=== PATIENT | female | born 1970 | race Caucasian/White ===

== ENCOUNTER → 2017-05-20 | Outpatient (CLI) | payer OTHER ==
[2017-05-20 13:40] LABS: Basophils % (A) 1 %; CH 29.6; CHCM 33.3; Eosinophils # (A) 0.2 k/uL (0-0.7); Eosinophils % (A) 2 %; HCT 41.1 % (34.0-46.0); HDW 2.42; HGB 13.2 gm/dL (11.4-16.0); Luc # (Auto) 0.07; Luc % (Auto) 1; Lymphocytes # (A) 1.4 k/uL (1.0-4.8); Lymphocytes % (A) 22 %; MCH 28.6 pg (25.0-35.0); MCV 89.4 fL (80.0-100.0); Mean Platelet Volume 7.6; Monocytes # (A) 0.4 k/uL (0-1.0); Monocytes % (A) 6 %; Neutrophils # (A) 4.3 k/uL (1.3-7.7); Neutrophils % (A) 68 %; RDW 13.9 % (11.5-15.5); WBC 6.3 k/uL (3.8-10.6); WBC (Perox) 6.78
[2017-05-20 13:56] LABS: Calcium 9.3 mg/dL (8.4-10.2); Magnesium 2.1 mg/dL (1.6-2.3); Phosphorous 2.9 mg/dL (2.5-4.5); Potassium 4.5 mmol/L (3.5-5.1); Uric Acid 8.8 mg/dL (3.7-7.4)
[2017-05-20 14:13] LABS: Hemoglobin A1C 6.2 % (4.2-6.1)
[2017-05-20 20:25] LABS: Iron Saturation 29.27 (12.00-45.00)
== END | disposition home or self-care (01) ==
LOC: LABWHC1 12:34
PROVIDERS: ATTEND Internal Medicine
DX: E11.21 Type 2 diabetes mellitus with diabetic nephropathy (principal); N18.3 Chronic kidney disease, stage 3 (moderate); I12.9 Hypertensive chronic kidney disease with stage 1 through stage 4 chronic kidney disease, or unspecified chronic kidney disease; E56.9 Vitamin deficiency, unspecified; E83.30 Disorder of phosphorus metabolism, unspecified
CPT/HCPCS: 36415; 80048; 80061; 82040; 82306; 82570; 83036; 83540; 83550; 83735; 83970; 84100; 84156; 84466; 84550; 85025

== ENCOUNTER → 2017-08-01 | Outpatient (CLI) | payer OTHER ==
[2017-08-01 11:19] LABS: Appearance,Urine Clear (Clear); Basophils % (A) 1 %; Bilirubin,Urine Negative (Negative); CH 28.7; CHCM 32.6; Eosinophils # (A) 0.4 k/uL (0-0.7); Eosinophils % (A) 6 %; Glucose,Urine (UA) Negative (Negative); HDW 2.52; HGB 13.4 gm/dL (11.4-16.0); Ketones,Urine Negative (Negative); Leukocyte Esterase,Urine Negative (Negative); Luc # (Auto) 0.17; Luc % (Auto) 3; Lymphocytes # (A) 1.3 k/uL (1.0-4.8); Lymphocytes % (A) 20 %; MCH 28.2 pg (25.0-35.0); MCHC 31.9 g/dL (31.0-37.0); MCV 88.4 fL (80.0-100.0); Mean Platelet Volume 7.1; Monocytes # (A) 0.3 k/uL (0-1.0); Monocytes % (A) 5 %; Neutrophils # (A) 4.1 k/uL (1.3-7.7); Neutrophils % (A) 65 %; Nitrite,Urine Negative (Negative); PH, Urine 5.5 (5.0-8.0); Protein,Urine Negative (Negative); RBC 4.75 m/uL (3.80-5.40); RDW 12.6 % (11.5-15.5); Specific Gravity,Urine 1.012 (1.001-1.035); UA Billing (MACRO vs. MICRO) CHEM; Urobilinogen,Urine <2.0 mg/dL (<2.0); WBC 6.3 k/uL (3.8-10.6); WBC (Perox) 6.67
[2017-08-01 11:31] LABS: Calcium 9.3 mg/dL (8.4-10.2); Magnesium 1.8 mg/dL (1.6-2.3); Phosphorus 3.6 mg/dL (2.5-4.5); Potassium 4.4 mmol/L (3.5-5.1); Uric Acid 8.1 mg/dL (3.7-7.4)
[2017-08-01 15:56] LABS: Iron Saturation 23.43 (12.00-45.00)
== END | disposition home or self-care (01) ==
LOC: LABWHC1 10:24
PROVIDERS: ATTEND Internal Medicine
DX: E11.21 Type 2 diabetes mellitus with diabetic nephropathy (principal); E11.22 Type 2 diabetes mellitus with diabetic chronic kidney disease; I12.9 Hypertensive chronic kidney disease with stage 1 through stage 4 chronic kidney disease, or unspecified chronic kidney disease; N18.4 Chronic kidney disease, stage 4 (severe); E56.9 Vitamin deficiency, unspecified; E83.30 Disorder of phosphorus metabolism, unspecified
CPT/HCPCS: 36415; 80048; 80061; 81003; 82040; 82306; 82570; 83036; 83540; 83550; 83735; 83970; 84100; 84156; 84466; 84550; 85025

== ENCOUNTER 2017-10-17 10:49 | Emergency (ER) | payer MEDICARE, OTHER ==
[2017-10-17 11:23] VITALS: BP 132/68; PULSE 85; RESP 18; TEMP 97.8
[2017-10-17] MEDS ORDERED: ACETAMINOPHEN TAB 500 MG TAB PO STA (12:17)
--- NOTE | 2017-10-17 12:26 | ED ---
Fall HPI - General Chief Complaint: Fall Stated Complaint: HEAD INJURY FROM FALL, PAIN ALL OVER Time Seen by Provider: 10/17/17 12:09 Source: patient, RN notes reviewed Mode of arrival: ambulatory - History of Present Illness Initial Comments: This is a 47-year-old female who presents to the emergency department with chief complaint of fall. Patient states that she slipped on a patch of ice at 10 AM this morning and hit the back of her head. She denies loss of consciousness, nausea or vomiting, dizziness, worst headache of her life. Patient denies any other injuries or trauma. She states that she did not take any ibuprofen or Tylenol prior to arrival. She states that she did not go in to see her primary care provider because she is not in today. Denies fever, chills, chest pain, shortness of breath, abdominal pain, nausea or vomiting, constipation or diarrhea, dysuria or hematuria, numbness or tingling, or vision changes. - Related Data Allergies Allergy/AdvReac Type Severity Reaction Status Date / Time No Known Allergies Allergy Verified 10/17/17 11:23 Review of Systems ROS Statement: Those systems with pertinent positive or pertinent negative responses have been documented in the HPI. ROS Other: All systems not noted in ROS Statement are negative. Past Medical History Past Medical History: Diabetes Mellitus, Hyperlipidemia, Hypertension History of Any Multi-Drug Resistant Organisms: None Reported Additional Past Surgical History / Comment(s): Aortic valve replacement, stage 3 kidney failure. Past Psychological History: Anxiety, Depression Smoking Status: Former smoker Past Alcohol Use History: None Reported Past Drug Use History: None Reported General Exam - General Exam Comments Initial Comments: General: Awake and alert, well-developed; in no apparent distress. HEENT: Head atraumatic, normocephalic. Small 2cm x 2cm soft tissue swelling at mid parietal region of skull. Pupils are equal, round and reactive to light. Extraocular movements intact. Oropharynx moist without erythema or exudate. Neck: Supple. Normal ROM. Cardiovascular: Regular rate and rhythm. No murmurs, rubs or gallops. Chest symmetrical. Respiratory: Lungs clear to auscultation bilaterally. No wheezes, rales or rhonchi. Normal respiratory effort with no use of accessory muscles. Musculoskeletal: Normal ROM, no tenderness, strength 5/5 bilateral upper and lower extremities. Ambulating normally. Skin: [place], warm and dry without rashes or lesions. Neurological: Alert and oriented x3. CN II-XII grossly intact. Speech is fluent and answers are appropriate. No focal neuro deficits. Rapid alternating movements normal. Finger to nose testing normal. Romberg negative. Psychiatric: Normal mood and affect. No overt signs of depression or anxiety noted. Limitations: no limitations Course Vital Signs 10/17/17 11:20 Temperature 97.8 F Pulse Rate 85 Respiratory 18 Rate Blood Pressure 132/68 O2 Sat by Pulse 96 Oximetry Medical Decision Making - Medical Decision Making This is a 47-year-old female presents to the emergency department with chief complaint of fall. Patient states that she slipped on a patch of ice and hit the back of her head on the ground. Denies any loss of consciousness, nausea vomiting, worst headache of her life. Patient denies any other injury or trauma. Patient does not take blood thinners. Given Tylenol in the emergency department. Return parameters were discussed including episodes of vomiting, difficulty to arouse while sleeping and severe increase in her headache. Patient is in agreement with plan and voices understanding. All questions were answered. She'll be discharged home at this time and is in no acute distress. Disposition Clinical Impression: Head injury, closed, without LOC Disposition: HOME SELF-CARE Condition: Good Instructions: Head Injury (ED) Additional Instructions: Please return to the emergency department if you develop any episodes of vomiting, difficulty to arouse while sleeping or severe headache. Please follow up with primary care provider within 1-2 days. Return to emergency department if symptoms should worsen or any concerns arise. Referrals: Melina Fatima MD [Primary Care Provider] - 1-2 days Time of Disposition: 12:56
== END 2017-10-17 13:37 | disposition home or self-care (01) ==
LOC: EC 10:49
DX: S09.90XA Unspecified injury of head, initial encounter (principal); Z87.891 Personal history of nicotine dependence; W00.0XXA Fall on same level due to ice and snow, initial encounter
CPT/HCPCS: 99283

== ENCOUNTER → 2018-03-03 | Outpatient (CLI) | payer MEDICARE, OTHER ==
--- NOTE | 2018-03-03 08:54 | CT ---
EXAMINATION TYPE: CT abdomen wo con DATE OF EXAM: 03/03/2018 COMPARISON: NONE HISTORY: Left kidney mass CT DLP: 826 mGycm Automated exposure control for dose reduction was used. TECHNIQUE: Helical acquisition of images was performed from the lung bases through the top of iliac crest to include entire abdomen. CONTRAST: Performed with Oral Contrast and without IV contrast. FINDINGS: LUNG BASES: No significant abnormality is appreciated. LIVER/GB: No significant abnormality is appreciated. PANCREAS: No significant abnormality is seen. SPLEEN: No significant abnormality is seen. ADRENALS: No significant abnormality is seen. KIDNEYS: Lack of IV contrast limits assessment for mass. There is fullness to the lower pole of the l eft kidney which will require either contrast or MRI to exclude a mass. No renal stones or hydronephr osis. BOWEL: No significant abnormality is seen. LYMPH NODES: No significant abnormality is appreciated. OSSEOUS STRUCTURES: Degenerative and hypertrophic changes of the spine are noted. Suggestion of prev ious sternotomy.. OTHER: Aorta of normal caliber. Prominence of the azygos vein is incidentally noted. IMPRESSION: 1.Lack of IV contrast limits assessment for mass. There is fullness to the lower pole of the left kid stalin and marked morphological abnormality which could be congenital. However, this will require either contrast CT or MRI to exclude a mass. Therefore, contrast CT or MRI highly recommended. No renal sto adan or hydronephrosis. 2. 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 This can be associated with congenital IVC abnormalities including congenital IVC interrupt ion or azygous continuation of the IVC. 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
== END | disposition home or self-care (01) ==
LOC: RADCTMAIN 07:12
PROVIDERS: ATTEND Internal Medicine
DX: N28.89 Other specified disorders of kidney and ureter (principal); Q26.8 Other congenital malformations of great veins
CPT/HCPCS: 74150

== ENCOUNTER → 2018-11-04 | Outpatient (CLI) | payer MEDICARE ==
--- NOTE | 2018-11-04 13:55 | P.HPBAR ---
Bariatric H&P - History & Physicial H&P Date: 11/04/18 History & Physicial: Visit/CC: Patient initial contact: Initial weight: Initial weight in pounds: Height: Initial BMI: Last weight: Current weight: Current weight in pounds: Current BMI: [place] body weight (based on NIH guidelines): Excess body weight loss: The patient is a 48 year-old F who presents for Bariatric Assessment. HPI: She is looking into the sleeve gastrectomy. She tried to get surgery years prior but was not covered by her insurance. She has no family or friends who has the prodecure. No heartburn. She denies any antacid medications. Highest weight of 342 pounds. She has tried Nutrisystem, weight watchers all without success. She lost 20 pounds often with weight regain. She reports mother, father and sister with obesity. She takes medication for blood pressure. She has sleep apnea and had the machine. She has an insulin pump since 1999. She is type I diabetic. She has her gallbladder. Her father had a cholecystectomy. No reports of troubles with fatty greasy foods. Has psoariasis. She has chronic panniculitis, lower back pain. No chest pain. No other joint pain. She has history of aortic valve replacement ABDOMEN: Pannus over 30 pounds. MS: 1+ pittng edema NECK: Short, thick neck PLAN: 1. Labs 2. EGD 3. MBSC risks 5% Past Medical History Past Medical History: Diabetes Mellitus, Hyperlipidemia, Hypertension, Sleep Apnea/CPAP/BIPAP Additional Past Medical History / Comment(s): Type 1 DM, hx anemia (take iron supplement daily) , seasonal allergies History of Any Multi-Drug Resistant Organisms: None Reported Additional Past Surgical History / Comment(s): Aortic valve replacement, stage 3 kidney failure., low back pain increased with weight gain Past Anesthesia/Blood Transfusion Reactions: No Reported Reaction Additional Past Anesthesia/Blood Transfusion Reaction / Comm: NO blood transfusion to date Past Psychological History: Anxiety, Depression Additional Psychological History / Comment(s): Take zoloft daily Smoking Status: Former smoker Past Alcohol Use History: None Reported Additional Past Alcohol Use History / Comment(s): Quit smoking 2006 (started smoking at age 12, smoked 1/5 packs/day x 25 years) Past Drug Use History: None Reported Additional Drug Use History / Comment(s): No alcohol usage - Past Family History Mother Family Medical History: Cancer, Hypertension Additional Family Medical History / Comment(s): at age 69 from vulva cancer Father Family Medical History: Dementia, Hypertension, Neurologic Disorder Additional Family Medical History / Comment(s): at age 69 from dementia /parkinsons Sister(s) Family Medical History: Hypertension Bariatric Checklist Checklist: Plan: Checklist: EGD: 1. Hiatal hernia: 2. H. Pylori: HgbA1c: Vitamin D: Smoking: Former smoker Primary care physician referral: Psychiatry clearance: Cardiology clearance: Sleep study: Diet journal: VTE risk score: VTE risk level: Rehab needs at discharge:
[2018-11-04 14:00] VITALS: BP 140/89; PULSE 88; TEMP 97.9; BMI 57.6
[2018-11-04 15:19] LABS: HCT 42.1 % (34.0-46.0); HGB 13.5 gm/dL (11.4-16.0); MCH 28.7 pg (25.0-35.0); MCV 89.6 fL (80.0-100.0); Mean Platelet Volume 6.5; Platelet Count 213 k/uL (150-450); RDW 14.6 % (11.5-15.5); WBC 6.7 k/uL (3.8-10.6)
[2018-11-04 19:24] LABS: Iron Saturation 42.45 (12.00-45.00)
[2018-11-04 19:28] LABS: Albumin 4.5 g/dL (3.80-4.90); Albumin/Globulin Ratio 1.8 (1.60-3.17); Anion Gap 7.8 mmol/L (4.00-12.00); Calcium 9.8 mg/dL (8.7-10.3); Carbon Dioxide 29.2 mmol/L (21.6-31.8); Globulin 2.5 g/dL (1.6-3.3); Phosphorus 3.6 mg/dL (2.4-5.1); Potassium 4.7 mmol/L (3.5-5.5); Total Bilirubin 0.8 mg/dL (0.3-1.2)
[2018-11-04 19:32] LABS: Parathyroid Hormone Intact 75.6 pg/mL (14.0-72.0)
[2018-11-04 19:33] LABS: Folate, Serum 14.8 ng/mL
[2018-11-05 15:43] LABS: Zinc, Serum 80 ug/dL (60-130)
[2018-11-06 09:39] LABS: Vitamin A 82 ug/dL (38-106)
== END ==
LOC: BARWHC3 12:45
PROVIDERS: ATTEND Surgery Plastic and Reconstructive Surgery
DX: M79.3 Panniculitis, unspecified (principal); M54.5 Low back pain; E10.8 Type 1 diabetes mellitus with unspecified complications; E66.01 Morbid (severe) obesity due to excess calories; E21.1 Secondary hyperparathyroidism, not elsewhere classified; E89.1 Postprocedural hypoinsulinemia; D50.9 Iron deficiency anemia, unspecified; K90.9 Intestinal malabsorption, unspecified; E44.0 Moderate protein-calorie malnutrition; E55.9 Vitamin D deficiency, unspecified; K74.1 Hepatic sclerosis; N19 Unspecified kidney failure; K50.90 Crohn's disease, unspecified, without complications; Z87.891 Personal history of nicotine dependence
CPT/HCPCS: 84255; 84134; 84425; 80061; 80053; 82607; 82728; 82525; 82746; 83540; 83550; 83735; 84100; 84443; 84590; 84630; 85027; 82306; 83970; 83036; 93005; G0463; 99211

== ENCOUNTER → 2018-12-26 | Outpatient (CLI) | payer MEDICARE | END | disposition home or self-care (01) | LOC: RADMRIMAIN 13:41 | PROVIDERS: ATTEND Urology | DX: Z53.9 Procedure and treatment not carried out, unspecified reason (principal) ==

== ENCOUNTER 2018-12-28 06:31 | Day surgery (SDC) | payer MEDICARE ==
[2018-12-23 11:39] VITALS: BMI 57.9
[~2018-12-28 06:31] MED LIST: LACTATED RINGERS 1,000 ML IV SCH; LIDOCAINE 1% 20 ML VIAL (10MG/ML) FOR IV START INTRADERMA PRN
[2018-12-28 07:06] VITALS: RESP 16; TEMP 97.2
[2018-12-28] MEDS ORDERED: LIDOCAINE 1% 20 ML VIAL (10MG/ML) FOR IV START INTRADERMA ONE (07:06)
[2018-12-28 07:07] LABS: Glucose,Whole Blood 175 mg/dL (75-99)
--- NOTE | 2018-12-28 07:11 | P.GSHP ---
History of Present Illness H&P Date: 12/28/18 CHIEF COMPLAINT: GERD HISTORY OF PRESENT ILLNESS: The patient is a 48-year-old female who presents reports gastroesophageal reflux disease. Upper endoscopy was offered for further evaluation and management. PAST MEDICAL HISTORY: Please see list. PAST SURGICAL HISTORY: Please see list. MEDICATIONS: Please see list. ALLERGIES: Please see list. SOCIAL HISTORY: No illicit drug use FAMILY HISTORY: No reports of Crohn disease or ulcerative colitis. REVIEW OF ORGAN SYSTEMS: CONSTITUTIONAL: No reports of fevers or chills. GI: Denies any blood in stools or constipation. PHYSICAL EXAM: VITAL SIGNS: Stable GENERAL: Well-developed and pleasant in no acute distress. HEENT: No scleral icterus. Extraocular movements grossly intact. Moist buccal mucosa. NECK: Supple without lymphadenopathy. CHEST: Unlabored respirations. Equal bilateral excursions. CARDIOVASCULAR: Regular rate and rhythm. Distal 2+ pulses. ABDOMEN: Soft, nondistended. MUSCULOSKELETAL: No clubbing, cyanosis, or edema. ASSESSMENT: 1. Gastroesophageal reflux disease PLAN: 1. Recommend proceeding with an upper endoscopy Past Medical History Past Medical History: Diabetes Mellitus, Hyperlipidemia, Hypertension, Sleep Apnea/CPAP/BIPAP Additional Past Medical History / Comment(s): Type 1 DM, hx anemia (take iron supplement daily) , seasonal allergies, STAGE 4 KIDNEY FAILURE, CHRONIC BACK PAIN History of Any Multi-Drug Resistant Organisms: None Reported Additional Past Surgical History / Comment(s): Aortic valve replacement Past Anesthesia/Blood Transfusion Reactions: No Reported Reaction Additional Past Anesthesia/Blood Transfusion Reaction / Comment(s): NO blood transfusion to date Smoking Status: Former smoker - Past Family History Mother Family Medical History: Cancer, Hypertension Additional Family Medical History / Comment(s): at age 69 from vulva cancer Father Family Medical History: Dementia, Hypertension, Neurologic Disorder Additional Family Medical History / Comment(s): at age 69 from dementia/parkinsons Sister(s) Family Medical History: Hypertension Medications and Allergies Home Medications Medication Instructions Recorded Confirmed Type Amitriptyline HCl [Elavil] 50 mg PO HS 11/04/18 12/28/18 History Aspirin [Children's Aspirin] 81 mg PO DAILY 11/04/18 12/28/18 History Atorvastatin [Lipitor] 10 mg PO DAILY 11/04/18 12/28/18 History Bumetanide [Bumex] 1 mg PO DAILY 11/04/18 12/28/18 History Cetirizine HCl [Zyrtec] 10 mg PO DAILY 11/04/18 12/28/18 History Ergocalciferol [Vitamin D2] 50,000 unit PO Q30D 11/04/18 12/28/18 History Ferrous Sulfate [Feosol] 325 mg PO DAILY 11/04/18 12/28/18 History Insulin Aspart (For Pump) [NovoLOG 0.01 unit SQ-PUMP CONTINUOUS 11/04/18 12/28/18 History (For Pump)] Lisinopril [Zestril] 10 mg PO DAILY 11/04/18 12/28/18 History Metoprolol Tartrate [Lopressor] 25 mg PO BID 11/04/18 12/28/18 History Semaglutide [Ozempic] 1 mg SQ SA 11/04/18 12/28/18 History Sertraline HCl [Zoloft] 150 mg PO HS 11/04/18 12/28/18 History Allergies Allergy/AdvReac Type Severity Reaction Status Date / Time adhesive Allergy Intermediate Rash/Hives Verified 12/23/18 11:30 latex Allergy Intermediate Rash/Hives Verified 12/23/18 11:30 Surgical - Exam Vital Signs Temp Pulse Resp BP Pulse Ox 97.2 F L 108 H 16 116/62 98 12/28/18 06:53 12/28/18 06:53 12/28/18 06:53 12/28/18 06:53 12/28/18 06:53 Results - Labs Abnormal Lab Results - Last 24 Hours (Table) 12/28/18 Range/Units 07:02 POC Glucose (mg/dL) 175 H (75-99) mg/dL
[2018-12-28] MEDS ORDERED: PROPOFOL 10 MG/ML 20 ML VIAL IV ONE (07:34)
--- NOTE | 2018-12-28 07:53 | P.PCN ---
Date of Procedure: 12/28/18 Description of Procedure: PREOPERATIVE DIAGNOSIS: Gastroesophageal reflux disease. Morbid obesity. POSTOPERATIVE DIAGNOSIS: Morbid obesity. Gastritis. Gastroesophageal reflux disease. Moderate retained gastric contents Gastroparesis, diabetic OPERATION: Esophagogastroscopy SURGEON: Mallorie Patterson MD ANESTHESIA: MAC. INDICATIONS: The patient is a 48-year-old female who presents with a history of reflux disease. Benefits and risks of the procedure were described. Informed consent was obtained. DESCRIPTION: The patient was brought into the endoscopy suite and laid in the left lateral decubitus position. An Olympus gastroscope was passed along the posterior oropharynx down to the distal esophagus where the squamocolumnar junction was encountered at 36 cm from the incisors. The stomach was entered and the entire stomach was filled with food limiting advancement to the duodenum. As a result of moderate retained food, procedure was discontinued into the stomach. The squamocolumnar junction demonstrated LA grade B erosive esophagitis. The stomach was desufflated. The patient tolerated the procedure well. FINDINGS: Squamocolumnar junction 34 cm from the incisors. LA grade B erosive esophagitis. Entire stomach full of food prohibiting vestment into duodenum Gastritis along gastric cardia RECOMMENDATIONS: Start prokinetics for gastroparesis Will need repeat upper endoscopy however on liquid diet 24 hours prior Plan - Discharge Summary Discharge Rx Participant: Yes New Discharge Prescriptions: New Metoclopramide [Reglan] 10 mg PO ACHS #30 tab No Action Ergocalciferol [Vitamin D2] 50,000 unit PO Q30D Semaglutide [Ozempic] 1 mg SQ SA Amitriptyline HCl [Elavil] 50 mg PO HS Metoprolol Tartrate [Lopressor] 25 mg PO BID Insulin Aspart (For Pump) [NovoLOG (For Pump)] 0.01 unit SQ-PUMP CONTINUOUS Lisinopril [Zestril] 10 mg PO DAILY Ferrous Sulfate [Feosol] 325 mg PO DAILY Atorvastatin [Lipitor] 10 mg PO DAILY Cetirizine HCl [Zyrtec] 10 mg PO DAILY Bumetanide [Bumex] 1 mg PO DAILY Aspirin [Children's Aspirin] 81 mg PO DAILY Sertraline HCl [Zoloft] 150 mg PO HS Discharge Medication List Amitriptyline HCl [Elavil] 50 mg PO HS 11/04/18 [History] Aspirin [Children's Aspirin] 81 mg PO DAILY 11/04/18 [History] Atorvastatin [Lipitor] 10 mg PO DAILY 11/04/18 [History] Bumetanide [Bumex] 1 mg PO DAILY 11/04/18 [History] Cetirizine HCl [Zyrtec] 10 mg PO DAILY 11/04/18 [History] Ergocalciferol [Vitamin D2] 50,000 unit PO Q30D 11/04/18 [History] Ferrous Sulfate [Feosol] 325 mg PO DAILY 11/04/18 [History] Insulin Aspart (For Pump) [NovoLOG (For Pump)] 0.01 unit SQ-PUMP CONTINUOUS 11/04/18 [History] Lisinopril [Zestril] 10 mg PO DAILY 11/04/18 [History] Metoprolol Tartrate [Lopressor] 25 mg PO BID 11/04/18 [History] Semaglutide [Ozempic] 1 mg SQ SA 11/04/18 [History] Sertraline HCl [Zoloft] 150 mg PO HS 11/04/18 [History] Metoclopramide [Reglan] 10 mg PO ACHS #30 tab 12/28/18 [Rx] Follow up Appointment(s)/Referral(s): [facility],. [NON-STAFF] - 01/20/19 Patient Instructions/Handouts: Diabetic Gastroparesis (DC) Discharge Disposition: HOME SELF-CARE
[2018-12-28 08:19] VITALS: BP 103/56; PULSE 95
[2018-12-28 08:45] LABS: Glucose,Whole Blood 154 mg/dL (75-99)
== END 2018-12-28 08:20 | disposition home or self-care (01) ==
LOC: ORWHC2ENDO 06:31
PROVIDERS: ATTEND Surgery Plastic and Reconstructive Surgery
DX: K21.0 Gastro-esophageal reflux disease with esophagitis (principal); K29.70 Gastritis, unspecified, without bleeding; E10.43 Type 1 diabetes mellitus with diabetic autonomic (poly)neuropathy; K31.84 Gastroparesis; I12.9 Hypertensive chronic kidney disease with stage 1 through stage 4 chronic kidney disease, or unspecified chronic kidney disease; E10.22 Type 1 diabetes mellitus with diabetic chronic kidney disease; N18.4 Chronic kidney disease, stage 4 (severe); E78.5 Hyperlipidemia, unspecified; E66.01 Morbid (severe) obesity due to excess calories; Z68.43 Body mass index [BMI] 50.0-59.9, adult; G47.33 Obstructive sleep apnea (adult) (pediatric); Z99.89 Dependence on other enabling machines and devices; D64.9 Anemia, unspecified; G89.29 Other chronic pain; M54.5 Low back pain; J30.2 Other seasonal allergic rhinitis; Z96.41 Presence of insulin pump (external) (internal); Z95.2 Presence of prosthetic heart valve; Z87.891 Personal history of nicotine dependence; Z80.49 Family history of malignant neoplasm of other genital organs; Z79.82 Long term (current) use of aspirin; Z79.899 Other long term (current) drug therapy; Z91.040 Latex allergy status; Z91.048 Other nonmedicinal substance allergy status
CPT/HCPCS: 81025; 84703; 43235; J2704

== ENCOUNTER → 2019-01-20 | Outpatient (CLI) | payer MEDICARE ==
[2019-01-20 16:04] VITALS: BP 134/77; PULSE 88; RESP 16; TEMP 98; BMI 56.3
--- NOTE | 2019-01-20 16:57 | P.PN ---
Progress Note - Text Progress Note Date: 01/20/19 HPI: She is currently ill and sick for 3 weeks. She comes in with coughing. Her blood sugars are over 200s. She is short of breath. ABDOMEN: Soft LABS: All reviewed with stage 3 liver disease ASSESSMENT: 1. Morbid obesity 2. Aspiration pneumonia PLAN: 1. Chest xray for pneumonia 2. CBC repeat for pneumonia 3. Esophagram for severe GERD 4. Will need repeat EGD after recovery of pneumonia 5. Referral to library aide described following results of Chest Xray. 6. Follow up in 1 month
[2019-01-20 17:51] LABS: HCT 38.7 % (34.0-46.0); HGB 12.6 gm/dL (11.4-16.0); MCH 28.8 pg (25.0-35.0); MCHC 32.5 g/dL (31.0-37.0); MCV 88.4 fL (80.0-100.0); Mean Platelet Volume 7.3; Platelet Count 219 k/uL (150-450); RBC 4.38 m/uL (3.80-5.40); RDW 14.6 % (11.5-15.5); WBC 9.1 k/uL (3.8-10.6)
== END | disposition home or self-care (01) ==
LOC: BARWHC3 15:24
PROVIDERS: ATTEND Surgery Plastic and Reconstructive Surgery
DX: J69.0 Pneumonitis due to inhalation of food and vomit (principal); E66.01 Morbid (severe) obesity due to excess calories; K21.9 Gastro-esophageal reflux disease without esophagitis; Z68.43 Body mass index [BMI] 50.0-59.9, adult
CPT/HCPCS: 85027; 36415; G0463; 99211

== ENCOUNTER → 2019-01-22 | Outpatient (CLI) | payer MEDICARE ==
--- NOTE | 2019-01-22 09:36 | XR ---
EXAMINATION TYPE: XR chest 2V DATE OF EXAM: 01/22/2019 COMPARISON: None INDICATION: Shortness of breath TECHNIQUE: Frontal and lateral views of the chest are obtained. FINDINGS: The heart size is normal. The pulmonary vasculature is normal. The lungs are clear. Sternotomy wires are present from prior cardiac valve surgery IMPRESSION: 1. No acute pulmonary process.
== END | disposition home or self-care (01) ==
LOC: RADXRMAIN 09:08
PROVIDERS: ATTEND Surgery Plastic and Reconstructive Surgery
DX: R06.02 Shortness of breath (principal); R06.03 Acute respiratory distress; Z88.3 Allergy status to other anti-infective agents; Z91.048 Other nonmedicinal substance allergy status
CPT/HCPCS: 71046

== ENCOUNTER 2019-02-01 12:32 | Day surgery (SDC) | payer MEDICARE ==
--- NOTE | 2019-01-31 14:29 | P.GSHP ---
History of Present Illness H&P Date: 02/01/19 CHIEF COMPLAINT: GERD HISTORY OF PRESENT ILLNESS: The patient is a 48-year-old female who presents reports gastroesophageal reflux disease. Upper endoscopy was offered for further evaluation and management. PAST MEDICAL HISTORY: Please see list. PAST SURGICAL HISTORY: Please see list. MEDICATIONS: Please see list. ALLERGIES: Please see list. SOCIAL HISTORY: No illicit drug use FAMILY HISTORY: No reports of Crohn disease or ulcerative colitis. REVIEW OF ORGAN SYSTEMS: CONSTITUTIONAL: No reports of fevers or chills. GI: Denies any blood in stools or constipation. PHYSICAL EXAM: VITAL SIGNS: Stable GENERAL: Well-developed and pleasant in no acute distress. HEENT: No scleral icterus. Extraocular movements grossly intact. Moist buccal mucosa. NECK: Supple without lymphadenopathy. CHEST: Unlabored respirations. Equal bilateral excursions. CARDIOVASCULAR: Regular rate and rhythm. Distal 2+ pulses. ABDOMEN: Soft, nondistended. MUSCULOSKELETAL: No clubbing, cyanosis, or edema. ASSESSMENT: 1. Gastroesophageal reflux disease PLAN: 1. Recommend proceeding with an upper endoscopy Past Medical History Past Medical History: Diabetes Mellitus, Hyperlipidemia, Hypertension, Sleep Apnea/CPAP/BIPAP Additional Past Medical History / Comment(s): Type 1 DM, hx anemia (take iron supplement daily) , seasonal allergies, STAGE 4 KIDNEY FAILURE, CHRONIC BACK PAIN History of Any Multi-Drug Resistant Organisms: None Reported Additional Past Surgical History / Comment(s): Aortic valve replacement Past Anesthesia/Blood Transfusion Reactions: No Reported Reaction Additional Past Anesthesia/Blood Transfusion Reaction / Comment(s): NO blood transfusion to date Past Psychological History: Anxiety, Depression Additional Psychological History / Comment(s): Take zoloft daily Smoking Status: Former smoker Past Alcohol Use History: None Reported Additional Past Alcohol Use History / Comment(s): Quit smoking 2006 (started smoking at age 12, smoked 1/5 packs/day x 25 years) Past Drug Use History: None Reported Additional Drug Use History / Comment(s): No alcohol usage - Past Family History Mother Family Medical History: Cancer, Hypertension Additional Family Medical History / Comment(s): at age 69 from vulva cancer Father Family Medical History: Dementia, Hypertension, Neurologic Disorder Additional Family Medical History / Comment(s): at age 69 from dementia/parkinsons Sister(s) Family Medical History: Hypertension Medications and Allergies Home Medications Medication Instructions Recorded Confirmed Type Amitriptyline HCl [Elavil] 50 mg PO HS 11/04/18 01/29/19 History Aspirin [Children's Aspirin] 81 mg PO DAILY 11/04/18 01/29/19 History Bumetanide [Bumex] 1 mg PO QAM 11/04/18 01/29/19 History Cetirizine HCl [Zyrtec] 10 mg PO QAM 11/04/18 01/29/19 History Ergocalciferol [Vitamin D2] 50,000 unit PO Q30D 11/04/18 01/29/19 History Ferrous Sulfate [Feosol] 325 mg PO DAILY 11/04/18 01/29/19 History Insulin Aspart (For Pump) [NovoLOG 0.01 unit SQ-PUMP CONTINUOUS 11/04/18 01/29/19 History (For Pump)] Lisinopril [Zestril] 10 mg PO QAM 11/04/18 01/29/19 History Metoprolol Tartrate [Lopressor] 25 mg PO BID 11/04/18 01/29/19 History Semaglutide [Ozempic] 1 mg SQ SA 11/04/18 01/29/19 History Sertraline HCl [Zoloft] 150 mg PO HS 11/04/18 01/29/19 History Atorvastatin [Lipitor] 40 mg PO HS 01/29/19 01/29/19 History Metoclopramide [Reglan] 10 mg PO BID 01/29/19 01/29/19 History Allergies Allergy/AdvReac Type Severity Reaction Status Date / Time adhesive Allergy Intermediate Rash/Hives Verified 01/29/19 09:07 latex Allergy Intermediate Rash/Hives Verified 01/29/19 09:07
[~2019-02-01 12:32] MED LIST changes: -LIDOCAINE 1% 20 ML VIAL (10MG/ML) FOR IV START INTRADERMA PRN
[2019-02-01 13:05] VITALS: TEMP 97.5
[2019-02-01 13:30] LABS: Glucose,Whole Blood 197 mg/dL (75-99)
[2019-02-01] MEDS ORDERED: PROPOFOL 10 MG/ML 20 ML VIAL IV ONE (14:33)
[2019-02-01] MEDS ORDERED: LIDOCAINE 1% INJ 10MG/ML (20 ML MDV) ONE (14:33)
--- NOTE | 2019-02-01 14:49 | P.PCN ---
Date of Procedure: 02/01/19 Description of Procedure: PREOPERATIVE DIAGNOSIS: Gastroesophageal reflux disease. Morbid obesity. POSTOPERATIVE DIAGNOSIS: Morbid obesity. Gastritis. Gastroesophageal reflux disease. Diaphragmatic hiatal hernia OPERATION: Esophagogastroduodenoscopy with biopsies along antrum. SURGEON: Mallorie Patterson MD ANESTHESIA: MAC. INDICATIONS: The patient is a 48-year-old female who presents with a history of reflux disease. Benefits and risks of the procedure were described. Informed consent was obtained. DESCRIPTION: The patient was brought into the endoscopy suite and laid in the left lateral decubitus position. An Olympus gastroscope was passed along the posterior oropharynx down to the distal esophagus where the squamocolumnar junction was encountered at 35 cm from the incisors. The stomach was entered and no bile reflux was found. Additional findings are listed below. Biopsies with cold fo rceps were obtained of the antrum. The first through third portion of the duodenum was examined and unremarkable. Retroflexion of the scope confirmed Hill grade 3 lower esophageal valve. The squamocolumnar junction demonstrated LA grade B erosive esophagitis. The stomach was desufflated. The patient tolerated the procedure well. FINDINGS: Squamocolumnar junction 35 cm from the incisors. Diaphragmatic hiatus at 38 cm. Hiatal hernia, 3 cm Hill grade 3 lower esophageal valve. LA grade B erosive esophagitis. No active duodenitis. Chronic gastritis RECOMMENDATIONS: Upper endoscopy as needed. Plan - Discharge Summary Discharge Rx Participant: Yes New Discharge Prescriptions: No Action Ergocalciferol [Vitamin D2] 50,000 unit PO Q30D Semaglutide [Ozempic] 1 mg SQ SA Amitriptyline HCl [Elavil] 50 mg PO HS Metoprolol Tartrate [Lopressor] 25 mg PO BID Insulin Aspart (For Pump) [NovoLOG (For Pump)] 0.01 unit SQ-PUMP CONTINUOUS Lisinopril [Zestril] 10 mg PO QAM Ferrous Sulfate [Feosol] 325 mg PO DAILY Cetirizine HCl [Zyrtec] 10 mg PO QAM Bumetanide [Bumex] 1 mg PO QAM Aspirin [Children's Aspirin] 81 mg PO DAILY Sertraline HCl [Zoloft] 150 mg PO HS Metoclopramide [Reglan] 10 mg PO BID Atorvastatin [Lipitor] 40 mg PO HS Discharge Medication List Amitriptyline HCl [Elavil] 50 mg PO HS 11/04/18 [History] Aspirin [Children's Aspirin] 81 mg PO DAILY 11/04/18 [History] Bumetanide [Bumex] 1 mg PO QAM 11/04/18 [History] Cetirizine HCl [Zyrtec] 10 mg PO QAM 11/04/18 [History] Ergocalciferol [Vitamin D2] 50,000 unit PO Q30D 11/04/18 [History] Ferrous Sulfate [Feosol] 325 mg PO DAILY 11/04/18 [History] Insulin Aspart (For Pump) [NovoLOG (For Pump)] 0.01 unit SQ-PUMP CONTINUOUS 11/04/18 [History] Lisinopril [Zestril] 10 mg PO QAM 11/04/18 [History] Metoprolol Tartrate [Lopressor] 25 mg PO BID 11/04/18 [History] Semaglutide [Ozempic] 1 mg SQ SA 11/04/18 [History] Sertraline HCl [Zoloft] 150 mg PO HS 11/04/18 [History] Atorvastatin [Lipitor] 40 mg PO HS 01/29/19 [History] Metoclopramide [Reglan] 10 mg PO BID 01/29/19 [History] Follow up Appointment(s)/Referral(s): [facility],. [NON-STAFF] - 03/10/19 Patient Instructions/Handouts: Gastritis (DC) Discharge Disposition: HOME SELF-CARE
[2019-02-01 14:52] VITALS: RESP 16
[2019-02-01 15:13] VITALS: BP 122/79; PULSE 88
== END 2019-02-01 15:31 | disposition home or self-care (01) ==
LOC: ORWHC2ENDO 12:32
PROVIDERS: ATTEND Surgery Plastic and Reconstructive Surgery
DX: K21.9 Gastro-esophageal reflux disease without esophagitis (principal); K29.50 Unspecified chronic gastritis without bleeding; K44.9 Diaphragmatic hernia without obstruction or gangrene; E78.5 Hyperlipidemia, unspecified; G47.33 Obstructive sleep apnea (adult) (pediatric); Z99.89 Dependence on other enabling machines and devices; I12.9 Hypertensive chronic kidney disease with stage 1 through stage 4 chronic kidney disease, or unspecified chronic kidney disease; E10.22 Type 1 diabetes mellitus with diabetic chronic kidney disease; N18.4 Chronic kidney disease, stage 4 (severe); Z79.4 Long term (current) use of insulin; Z96.41 Presence of insulin pump (external) (internal); E66.01 Morbid (severe) obesity due to excess calories; Z68.43 Body mass index [BMI] 50.0-59.9, adult; D64.9 Anemia, unspecified; Z95.2 Presence of prosthetic heart valve; G89.29 Other chronic pain; M54.9 Dorsalgia, unspecified; F41.9 Anxiety disorder, unspecified; F32.9 Major depressive disorder, single episode, unspecified; Z87.891 Personal history of nicotine dependence; Z80.49 Family history of malignant neoplasm of other genital organs; Z79.82 Long term (current) use of aspirin; Z79.899 Other long term (current) drug therapy; Z91.040 Latex allergy status; Z91.09 Other allergy status, other than to drugs and biological substances
CPT/HCPCS: 43239; J2001; J2704; 88305

== ENCOUNTER → 2019-02-08 | Outpatient (CLI) | payer MEDICARE ==
[2019-02-08 13:51] VITALS: BMI 57.4
== END ==
LOC: BARWHC3 08:38
PROVIDERS: ATTEND Surgery Plastic and Reconstructive Surgery
DX: E66.01 Morbid (severe) obesity due to excess calories (principal); Z68.43 Body mass index [BMI] 50.0-59.9, adult
CPT/HCPCS: 97804

== ENCOUNTER → 2019-03-10 | Outpatient (CLI) | payer MEDICARE ==
[2019-03-10 15:03] VITALS: BP 129/82; PULSE 97; RESP 16; TEMP 97.7; BMI 56.0
--- NOTE | 2019-03-10 15:57 | P.PN ---
Subjective Progress Note Date: 03/10/19 DATE OF SERVICE: 03/10/2019 CHIEF COMPLAINT: Morbid obesity HISTORY OF PRESENT ILLNESS: Radha Grande is a 48-year-old female who comes with lifelong morbid obesity. She was looking into the sleeve gastrectomy and now looking into the gastric bypass. She has history of diaphragmatic nephropathy. 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 At height of 5 feet 3.5 inches, her ideal body weight is 140 pounds. She comes in 320 pounds from 329 pounds, 1 month ago. Weight loss of 9 pounds in 1 month. Her highest weight was 342 pounds. Her body mass index highest was 59.8. Today her BMI is 56.0. She is 180 pounds overweight. PAST MEDICAL HISTORY: 1. Morbid obesity due to excess calories 2. Body mass index of 59.8, initial 3. Hypertensive heart disease. 4. Obstructive sleep apnea 5. Diabetes type I, insulin dependent 6. Chronic panniculitis 7. Osteoarthritis of the lower back. 8. Depression 9. Anxiety disorder 10. Hyperlipidemia 11. Iron deficiency 12. Congestive heart failure 13. Gastroesophageal reflux disease 14. Diabetic nephropathy, stage 3 PAST SURGICAL HISTORY: 1. Aortic valve replacement 2. Upper endoscopy HOME MEDICATIONS: ALLERGIES: Medications and Allergies Home Medications Medication Instructions Recorded Confirmed Type Amitriptyline HCl [Elavil] 50 mg PO HS 11/04/18 12/28/18 History Aspirin [Children's Aspirin] 81 mg PO DAILY 11/04/18 12/28/18 History Atorvastatin [Lipitor] 10 mg PO DAILY 11/04/18 12/28/18 History Bumetanide [Bumex] 1 mg PO DAILY 11/04/18 12/28/18 History Cetirizine HCl [Zyrtec] 10 mg PO DAILY 11/04/18 12/28/18 History Ergocalciferol [Vitamin D2] 50,000 unit PO Q30D 11/04/18 12/28/18 History Ferrous Sulfate [Feosol] 325 mg PO DAILY 11/04/18 12/28/18 History Insulin Aspart (For Pump) [NovoLOG 0.01 unit SQ-PUMP CONTINUOUS 11/04/18 12/28/18 History (For Pump)] Lisinopril [Zestril] 10 mg PO DAILY 11/04/18 12/28/18 History Metoprolol Tartrate [Lopressor] 25 mg PO BID 11/04/18 12/28/18 History Semaglutide [Ozempic] 1 mg SQ SA 11/04/18 12/28/18 History Sertraline HCl [Zoloft] 150 mg PO HS 11/04/18 12/28/18 History Allergies Allergy/AdvReac Type Severity Reaction Status Date / Time adhesive Allergy Intermediate Rash/Hives Verified 12/23/18 11:30 latex Allergy Intermediate Rash/Hives Verified 12/23/18 11:30 SOCIAL HISTORY: Past tobacco use. FAMILY HISTORY: No family history of ulcerative colitis disease or Crohn's disease. Family history of morbid obesity. No lupus in the family. No reports of stomach or esophageal cancer. REVIEW OF ORGAN SYSTEMS: CONSTITUTIONAL: At height of 5 feet 3.5 inches, her ideal body weight is 140 pounds. Her highest weight was 342 pounds. Her body mass index highest was 59.8. HEENT: Denies any active troubles with vision or hearing. No troubles with swallowing. ENDOCRINE: Has diabetes. No hypothyroidism. CARDIOVASCULAR: Past reports of palpitations or heart attacks or chest pain. RESPIRATORY: Has daytime somnolence. Has sleep apnea. GI: Denies any bright red blood per rectum. No diarrhea. Has GERD. MUSCULOSKELETAL: Has lower back pain and joint pain. History of bilateral lower extremity edema. NEURO: No headaches. No seizure disorders. PSYCH: Has depression. No suicidal ideation. Has anxiety. RHEUMATOLOGIC: No lupus. No rheumatoid arthritis. HEMATOLOGIC: Denies any abnormal bleeding or bruising. No personal history of DVTs. SKIN: Has panniculitis. No skin cancer. : Stage III renal insufficiency. PHYSICAL EXAM: VITAL SIGNS: Height 5 foot 3.5 inches, weight 320 pounds. BMI 56.0 Vital Signs Temp 97.7 F 03/10/19 14:59 Pulse 97 03/10/19 14:59 Resp 16 03/10/19 14:59 BP 129/82 03/10/19 14:59 Pulse Ox GENERAL: Well-developed in no acute distress. HEENT: No scleral icterus. Extraocular movements grossly intact. Hears conversational speech. No nasal drainage. NECK: Supple without lymphadenopathy. Short, thick neck CHEST: Nonlabored respirations with equal bilateral excursions. CARDIOVASCULAR: Regular rate and regular rhythm. Distal 2+ pulses. ABDOMEN: Obese, soft, nontender, nondistended. Pannus over 30 pounds. MUSCULOSKELETAL: No clubbing, cyanosis. Gross strength 5/5 distal lower extremities. 1+ pittng edema NEURO: No focal or lateralizing signs. Cranial nerves 2 through 12 grossly within normal limits. PSYCH: Appropriate affect. Alert and oriented to person, place and time. SKIN: Good skin turgor. Well perfused. Has panniculitis. EGD FINDINGS: Squamocolumnar junction 35 cm from the incisors. Diaphragmatic hiatus at 38 cm. Hiatal hernia, 3 cm Hill grade 3 lower esophageal valve. LA grade B erosive esophagitis. No active duodenitis. Chronic gastritis ASSESSMENT: 1. Morbid obesity due to excess calories 2. Body mass index of 59.8 to 56.3 3. Hypertensive heart disease. 4. Obstructive sleep apnea 5. Diabetes type I, insulin dependent 6. Chronic panniculitis 7. Osteoarthritis of the lower back. 8. Depression 9. Anxiety disorder 10. Hyperlipidemia 11. Iron deficiency 12. Congestive heart failure 13. Gastroesophageal reflux disease 14. Diabetic nephropathy, stage 3 15. History of aspiration pneumonia 16. Diabetic gastroparesis PLAN: 1. Bariatric options between a sleeve, band and a [id number] gastric bypass were reviewed in detail. The patient elected for a gastric bypass. Robotic assisted approach described. 2. The [place] [facility] Data was also reviewed with benefits and risks as described. 3. An 8 page second-generation bariatric consent form was reviewed in detail including potential of bleeding, infection, leaks, adequate weight loss, n utritional deficiencies which the patient demonstrated understanding of the risks. 4. A 2 week high-protein low caloric 800 kcal diet described to address hepatomegaly. 5. Preoperative labs including complete metabolic panel and CBC with type and screen recommended. 6. DVT prophylaxis per [place] [facility]. 7. Antibiotic prophylaxis. 8. Inpatient hospitalization anticipated for more than 2 nights. 9. All questions and concerns were addressed with the patient. 10. Risks for tobacco exposure reviewed including leaks and complication. 11. To prevent, renal injury 2 protein shakes daily described. 12. She is high risk for complications with multiple comorbidities including diabetes type 2 with stage III renal insufficiency, hypertensive heart disease, and gastroparesis. Objective - Vital Signs Vital signs: Vital Signs Temp 97.7 F 03/10/19 14:59 Pulse 97 03/10/19 14:59 Resp 16 03/10/19 14:59 BP 129/82 03/10/19 14:59 Pulse Ox Intake & Output 03/09/19 03/10/19 03/10/19 18:59 06:59 18:59 Weight 145.603 kg
== END | disposition home or self-care (01) ==
LOC: BARWHC3 14:02
PROVIDERS: ATTEND Surgery Plastic and Reconstructive Surgery
DX: E66.01 Morbid (severe) obesity due to excess calories (principal); G47.33 Obstructive sleep apnea (adult) (pediatric); M79.3 Panniculitis, unspecified; M47.816 Spondylosis without myelopathy or radiculopathy, lumbar region; F32.9 Major depressive disorder, single episode, unspecified; F41.9 Anxiety disorder, unspecified; E78.5 Hyperlipidemia, unspecified; E61.1 Iron deficiency; I13.0 Hypertensive heart and chronic kidney disease with heart failure and stage 1 through stage 4 chronic kidney disease, or unspecified chronic kidney disease; I50.9 Heart failure, unspecified; E10.22 Type 1 diabetes mellitus with diabetic chronic kidney disease; N18.3 Chronic kidney disease, stage 3 (moderate); K21.9 Gastro-esophageal reflux disease without esophagitis; E10.43 Type 1 diabetes mellitus with diabetic autonomic (poly)neuropathy; K31.84 Gastroparesis; Z68.43 Body mass index [BMI] 50.0-59.9, adult; Z87.891 Personal history of nicotine dependence; Z87.01 Personal history of pneumonia (recurrent); Z95.2 Presence of prosthetic heart valve; Z98.84 Bariatric surgery status; Z79.4 Long term (current) use of insulin; Z79.82 Long term (current) use of aspirin; Z79.899 Other long term (current) drug therapy
CPT/HCPCS: 99211

== ENCOUNTER 2019-03-31 12:04 | Observation (INO) | payer MEDICARE ==
[2019-03-31] MEDS ORDERED: SODIUM CHLORIDE 0.9% 1,000 ML IV STA (12:23)
[2019-03-31] MEDS ORDERED: SODIUM CHLORIDE 0.9% 500 ML 500 ML IV STA (12:23)
[2019-03-31 13:21] LABS: Basophils % (A) 0 %; Eosinophils # (A) 0.1 k/uL (0-0.7); Eosinophils % (A) 1 %; HCT 39.7 % (34.0-46.0); Lymphocytes # (A) 1.1 k/uL (1.0-4.8); Lymphocytes % (A) 10 %; MCH 29.2 pg (25.0-35.0); MCHC 32.6 g/dL (31.0-37.0); MCV 89.5 fL (80.0-100.0); Mean Platelet Volume 6.9; Monocytes # (A) 0.5 k/uL (0-1.0); Monocytes % (A) 4 %; Neutrophils # (A) 8.6 k/uL (1.3-7.7); Neutrophils % (A) 83 %; Platelet Count 242 k/uL (150-450); RBC 4.43 m/uL (3.80-5.40); RDW 13.2 % (11.5-15.5); VBG PH 7.42 (7.31-7.41); WBC 10.4 k/uL (3.8-10.6)
--- NOTE | 2019-03-31 13:28 | ED ---
Recheck HPI - General Source: patient, RN notes reviewed Mode of arrival: ambulatory Limitations: no limitations <Cecil Escamilla - Last Filed: 03/31/19 14:36> <Steve Gonzalez - Last Filed: 03/31/19 14:48> - General Chief Complaint: Recheck/Abnormal Lab/Rx Stated Complaint: High Sugar Time Seen by Provider: 03/31/19 12:21 - History of Present Illness Initial Comments: This a 40-year-old female presents emergency Department chief complaint of hyperglycemia. Patient states her blood sugar has been higher last couple days. Patient that she woke up today in her, read high. Patient didn't give herself 15 units of NovoLog states that she went back to sleep. Patient is she woke up and it was 548. Patient denies any URI symptoms. Denies any nausea vomiting diarrhea constipation. She does admit to polydipsia polyuria. Patient states that she has not insulin pump she sees Dr. Wilson (Cecil Escamilla) - Related Data Home Medications Medication Instructions Recorded Confirmed Amitriptyline HCl [Elavil] 50 mg PO HS 11/04/18 03/31/19 Aspirin [Children's Aspirin] 81 mg PO DAILY 11/04/18 03/31/19 Bumetanide [Bumex] 1 mg PO QAM 11/04/18 03/31/19 Cetirizine HCl [Zyrtec] 10 mg PO QAM 11/04/18 03/31/19 Ergocalciferol [Vitamin D2] 50,000 unit PO Q30D 11/04/18 03/31/19 Ferrous Sulfate [Feosol] 325 mg PO DAILY 11/04/18 03/31/19 Insulin Aspart (For Pump) [NovoLOG 0.01 unit SQ-PUMP CONTINUOUS 11/04/18 03/31/19 (For Pump)] Lisinopril [Zestril] 10 mg PO QAM 11/04/18 03/31/19 Metoprolol Tartrate [Lopressor] 25 mg PO BID 11/04/18 03/31/19 Semaglutide [Ozempic] 1 mg SQ SA 11/04/18 03/31/19 Sertraline HCl [Zoloft] 150 mg PO HS 11/04/18 03/31/19 Atorvastatin [Lipitor] 40 mg PO HS 01/29/19 03/31/19 Metoclopramide [Reglan] 10 mg PO BID 01/29/19 03/31/19 INSULIN ASPART (NovoLOG) [NovoLOG 15 unit SQ ONCE PRN 03/31/19 03/31/19 (formulary)] Allergies Allergy/AdvReac Type Severity Reaction Status Date / Time adhesive Allergy Intermediate Rash/Hives Verified 03/31/19 12:28 latex Allergy Intermediate Rash/Hives Verified 03/31/19 12:28 Review of Systems ROS Other: All systems not noted in ROS Statement are negative. <Cecil Escamilla - Last Filed: 03/31/19 14:36> ROS Other: All systems not noted in ROS Statement are negative. <Steve Gonzalez - Last Filed: 03/31/19 14:48> ROS Statement: Those systems with pertinent positive or pertinent negative responses have been documented in the HPI. Past Medical History Past Medical History: Diabetes Mellitus, Hyperlipidemia, Hypertension, Renal Disease, Sleep Apnea/CPAP/BIPAP Additional Past Medical History / Comment(s): seasonal allergies, STAGE 4 KIDNEY FAILURE, CHRONIC BACK PAIN History of Any Multi-Drug Resistant Organisms: None Reported Additional Past Surgical History / Comment(s): Aortic valve replacement Past Anesthesia/Blood Transfusion Reactions: No Reported Reaction Additional Past Anesthesia/Blood Transfusion Reaction / Comment(s): NO blood t ransfusion to date Past Psychological History: Anxiety, Depression Smoking Status: Former smoker Past Alcohol Use History: None Reported Past Drug Use History: None Reported - Past Family History Mother Family Medical History: Cancer, Hypertension Additional Family Medical History / Comment(s): at age 69 from vulva cancer Father Family Medical History: Dementia, Hypertension, Neurologic Disorder Additional Family Medical History / Comment(s): at age 69 from dementia/parkinsons Sister(s) Family Medical History: Hypertension <Cecil Escamilla - Last Filed: 03/31/19 14:36> General Exam Limitations: no limitations General appearance: alert, in no apparent distress Head exam: Present: atraumatic, normocephalic, normal inspection Eye exam: Present: normal appearance, PERRL, EOMI. Absent: scleral icterus, conjunctival injection, periorbital swelling ENT exam: Present: normal exam, normal oropharynx, mucous membranes moist Neck exam: Present: normal inspection, full ROM. Absent: tenderness, meningismus, lymphadenopathy Respiratory exam: Present: normal lung sounds bilaterally. Absent: respiratory distress, wheezes, rales, rhonchi, stridor Cardiovascular Exam: Present: normal rhythm, tachycardia, normal heart sounds. Absent: systolic murmur, diastolic murmur, rubs, gallop, clicks GI/Abdominal exam: Present: soft, normal bowel sounds. Absent: distended, tenderness, guarding, rebound, rigid Neurological exam: Present: alert, oriented X3, CN II-XII intact <Cecil Escamilla - Last Filed: 03/31/19 14:36> Course Vital Signs 03/31/19 03/31/19 03/31/19 12:12 13:00 14:00 Temperature 98.1 F Pulse Rate 111 H 108 H 92 Respiratory 18 22 20 Rate Blood Pressure 134/88 135/81 135/88 O2 Sat by Pulse 96 99 99 Oximetry Medical Decision Making - Lab Data Result diagrams: 03/31/19 12:50 03/31/19 12:50 <Cecil Escamilla - Last Filed: 03/31/19 14:36> - Lab Data Result diagrams: 03/31/19 12:50 03/31/19 12:50 <Steve Gonzalez - Last Filed: 03/31/19 14:48> - Medical Decision Making 40-year-old female presented emergency from for hyperglycemia. Patient has acute kidney injury, dehydration, hyperglycemia with lactic acidosis and acetone positive. Patient be treated inpatient with IV fluids, insulin drip for mild DKA. (Cecil Escamilla) Case discussed with practitioner Cecil. Case also discussed with Dr. Marquez, who will admit for Dr. Daily. Chart and results reviewed. (Steve Gonzalez) - Lab Data Lab Results 03/31/19 03/31/19 03/31/19 Range/Units 12:50 12:50 12:50 WBC 10.4 (3.8-10.6) k/uL RBC 4.43 (3.80-5.40) m/uL Hgb 13.0 (11.4-16.0) gm/dL Hct 39.7 (34.0-46.0) % MCV 89.5 (80.0-100.0) fL MCH 29.2 (25.0-35.0) pg MCHC 32.6 (31.0-37.0) g/dL RDW 13.2 (11.5-15.5) % Plt Count 242 (150-450) k/uL Neutrophils % 83 % Lymphocytes % 10 % Monocytes % 4 % Eosinophils % 1 % Basophils % 0 % Neutrophils # 8.6 H (1.3-7.7) k/uL Lymphocytes # 1.1 (1.0-4.8) k/uL Monocytes # 0.5 (0-1.0) k/uL Eosinophils # 0.1 (0-0.7) k/uL Basophils # 0.0 (0-0.2) k/uL VBG pH (7.31-7.41) VBG pCO2 (37-51) mmHg VBG HCO3 (24-28) mmol/L Sodium 132 L (137-145) mmol/L Potassium 4.7 (3.5-5.1) mmol/L Chloride 97 L (98-107) mmol/L Carbon Dioxide 22 (22-30) mmol/L Anion Gap 13 mmol/L BUN 37 H (7-17) mg/dL Creatinine 2.42 H (0.52-1.04) mg/dL Est GFR (CKD-EPI)AfAm 27 (>60 ml/min/1.73 sqM) Est GFR (CKD-EPI)NonAf 23 (>60 ml/min/1.73 sqM) Glucose 411 H (74-99) mg/dL Plasma Lactic Acid Crow 2.4 H* (0.7-2.0) mmol/L Calcium 10.1 (8.4-10.2) mg/dL Total Bilirubin 0.5 (0.2-1.3) mg/dL AST 28 (14-36) U/L ALT 27 (9-52) U/L Alkaline Phosphatase 131 H (38-126) U/L Total Protein 7.2 (6.3-8.2) g/dL Albumin 4.0 (3.5-5.0) g/dL Amylase 34 (30-110) U/L Lipase 142 (23-300) U/L Urine Color Urine Appearance (Clear) Urine pH (5.0-8.0) Ur Specific [place] (1.001-1.035) Urine Protein (Negative) Urine Glucose (UA) (Negative) Urine Ketones (Negative) Urine Blood (Negative) Urine Nitrite (Negative) Urine Bilirubin (Negative) Urine Urobilinogen (<2.0) mg/dL Ur Leukocyte Esterase (Negative) Acetone, Qual Positive (Negative) 03/31/19 03/31/19 Range/Units 12:50 12:50 WBC (3.8-10.6) k/uL RBC (3.80-5.40) m/uL Hgb (11.4-16.0) gm/dL Hct (34.0-46.0) % MCV (80.0-100.0) fL MCH (25.0-35.0) pg MCHC (31.0-37.0) g/dL RDW (11.5-15.5) % Plt Count (150-450) k/uL Neutrophils % % Lymphocytes % % Monocytes % % Eosinophils % % Basophils % % Neutrophils # (1.3-7.7) k/uL Lymphocytes # (1.0-4.8) k/uL Monocytes # (0-1.0) k/uL Eosinophils # (0-0.7) k/uL Basophils # (0-0.2) k/uL VBG pH 7.42 H (7.31-7.41) VBG pCO2 35 L (37-51) mmHg VBG HCO3 22 L (24-28) mmol/L Sodium (137-145) mmol/L Potassium (3.5-5.1) mmol/L Chloride (98-107) mmol/L Carbon Dioxide (22-30) mmol/L Anion Gap mmol/L BUN (7-17) mg/dL Creatinine (0.52-1.04) mg/dL Est GFR (CKD-EPI)AfAm (>60 ml/min/1.73 sqM) Est GFR (CKD-EPI)NonAf (>60 ml/min/1.73 sqM) Glucose (74-99) mg/dL Plasma Lactic Acid Crow (0.7-2.0) mmol/L Calcium (8.4-10.2) mg/dL Total Bilirubin (0.2-1.3) mg/dL AST (14-36) U/L ALT (9-52) U/L Alkaline Phosphatase (38-126) U/L Total Protein (6.3-8.2) g/dL Albumin (3.5-5.0) g/dL Amylase (30-110) U/L Lipase (23-300) U/L Urine Color Light Yellow Urine Appearance Clear (Clear) Urine pH 5.5 (5.0-8.0) Ur Specific [place] 1.019 (1.001-1.035) Urine Protein Negative (Negative) Urine Glucose (UA) 4+ H (Negative) Urine Ketones 1+ H (Negative) Urine Blood Negative (Negative) Urine Nitrite Negative (Negative) Urine Bilirubin Negative (Negative) Urine Urobilinogen <2.0 (<2.0) mg/dL Ur Leukocyte Esterase Negative (Negative) Acetone, Qual (Negative) Disposition <Cecil Escamilla - Last Filed: 03/31/19 14:36> <Steve Gonzalez - Last Filed: 03/31/19 14:48> Clinical Impression: Uncontrolled diabetes mellitus, Hyperglycemia, Acute kidney injury Disposition: ADMITTED IP TO THIS HOSP Condition: Fair Referrals: Yolis Daily DO [Primary Care Provider] - 1-2 days
[2019-03-31 13:32] LABS: ALT 27 U/L (9-52); AST 28 U/L (14-36); African American GFR (CKD) 27 (>60 ml/min/1.73 sqM); Alkaline Phosphatase 131 U/L (38-126); Amylase 34 U/L (30-110); Anion Gap 13 mmol/L; Blood Urea Nitrogen 37 mg/dL (7-17); Calcium 10.1 mg/dL (8.4-10.2); Carbon Dioxide 22 mmol/L (22-30); Chloride 97 mmol/L (98-107); Glucose 411 mg/dL (74-99); Potassium 4.7 mmol/L (3.5-5.1); Sodium 132 mmol/L (137-145); Total Bilirubin 0.5 mg/dL (0.2-1.3); Total Protein 7.2 g/dL (6.3-8.2)
[2019-03-31 13:54] LABS: Appearance,Urine Clear (Clear); Bilirubin,Urine Negative (Negative); Blood,Urine Negative (Negative); Color,Urine Light Yellow; Glucose,Urine (UA) 4+ (Negative); Ketones,Urine 1+ (Negative); Leukocyte Esterase,Urine Negative (Negative); Nitrite,Urine Negative (Negative); PH, Urine 5.5 (5.0-8.0); Protein,Urine Negative (Negative); Specific Gravity,Urine 1.019 (1.001-1.035); Urobilinogen,Urine <2.0 mg/dL (<2.0)
[2019-03-31] MEDS ORDERED: INSULIN REGULAR 100 UNIT in SODIUM CHLORIDE 0.9% 100 ML IV SCH (14:45)
[2019-03-31] MEDS ORDERED: D5-0.45% NACL WITH KCL 20MEQ/L 1,000 ML IV SCH (14:45)
[2019-03-31] MEDS: SODIUM CHLORIDE 0.9% 1,000 ML IV SCH ×2 (15:12→22:39)
[2019-03-31 15:19] LABS: Glucose,Whole Blood 305 mg/dL (75-99)
[2019-03-31 16:16] LABS: Glucose,Whole Blood 279 mg/dL (75-99)
[2019-03-31 17:12] LABS: Phosphorus 2.9 mg/dL (2.5-4.5); Potassium 4.5 mmol/L (3.5-5.1)
[2019-03-31 17:21] LABS: Glucose,Whole Blood 186 mg/dL (75-99)
[2019-03-31 18:12] LABS: Glucose,Whole Blood 147 mg/dL (75-99)
[2019-03-31 19:02] LABS: Glucose,Whole Blood 155 mg/dL (75-99)
[2019-03-31 20:12] LABS: Glucose,Whole Blood 159 mg/dL (75-99)
[2019-03-31] MEDS ORDERED: METOCLOPRAMIDE 10 MG TAB PO PRN (20:39)
[2019-03-31] MEDS ORDERED: SERTRALINE 50 MG TAB PO SCH (21:00)
[2019-03-31] MEDS ORDERED: ATORVASTATIN 40 MG TAB PO SCH (21:00)
[2019-03-31] MEDS: INSULIN ASPART (NovoLOG) 100 UNIT/ML VIAL SQ SCH (21:00)
[2019-03-31] MEDS ORDERED: INSULIN DETEMIR (LEVEMIR) 100 UNIT/ML SYR SQ SCH (21:00)
[2019-03-31] MEDS ORDERED: AMITRIPTYLINE HCL 50 MG TAB PO SCH (21:00)
[2019-03-31 21:08] LABS: Glucose,Whole Blood 139 mg/dL (75-99)
[2019-03-31 21:40] LABS: Calcium 9.6 mg/dL (8.4-10.2); Potassium 4.3 mmol/L (3.5-5.1)
[2019-03-31 22:07] LABS: Glucose,Whole Blood 119 mg/dL (75-99)
[2019-03-31] MEDS: METOPROLOL TARTRATE 25 MG TAB PO SCH (22:15)
[2019-04-01 02:03] LABS: Glucose,Whole Blood 244 mg/dL (75-99)
[2019-04-01] MEDS: SODIUM CHLORIDE 0.9% 1,000 ML IV SCH ×3 (04:31→12:23)
[2019-04-01 06:18] LABS: Glucose,Whole Blood 200 mg/dL (75-99)
[2019-04-01] MEDS: INSULIN ASPART (NovoLOG) 100 UNIT/ML VIAL SQ SCH ×2 (06:54→11:53)
[2019-04-01 08:43] VITALS: RESP 16; TEMP 98.1
[2019-04-01] MEDS: METOPROLOL TARTRATE 25 MG TAB PO SCH (08:47)
[2019-04-01] MEDS ORDERED: LISINOPRIL 10 MG TAB PO SCH (09:00)
[2019-04-01] MEDS ORDERED: BUMETANIDE 1 MG TAB PO SCH (09:00)
[2019-04-01] MEDS ORDERED: LORATADINE 10 MG TAB PO SCH (09:00)
[2019-04-01] MEDS ORDERED: ASPIRIN 81 MG PO SCH (09:00)
[2019-04-01 10:58] LABS: Calcium 9.5 mg/dL (8.4-10.2); Potassium 4.4 mmol/L (3.5-5.1)
[2019-04-01 11:13] VITALS: BP 116/70; PULSE 91
--- NOTE | 2019-04-01 11:13 | P.HPIM ---
History of Present Illness H&P Date: 04/01/19 Chief Complaint: hyperglycemia Bhavani Grande is a 48 yo F with past medical history significant for type 1 diabetes, CKD3, aortic stenosis s/p valve replacement who presented to the emergency department after home glucose readings in the high 500s. She uses a pump at home, states she woke up yesterday and noticed a very high reading and gave herself 15 units of NovoLog. She went back to sleep and 2 hours later her glucose remained in the 500s so she came into the emergency department. She notes she threw up 5 or 6 times before coming in. Patient states she has not changed her site in a few days so she thinks the site was bad. She also complained of headache and thirst. Denies chest pain, shortness of breath, vision change, or abdominal pain. In the emergency department she was tachycardic, creatinine 2.4 from baseline of 1.8, lactic 2.4, glucose 400, anion gap 13. She was given 3 L IV fluid and started on insulin drip. Review of Systems All systems: negative Constitutional: Reports lethargy, Reports malaise, Denies chills, Denies fever Eyes: denies blurred vision, denies pain Ears, nose, mouth and throat: Reports headache, Denies sore throat Cardiovascular: Denies chest pain, Denies shortness of breath Respiratory: Denies cough Gastrointestinal: Reports heartburn, Reports loss of appetite, Reports nausea, Reports vomiting, Denies abdominal pain, Denies diarrhea Genitourinary: Denies dysuria, Denies hematuria Musculoskeletal: Denies myalgias Integumentary: Denies pruritus, Denies rash Neurological: Denies numbness, Denies weakness Psychiatric: Denies anxiety, Denies depression Endocrine: Denies fatigue, Denies weight change Past Medical History Past Medical History: Diabetes Mellitus, Hyperlipidemia, Hypertension, Renal Disease, Sleep Apnea/CPAP/BIPAP Additional Past Medical History / Comment(s): seasonal allergies, STAGE 4 KIDNEY FAILURE, CHRONIC BACK PAIN History of Any Multi-Drug Resistant Organisms: None Reported Additional Past Surgical History / Comment(s): Aortic valve replacement 2013 Past Anesthesia/Blood Transfusion Reactions: No Reported Reaction Additional Past Anesthesia/Blood Transfusion Reaction / Comment(s): NO blood transfusion to date Past Psychological History: Anxiety, Depression Additional Psychological History / Comment(s): Take zoloft daily Smoking Status: Former smoker Past Alcohol Use History: None Reported Additional Past Alcohol Use History / Comment(s): Quit smoking 2006 (started smoking at age 12, smoked 1/5 packs/day x 25 years) Past Drug Use History: None Reported Additional Drug Use History / Comment(s): No alcohol usage - Past Family History Mother Family Medical History: Cancer, Hypertension Additional Family Medical History / Comment(s): at age 69 from vulva cancer Father Family Medical History: Dementia, Hypertension, Neurologic Disorder Additional Family Medical History / Comment(s): at age 69 from dementia/parkinsons Sister(s) Family Medical History: Hypertension Medications and Allergies Home Medications Medication Instructions Recorded Confirmed Type Amitriptyline HCl [Elavil] 50 mg PO HS 11/04/18 03/31/19 History Aspirin [Children's Aspirin] 81 mg PO DAILY 11/04/18 03/31/19 History Bumetanide [Bumex] 1 mg PO QAM 11/04/18 03/31/19 History Cetirizine HCl [Zyrtec] 10 mg PO QAM 11/04/18 03/31/19 History Ergocalciferol [Vitamin D2] 50,000 unit PO Q30D 11/04/18 03/31/19 History Ferrous Sulfate [Feosol] 325 mg PO DAILY 11/04/18 03/31/19 History Insulin Aspart (For Pump) [NovoLOG 0.01 unit SQ-PUMP CONTINUOUS 11/04/18 03/31/19 History (For Pump)] Lisinopril [Zestril] 10 mg PO QAM 11/04/18 03/31/19 History Metoprolol Tartrate [Lopressor] 25 mg PO BID 11/04/18 03/31/19 History Semaglutide [Ozempic] 1 mg SQ SA 11/04/18 03/31/19 History Sertraline HCl [Zoloft] 150 mg PO HS 11/04/18 03/31/19 History Atorvastatin [Lipitor] 40 mg PO HS 01/29/19 03/31/19 History Metoclopramide [Reglan] 10 mg PO BID 01/29/19 03/31/19 History INSULIN ASPART (NovoLOG) [NovoLOG 15 unit SQ ONCE PRN 03/31/19 03/31/19 History (formulary)] Allergies Allergy/AdvReac Type Severity Reaction Status Date / Time adhesive Allergy Intermediate Rash/Hives Verified 03/31/19 12:28 latex Allergy Intermediate Rash/Hives Verified 03/31/19 12:28 Physical Exam Vitals: Vital Signs Temp Pulse Pulse Resp BP BP BP 04/01/19 08:00 98.1 F 94 16 116/66 04/01/19 04:00 98.0 F 108 H 20 134/72 04/01/19 00:00 97.9 F 114 H 18 130/67 03/31/19 20:00 97.8 F 104 H 18 136/86 03/31/19 19:04 97.7 F 105 H 20 150/86 03/31/19 18:45 98.6 F 78 20 141/65 03/31/19 17:24 75 20 123/67 03/31/19 16:15 88 20 102/72 03/31/19 15:15 98 20 119/82 03/31/19 14:00 92 20 135/88 03/31/19 13:00 108 H 22 135/81 03/31/19 12:12 98.1 F 111 H 18 134/88 Pulse Ox 04/01/19 08:00 97 04/01/19 04:00 92 L 04/01/19 00:00 93 L 03/31/19 20:00 96 03/31/19 19:04 96 03/31/19 18:45 99 03/31/19 17:24 99 03/31/19 16:15 98 03/31/19 15:15 99 03/31/19 14:00 99 03/31/19 13:00 99 03/31/19 12:12 96 Intake and Output 03/31/19 04/01/19 04/01/19 22:59 06:59 14:59 Intake Total 33.173 500 200 Balance 33.173 500 200 Intake: Intake, IV Titration 33.173 500 200 Amount Insulin Regular 100 unit 33.173 In Sodium Chloride 0.9% 100 ml @ 0.05 UNITS/KG/HR 7.216 mls/hr IV .Q14H [facility] Rx#:[id number] Sodium Chloride 0.9% 1, 500 200 000 ml @ 200 mls/hr IV . Q5H [facility] Rx#:[id number] Other: Voiding Method Toilet Toilet # Voids 3 Weight 144.8 kg Constitutional: Well-developed well-nourished obese no acute distress. Vitals r eviewed HEENT: Normocephalic, atraumatic, TMs clear, mucous membranes moist Neck: Supple, no thyromegaly, no JVD CV: Regular rate and rhythm, no murmur, pulses 2+ Lungs: Normal respiratory effort, clear to auscultation throughout Abdomen: Soft, obese, nontender, no organomegaly Extremities: No cyanosis, clubbing, or edema Neuro: Alert and oriented 3 no focal deficits Skin: Warm and dry Results CBC & Chem 7: 03/31/19 12:50 04/01/19 10:20 Labs: Abnormal Lab Results - Last 24 Hours (Table) 03/31/19 03/31/19 03/31/19 Range/Units 12:50 12:50 12:50 Neutrophils # 8.6 H (1.3-7.7) k/uL VBG pH (7.31-7.41) VBG pCO2 (37-51) mmHg VBG HCO3 (24-28) mmol/L Sodium 132 L (137-145) mmol/L Chloride 97 L (98-107) mmol/L BUN 37 H (7-17) mg/dL Creatinine 2.42 H (0.52-1.04) mg/dL Glucose 411 H (74-99) mg/dL POC Glucose (mg/dL) (75-99) mg/dL Plasma Lactic Acid Crow 2.4 H* (0.7-2.0) mmol/L Alkaline Phosphatase 131 H (38-126) U/L Urine Glucose (UA) (Negative) Urine Ketones (Negative) 03/31/19 03/31/19 03/31/19 Range/Units 12:50 12:50 15:14 Neutrophils # (1.3-7.7) k/uL VBG pH 7.42 H (7.31-7.41) VBG pCO2 35 L (37-51) mmHg VBG HCO3 22 L (24-28) mmol/L Sodium (137-145) mmol/L Chloride (98-107) mmol/L BUN (7-17) mg/dL Creatinine (0.52-1.04) mg/dL Glucose (74-99) mg/dL POC Glucose (mg/dL) 305 H (75-99) mg/dL Plasma Lactic Acid Crow (0.7-2.0) mmol/L Alkaline Phosphatase (38-126) U/L Urine Glucose (UA) 4+ H (Negative) Urine Ketones 1+ H (Negative) 03/31/19 03/31/19 03/31/19 Range/Units 16:14 16:48 17:19 Neutrophils # (1.3-7.7) k/uL VBG pH (7.31-7.41) VBG pCO2 (37-51) mmHg VBG HCO3 (24-28) mmol/L Sodium 136 L (137-145) mmol/L Chloride (98-107) mmol/L BUN 34 H (7-17) mg/dL Creatinine 2.17 H (0.52-1.04) mg/dL Glucose 256 H (74-99) mg/dL POC Glucose (mg/dL) 279 H 186 H (75-99) mg/dL Plasma Lactic Acid Crow (0.7-2.0) mmol/L Alkaline Phosphatase (38-126) U/L Urine Glucose (UA) (Negative) Urine Ketones (Negative) 03/31/19 03/31/19 03/31/19 Range/Units 18:11 19:00 20:10 Neutrophils # (1.3-7.7) k/uL VBG pH (7.31-7.41) VBG pCO2 (37-51) mmHg VBG HCO3 (24-28) mmol/L Sodium (137-145) mmol/L Chloride (98-107) mmol/L BUN (7-17) mg/dL Creatinine (0.52-1.04) mg/dL Glucose (74-99) mg/dL POC Glucose (mg/dL) 147 H 155 H 159 H (75-99) mg/dL Plasma Lactic Acid Crow (0.7-2.0) mmol/L Alkaline Phosphatase (38-126) U/L Urine Glucose (UA) (Negative) Urine Ketones (Negative) 03/31/19 03/31/19 03/31/19 Range/Units 20:50 20:57 22:05 Neutrophils # (1.3-7.7) k/uL VBG pH (7.31-7.41) VBG pCO2 (37-51) mmHg VBG HCO3 (24-28) mmol/L Sodium 135 L (137-145) mmol/L Chloride (98-107) mmol/L BUN 32 H (7-17) mg/dL Creatinine 2.07 H (0.52-1.04) mg/dL Glucose 152 H (74-99) mg/dL POC Glucose (mg/dL) 139 H 119 H (75-99) mg/dL Plasma Lactic Acid Crow (0.7-2.0) mmol/L Alkaline Phosphatase (38-126) U/L Urine Glucose (UA) (Negative) Urine Ketones (Negative) 04/01/19 04/01/19 04/01/19 Range/Units 02:01 06:17 10:20 Neutrophils # (1.3-7.7) k/uL VBG pH (7.31-7.41) VBG pCO2 (37-51) mmHg VBG HCO3 (24-28) mmol/L Sodium (137-145) mmol/L Chloride (98-107) mmol/L BUN 26 H (7-17) mg/dL Creatinine 1.92 H (0.52-1.04) mg/dL Glucose 103 H (74-99) mg/dL POC Glucose (mg/dL) 244 H 200 H (75-99) mg/dL Plasma Lactic Acid Crow (0.7-2.0) mmol/L Alkaline Phosphatase (38-126) U/L Urine Glucose (UA) (Negative) Urine Ketones (Negative) Thrombosis Risk Factor Assmnt - Choose All That Apply Any of the Below Risk Factors Present?: Yes Each Factor Represents 1 point: Age 41-60 years, Obesity (BMI >25) Other Risk Factors: Yes Each Risk Factor Represents 2 Points: Malignancy Other congenital or acquired thrombophilia - If yes, enter type in comment: No Thrombosis Risk Factor Assessment Total Risk Factor Score: 4 Thrombosis Risk Factor Assessment Level: Moderate Risk Assessment and Plan (1) Acute kidney injury Current Visit: Yes Status: Acute Code(s): N17.9 - ACUTE KIDNEY FAILURE, UNSPECIFIED SNOMED Code(s): 53136883 (2) Hyperglycemia Current Visit: Yes Status: Acute Code(s): R73.9 - HYPERGLYCEMIA, UNSPECIFIED SNOMED Code(s): 13112070 (3) Uncontrolled diabetes mellitus Current Visit: Yes Status: Acute Code(s): E11.65 - TYPE 2 DIABETES MELLITUS WITH HYPERGLYCEMIA SNOMED Code(s): 56976654 Plan: 1. Acute kidney injury. Creatinine 2.4 from baseline 1.8. Secondary to dehydration. Given 3 L IV fluids in the emergency department. Continue IV fluids at 200 ml/hr 2. Type 1 diabetes with hyperglycemia. Levemir and sliding scale while inpatient 3. GERD. Continue Protonix
[2019-04-01 11:24] VITALS: BMI 56.5
[2019-04-01 12:17] LABS: Glucose,Whole Blood 123 mg/dL (75-99)
--- NOTE | 2019-04-01 16:39 | P.DS ---
Providers Date of admission: 03/31/19 16:19 Expected date of discharge: 04/01/19 Attending physician: Franck Trujillo MD Primary care physician: Yolis Daily - Discharge Diagnosis(es) (1) Acute kidney injury Status: Acute (2) Hyperglycemia Status: Acute (3) Uncontrolled diabetes mellitus Status: Acute Hospital Course: Bhavani Grande is a 48 yo F with past medical history significant for type 1 diabetes, CKD3, aortic stenosis s/p valve replacement who presented to the emergency department after home glucose readings in the high 500s. She uses a pump at home, states she woke up yesterday and noticed a very high reading and gave herself 15 units of NovoLog. She went back to sleep and 2 hours later her glucose remained in the 500s so she came into the emergency department. She notes she threw up 5 or 6 times before coming in. Patient states she has not changed her site in a few days so she thinks the site was bad. She also complained of headache and thirst. Denies chest pain, shortness of breath, vision change, or abdominal pain. In the emergency department she was tachycardic, creatinine 2.4 from baseline of 1.8, lactic 2.4, glucose 400, anion gap 13. She was given 3 L IV fluid and started on insulin drip. Pt was continued with aggressive fluid resuscitation and insulin drip was discontinued. She was given a dose of levemir and sliding scale. The following morning her creatinine and glucose were at baseline and she was asymptomatic. She is advised to regularly change her pump site and will follow up in clinic. Patient Condition at Discharge: Fair Plan - Discharge Summary Discharge Rx Participant: Yes New Discharge Prescriptions: Continue Ergocalciferol [Vitamin D2 (DRISDOL)] 50,000 unit PO Q30D Semaglutide [Ozempic] 1 mg SQ SA Amitriptyline HCl [Elavil] 50 mg PO HS Metoprolol Tartrate [Lopressor] 25 mg PO BID Insulin Aspart (For Pump) [NovoLOG (For Pump)] 0.01 unit SQ-PUMP CONTINUOUS Lisinopril [Zestril] 10 mg PO QAM Ferrous Sulfate [Iron (65 MG Elemental)] 325 mg PO DAILY Cetirizine HCl [Zyrtec] 10 mg PO QAM Bumetanide [BUMEX] 1 mg PO QAM Aspirin [Children's Aspirin] 81 mg PO DAILY Sertraline HCl [Zoloft] 150 mg PO HS Metoclopramide [Reglan] 10 mg PO BID Atorvastatin [Lipitor] 40 mg PO HS INSULIN ASPART (NovoLOG) [NovoLOG (formulary)] 15 unit SQ ONCE PRN PRN Reason: Blood Sugar - High Discharge Medication List Amitriptyline HCl [Elavil] 50 mg PO HS 11/04/18 [History] Aspirin [Children's Aspirin] 81 mg PO DAILY 11/04/18 [History] Bumetanide [BUMEX] 1 mg PO QAM 11/04/18 [History] Cetirizine HCl [Zyrtec] 10 mg PO QAM 11/04/18 [History] Ergocalciferol [Vitamin D2 (DRISDOL)] 50,000 unit PO Q30D 11/04/18 [History] Ferrous Sulfate [Iron (65 MG Elemental)] 325 mg PO DAILY 11/04/18 [History] Insulin Aspart (For Pump) [NovoLOG (For Pump)] 0.01 unit SQ-PUMP CONTINUOUS 11/04/18 [History] Lisinopril [Zestril] 10 mg PO QAM 11/04/18 [History] Metoprolol Tartrate [Lopressor] 25 mg PO BID 11/04/18 [History] Semaglutide [Ozempic] 1 mg SQ SA 11/04/18 [History] Sertraline HCl [Zoloft] 150 mg PO HS 11/04/18 [History] Atorvastatin [Lipitor] 40 mg PO HS 01/29/19 [History] Metoclopramide [Reglan] 10 mg PO BID 01/29/19 [History] INSULIN ASPART (NovoLOG) [NovoLOG (formulary)] 15 unit SQ ONCE PRN 03/31/19 [History] Follow up Appointment(s)/Referral(s): Yolis Daily DO [Primary Care Provider] - 04/02/19 2:15 pm Patient Instructions/Handouts: Diabetic Hyperglycemia (DC) Discharge Disposition: HOME SELF-CARE
== END 2019-04-01 14:21 | disposition home or self-care (01) ==
LOC: EC 12:04 → 3SCARD 16:19
PROVIDERS: ADMIT Family Medicine; ATTEND Family Medicine
DX: N17.9 Acute kidney failure, unspecified (principal); I12.9 Hypertensive chronic kidney disease with stage 1 through stage 4 chronic kidney disease, or unspecified chronic kidney disease; N18.4 Chronic kidney disease, stage 4 (severe); E10.22 Type 1 diabetes mellitus with diabetic chronic kidney disease; E10.65 Type 1 diabetes mellitus with hyperglycemia; E10.10 Type 1 diabetes mellitus with ketoacidosis without coma; E86.0 Dehydration; Z96.41 Presence of insulin pump (external) (internal); Z95.2 Presence of prosthetic heart valve; G47.30 Sleep apnea, unspecified; Z99.89 Dependence on other enabling machines and devices; E78.5 Hyperlipidemia, unspecified; K21.9 Gastro-esophageal reflux disease without esophagitis; G89.29 Other chronic pain; M54.9 Dorsalgia, unspecified; J30.2 Other seasonal allergic rhinitis; F41.9 Anxiety disorder, unspecified; F32.9 Major depressive disorder, single episode, unspecified; E66.9 Obesity, unspecified; Z68.43 Body mass index [BMI] 50.0-59.9, adult; Z87.891 Personal history of nicotine dependence; Z79.899 Other long term (current) drug therapy; Z79.4 Long term (current) use of insulin; Z79.82 Long term (current) use of aspirin; Z91.040 Latex allergy status; Z91.048 Other nonmedicinal substance allergy status; Z82.49 Family history of ischemic heart disease and other diseases of the circulatory system; Z80.49 Family history of malignant neoplasm of other genital organs; Z81.8 Family history of other mental and behavioral disorders; Z82.0 Family history of epilepsy and other diseases of the nervous system
CPT/HCPCS: 96360; 96361; 99284; 36415; 80051; 80053; 80048 ×2; 82150; 82565; 82803; 82009; 83605; 83690; 84100; 82947; 84520; 85025; 81003; G0378 ×2

== ENCOUNTER → 2019-05-19 | Outpatient (CLI) | payer MEDICARE ==
[2019-05-19 14:04] VITALS: BP 131/84; PULSE 91; RESP 16; TEMP 97.5; BMI 54.0
--- NOTE | 2019-05-19 14:37 | P.PN ---
Subjective Progress Note Date: 05/19/19 HPI: She has severe gastroparesis. Her diabetes is improved. Consent for gastric bypass. Bloods sugars are 56 in the morning. She is about to get of the insulin pump. ABDOMEN: Unremarkable PLAN: 1. Recommend 72 hours of liquids prior to surgery for history of gastroparesis 2. Pre-op labs. 3. Consent for gastric bypass. Objective - Vital Signs Vital signs: Vital Signs Temp 97.5 F L 05/19/19 14:01 Pulse 91 05/19/19 14:01 Resp 16 05/19/19 14:01 BP 131/84 05/19/19 14:01 Pulse Ox Intake & Output 05/18/19 05/19/19 05/19/19 18:59 06:59 18:59 Weight 140.614 kg
== END | disposition home or self-care (01) ==
LOC: BARWHC3 13:28
PROVIDERS: ATTEND Surgery Plastic and Reconstructive Surgery
DX: E11.43 Type 2 diabetes mellitus with diabetic autonomic (poly)neuropathy (principal); K31.84 Gastroparesis
CPT/HCPCS: 99211

== ENCOUNTER → 2019-06-03 | Outpatient (CLI) | payer MEDICARE ==
[2019-06-03 13:32] LABS: Basophils % (A) 0 %; Eosinophils # (A) 0.1 k/uL (0-0.7); Eosinophils % (A) 1 %; HGB 13.1 gm/dL (11.4-16.0); Lymphocytes % (A) 11 %; MCH 29.1 pg (25.0-35.0); MCHC 31.9 g/dL (31.0-37.0); MCV 91.4 fL (80.0-100.0); Mean Platelet Volume 6.2; Monocytes # (A) 0.3 k/uL (0-1.0); Monocytes % (A) 3 %; Neutrophils % (A) 83 %; Platelet Count 277 k/uL (150-450); RBC 4.49 m/uL (3.80-5.40); RDW 12.7 % (11.5-15.5); WBC 9.6 k/uL (3.8-10.6)
[2019-06-04 02:03] LABS: African American GFR (CKD) 43.7 (60.0-200.0); Albumin/Globulin Ratio 1.9 (1.60-3.17); Anion Gap 19.8 mmol/L (4.00-12.00); BUN/Creat Ratio 16.88 Ratio (12.00-20.00); Carbon Dioxide 15.2 mmol/L (21.6-31.8); Globulin 2.1 g/dL (1.6-3.3); Potassium 5.1 mmol/L (3.5-5.5); Total Bilirubin 0.3 mg/dL (0.2-1.2); Total Protein 6.1 g/dL (6.2-8.2)
== END | disposition home or self-care (01) ==
LOC: LABWHC1 12:44
PROVIDERS: ATTEND Surgery Plastic and Reconstructive Surgery
DX: Z01.812 Encounter for preprocedural laboratory examination (principal)
CPT/HCPCS: 36415; 80053; 85025

== ENCOUNTER 2019-06-07 06:26 | Inpatient (IN) | payer MEDICARE ==
[~2019-06-07 06:26] MED LIST changes: +DEXAMETHASONE SOD PHOSPHATE 10 MG/ML 1 ML VIAL IV ONE; -LACTATED RINGERS 1,000 ML IV SCH; +LIDOCAINE 1% 20 ML VIAL (10MG/ML) FOR IV START INTRADERMA PRN; +MIDAZOLAM 2 MG/2 ML VIAL IV PRN; +fentaNYL (PF) 50 MCG/ML 2 ML AMP IV PRN
[2019-06-07] MEDS ORDERED: PANTOPRAZOLE 40 MG/10 ML VIAL IV STA (07:06)
[2019-06-07] MEDS ORDERED: ENOXAPARIN 40 MG/0.4 ML SYRINGE SQ STA (07:06)
[2019-06-07] MEDS ORDERED: CHLORHEXIDINE GLUCONATE 15 ML CUP MUCOUS MEM STA (07:06)
[2019-06-07] MEDS ORDERED: ceFAZolin 3 GM in SODIUM CHLORIDE 0.9% 100 ML IVPB STA (07:06)
--- NOTE | 2019-06-07 07:10 | P.GSHP ---
History of Present Illness H&P Date: 06/07/19 DATE OF SERVICE: 06/07/2019 CHIEF COMPLAINT: Morbid obesity HISTORY OF PRESENT ILLNESS: Radha Grande is a 48-year-old female who comes with lifelong morbid obesity. She has new severe gastroparesis. Her diabetes is improved. Blood sugars are 56 in the morning. She is about to get of her insulin pump. 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 She was looking into the gastric bypass. At height of 5 feet 3.5 inches, her ideal body weight is 140 pounds. She comes in 305 from 309 pounds, 2 weeks ago. Weight loss of 4 pounds in 2 weeks. Her highest weight was 342 pounds. Her body mass index highest was 59.8. Today her BMI is 53.4. She is 165 pounds overweight. PAST MEDICAL HISTORY: 1. Morbid obesity due to excess calories 2. Body mass index of 59.8, initial 3. Hypertensive heart disease. 4. Obstructive sleep apnea 5. Diabetes type I, insulin dependent 6. Chronic panniculitis 7. Osteoarthritis of the lower back. 8. Depression 9. Anxiety disorder 10. Hyperlipidemia 11. Iron deficiency 12. Congestive heart failure 13. Gastroesophageal reflux disease 14. Diabetic nephropathy, stage 3 PAST SURGICAL HISTORY: 1. Aortic valve replacement 2. Upper endoscopy HOME MEDICATIONS: ALLERGIES: Medications and Allergies Home Medications Medication Instructions Recorded Confirmed Type Amitriptyline HCl [Elavil] 50 mg PO HS 11/04/18 12/28/18 History Aspirin [Children's Aspirin] 81 mg PO DAILY 11/04/18 12/28/18 History Atorvastatin [Lipitor] 10 mg PO DAILY 11/04/18 12/28/18 History Bumetanide [Bumex] 1 mg PO DAILY 11/04/18 12/28/18 History Cetirizine HCl [Zyrtec] 10 mg PO DAILY 11/04/18 12/28/18 History Ergocalciferol [Vitamin D2] 50,000 unit PO Q30D 11/04/18 12/28/18 History Ferrous Sulfate [Feosol] 325 mg PO DAILY 11/04/18 12/28/18 History Insulin Aspart (For Pump) [NovoLOG 0.01 unit SQ-PUMP CONTINUOUS 11/04/1812/28 History (For Pump)] Lisinopril [Zestril] 10 mg PO DAILY 11/04/18 12/28/18 History Metoprolol Tartrate [Lopressor] 25 mg PO BID 11/04/18 12/28/18 History Semaglutide [Ozempic] 1 mg SQ SA 11/04/18 12/28/18 History Sertraline HCl [Zoloft] 150 mg PO HS 11/04/18 12/28/18 History Allergies Allergy/AdvReac Type Severity Reaction Status Date / Time adhesive Allergy Intermediate Rash/Hives Verified 12/23/18 11:30 latex Allergy Intermediate Rash/Hives Verified 12/23/18 11:30 SOCIAL HISTORY: Past tobacco use. FAMILY HISTORY: No family history of ulcerative colitis disease or Crohn's disease. Family history of morbid obesity. No lupus in the family. No reports of stomach or esophageal cancer. REVIEW OF ORGAN SYSTEMS: CONSTITUTIONAL: At height of 5 feet 3.5 inches, her ideal body weight is 140 pounds. Her highest weight was 342 pounds. Her body mass index highest was 59.8. HEENT: Denies any active troubles with vision or hearing. No troubles with swallowing. ENDOCRINE: Has diabetes. No hypothyroidism. CARDIOVASCULAR: Past reports of palpitations or heart attacks or chest pain. RESPIRATORY: Has daytime somnolence. Has sleep apnea. GI: Denies any bright red blood per rectum. No diarrhea. Has GERD. MUSCULOSKELETAL: Has lower back pain and joint pain. History of bilateral lower extremity edema. NEURO: No headaches. No seizure disorders. PSYCH: Has depression. No suicidal ideation. Has anxiety. RHEUMATOLOGIC: No lupus. No rheumatoid arthritis. HEMATOLOGIC: Denies any abnormal bleeding or bruising. No personal history of DVTs. SKIN: Has panniculitis. No skin cancer. : Stage III renal insufficiency. PHYSICAL EXAM: VITAL SIGNS: Height 5 foot 3.5 inches, weight 305 pounds. BMI 53.4 GENERAL: Well-developed in no acute distress. HEENT: No scleral icterus. Extraocular movements grossly intact. Hears conversational speech. No nasal drainage. NECK: Supple without lymphadenopathy. CHEST: Nonlabored respirations with equal bilateral excursions. CARDIOVASCULAR: Regular rate and regular rhythm. Distal 2+ pulses. ABDOMEN: Obese, soft, nontender, nondistended. Pannus over 30 pounds. MUSCULOSKELETAL: No clubbing, cyanosis. Gross strength 5/5 distal lower extremities. NEURO: No focal or lateralizing signs. Cranial nerves 2 through 12 grossly within normal limits. PSYCH: Appropriate affect. Alert and oriented to person, place and time. SKIN: Good skin turgor. Well perfused. Has panniculitis. ASSESSMENT: 1. Morbid obesity due to excess calories 2. Body mass index of 59.8 to 53.4 3. Hypertensive heart disease. 4. Obstructive sleep apnea 5. Diabetes type I, insulin dependent 6. Chronic panniculitis 7. Osteoarthritis of the lower back. 8. Depression 9. Anxiety disorder 10. Hyperlipidemia 11. Iron deficiency 12. Congestive heart failure 13. Gastroesophageal reflux disease 14. Diabetic nephropathy, stage 3 15. History of aspiration pneumonia 16. Diabetic gastroparesis PLAN: 1. Recommend 72 hours of liquids prior to surgery for history of gastroparesis. 2. Pre-op labs to address hyperglycemia 3. An 8 page second-generation bariatric consent form was reviewed in detail including potential of bleeding, infection, leaks, adequate weight loss, nutritional deficiencies which the patient demonstrated understanding of the risks. 4. A 2 week high-protein low caloric 800 kcal diet described to address hepatomegaly. 5. Preoperative labs including complete metabolic panel and CBC with type and screen recommended. 6. DVT prophylaxis per [place] [facility]. 7. Antibiotic prophylaxis. 8. Inpatient hospitalization anticipated for more than 2 nights. 9. All questions and concerns were addressed with the patient. 10. Bariatric options between a sleeve, band and a Pako-en-Y gastric bypass were reviewed in detail. The patient elected for a gastric bypass. Robotic assisted approach described. 11. She is extremely high risk with diabetes type, insulin dependent. Past Medical History Past Medical History: Diabetes Mellitus, Hyperlipidemia, Hypertension, Renal Disease, Sleep Apnea/CPAP/BIPAP Additional Past Medical History / Comment(s): seasonal allergies, STAGE 4 KIDNEY FAILURE, CHRONIC BACK PAIN Last Myocardial Infarction Date:: 2013 History of Any Multi-Drug Resistant Organisms: None Reported Past Surgical History: Cardiac Valve Replacement, Heart Catheterization Additional Past Surgical History / Comment(s): Aortic valve replacement 2013 Past Anesthesia/Blood Transfusion Reactions: No Reported Reaction Additional Past Anesthesia/Blood Transfusion Reaction / Comment(s): NO blood transfusion to date Additional Psychological History / Comment(s): Take zoloft daily Additional Past Alcohol Use History / Comment(s): Quit smoking 2006 (started smoking at age 12, smoked 1/5 packs/day x 25 years) Additional Drug Use History / Comment(s): No alcohol usage - Past Family History Mother Family Medical History: Cancer Additional Family Medical History / Comment(s): vulva cancer Father Family Medical History: Dementia, Hypertension, Neurologic Disorder Additional Family Medical History / Comment(s): at age 69 from [place]/parkinsons Sister(s) Family Medical History: Hypertension Medications and Allergies Home Medications Medication Instructions Recorded Confirmed Type Amitriptyline HCl [Elavil] 50 mg PO HS 11/04/18 05/31/19 History Aspirin [Children's Aspirin] 81 mg PO DAILY 11/04/18 05/31/19 History Bumetanide [BUMEX] 1 mg PO QAM 11/04/18 05/31/19 History Lisinopril [Zestril] 10 mg PO QAM 11/04/18 06/07/19 History Metoprolol Tartrate [Lopressor] 25 mg PO HS 11/04/18 05/31/19 History Semaglutide [Ozempic] 1 mg SQ SA 11/04/18 06/07/19 History Sertraline HCl [Zoloft] 150 mg PO HS 11/04/18 05/31/19 History Atorvastatin [Lipitor] 40 mg PO HS 01/29/19 05/31/19 History Metoclopramide [Reglan] 10 mg PO BID 01/29/19 05/31/19 History INSULIN ASPART (NovoLOG) [NovoLOG 15 unit SQ DIRECTED PRN 03/31/19 05/31/19 History (formulary)] Calcitriol 0.5 mcg PO MO 05/31/19 06/07/19 History Insulin Glargine [Lantus] 15 unit SQ QAM 05/31/19 05/31/19 History Allergies Allergy/AdvReac Type Severity Reaction Status Date / Time adhesive Allergy Intermediate Rash/Hives Verified 06/07/19 06:53 latex Allergy Intermediate Rash/Hives Verified 06/07/19 06:53 Surgical - Exam Vital Signs Temp Pulse Resp Pulse Ox 98.0 F 84 18 97 06/07/19 07:01 06/07/19 07:01 06/07/19 07:01 06/07/19 07:01
[2019-06-07] MEDS: LACTATED RINGERS 1,000 ML IV SCH (07:20)
[2019-06-07 07:30] LABS: Glucose,Whole Blood 162 mg/dL (75-99)
[2019-06-07] MEDS ORDERED: GLYCOPYRROLATE 0.2 MG/ML 2 ML VIAL ONE (08:01)
[2019-06-07] MEDS ORDERED: ROCURONIUM BROMIDE 10 MG/ML 10 ML VIAL IV ONE (08:01)
[2019-06-07] MEDS ORDERED: fentaNYL (PF) 50 MCG/ML 2 ML AMP ONE (08:01)
[2019-06-07] MEDS ORDERED: NEOSTIGMINE 1 MG/ML 10 ML VIAL ONE (08:01)
[2019-06-07] MEDS ORDERED: PROPOFOL 10 MG/ML 20 ML VIAL IV ONE (08:01)
[2019-06-07] MEDS ORDERED: LIDOCAINE 1% INJ 10MG/ML (20 ML MDV) ONE (08:01)
[2019-06-07] MEDS ORDERED: INSULIN REGULAR 100 UNIT/ML VIAL ONE (08:01)
[2019-06-07] MEDS ORDERED: HYDROmorphone (PF) 1 MG/ML ONE (08:01)
[2019-06-07] MEDS ORDERED: SUCCINYLCHOLINE CHLORIDE VIAL 200 MG/10 ML VIAL IV ONE (08:01)
[2019-06-07] MEDS ORDERED: PHENYLEPHRINE-0.9% NACL SYG 1 MG/10 ML SYRINGE ONE (08:01)
[2019-06-07] MEDS ORDERED: MIDAZOLAM 2 MG/2 ML VIAL ONE (08:01)
[2019-06-07] MEDS ORDERED: LACTATED RINGERS 1,000 ML IV ONE ×3 (08:35→10:36)
[2019-06-07] MEDS ORDERED: LIDOCAINE 1%-EPI 1:100,000 30 ML VIAL SQ ONE ×4 (08:40→09:02)
[2019-06-07 08:48] LABS: Glucose,Whole Blood 309 mg/dL (75-99)
[2019-06-07 09:50] LABS: Glucose,Whole Blood 280 mg/dL (75-99)
[2019-06-07 10:49] LABS: Glucose,Whole Blood 237 mg/dL (75-99)
[2019-06-07] MEDS ORDERED: NALOXONE 0.4 MG/ML 1 ML VIAL IV PRN (12:34)
--- NOTE | 2019-06-07 12:34 | P.OP ---
Date of Procedure: 06/07/19 Description of Procedure: SURGEON: NYASIA PARK MD PREOPERATIVE DIAGNOSES: 1. Morbid obesity due to excess calories 2. Body mass index of 59.8 to 53.4 3. Hypertensive heart disease. 4. Obstructive sleep apnea 5. Diabetes type I, insulin dependent 6. Chronic panniculitis 7. Osteoarthritis of the lower back. 8. Depression 9. Anxiety disorder 10. Hyperlipidemia 11. Iron deficiency 12. Congestive heart failure 13. Gastroesophageal reflux disease 14. Diabetic nephropathy, stage 3 15. History of aspiration pneumonia 16. Diabetic gastroparesis POSTOPERATIVE DIAGNOSES: 1. Morbid obesity due to excess calories 2. Body mass index of 59.8 to 53.4 3. Hypertensive heart disease. 4. Obstructive sleep apnea 5. Diabetes type I, insulin dependent, poorly controlled 6. Chronic panniculitis 7. Osteoarthritis of the lower back. 8. Depression 9. Anxiety disorder 10. Hyperlipidemia 11. Iron deficiency 12. Congestive heart failure 13. Gastroesophageal reflux disease 14. Diabetic nephropathy, stage 3 renal disease 15. History of aspiration pneumonia 16. Diabetic gastroparesis with retained food OPERATION: 1. Robotic assisted da Rabia Xi laparoscopic transgastric Moriah-en-Y gastric bypass, 100 cm antecolic antegastric Moriah limb, with 25 mm Ethicon ILS 2. Intraoperative esophagogastrojejunoscopy. ANESTHESIA: GETA and local ESTIMATED BLOOD LOSS: 20 mL SPECIMEN: NONE COMPLICATIONS: NONE. INDICATIONS: Radha Grande is a 48-year-old female who comes with lifelong morbid obesity. She has severe gastroparesis including congestive heart failure, diabetic nephropathy, obstructive sleep apnea as a result of her morbid obesity. At height of 5 feet 3.5 inches, her ideal body weight is 140 pounds. She comes in 305 from 309 pounds, 2 weeks ago. Weight loss of 4 pounds in 2 weeks. Her highest weight was 342 pounds. Her body mass index highest was 59.8. Today her BMI is 53.4. She is 165 pounds overweight. She is looking into a gastric bypass. A second-generation bariatric consent form was described in detail including the possibility of protein malnutrition, leaks, gastrojejunal stricture, venous thrombosis, need for further surgery for which he demonstrated understanding. Benefits and risks of the procedure were described at length. Informed consent was obtained. DESCRIPTION: The patient was brought into the operating room theater. She was placed supine. She had received Lovenox subcutaneously for DVT prophylaxis. Additionally she had Peridex oral solution as an oral decontaminant. After general induction, the abdomen was prepped and draped in standard sterile fashion. Ioban draping was placed along the abdomen. A robotic da Rabia Xi system was prepped and primed. The xiphoid to umbilicus was 20 cm. Incisions were proposed at 15 cm from the xiphoid. Proposed port sites were marked with indelible marker along the anterior axillary line bilaterally, mid clavicular line bilaterally with each port marked 10 cm from each other. The robotic stapler port was marked for the right midclavicular line including along the left midclavicular line. A 5 mm 0 degrees laparoscopic trocar entry was performed along the left upper quadrant. The abdomen was insufflated to 15 mmHg pressure, which was tolerated well. Diagnostic laparoscopy demonstrated no injury to bowel, viscera, or mesentery. The liver edge was sharp. An 8 mm camera port was placed left lateral to the umbilicus at the epigastrium, 15 cm distal to the xiphoid. Next, 12-mm robot stapler port was placed along the right mid abdomen. An 12 mm port was exchanged along the left upper quadrant. An 8 mm port was placed on the left lateral abdominal wall under direct visualization. Subcutaneous tissues moderately thick over 5-1/2 cm and complexity to her case. Please note that the ports were placed 18 to 20 cm away from the target anatomy of the stomach. Care was taken to check that each robotic arm was safely away from collision with the bed or the patient. At the epigastrium, a medium sized Britney liver retractor was placed under direct visualization with the Iron Cotton Weigher placed under the right shoulder of the patient. Additionally, 25 mm Ethicon ILS anvil was entered into the left upper quadrant incision after placing a green extension tip with uncut 3-0 silk at the Green tip and secured outside the skin using hemostat. The patient was repositioned in reverse Trendelenburg position at 20-degrees after lowering the bed. A 30 camera was used for the entire case. The robot was docked over the patient. Using grasper for arm 3, a grasper for arm 1, including vessel sealer for arm 4, the robotic system was docked and primed as described. Instruments were interchanged by the central supply assistant including endoscissors, the needle local company truck driver, and stapler. An intraoperative upper endoscopy was performed for surveillance of the stomach where moderate retained food was found along the distal stomach. The stomach was suctioned of bile over 50 mL. The scope was left in place in the upper portion of the stomach. I had sat at the console. Attention was brought to creation of the gastric pouch using transgastric approach. At the distal stomach a transverse 3-cm incision was made for entry of the 25 mm anvil and its green attachment piece. The anvil was navigated at the gastric cardia between the second and third veins. The Green extended tip was brought out through the anterior surface of the stomach after using Bovie cautery. The anvil tip was brought out through the stomach and secured by its suture. Next, the gastric pouch was fashioned after dissection was made along the retrogastric space to allow first firing of the robotic staple. Green loads of 60 mm staplers were used to divide the stomach to create the gastric pouch towards the angle of His. Green 60 mm lisa was used to fashion the stomach. Next, the greater omentum and transverse colon was elevated to identify the ligament of Treitz. The ligament of Treitz was identified and measured 60 cm antegrade and marked using 3-0 Silk. The jejunum was divided at the 60 cm point using 60-mm blue loads above the suture measurement. The biliopancreatic limb was held in place. The Moriah limb was measured 100 cm in an antegrade fashion to avoid tension along the proposed gastrojejunal anastomosis. At 100 cm along the anti-mesenteric border of the Moriah limb, a jejunojejunostomy was proposed whereby enterotomies were created along the biliopancreatic limb including the Moriah limb using a Bovie cautery. A stay suture of 3-0 Slik was placed to align and create the anastomosis. The enterotomies along the anti-mesenteric borders were created followed by unidirectional fire from the patient's right side using 60 mm blue load Smart technology robotic stapler. The jejunojejunostomy was found to be hemostatic. The enterotomy was closed after horizontal mattress stitch of 3-0 silk used to elevate the enterotomy followed by closure with the robotic stapler blue load. The jejunal limb was temporarily tacked along the left upper quadrant. Attention was now brought to the creation of the gastrojejunostomy. The green extension anvil tip was discontinued. No torsion was found upon the Moriah limb. Mild tension was identified as the limb was brought along the upper abdomen. The blind jejunal limb was previously opened using hook cautery. The 25-mm ILS stapler was brought through the left anterior lateral port site from the left side. The ILS stapler was brought through the open jejunal limb and its needle was deployed at the antimesenteric border where the anvil were mated for approximately 1 minute upon firing. The stapler was removed after irrigating the shaft of the instrument with warm normal saline. Donuts were found to be intact and on both sides. The RadPad Xi robot arms were then re-docked. I sat at the console. The open jejunal limb defect was closed using 45 mm blue loads after releasing any tension from the blind jejunal limb. Care was taken to avoid any long blind limb to avoid candycane syndrome. Reinforcement sutures were placed along the gastrojejunal anastomosis and placed along the 9:00 and 3 o'clock position using 3-0 Polysorb. The Fox and jejunojejunostomy mesenteric defects were obliterated by the intra-abdominal fat. I then went to the head of the bed to perform the esophagogastrojejunoscopy and a leak test. An Olympus gastroscope was passed along the posterior oropharynx which was unremarkable for any injury to the vocal cords. The scope was passed down to the proximal portion of the pouch, where mild bleeding was encountered. Excellent visualization of the gastrojejunostomy anastomosis, including the Moriah limb was encountered with endoscopic image obtained. The anastomosis was found to be patent. The gastrointestinal tract was desufflated. No evidence of intraoperative leak was encountered as the gastric pouch and anastomosis were submerged under normal saline solution. The robot was then undocked. I then went back to the bedside of the patient, whereby with coordinated effort of the central supply assistant, irrigation was aspirated from the upper abdominal cavity. Tisseel was placed circumferentially over the anastomosis of the gastrojejunostomy. The fascial defect of the EEA stapler was closed using Soren Mock and 0 Vicryl. All instruments and pneumoperitoneum were evacuated from the abdominal cavity. The port correlating with the EEA stapler device was cleansed with normal saline solution and hydrogen peroxide. The rest of incisions were reapproximated using 4-0 Monocryl in an interrupted subcuticular fashion. Local anesthetic was infiltrated along the skin for postop analgesia. Liquid glue was applied to the skin. OptiFoam dressing was placed along the ILS stapler site. At the end of the procedure, needle, sponge and instrument count had been verified correct by the surgical product sales consultant. He had tolerated the procedure well and was extubated and taken to the postanesthesia unit in stable condition. Intraoperative findings were described to the patient's family who were very pleased with the level of care. Operative Findings: 1. Biliopancreatic limb 60 cm 2. Bypass performed using 100 cm moriah limb secondary to avoid increased tension at 150 cm. 3. Reinforcement sutures were placed along the gastrojejunal anastomosis 4. Very dense greater omentum adding complexity case 5. Upper endoscopy demonstrates retained gastric food consistent with moderate to severe gastroparesis 6. Gastric pouch fashioned above retained gastric food along upper pole of stomach 7. Leak test negative with patent gastrojejunal anastomosis 8. Gordon's defect and jejunojejunostomy mesenteric defect obliterated by intra-abdominal fat
[2019-06-07] MEDS ORDERED: INSULIN ASPART (NovoLOG) 100 UNIT/ML VIAL SQ ONE (12:37)
[2019-06-07 12:39] LABS: Glucose,Whole Blood 248 mg/dL (75-99)
[2019-06-07] MEDS: HYDROmorphone 1 MG/ML 1 ML SYRINGE IVP ONE ×4 (12:44→13:04)
[2019-06-07] MEDS: ACETAMINOPHEN IV (For NPO) 1,000 MG in EMPTY BAG 1 BAG IVPB SCH (12:49)
[2019-06-07] MEDS: METOCLOPRAMIDE 5 MG/ML 2 ML VIAL IVP SCH ×2 (13:44→20:20)
[2019-06-07] MEDS: 0.9% NACL WITH KCL 20 MEQ/L 1,000 ML IV SCH ×2 (13:45→23:19)
[2019-06-07 14:51] LABS: Glucose,Whole Blood 212 mg/dL (75-99)
[2019-06-07] MEDS: ALBUTEROL NEBULIZED 2.5 MG/3 ML INHALATION SCH ×2 (16:24→20:30)
[2019-06-07 16:53] LABS: Glucose,Whole Blood 201 mg/dL (75-99)
[2019-06-07] MEDS: ceFAZolin 3 GM in SODIUM CHLORIDE 0.9% 100 ML IVPB SCH (16:59)
[2019-06-07] MEDS: ONDANSETRON 4 MG/2 ML VIAL IVP SCH (17:02)
[2019-06-07] MEDS: INSULIN ASPART (NovoLOG) 100 UNIT/ML VIAL SQ SCH (17:06)
[2019-06-07] MEDS: SIMETHICONE 40 MG/0.6 ML DROPS 2,000 MG/30 ML BOTTLE PO SCH (17:07)
[2019-06-07] MEDS: HYOSCYAMINE ORAL DROPS 1.875 MG/15 ML BOTTLE PO SCH (17:08)
[2019-06-07] MEDS: SODIUM CHLORIDE 0.9% 1,000 ML IV SCH ×2 (17:09→18:17)
--- NOTE | 2019-06-07 19:15 | P.PN ---
Subjective Progress Note Date: 06/07/19 CHIEF COMPLAINT: Morbid obesity HISTORY OF PRESENT ILLNESS: The patient is a 48-year-old female postop day 0 status post gastric bypass. She is resting comfortably however blood pressures continue to be low systolic under 90s. No complaints of chest pain and abdominal pain. Nurse is at bedside. PHYSICAL EXAM: VITAL SIGNS: Reviewed CONSTITUTIONAL: Well developed and in no acute distress. EYES: Conjuctivae without sclera icterus. Extraocular movements grossly intact. HEAD, EARS, NOSE, THROAT: Moist buccal mucosa. Head is atraumatic, normocephalic. Hears conversational speech. No nasal drainage. NECK: Supple. No thyroidomegaly. RESPIRATORY: Non-labored respirations and equal bilateral excursions. CARDIOVASCULAR: Palpable 2+ radial pulses. Regular rate. Regular rhythm. ABDOMEN: Incisions clean dry and intact. Soft. MUSCULOSKELETAL: No gross deformity of the lower extremities noted. No clubbing. No cyanosis. SKIN: Good skin turgor. Well perfused. NEUROLOGIC: Cranial nerves I through XII grossly intact. No focal or lateralizing signs. PSYCH: Appropriate affect. Alert and oriented to person, place and time. CLINCAL LABS: Blood sugar glucose over 200s. ASSESSMENT: 1. Morbid obesity excess calories, BMI 54.2 2. Status post gastric bypass PLAN: 1. Systolic blood pressure is under 110 and will hold all blood pressure medications including lisinopril, metoprolol. 2. With the complexity of her gastric bypass, will hold all oral medications at least for 24 hours until reevaluation tomorrow. 3. Will need recheck of hemoglobin A1c 4. Will need reinsertion of Dhaliwal catheter with IV fluid bolus, dehydration and hypotension Objective - Vital Signs Vital signs: Vital Signs Temp 97.6 F 06/07/19 13:25 Pulse 85 06/07/19 16:42 Resp 16 06/07/19 13:52 BP 95/63 06/07/19 18:19 Pulse Ox 94 L 06/07/19 16:25 Intake & Output 06/07/19 06/07/19 06/08/19 06:59 18:59 06:59 Intake Total 3550 Output Total 350 Balance 3200 Weight 138.8 kg Intake: IV 3550 Output: Urine 330 Estimated Blood Loss 20 - Labs CBC & Chem 7: 06/07/19 07:15 Labs: Abnormal Lab Results - Last 24 Hours (Table) 06/07/19 06/07/19 06/07/19 Range/Units 07:28 08:47 09:48 POC Glucose (mg/dL) 162 H 309 H 280 H (75-99) mg/dL 06/07/19 06/07/19 06/07/19 Range/Units 10:47 12:33 14:39 POC Glucose (mg/dL) 237 H 248 H 212 H (75-99) mg/dL 06/07/19 Range/Units 16:37 POC Glucose (mg/dL) 201 H (75-99) mg/dL Assessment and Plan (1) Uncontrolled diabetes mellitus Current Visit: No Status: Acute Code(s): E11.65 - TYPE 2 DIABETES MELLITUS WITH HYPERGLYCEMIA SNOMED Code(s): 25014826 (2) Morbid obesity due to excess calories Current Visit: Yes Status: Acute Code(s): E66.01 - MORBID (SEVERE) OBESITY DUE TO EXCESS CALORIES SNOMED Code(s): 996341342 (3) Adult BMI 50.0-59.9 kg/sq m Current Visit: Yes Status: Acute Code(s): Z68.43 - BODY MASS INDEX (BMI) 50- 59.9, ADULT SNOMED Code(s): 105499428 (4) Diabetic nephropathy associated with diabetes mellitus due to underlying condition Current Visit: Yes Status: Acute Code(s): E08.21 - DIABETES DUE TO UNDERLYING CONDITION W DIABETIC NEPHROPATHY SNOMED Code(s): 689342276
[2019-06-07 20:38] LABS: Glucose,Whole Blood 181 mg/dL (75-99)
[2019-06-07] MEDS ORDERED: METOPROLOL TARTRATE 25 MG TAB PO SCH (21:00)
[2019-06-07] MEDS: HYDROmorphone 1 MG/ML 1 ML SYRINGE IVP PRN (23:18)
[2019-06-08] MEDS: ACETAMINOPHEN IV (For NPO) 1,000 MG in EMPTY BAG 1 BAG IVPB SCH ×3 (00:04→13:55)
[2019-06-08 00:14] LABS: Glucose,Whole Blood 221 mg/dL (75-99)
[2019-06-08] MEDS: INSULIN ASPART (NovoLOG) 100 UNIT/ML VIAL SQ SCH ×5 (00:16→21:18)
[2019-06-08] MEDS: HYOSCYAMINE ORAL DROPS 1.875 MG/15 ML BOTTLE PO SCH ×5 (00:17→23:28)
[2019-06-08] MEDS: SIMETHICONE 40 MG/0.6 ML DROPS 2,000 MG/30 ML BOTTLE PO SCH ×5 (00:17→23:28)
[2019-06-08] MEDS: ceFAZolin 3 GM in SODIUM CHLORIDE 0.9% 100 ML IVPB SCH (00:25)
[2019-06-08] MEDS: ONDANSETRON 4 MG/2 ML VIAL IVP SCH ×6 (00:25→23:28)
[2019-06-08] MEDS: METOCLOPRAMIDE 5 MG/ML 2 ML VIAL IVP SCH ×5 (00:59→23:28)
[2019-06-08] MEDS: 0.9% NACL WITH KCL 20 MEQ/L 1,000 ML IV SCH ×3 (05:17→17:03)
[2019-06-08] MEDS: LACTATED RINGERS 1,000 ML IV SCH (05:18)
[2019-06-08] MEDS ORDERED: ENOXAPARIN 40 MG/0.4 ML SYRINGE SQ SCH (06:00)
[2019-06-08 06:20] LABS: Glucose,Whole Blood 171 mg/dL (75-99)
[2019-06-08 08:13] LABS: Basophils % (A) 0 %; Eosinophils % (A) 0 %; HGB 11.6 gm/dL (11.4-16.0); Hypochromasia Moderate; Lymphocytes # (A) 1.1 k/uL (1.0-4.8); Lymphocytes % (A) 11 %; MCH 29.8 pg (25.0-35.0); MCHC 31.3 g/dL (31.0-37.0); MCV 95.4 fL (80.0-100.0); Mean Platelet Volume 6.3; Monocytes # (A) 0.6 k/uL (0-1.0); Monocytes % (A) 6 %; Neutrophils # (A) 8.5 k/uL (1.3-7.7); Neutrophils % (A) 82 %; Platelet Count 235 k/uL (150-450); RBC 3.88 m/uL (3.80-5.40); RDW 13.1 % (11.5-15.5); WBC 10.3 k/uL (3.8-10.6)
[2019-06-08] MEDS: ALBUTEROL NEBULIZED 2.5 MG/3 ML INHALATION SCH ×4 (08:17→20:04)
[2019-06-08] MEDS ORDERED: SODIUM CHLORIDE 0.9% 1,000 ML IV ONE ×2 (08:31→09:12)
[2019-06-08 08:55] LABS: Calcium 7.8 mg/dL (8.4-10.2); Magnesium 1.5 mg/dL (1.6-2.3); Phosphorus 3.5 mg/dL (2.5-4.5); Potassium 4.8 mmol/L (3.5-5.1)
[2019-06-08] MEDS ORDERED: BUMETANIDE 1 MG TAB PO SCH (09:00)
[2019-06-08] MEDS ORDERED: LISINOPRIL 10 MG TAB PO SCH (09:00)
[2019-06-08] MEDS ORDERED: HYDROcodone/APAP 15 ML SOLUTION PO PRN (09:12)
[2019-06-08] MEDS: PANTOPRAZOLE 40 MG/10 ML VIAL IV SCH (11:14)
[2019-06-08] MEDS: HYDROmorphone 1 MG/ML 1 ML SYRINGE IVP PRN ×4 (11:15→21:52)
[2019-06-08 11:22] VITALS: BMI 54.1
[2019-06-08 12:14] LABS: Glucose,Whole Blood 142 mg/dL (75-99)
--- NOTE | 2019-06-08 13:21 | P.PN ---
<Diana Mueller Alycia - Last Filed: 06/08/19 15:15> Subjective Progress Note Date: 06/08/19 CHIEF COMPLAINT: Morbid obesity HISTORY OF PRESENT ILLNESS: 48-year-old female who underwent Pako-en-Y gastric bypass. Postoperative day #1. Patient examined this morning at the bedside. Lucero asencio was hypotensive overnight. She had a denis catheter placed for strict I&O monitoring. Patient with 455cc urine over the last 24 hours. Nursing reports only 125cc urine output overnight. Patients IV went bad this morning and nursing has been unable to place another PIV. Patient reports abdominal pain this morning and has been unable to receive Dilaudid due to no peripheral IV access. She denies nausea or emesis. Tolerating ice chips. BP this morning 93/60. Heart rate 110s. She is afebrile. Creatinine 2.39. Magnesium 1.5. WBC 10.3. Hemoglobin 11.6. PHYSICAL EXAM: VITAL SIGNS: Reviewed GENERAL: Well-developed in no acute distress. HEENT: No sclera icterus. Extraocular movements grossly intact. Moist buccal mucosa. Head is atraumatic, normocephalic. Hears conversational speech. No nasal drainage. NECK: Supple without lymphadenopathy. CHEST: Non-labored respirations and equal bilateral excursions. CARDIOVASCULAR: Regular rate with regular rhythm. Palpable 2+ radial pulses. ABDOMEN: Soft. Nondistended. Obese. Surgical incision sites clean dry intact. MUSCULOSKELETAL: No clubbing, cyanosis or edema. NEUROLOGIC: No focal or lateralizing signs. Cranial nerves II through XII grossly intact. PSYCH: Appropriate affect. Alert and oriented to person, place and time. SKIN: Well perfused. Good skin turgor. ASSESSMENT: 1. Morbid obesity due to excess calories 2. Body mass index of 59.8 to 53.4 3. Hypertensive heart disease. 4. Obstructive sleep apnea 5. Diabetes type I, insulin dependent 6. Chronic panniculitis 7. Osteoarthritis of the lower back. 8. Depression 9. Anxiety disorder 10. Hyperlipidemia 11. Iron deficiency 12. Congestive heart failure 13. Gastroesophageal reflux disease 14. Diabetic nephropathy, stage 3 15. History of aspiration pneumonia 16. Diabetic gastroparesis PLAN: 1. Patient without IV access this AM. Nursing unable to establish new PIV. Will place consult for midline or accu-cath to be inserted 2. Begin Seward Elixir for pain 3. Activity as tolerated 4. Incentive spirometry 5. Replace magnesium 3gram IVPB. Maintain magnesium level greater than 2.0. 6. When new IV established, give 2 L IV boluses. Continue maintenance fluids. Monitor kidney function. Repeat labs in AM 7. Monitor urine output. Strict I&O. Continue denis catheter at this time. 8. If blood pressure improves after fluid boluses, will restart lopressor due to tachycardia. Continue to hold additional antihypertensive medications. Nurse practitioner note has been reviewed by physician. Signing provider agrees with the documented findings, assessment, and plan of care. Objective - Vital Signs Vital signs: Vital Signs Temp 97.9 F 06/08/19 07:13 Pulse 108 H 06/08/19 12:21 Resp 18 06/08/19 12:21 BP 93/60 06/08/19 07:13 Pulse Ox 95 06/08/19 12:13 Intake & Output 06/07/19 06/08/19 06/08/19 18:59 06:59 18:59 Intake Total 3550 Output Total 350 125 125 Balance 3200 -125 -125 Weight 138.8 kg 138.8 kg Intake: IV 3550 Output: Urine 330 125 125 Estimated Blood Loss 20 Other: Voiding Method Indwelling Catheter Indwelling Catheter - Labs CBC & Chem 7: 06/08/19 07:15 06/08/19 07:15 Labs: Abnormal Lab Results - Last 24 Hours (Table) 06/07/19 06/07/19 06/07/19 Range/Units 14:39 16:37 20:37 Neutrophils # (1.3-7.7) k/uL Carbon Dioxide (22-30) mmol/L Creatinine (0.52-1.04) mg/dL POC Glucose (mg/dL) 212 H 201 H 181 H (75-99) mg/dL Calcium (8.4-10.2) mg/dL Magnesium (1.6-2.3) mg/dL 06/08/19 06/08/19 06/08/19 Range/Units 00:12 06:00 07:15 Neutrophils # 8.5 H (1.3-7.7) k/uL Carbon Dioxide (22-30) mmol/L Creatinine (0.52-1.04) mg/dL POC Glucose (mg/dL) 221 H 171 H (75-99) mg/dL Calcium (8.4-10.2) mg/dL Magnesium (1.6-2.3) mg/dL 06/08/19 06/08/19 Range/Units 07:15 12:03 Neutrophils # (1.3-7.7) k/uL Carbon Dioxide 21 L (22-30) mmol/L Creatinine 2.39 H (0.52-1.04) mg/dL POC Glucose (mg/dL) 142 H (75-99) mg/dL Calcium 7.8 L (8.4-10.2) mg/dL Magnesium 1.5 L (1.6-2.3) mg/dL <Mallorie Patterson N - Last Filed: 06/08/19 20:07> Subjective Follow up this evening. No dizziness reported. Incisional pain tolerable. She has ambulated but not far. She has history of afib with RVR. Also, reflex tachycardia from discontinued metoprolol beyond 24hr. Will hold Lovenox for acute rise of creatinine with renal insufficiency. Recommend assessment for subacute rehab as she has multiple medical co- morbidities with limited at home assistance. Continue hospitalization for hypotension, renal insufficiency and uncontrolled diabetes. Objective - Vital Signs Vital signs: Vital Signs Temp 98.4 F 06/08/19 19:29 Pulse 120 H 06/08/19 19:29 Resp 18 06/08/19 19:29 BP 92/63 06/08/19 19:29 Pulse Ox 95 06/08/19 19:29 Intake & Output 06/08/19 06/08/19 06/09/19 06:59 18:59 06:59 Intake Total 2500 180 Output Total 125 575 Balance -125 1925 180 Weight 138.8 kg Intake: Intake, IV Titration 2400 Amount 0.9% NaCl with KCl 20 Meq 300 /l 1,000 ml @ 150 mls/hr IV .Q6H40M [facility] Rx#: [id number] Magnesium Sulfate-D5w Pmx 100 1 gm In Dextrose/Water 1 100ml.bag @ 100 mls/hr IVPB Q1H [facility] Rx#: [id number] Sodium Chloride 0.9% 1, 1000 000 ml @ 999 mls/hr IV . Q1H1M [facility] Rx#:[id number] Sodium Chloride 0.9% 1, 1000 000 ml @ 999 mls/hr IV . Q1H1M ONE Rx#:[id number] Oral 100 180 Output: Urine 125 575 Other: Voiding Method Indwelling Catheter Indwelling Catheter - Labs CBC & Chem 7: 06/08/19 07:15 06/08/19 07:15 Labs: Abnormal Lab Results - Last 24 Hours (Table) 06/07/19 06/08/19 06/08/19 Range/Units 20:37 00:12 06:00 Neutrophils # (1.3-7.7) k/uL Carbon Dioxide (22-30) mmol/L Creatinine (0.52-1.04) mg/dL POC Glucose (mg/dL) 181 H 221 H 171 H (75-99) mg/dL Hemoglobin A1c (4.0-6.0) % Calcium (8.4-10.2) mg/dL Magnesium (1.6-2.3) mg/dL 06/08/19 06/08/19 06/08/19 Range/Units 07:15 07:15 07:15 Neutrophils # 8.5 H (1.3-7.7) k/uL Carbon Dioxide 21 L (22-30) mmol/L Creatinine 2.39 H (0.52-1.04) mg/dL POC Glucose (mg/dL) (75-99) mg/dL Hemoglobin A1c 6.8 H (4.0-6.0) % Calcium 7.8 L (8.4-10.2) mg/dL Magnesium 1.5 L (1.6-2.3) mg/dL 06/08/19 06/08/19 Range/Units 12:03 17:06 Neutrophils # (1.3-7.7) k/uL Carbon Dioxide (22-30) mmol/L Creatinine (0.52-1.04) mg/dL POC Glucose (mg/dL) 142 H 271 H (75-99) mg/dL Hemoglobin A1c (4.0-6.0) % Calcium (8.4-10.2) mg/dL Magnesium (1.6-2.3) mg/dL Assessment and Plan (1) Uncontrolled diabetes mellitus Current Visit: No Status: Acute Code(s): E11.65 - TYPE 2 DIABETES MELLITUS WITH HYPERGLYCEMIA SNOMED Code(s): 01924417 (2) Morbid obesity due to excess calories Current Visit: Yes Status: Acute Code(s): E66.01 - MORBID (SEVERE) OBESITY DUE TO EXCESS CALORIES SNOMED Code(s): 923489618 (3) Adult BMI 50.0-59.9 kg/sq m Current Visit: Yes Status: Acute Code(s): Z68.43 - BODY MASS INDEX (BMI) 50- 59.9, ADULT SNOMED Code(s): 297492264 (4) Diabetic nephropathy associated with diabetes mellitus due to underlying con dition Current Visit: Yes Status: Acute Code(s): E08.21 - DIABETES DUE TO UNDERLYING CONDITION W DIABETIC NEPHROPATHY SNOMED Code(s): 101547611
[2019-06-08] MEDS: MAGNESIUM SULFATE-D5W PMX 1 GM in DEXTROSE/WATER 1 100ML.BAG IVPB SCH ×3 (13:53→17:02)
[2019-06-08] MEDS ORDERED: SODIUM CHLORIDE 0.9% 500 ML 500 ML IV ONE ×2 (15:17→15:28)
--- NOTE | 2019-06-08 15:22 | P.CONS ---
History of Present Illness - Reason for Consult Consult date: 06/08/19 medical management - Chief Complaint obesity - History of Present Illness Radha Grande is a 48 yo F with hx morbid obesity, T1DM, gastroparesis, diastolic CHF, CKD4, MJ, depression. She is admitted for scheduled rouy-en-y gastric bypass. Pt is POD#1 and complains of continued abdominal pain with any movement. She denies any nausea since her surgery. She is not passing gas and no BM. Pt hypotensive overnight to 90/60, BP improved this am to 100s/60s. Her home antihypertensive are held. She is tolerating ice chips. Labs reviewed and WBC 10, Cr 2.4 at baseline. Review of Systems All systems: negative Constitutional: Reports malaise, Denies chills, Denies fever Eyes: denies blurred vision, denies pain Ears, nose, mouth and throat: Denies headache, Denies sore throat Cardiovascular: Denies chest pain, Denies shortness of breath Respiratory: Denies cough Gastrointestinal: Reports abdominal pain, Reports loss of appetite, Denies diarrhea, Denies hematochezia, Denies nausea, Denies vomiting Genitourinary: Denies dysuria, Denies hematuria Musculoskeletal: Denies myalgias Integumentary: Denies pruritus, Denies rash Neurological: Denies numbness, Denies weakness Psychiatric: Denies anxiety, Denies depression Endocrine: Denies fatigue, Denies weight change Past Medical History Past Medical History: Diabetes Mellitus, Hyperlipidemia, Hypertension, Renal Disease, Sleep Apnea/CPAP/BIPAP Additional Past Medical History / Comment(s): seasonal allergies, STAGE 4 KIDNEY FAILURE, CHRONIC BACK PAIN Last Myocardial Infarction Date:: 2013 History of Any Multi-Drug Resistant Organisms: None Reported Past Surgical History: Cardiac Valve Replacement, Heart Catheterization Additional Past Surgical History / Comment(s): Aortic valve replacement 2013 Past Anesthesia/Blood Transfusion Reactions: No Reported Reaction Additional Past Anesthesia/Blood Transfusion Reaction / Comm: NO blood transfusion to date Past Psychological History: Anxiety, Depression Additional Psychological History / Comment(s): Take zoloft daily Smoking Status: Former smoker Past Alcohol Use History: None Reported Additional Past Alcohol Use History / Comment(s): Quit smoking 2006 (started smoking at age 12, smoked 1/5 packs/day x 25 years) Past Drug Use History: None Reported Additional Drug Use History / Comment(s): No alcohol usage - Past Family History Mother Family Medical History: Cancer Additional Family Medical History / Comment(s): vulva cancer Father Family Medical History: Dementia, Hypertension, Neurologic Disorder Additional Family Medical History / Comment(s): at age 69 from dementia/parkinsons Sister(s) Family Medical History: Hypertension Medications and Allergies Home Medications Medication Instructions Recorded Confirmed Type Amitriptyline HCl [Elavil] 50 mg PO HS 11/04/18 05/31/19 History Aspirin [Children's Aspirin] 81 mg PO DAILY 11/04/18 05/31/19 History Bumetanide [BUMEX] 1 mg PO QAM 11/04/18 05/31/19 History Lisinopril [Zestril] 10 mg PO QAM 11/04/18 06/07/19 History Metoprolol Tartrate [Lopressor] 25 mg PO HS 11/04/18 05/31/19 History Semaglutide [Ozempic] 1 mg SQ SA 11/04/18 06/07/19 History Sertraline HCl [Zoloft] 150 mg PO HS 11/04/18 05/31/19 History Atorvastatin [Lipitor] 40 mg PO HS 01/29/19 05/31/19 History Metoclopramide [Reglan] 10 mg PO BID 01/29/19 05/31/19 History INSULIN ASPART (NovoLOG) [NovoLOG 15 unit SQ DIRECTED PRN 03/31/19 05/31/19 History (formulary)] Calcitriol 0.5 mcg PO MO 05/31/19 06/07/19 History Insulin Glargine [Lantus] 15 unit SQ QAM 05/31/19 05/31/19 History Allergies Allergy/AdvReac Type Severity Reaction Status Date / Time adhesive Allergy Intermediate Rash/Hives Verified 06/07/19 06:53 latex Allergy Intermediate Rash/Hives Verified 06/07/19 06:53 Physical Exam Vitals: Vital Signs Temp Pulse Pulse Resp BP BP Pulse Ox 06/08/19 12:21 108 H 18 06/08/19 12:13 110 H 18 95 06/08/19 08:30 111 H 20 06/08/19 08:29 117 H 06/08/19 08:17 112 H 20 97 06/08/19 07:13 97.9 F 111 H 15 93/60 98 06/08/19 01:31 97 06/08/19 01:04 97.6 F 103 H 19 99/61 98 06/07/19 20:40 86 06/07/19 20:30 84 06/07/19 19:34 98 F 101 H 20 96/63 98 06/07/19 18:19 95/63 06/07/19 16:42 85 06/07/19 16:25 86 94 L 06/07/19 16:24 87 93/70 06/07/19 15:20 87 84/56 06/07/19 15:05 87 93/72 06/07/19 14:50 86 96/72 06/07/19 14:35 94 83/62 06/07/19 14:20 90 96/67 06/07/19 14:05 88 92/72 06/07/19 13:55 88 102/63 06/07/19 13:52 16 06/07/19 13:40 89 105/68 06/07/19 13:25 97.6 F 91 16 99/64 90 L 06/07/19 13:04 90 16 115/72 93 L Intake and Output 06/07/19 06/08/19 06/08/19 22:59 06:59 14:59 Output Total 125 125 Balance -125 -125 Output: Urine 125 125 Other: Voiding Method Indwelling Catheter Indwelling Catheter Weight 138.8 kg General: obese, well developed, NAD. Vitals reviewed Eyes: PERRL, EOMI, conjunctiva normal HENT: normocephalic, mucus membranes moist Neck: supple, no JVD Lungs: normal respiratory effort, no wheezes or rales CV: Regular rate and rhythm, no murmur. Peripheral pulses 2+ Abdomen: binder in place. soft and generalized tenderness. no guarding or rebound Lymph: no cervical or axillary LAD Skin: warm and dry. Neuro: A&Ox3, normal mood and affect Results CBC & Chem 7: 06/08/19 07:15 06/08/19 07:15 Labs: Abnormal Lab Results - Last 24 Hours (Table) 06/07/19 06/07/19 06/07/19 Range/Units 14:39 16:37 20:37 Neutrophils # (1.3-7.7) k/uL Carbon Dioxide (22-30) mmol/L Creatinine (0.52-1.04) mg/dL POC Glucose (mg/dL) 212 H 201 H 181 H (75-99) mg/dL Calcium (8.4-10.2) mg/dL Magnesium (1.6-2.3) mg/dL 06/08/19 06/08/19 06/08/19 Range/Units 00:12 06:00 07:15 Neutrophils # 8.5 H (1.3-7.7) k/uL Carbon Dioxide (22-30) mmol/L Creatinine (0.52-1.04) mg/dL POC Glucose (mg/dL) 221 H 171 H (75-99) mg/dL Calcium (8.4-10.2) mg/dL Magnesium (1.6-2.3) mg/dL 06/08/19 06/08/19 Range/Units 07:15 12:03 Neutrophils # (1.3-7.7) k/uL Carbon Dioxide 21 L (22-30) mmol/L Creatinine 2.39 H (0.52-1.04) mg/dL POC Glucose (mg/dL) 142 H (75-99) mg/dL Calcium 7.8 L (8.4-10.2) mg/dL Magnesium 1.5 L (1.6-2.3) mg/dL Assessment and Plan (1) Type 1 diabetes mellitus Current Visit: Yes Status: Acute Code(s): E10.9 - TYPE 1 DIABETES MELLITUS WITHOUT COMPLICATIONS SNOMED Code(s): 80854272 (2) Diabetic gastroparesis Current Visit: Yes Status: Acute Priority: Medium Code(s): E11.43 - TYPE 2 DIABETES W DIABETIC AUTONOMIC (POLY)NEUROPATHY; K31.84 - GASTROPARESIS SNOMED Code(s): 687546484 (3) CKD stage 4 due to type 1 diabetes mellitus Current Visit: Yes Status: Acute Code(s): E10.22 - TYPE 1 DIABETES MELLITUS W DIABETIC CHRONIC KIDNEY DISEASE; N18.4 - CHRONIC KIDNEY DISEASE, STAGE 4 (SEVERE) SNOMED Code(s): 50013361442542 (4) Postprocedural hypotension Current Visit: Yes Status: Acute Code(s): I95.81 - POSTPROCEDURAL HYPOTENSION SNOMED Code(s): 623893138 (5) Hypomagnesemia Current Visit: Yes Status: Acute Code(s): E83.42 - HYPOMAGNESEMIA SNOMED Code(s): 280876126 (6) Adult BMI 50.0-59.9 kg/sq m Current Visit: Yes Status: Acute Code(s): Z68.43 - BODY MASS INDEX (BMI) 50- 59.9, ADULT SNOMED Code(s): 680626057 (7) Morbid obesity due to excess calories Current Visit: Yes Status: Acute Code(s): E66.01 - MORBID (SEVERE) OBESITY DUE TO EXCESS CALORIES SNOMED Code(s): 715785283 Plan: 1. Morbid obesity. S/p moriah-en-y gastric bypass. Pain control, advance diet per primary. Continue reglan Replete electrolytes 2. Postprocedural hypotension. Hold antihypertensives. IVF at 100 ml/hr 3. Diastolic CHF. CKD4. AM labs. Resume lopressor tonight. Consider restart bumex tomorrow 4. T1DM. Accucheck and sliding scale 5. Depression. Restart zoloft when tolerating PO DVT prophylaxis lovenox
[2019-06-08 17:18] LABS: Glucose,Whole Blood 271 mg/dL (75-99)
[2019-06-08 17:47] LABS: Hemoglobin A1C 6.8 % (4.0-6.0)
[2019-06-08] MEDS ORDERED: SERTRALINE 50 MG TAB PO SCH (21:00)
[2019-06-08] MEDS ORDERED: ATORVASTATIN 40 MG TAB PO SCH (21:00)
[2019-06-08] MEDS ORDERED: AMITRIPTYLINE HCL 50 MG TAB PO SCH (21:00)
[2019-06-08] MEDS: METOPROLOL TARTRATE 12.5 MG TAB PO SCH (21:15)
[2019-06-08 21:16] LABS: Glucose,Whole Blood 238 mg/dL (75-99)
[2019-06-09] MEDS: 0.9% NACL WITH KCL 20 MEQ/L 1,000 ML IV SCH (03:20)
[2019-06-09] MEDS: ONDANSETRON 4 MG/2 ML VIAL IVP SCH ×3 (05:09→15:51)
[2019-06-09] MEDS: SIMETHICONE 40 MG/0.6 ML DROPS 2,000 MG/30 ML BOTTLE PO SCH ×3 (05:09→15:51)
[2019-06-09] MEDS: METOCLOPRAMIDE 5 MG/ML 2 ML VIAL IVP SCH ×3 (05:09→19:38)
[2019-06-09] MEDS: HYOSCYAMINE ORAL DROPS 1.875 MG/15 ML BOTTLE PO SCH ×3 (05:09→15:51)
[2019-06-09] MEDS: HYDROmorphone 1 MG/ML 1 ML SYRINGE IVP PRN ×2 (06:30→14:10)
[2019-06-09 07:28] LABS: Glucose,Whole Blood 271 mg/dL (75-99)
[2019-06-09] MEDS: ALBUTEROL NEBULIZED 2.5 MG/3 ML INHALATION SCH ×2 (07:31→11:30)
[2019-06-09] MEDS: PANTOPRAZOLE 40 MG/10 ML VIAL IV SCH (08:00)
[2019-06-09] MEDS: INSULIN ASPART (NovoLOG) 100 UNIT/ML VIAL SQ SCH ×4 (08:00→21:52)
[2019-06-09 08:01] LABS: Basophils % (A) 0 %; Eosinophils % (A) 0 %; HCT 38.5 % (34.0-46.0); HGB 11.1 gm/dL (11.4-16.0); Hypochromasia Marked; Lymphocytes # (A) 0.4 k/uL (1.0-4.8); Lymphocytes % (A) 4 %; MCH 28.7 pg (25.0-35.0); MCHC 28.7 g/dL (31.0-37.0); Mean Platelet Volume 7.3; Monocytes # (A) 0.5 k/uL (0-1.0); Monocytes % (A) 5 %; Neutrophils # (A) 9.7 k/uL (1.3-7.7); Neutrophils % (A) 90 %; Platelet Count 230 k/uL (150-450); RBC 3.86 m/uL (3.80-5.40); RDW 13.5 % (11.5-15.5); WBC 10.8 k/uL (3.8-10.6)
[2019-06-09] MEDS: METOPROLOL TARTRATE 12.5 MG TAB PO SCH ×2 (08:01→21:51)
[2019-06-09 08:15] LABS: Calcium 7.6 mg/dL (8.4-10.2); Magnesium 2.1 mg/dL (1.6-2.3); Potassium 5.4 mmol/L (3.5-5.1)
[2019-06-09] MEDS ORDERED: FUROSEMIDE 10 MG/ML 4 ML VIAL IV STA (08:42)
--- NOTE | 2019-06-09 10:30 | P.PN ---
Subjective Progress Note Date: 06/09/19 Radha Grande is a 48 yo F with hx morbid obesity, T1DM, gastroparesis, diastolic CHF, CKD4, MJ, depression. She is admitted for scheduled rouy-en-y gastric bypass. Pt is POD#1 and complains of continued abdominal pain with any movement. She denies any nausea since her surgery. She is not passing gas and no BM. Pt hypotensive overnight to 90/60, BP improved this am to 100s/60s. Her home antihypertensive are held. She is tolerating ice chips. Labs reviewed and WBC 10, Cr 2.4 at baseline. 06/09/2019 maintaining O2 sats in the 90s on 3 L. No cough, no congestion. Patient reports that she has not been using her incentive spirometer. Chest x- ray ordered. Maintained on bariatric clear liquids . Reports one episode of nausea and vomiting this morning . Burping, no flatus, no bowel movement .Blood sugars uncontrolled, high 200s. Tachycardic, low 110s, systolic blood pressure currently in the 90s, last night had dropped into the high 80s, Midodrin initiated. Renal function worsening, 2.85, potassium 5.4, Bumex on hold. CO2 15, maintained on sodium bicarb drip. Afebrile, WBC 10.8. Objective - Vital Signs Vital signs: Vital Signs Temp 98.4 F 06/09/19 07:00 Pulse 108 H 06/09/19 07:40 Resp 18 06/09/19 07:43 BP 90/63 06/09/19 07:00 Pulse Ox 96 06/09/19 07:00 Intake & Output 06/08/19 06/09/19 06/09/19 18:59 06:59 18:59 Intake Total 2500 180 Output Total 985 100 100 Balance 1515 80 -100 Weight 138.8 kg Intake: Intake, IV Titration 2400 Amount 0.9% NaCl with KCl 20 Meq 300 /l 1,000 ml @ 150 mls/hr IV .Q6H40M [facility] Rx#: [id number] Magnesium Sulfate-D5w Pmx 100 1 gm In Dextrose/Water 1 100ml.bag @ 100 mls/hr IVPB Q1H [facility] Rx#: [id number] Sodium Chloride 0.9% 1, 1000 000 ml @ 999 mls/hr IV . Q1H1M [facility] Rx#:[id number] Sodium Chloride 0.9% 1, 1000 000 ml @ 999 mls/hr IV . Q1H1M [facility] Rx#:[id number] Oral 100 180 Output: Urine 985 100 100 Uretheral (Dhaliwal) 100 Other: Voiding Method Indwelling Catheter Indwelling Catheter Indwelling Catheter - Exam General: Alert and oriented 3, sitting up in chair, no acute distress Eyes: PERRL, EOMI, conjunctiva normal HENT: normocephalic, mucus membranes moist Neck: supple, no JVD Lungs: normal respiratory effort, no wheezes or rales, no crackles. Bilateral bases diminished CV: Regular rate and rhythm, no murmur. Peripheral pulses 2+ Abdomen: binder in place. soft and generalized tenderness. no guarding or rebound, positive bowel sounds Lymph: no cervical or axillary LAD Skin: warm and dry. Neuro: A&Ox3, normal mood and affect - Labs CBC & Chem 7: 06/09/19 07:09 06/09/19 07:09 Labs: Abnormal Lab Results - Last 24 Hours (Table) 06/08/19 06/08/19 06/08/19 Range/Units 07:15 12:03 17:06 WBC (3.8-10.6) k/uL Hgb (11.4-16.0) gm/dL MCHC (31.0-37.0) g/dL Neutrophils # (1.3-7.7) k/uL Lymphocytes # (1.0-4.8) k/uL Sodium (137-145) mmol/L Potassium (3.5-5.1) mmol/L Chloride (98-107) mmol/L Carbon Dioxide (22-30) mmol/L Creatinine (0.52-1.04) mg/dL Glucose (74-99) mg/dL POC Glucose (mg/dL) 142 H 271 H (75-99) mg/dL Hemoglobin A1c 6.8 H (4.0-6.0) % Calcium (8.4-10.2) mg/dL 06/08/19 06/09/19 06/09/19 Range/Units 21:13 07:09 07:09 WBC 10.8 H (3.8-10.6) k/uL Hgb 11.1 L (11.4-16.0) gm/dL MCHC 28.7 L (31.0-37.0) g/dL Neutrophils # 9.7 H (1.3-7.7) k/uL Lymphocytes # 0.4 L (1.0-4.8) k/uL Sodium 135 L (137-145) mmol/L Potassium 5.4 H (3.5-5.1) mmol/L Chloride 109 H (98-107) mmol/L Carbon Dioxide 15 L (22-30) mmol/L Creatinine 2.85 H (0.52-1.04) mg/dL Glucose 290 H (74-99) mg/dL POC Glucose (mg/dL) 238 H (75-99) mg/dL Hemoglobin A1c (4.0-6.0) % Calcium 7.6 L (8.4-10.2) mg/dL 06/09/19 Range/Units 07:26 WBC (3.8-10.6) k/uL Hgb (11.4-16.0) gm/dL MCHC (31.0-37.0) g/dL Neutrophils # (1.3-7.7) k/uL Lymphocytes # (1.0-4.8) k/uL Sodium (137-145) mmol/L Potassium (3.5-5.1) mmol/L Chloride (98-107) mmol/L Carbon Dioxide (22-30) mmol/L Creatinine (0.52-1.04) mg/dL Glucose (74-99) mg/dL POC Glucose (mg/dL) 271 H (75-99) mg/dL Hemoglobin A1c (4.0-6.0) % Calcium (8.4-10.2) mg/dL Assessment and Plan Assessment: (1) Type 1 diabetes mellitus, uncontrolled, hyperglycemic Current Visit: Yes Status: Acute Code(s): E10.9 - TYPE 1 DIABETES MELLITUS WITHOUT COMPLICATIONS SNOMED Code(s): 51508996 (2) Diabetic gastroparesis Current Visit: Yes Status: Acute Priority: Medium Code(s): E11.43 - TYPE 2 DIABETES W DIABETIC AUTONOMIC (POLY)NEUROPATHY; K31.84 - GASTROPARESIS SNOMED Code(s): 607604627 (3) acute on CKD stage 4 due to type 1 diabetes mellitus. Current Visit: Yes Status: Acute Code(s): E10.22 - TYPE 1 DIABETES MELLITUS W DIABETIC CHRONIC KIDNEY DISEASE; N18.4 - CHRONIC KIDNEY DISEASE, STAGE 4 (SEVERE) SNOMED Code(s): 00077634813359 (4) Postprocedural hypotension Current Visit: Yes Status: Acute Code(s): I95.81 - POSTPROCEDURAL HYPOTENSION SNOMED Code(s): 189492412 (5) Hypomagnesemia Current Visit: Yes Status: Acute Code(s): E83.42 - HYPOMAGNESEMIA SNOMED Code(s): 225894568 (6) Adult BMI 50.0-59.9 kg/sq m Current Visit: Yes Status: Acute Code(s): Z68.43 - BODY MASS INDEX (BMI) 50- 59.9, ADULT SNOMED Code(s): 849165495 (7) Morbid obesity due to excess calories, status post Pako-en-Y gastric bypass Current Visit: Yes Status: Acute Code(s): E66.01 - MORBID (SEVERE) OBESITY DUE TO EXCESS CALORIES SNOMED Code(s): 698010906 (8) acute hypoxic respiratory failure, multifactorial secondary to atelectasis, hypercapnia ,chest x-ray pending. Plan: Continue on current medication regime ,monitoring and symptomatic treatment. Maintain sodium bicarb drip. Antihypertensives and Bumex on hold. Midodrin initiated as per nephrology. Cardiology consult in place, recommendations pending. Aggressive pulmonary toileting with incentive spirometer reinforced. Pain management/diet advancement as per surgery.Levemir resumed. Close monitoring of Accu-Cheks.Chest x-ray, echo pending. Close monitoring of renal function, electrolytes with repeat labs ordered for a.m. The impression and plan of care has been dictated as directed. : I performed a history and examination of this patient, discussed the same with the dictator. I agree with the dictator's note ,documented as a scribe. Any additional findings or plans will be noted.
[2019-06-09] MEDS: MIDODRINE 5 MG TAB PO SCH ×2 (10:34→18:17)
[2019-06-09] MEDS: SODIUM CHLORIDE 0.45% 1,000 ML with SODIUM BICARB (1 MEQ/ML) 100 ML IV SCH ×2 (10:34)
--- NOTE | 2019-06-09 10:39 | XR ---
EXAMINATION TYPE: XR chest 2V DATE OF EXAM: 06/09/2019 COMPARISON: 01/22/2019 HISTORY: Shortness of breath TECHNIQUE: Frontal and lateral views of the chest are obtained. FINDINGS: Low lung volumes are seen. New right minor fissure fluid. Trace left basilar linear subseg mental atelectasis. Enlarged loops of small bowel are seen in the upper abdomen and the visualized po rtions of the upper abdomen. No gross evidence of pneumoperitoneum. No acute osseous pathology. Proba ble hiatal hernia on the lateral view. Lateral view also demonstrates cardiac valvular replacement. IMPRESSION: 1. New right minor fissural fluid. 2. Dilated loops of small bowel in the visualized upper abdomen. Consider ileus or obstruction. Corre late with patient's symptoms and physical exam. 3. Low lung volumes with left basilar subsegmental atelectasis.
[2019-06-09] MEDS: SODIUM CHLORIDE 0.9% 1,000 ML IV SCH (11:39)
--- NOTE | 2019-06-09 11:58 | P.CRDCN ---
History of Present Illness History of present illness: This is a pleasant 48-year-old female past medical history significant for bicuspid aortic valve s/p AVR with bioprosthetic valve 2013, diabetes mellitus, hypertension, dyslipidemia, chronic kidney disease, obstructive sleep apnea and morbid obesity. She follows in the office with Dr. Márquez. She saw Dr. Márquez in November for pre-op evaluation. She underwent robotic Pako-en-Y gastric bypass with Dr. Patterson 06/07/2019. We have been asked to see her in consultation for shortness of breath. Yesterday she was having some mild hypotension blood pressure 84/53 and 90/63 this morning. Heart rates have been elevated 110-130's. She received some fluids yesterday and was initiated on m idodrine. This morning she is seen and examined sitting up in the chair in mild respiratory distress. She states she overall feels very poor. She did not sleep well due to inability to lay flat and ongoing shortness of breath. She also complains of mild nausea, one episode of vomiting this morning and abdominal discomfort. She is maintaining oxygen saturations on room air. Dhaliwal catheter in place with little urine output yet today. Nephrology has also been consulted and has initiated a bicarb infusion. Repeat chest xray this morning reveals right fissural fluid, dilated loops of small bowel consider ileus or obstruction and low lung volumes. Laboratory data reviewed, proBNP 2410, d-dimer 2.61, WBC 10.8, hgb 11.1, plt 230, sodium 135, potassium 5.4, creatinine 2.85 with GFR 19, troponin negative, magnesium 1.5 06/07. Mag was replaced 06/08. No baseline EKG on the chart. Echo obtained in the office in 2013 reveals preserved LV systolic function with EF 55-60%, normal diastolic function, normally functioning bioprostheic aortic valve with a mean gradient of 16 mmHg across the valve. She underwent a heart catheterization in 2013 revealing normal coronary arteries. At the time of my exam: CONSTITUTIONAL: Denies fever. Denies chills. EYES: Denies blurred vision. Denies vision changes. Denies eye pain. EARS, NOSE, MOUTH & THROAT: Denies headache. Denies sore throat. Denies ear pain. CARDIOVASCULAR: Denies chest pain. Complains of shortness of breath. Complains of orthopnea. Complains of PND. Denies palpitations. RESPIRATORY: Denies cough. GASTROINTESTINAL: Complains of abdominal pain. Denies diarrhea. Denies constipation. Complains of nausea. Denies vomiting. MUSCULOSKELETAL: Denies myalgias. INTEGUMENTARY: Denies pruitis. Denies rash. NEUROLOGIC: Denies numbness. Denies tingling. Denies weakness. PSYCHIATRIC: Denies anxiety. Denies depression. ENDOCRINE: Denies fatigue. Denies weight change. Denies polydipsia. Denies polyurina. GENITOURINARY: Denies burning, hematuria or urgency with micturation. HEMATOLOGIC: Denies history of anemia. Denies bleeding. Blood pressure 90/63 heart rate 118 afebrile maintaining oxygen saturation on nasal cannula GENERAL: This is a 48-year-old female in no apparent distress at the time of my examination. Morbidly obese. HEENT: Head is atraumatic, normocephalic. Pupils are equal, round. Sclerae anicteric. Conjunctivae are clear. Mucous membranes of the mouth are moist. Neck is supple. There is no jugular venous distention. No carotid bruit is heard. LUNGS: Bibasilar rales right > left. No wheezes or rhonchi. No chest wall tenderness is noted on palpation or with deep breathing. HEART: Regular rate and rhythm with systolic ejection murmur at the base, no rubs or gallops. S1 and S2 heard. ABDOMEN: Soft, mildly tender. Bowel sounds are heard. No organomegaly noted. EXTREMITIES: Trace 1+ bilateral lower extremity edema. Purple discoloration of her toes, chronic per the patient. VASCULAR: Radial and dorsalis pedis pulses palpated, no evidence of clubbing. NEUROLOGIC: Patient is awake, alert and oriented x3. ASSESSMENT s/p gastric bypass surgery POD #2 Acute diastolic heart failure, BNP 2410 Acute on chronic renal failure Elevated d-dimer Hypomagnesemia, replaced Hyperkalemia History of aortic valve repair with bioprosthetic valve secondary to bicuspid valve Diabetes mellitus Hypertension Dyslipidemia Obstructive sleep apnea Morbid obesity, BMI 54 PLAN Obtain baseline EKG. D-dimer requested was elevated, however due to renal function will hold on CTA. Check bilateral lower extremity doppler. Recommend thromboembolic anti-coagulation in the form of lovenox or NOAC. Consider abdominal imaging for possible ileus. Repeat 2D echocardiogram and doppler study to assess cardiac structure and function. Check ABG's, lactic acid and follow renal function and electrolytes in the morning. Initiate on lasix 40 mg IV BID. Further recommendations to follow based on clinical course. Thank you kindly for this consultation. Nurse Practitioner note has been reviewed, I agree with a documented findings and plan of care. Patient was seen and examined. Past Medical History Past Medical History: Diabetes Mellitus, Hyperlipidemia, Hypertension, Renal Disease, Sleep Apnea/CPAP/BIPAP Additional Past Medical History / Comment(s): seasonal allergies, STAGE 4 KIDNEY FAILURE, CHRONIC BACK PAIN Last Myocardial Infarction Date:: 2013 History of Any Multi-Drug Resistant Organisms: None Reported Past Surgical History: Cardiac Valve Replacement, Heart Catheterization Additional Past Surgical History / Comment(s): Aortic valve replacement 2013 Past Anesthesia/Blood Transfusion Reactions: No Reported Reaction Additional Past Anesthesia/Blood Transfusion Reaction / Comment(s): NO blood tr ansfusion to date Past Psychological History: Anxiety, Depression Additional Psychological History / Comment(s): Take zoloft daily Smoking Status: Former smoker Past Alcohol Use History: None Reported Additional Past Alcohol Use History / Comment(s): Quit smoking 2006 (started smoking at age 12, smoked 1/5 packs/day x 25 years) Past Drug Use History: None Reported Additional Drug Use History / Comment(s): No alcohol usage - Past Family History Mother Family Medical History: Cancer Additional Family Medical History / Comment(s): vulva cancer Father Family Medical History: Dementia, Hypertension, Neurologic Disorder Additional Family Medical History / Comment(s): at age 69 from dementia/parkinsons Sister(s) Family Medical History: Hypertension Medications and Allergies Home Medications Medication Instructions Recorded Confirmed Type Amitriptyline HCl [Elavil] 50 mg PO HS 11/04/18 05/31/19 History Aspirin [Children's Aspirin] 81 mg PO DAILY 11/04/18 05/31/19 History Bumetanide [BUMEX] 1 mg PO QAM 11/04/18 05/31/19 History Lisinopril [Zestril] 10 mg PO QAM 11/04/18 06/07/19 History Metoprolol Tartrate [Lopressor] 25 mg PO HS 11/04/18 05/31/19 History Semaglutide [Ozempic] 1 mg SQ SA 11/04/18 06/07/19 History Sertraline HCl [Zoloft] 150 mg PO HS 11/04/18 05/31/19 History Atorvastatin [Lipitor] 40 mg PO HS 01/29/19 05/31/19 History Metoclopramide [Reglan] 10 mg PO BID 01/29/19 05/31/19 History INSULIN ASPART (NovoLOG) [NovoLOG 15 unit SQ DIRECTED PRN 03/31/19 05/31/19 History (formulary)] Calcitriol 0.5 mcg PO MO 05/31/19 06/07/19 History Insulin Glargine [Lantus] 15 unit SQ QAM 05/31/19 05/31/19 History Allergies Allergy/AdvReac Type Severity Reaction Status Date / Time adhesive Allergy Intermediate Rash/Hives Verified 06/07/19 06:53 latex Allergy Intermediate Rash/Hives Verified 06/07/19 06:53 Physical Exam Vitals: Vital Signs Temp Pulse Pulse Resp BP BP Pulse Ox 06/09/19 07:43 18 06/09/19 07:40 108 H 06/09/19 07:31 112 H 06/09/19 07:00 98.4 F 118 H 23 90/63 96 06/09/19 06:35 71 120/78 06/09/19 00:40 98.4 F 122 H 21 84/53 99 06/08/19 19:29 98.4 F 120 H 18 92/63 95 06/08/19 18:30 97.9 F 118 H 20 96/58 99 06/08/19 16:50 97.8 F 119 H 20 87/56 100 06/08/19 16:41 132 H 34 H 94 L 06/08/19 16:25 118 H 18 06/08/19 16:06 95 06/08/19 16:03 111 H 06/08/19 15:10 97.7 F 111 H 15 85/46 100 06/08/19 13:20 100/69 06/08/19 12:21 108 H 18 06/08/19 12:13 110 H 18 95 Intake and Output 06/08/19 06/09/19 06/09/19 22:59 06:59 14:59 Intake Total 180 Output Total 450 100 100 Balance -270 -100 -100 Intake: Oral 180 Output: Urine 450 100 100 Uretheral (Dhaliwal) 100 Other: Voiding Method Indwelling Catheter Indwelling Catheter Indwelling Catheter Results 06/09/19 07:09 06/09/19 07:09 Cardiac Enzymes 06/09/19 Range/Units 07:27 Troponin I 0.014 (0.000-0.034) ng/mL CBC 06/09/19 Range/Units 07:09 WBC 10.8 H (3.8-10.6) k/uL RBC 3.86 (3.80-5.40) m/uL Hgb 11.1 L (11.4-16.0) gm/dL Hct 38.5 (34.0-46.0) % Plt Count 230 (150-450) k/uL Comprehensive Metabolic Panel 06/09/19 Range/Units 07:09 Sodium 135 L (137-145) mmol/L Potassium 5.4 H (3.5-5.1) mmol/L Chloride 109 H (98-107) mmol/L Carbon Dioxide 15 L (22-30) mmol/L BUN 17 (7-17) mg/dL Creatinine 2.85 H (0.52-1.04) mg/dL Glucose 290 H (74-99) mg/dL Calcium 7.6 L (8.4-10.2) mg/dL Current Medications Generic Name Dose Route Start Last Admin Trade Name Freq PRN Reason Stop Dose Admin Hydrocodone Bitart/Acetaminophen 15 ml 06/08/19 09:12 06/08/19 09:26 [place] Elixir 7.5-325mg/15ml PO 15 ml Q6H PRN Administration MODERATE Pain Albuterol Sulfate 2.5 mg 06/07/19 16:00 06/09/19 07:31 Ventolin Nebulized INHALATION 2.5 mg RT-QID [facility] Administration Furosemide 40 mg 06/09/19 21:00 Lasix IV Q12HR [facility] Hydromorphone HCl 1 mg 06/07/19 12:34 06/09/19 06:30 Dilaudid IVP 1 mg Q3HR PRN Administration SEVERE Pain Hyoscyamine 0.125 mg 06/07/19 18:00 06/09/19 05:09 Levsin Drops PO 0.125 mg Q6HR [facility] Administration Sodium Chloride 1,000 mls @ 50 mls/hr 06/09/19 09:00 Saline 0.9% IV .Q20H [facility] Sodium Bicarbonate 100 ml/ 1,100 mls @ 40 mls/hr 06/09/19 09:45 06/09/19 10:34 Sodium Chloride IV 40 mls/hr .Q24H [facility] Administration Insulin Aspart 0 unit 06/08/19 17:30 06/09/19 08:00 Novolog SQ 10 unit ACHS [facility] Administration Protocol Insulin Detemir 15 unit 06/09/19 10:15 Levemir SQ QAM@0700 [facility] Lidocaine HCl 0.1 ml 06/07/19 06:08 06/07/19 07:20 .Xylocaine 1% Inj (10mg/Ml) For Iv Start INTRADERMA 0.1 ml PER PROTOCOL PRN Administration IV Start Metoclopramide HCl 10 mg 06/07/19 13:00 06/09/19 05:09 Reglan IVP 10 mg Q6H [facility] Administration Metoprolol Tartrate 12.5 mg 06/08/19 21:00 06/09/19 08:01 Lopressor PO Not Given BID [facility] Midodrine 10 mg 06/09/19 10:00 06/09/19 10:34 Proamatine PO 10 mg AC-BID [facility] Administration Naloxone HCl 0.2 mg 06/07/19 12:34 Narcan IV Q2M PRN Opioid Reversal Ondansetron HCl 4 mg 06/07/19 18:00 06/09/19 05:09 Zofran IVP Not Given Q6HR [facility] Pantoprazole Sodium 40 mg 06/08/19 09:00 06/09/19 08:00 Protonix IV 40 mg DAILY [facility] Administration Simethicone 40 mg 06/07/19 18:00 06/09/19 05:09 Mylicon Drops PO 40 mg Q6HR [facility] Administration Intake and Output 06/08/19 06/09/19 06/09/19 22:59 06:59 14:59 Intake Total 180 Output Total 450 100 100 Balance -270 -100 -100 Intake: Oral 180 Output: Urine 450 100 100 Uretheral (Dhaliwal) 100 Other: Voiding Method Indwelling Catheter Indwelling Catheter Indwelling Catheter 06/09/19 07:09 06/09/19 07:09
[2019-06-09 12:00] LABS: Glucose,Whole Blood 284 mg/dL (75-99)
[2019-06-09] MEDS ORDERED: SCOPOLAMINE 1.5MG/72HR PATCH TRANSDERM STA (12:29)
[2019-06-09] MEDS ORDERED: DEXAMETHASONE SOD PHOSPHATE 4 MG/ML 1 ML VIAL IM SCH (12:30)
[2019-06-09] MEDS ORDERED: IPRATROPIUM-ALBUTEROL 3 ML NEB INHALATION PRN (12:54)
[2019-06-09] MEDS: DEXAMETHASONE SOD PHOSPHATE 4 MG/ML 1 ML VIAL IV SCH ×2 (13:13→18:16)
[2019-06-09] MEDS: INSULIN DETEMIR (LEVEMIR) 100 UNIT/ML SYR SQ SCH (13:14)
--- NOTE | 2019-06-09 13:44 | P.PN ---
<Diana Mueller Alycia - Last Filed: 06/09/19 13:36> Subjective Progress Note Date: 06/09/19 CHIEF COMPLAINT: Morbid obesity HISTORY OF PRESENT ILLNESS: 48-year-old female who underwent Pako-en-Y gastric bypass. Postoperative day #2. Patient examined this morning at the bedside. She complains of not feeling well. Mild nausea. No vomiting. Patient received 2.5L in fluid boluses yesterday secondary to minimal urine output and hypotension. This morning she continues to have decreased urine output and complains of shortness of breath. She is on 3L NC. Cardiology was consulted for evaluation of hypotension. Patient received 40mg IV Lasix per cardiology this morning. Patient reports pain is tolerable. She is sitting up in the chair at the time of my examination. She is not using incentive spirometer as often as she has been instructed to. PHYSICAL EXAM: VITAL SIGNS: Reviewed GENERAL: Well-developed in no acute distress, however appears to be feeling u nwell and slightly short of breath. HEENT: No sclera icterus. Extraocular movements grossly intact. Moist buccal mucosa. Head is atraumatic, normocephalic. Hears conversational speech. No nasal dr ainage. NECK: Supple without lymphadenopathy. CHEST: Non-labored respirations and equal bilateral excursions. On 3L NC. Some audible wheezing. CARDIOVASCULAR: Regular rate with regular rhythm. Palpable 2+ radial pulses. ABDOMEN: Soft. Nondistended. Obese. Surgical incision sites clean dry intact. MUSCULOSKELETAL: No clubbing or cyanosis. NEUROLOGIC: No focal or lateralizing signs. Cranial nerves II through XII grossly intact. PSYCH: Appropriate affect. Alert and oriented to person, place and time. SKIN: Well perfused. Good skin turgor. ASSESSMENT: 1. Morbid obesity due to excess calories 2. Body mass index of 59.8 to 53.4 3. Hypertensive heart disease 4. Obstructive sleep apnea 5. Diabetes type I, insulin dependent 6. Chronic panniculitis 7. Osteoarthritis of the lower back. 8. Depression 9. Anxiety disorder 10. Hyperlipidemia 11. Iron deficiency 12. Congestive heart failure 13. Gastroesophageal reflux disease 14. Diabetic nephropathy, stage 3 15. History of aspiration pneumonia 16. Diabetic gastroparesis PLAN: 1. Cardiology consulted for hypotension. Patient started on Lasix 40mg IV Q12 hours. Midodrine also started. Further management of hypotension per cardiology 2. Replace potassium from IV fluids secondary to hyperkalemia 3. Obtain CXR 4. Continue clear liquid diet. No straws or carbonated beverages 5. Monitor kidney function. Nephrology on consult. Nurse practitioner note has been reviewed by physician. Signing provider agrees with the documented findings, assessment, and plan of care. Objective - Vital Signs Vital signs: Vital Signs Temp 98.4 F 06/09/19 07:00 Pulse 120 H 06/09/19 11:49 Resp 18 06/09/19 07:43 BP 90/63 06/09/19 07:00 Pulse Ox 96 06/09/19 07:00 Intake & Output 06/08/19 06/09/19 06/09/19 18:59 06:59 18:59 Intake Total 2500 180 Output Total 985 100 100 Balance 1515 80 -100 Weight 138.8 kg Intake: Intake, IV Titration 2400 Amount 0.9% NaCl with KCl 20 Meq 300 /l 1,000 ml @ 150 mls/hr IV .Q6H40M [facility] Rx#: [id number] Magnesium Sulfate-D5w Pmx 100 1 gm In Dextrose/Water 1 100ml.bag @ 100 mls/hr IVPB Q1H [facility] Rx#: [id number] Sodium Chloride 0.9% 1, 1000 000 ml @ 999 mls/hr IV . Q1H1M [facility] Rx#:[id number] Sodium Chloride 0.9% 1, 1000 000 ml @ 999 mls/hr IV . Q1H1M [facility] Rx#:[id number] Oral 100 180 Output: Urine 985 100 100 Uretheral (Dhaliwal) 100 Other: Voiding Method Indwelling Catheter Indwelling Catheter Indwelling Catheter - Labs CBC & Chem 7: 06/09/19 07:09 06/09/19 07:09 Labs: Abnormal Lab Results - Last 24 Hours (Table) 06/08/19 06/08/19 06/08/19 Range/Units 07:15 17:06 21:13 WBC (3.8-10.6) k/uL Hgb (11.4-16.0) gm/dL MCHC (31.0-37.0) g/dL Neutrophils # (1.3-7.7) k/uL Lymphocytes # (1.0-4.8) k/uL D-Dimer (<0.60) mg/L FEU Sodium (137-145) mmol/L Potassium (3.5-5.1) mmol/L Chloride (98-107) mmol/L Carbon Dioxide (22-30) mmol/L Creatinine (0.52-1.04) mg/dL Glucose (74-99) mg/dL POC Glucose (mg/dL) 271 H 238 H (75-99) mg/dL Hemoglobin A1c 6.8 H (4.0-6.0) % Plasma Lactic Acid Crow (0.7-2.0) mmol/L Calcium (8.4-10.2) mg/dL 06/09/19 06/09/19 06/09/19 Range/Units 07:09 07:09 07:26 WBC 10.8 H (3.8-10.6) k/uL Hgb 11.1 L (11.4-16.0) gm/dL MCHC 28.7 L (31.0-37.0) g/dL Neutrophils # 9.7 H (1.3-7.7) k/uL Lymphocytes # 0.4 L (1.0-4.8) k/uL D-Dimer (<0.60) mg/L FEU Sodium 135 L (137-145) mmol/L Potassium 5.4 H (3.5-5.1) mmol/L Chloride 109 H (98-107) mmol/L Carbon Dioxide 15 L (22-30) mmol/L Creatinine 2.85 H (0.52-1.04) mg/dL Glucose 290 H (74-99) mg/dL POC Glucose (mg/dL) 271 H (75-99) mg/dL Hemoglobin A1c (4.0-6.0) % Plasma Lactic Acid Crow (0.7-2.0) mmol/L Calcium 7.6 L (8.4-10.2) mg/dL 06/09/19 06/09/19 06/09/19 Range/Units 09:09 11:21 11:59 WBC (3.8-10.6) k/uL Hgb (11.4-16.0) gm/dL MCHC (31.0-37.0) g/dL Neutrophils # (1.3-7.7) k/uL Lymphocytes # (1.0-4.8) k/uL D-Dimer 2.61 H (<0.60) mg/L FEU Sodium (137-145) mmol/L Potassium (3.5-5.1) mmol/L Chloride (98-107) mmol/L Carbon Dioxide (22-30) mmol/L Creatinine (0.52-1.04) mg/dL Glucose (74-99) mg/dL POC Glucose (mg/dL) 284 H (75-99) mg/dL Hemoglobin A1c (4.0-6.0) % Plasma Lactic Acid Crow 2.2 H* (0.7-2.0) mmol/L Calcium (8.4-10.2) mg/dL <Mallorie Patterson N - Last Filed: 06/09/19 17:15> Subjective Lovenox had been discontinued at with increased renal function and high risk of bleeding immediately postsurgical. Cardiology following with start of Lasix despite history of hypotension. Appreciate nephrology consultation for baseline history of chronic kidney disease due to diabetic nephropathy. Pulmonary consu ltation for baseline history of moderate obstructive sleep apnea. I discussed with patient once medically stable surgical stable, likely evaluation for subacute rehab. Patient has currently no help at home with recent history of surgery including multiple medical comorbidities. Agree with start of heparin. Avoid Lovenox and baseline history of worsening renal function with high risk of bleed. We'll defer to cardiology for hypotension, tachycardia and nephrology with chronic stage III kidney disease Objective - Vital Signs Vital signs: Vital Signs Temp 98.6 F 06/09/19 14:43 Pulse 120 H 06/09/19 15:56 Resp 22 06/09/19 15:56 BP 143/85 06/09/19 14:43 Pulse Ox 100 06/09/19 14:43 Intake & Output 06/08/19 06/09/19 06/09/19 18:59 06:59 18:59 Intake Total 2500 180 Output Total 958 605 9514 Balance 1515 80 -1100 Weight 138.8 kg 150.7 kg Intake: Intake, IV Titration 2400 Amount 0.9% NaCl with KCl 20 Meq 300 /l 1,000 ml @ 150 mls/hr IV .Q6H40M [facility] Rx#: [id number] Magnesium Sulfate-D5w Pmx 100 1 gm In Dextrose/Water 1 100ml.bag @ 100 mls/hr IVPB Q1H [facility] Rx#: [id number] Sodium Chloride 0.9% 1, 1000 000 ml @ 999 mls/hr IV . Q1H1M [facility] Rx#:[id number] Sodium Chloride 0.9% 1, 1000 000 ml @ 999 mls/hr IV . Q1H1M [facility] Rx#:[id number] Oral 100 180 Output: Urine 892 914 4840 Uretheral (Dhaliwal) 100 Other: Voiding Method Indwelling Catheter Indwelling Catheter Indwelling Catheter - Labs CBC & Chem 7: 06/09/19 07:09 06/09/19 07:09 Labs: Abnormal Lab Results - Last 24 Hours (Table) 06/08/19 06/08/19 06/08/19 Range/Units 07:15 17:06 21:13 WBC (3.8-10.6) k/uL Hgb (11.4-16.0) gm/dL MCHC (31.0-37.0) g/dL Neutrophils # (1.3-7.7) k/uL Lymphocytes # (1.0-4.8) k/uL D-Dimer (<0.60) mg/L FEU Sodium (137-145) mmol/L Potassium (3.5-5.1) mmol/L Chloride (98-107) mmol/L Carbon Dioxide (22-30) mmol/L Creatinine (0.52-1.04) mg/dL Glucose (74-99) mg/dL POC Glucose (mg/dL) 271 H 238 H (75-99) mg/dL Hemoglobin A1c 6.8 H (4.0-6.0) % Plasma Lactic Acid Crow (0.7-2.0) mmol/L Calcium (8.4-10.2) mg/dL 06/09/19 06/09/19 06/09/19 Range/Units 07: 07:09 07:26 WBC 10.8 H (3.8-10.6) k/uL Hgb 11.1 L (11.4-16.0) gm/dL MCHC 28.7 L (31.0-37.0) g/dL Neutrophils # 9.7 H (1.3-7.7) k/uL Lymphocytes # 0.4 L (1.0-4.8) k/uL D-Dimer (<0.60) mg/L FEU Sodium 135 L (137-145) mmol/L Potassium 5.4 H (3.5-5.1) mmol/L Chloride 109 H (98-107) mmol/L Carbon Dioxide 15 L (22-30) mmol/L Creatinine 2.85 H (0.52-1.04) mg/dL Glucose 290 H (74-99) mg/dL POC Glucose (mg/dL) 271 H (75-99) mg/dL Hemoglobin A1c (4.0-6.0) % Plasma Lactic Acid Crow (0.7-2.0) mmol/L Calcium 7.6 L (8.4-10.2) mg/dL 06/09/19 06/09/19 06/09/19 Range/Units 09:09 11:21 11:59 WBC (3.8-10.6) k/uL Hgb (11.4-16.0) gm/dL MCHC (31.0-37.0) g/dL Neutrophils # (1.3-7.7) k/uL Lymphocytes # (1.0-4.8) k/uL D-Dimer 2.61 H (<0.60) mg/L FEU Sodium (137-145) mmol/L Potassium (3.5-5.1) mmol/L Chloride (98-107) mmol/L Carbon Dioxide (22-30) mmol/L Creatinine (0.52-1.04) mg/dL Glucose (74-99) mg/dL POC Glucose (mg/dL) 284 H (75-99) mg/dL Hemoglobin A1c (4.0-6.0) % Plasma Lactic Acid Crow 2.2 H* (0.7-2.0) mmol/L Calcium (8.4-10.2) mg/dL Assessment and Plan (1) Uncontrolled diabetes mellitus Current Visit: No Status: Acute Code(s): E11.65 - TYPE 2 DIABETES MELLITUS WITH HYPERGLYCEMIA SNOMED Code(s): 57429069 (2) Morbid obesity due to excess calories Current Visit: Yes Status: Acute Code(s): E66.01 - MORBID (SEVERE) OBESITY DUE TO EXCESS CALORIES SNOMED Code(s): 929376694 (3) Adult BMI 50.0-59.9 kg/sq m Current Visit: Yes Status: Acute Code(s): Z68.43 - BODY MASS INDEX (BMI) 50- 59.9, ADULT SNOMED Code(s): 641428831 (4) Diabetic nephropathy associated with diabetes mellitus due to underlying condition Current Visit: Yes Status: Acute Code(s): E08.21 - DIABETES DUE TO U NDERLYING CONDITION W DIABETIC NEPHROPATHY SNOMED Code(s): 718273913
--- NOTE | 2019-06-09 14:00 | ECHOF ---
Referral Reason:sob post op hx avr MEASUREMENTS -------- HEIGHT: 160.0 cm WEIGHT: 138.8 kg BP: IVSd: 1.2 cm (0.6 - 1.1) LVIDd: 3.4 cm (3.9 - 5.3) LVPWd: 1.2 cm (0.6 - 1.1) IVSs: 1.4 cm LVIDs: 1.9 cm LVPWs: 1.5 cm AV maxP.68 mmHg AV meanP.20 mmHg RAP: 5.00 mmHg RVSP: 27.07 mmHg FINDINGS -------- Resting tachycardia (HR>100bpm). This was a technically difficult study with suboptimal views. The left ventricular size is normal. There is mild concentric left ventricular hypertrophy. Overa ll left ventricular systolic function is normal with, an EF between 55 - 60 %. The RV was not well visualized. The left atrium was not well visualized. The right atrium was not well visualized. Lumason used Peak/mean gradient across the Aortic Valve is 27.68mmHg / 15.20mmHg. Normally functioning bioprosth etic valve. The mitral valve was not well visualized. Mild mitral regurgitation is present. The tricuspid valve was not well visualized. Mild tricuspid regurgitation present. Right ventricu lar systolic pressure is normal at < 35 mmHg. The pulmonic valve was not well visualized. The aortic root size is normal. IVC Not well visulized. There is no pericardial effusion. CONCLUSIONS -------- 1. Resting tachycardia (HR>100bpm). 2. This was a technically difficult study with suboptimal views. 3. The left ventricular size is normal. 4. There is mild concentric left ventricular hypertrophy. 5. Overall left ventricular systolic function is normal with, an EF between 55 - 60 %. 6. The RV was not well visualized. 7. The left atrium was not well visualized. 8. The right atrium was not well visualized. 9. Lumason used 10. Peak/mean gradient across the Aortic Valve is 27.68mmHg / 15.20mmHg. 11. Normally functioning bioprosthetic valve. 12. The mitral valve was not well visualized. 13. Mild mitral regurgitation is present. 14. The tricuspid valve was not well visualized. 15. Mild tricuspid regurgitation present. 16. Right ventricular systolic pressure is normal at < 35 mmHg. 17. The pulmonic valve was not well visualized. 18. The aortic root size is normal. 19. IVC Not well visulized. 20. There is no pericardial effusion. KNAPSACK SPRAYER: Dottie Blanton RDCS
--- NOTE | 2019-06-09 14:04 | US ---
EXAMINATION TYPE: US venous doppler duplex LE BI DATE OF EXAM: 06/09/2019 10:59 AM COMPARISON: NONE CLINICAL HISTORY: elevated ddimer, sob. Elevated d dimer, exam done portable, morbidly obese patient. SIDE PERFORMED: Bilateral TECHNIQUE: The lower extremity deep venous system is examined utilizing real time linear array sonog tato with graded compression, doppler sonography and color-flow sonography. VESSELS IMAGED: External Iliac Vein (EIV) Common Femoral Vein Deep Femoral Vein Greater Saphenous Vein * Femoral Vein Popliteal Vein Small Saphenous Vein * Proximal Calf Veins (* superficial vessels) Difficult and limited study due to patient body habitus Right Leg: Appears negative for DVT Left Leg: Appears negative for DVT Grayscale, color doppler, spectral doppler imaging performed of the deep veins of the lower extremiti es. There is normal flow, compressibility, vascular waveforms. IMPRESSION: Sonographic evidence of deep venous thrombosis within the bilateral lower extremities.
[2019-06-09] MEDS: IPRATROPIUM-ALBUTEROL 3 ML NEB INHALATION SCH ×2 (16:15→20:41)
[2019-06-09 17:20] LABS: Glucose,Whole Blood 239 mg/dL (75-99)
[2019-06-09] MEDS: HEPARIN SODIUM,PORCINE 5,000 UNIT/ML 1 ML VIAL SQ SCH (18:15)
[2019-06-09] MEDS: PIPERACILLIN-TAZOBACTAM 3.375 GM in SODIUM CHLORIDE 0.9% 100 ML IVPB SCH (18:16)
[2019-06-09 19:06] LABS: Amorphous Sediment,Urine Rare /hpf; Appearance,Urine Cloudy (Clear); Bacteria,Urine Occasional /hpf; Bilirubin,Urine Negative (Negative); Blood,Urine Moderate (Negative); Color,Urine Yellow; Glucose,Urine (UA) Trace (Negative); Hyaline Casts,Urine 155 /lpf (0-2); Ketones,Urine 1+ (Negative); Leukocyte Esterase,Urine Large (Negative); Mucus,Urine Occasional /hpf; Nitrite,Urine Negative (Negative); PH, Urine 5.5 (5.0-8.0); Protein,Urine 1+ (Negative); RBC,Urine 69 /hpf (0-5); Specific Gravity,Urine 1.012 (1.001-1.035); Urobilinogen,Urine <2.0 mg/dL (<2.0); WBC,Urine 20 /hpf (0-5)
--- NOTE | 2019-06-09 19:59 | P.PN ---
Progress Note - Text Progress Note Date: 06/09/19 Patient re-evaluated this evening. She is resting comfortably. Nausea is resolved. She responded well to lasix with now moderate urine output. Blood pressure is now up for SBP of 90s to 140s. Management of cardiac tachyarrythmia with cardiology. Will discontinue denis for morning.
[2019-06-09 21:01] LABS: Glucose,Whole Blood 211 mg/dL (75-99)
--- NOTE | 2019-06-09 22:16 | CONS ---
CONSULTATION REASON FOR CONSULT: Renal failure. HISTORY OF PRESENT ILLNESS: Patient is a 48-year-old female with obesity who was admitted to the hospital on 06/07/2019. Patient had moriah-en-Y gastric bypass surgery on 06/07/2019. She developed hypotension postoperatively with systolic blood pressure in the 80s and 90s. She has been given large amounts of IV fluids with multiple fluid boluses. Her creatinine was 2.39 on 06/08/2019. It has gone up to 2.85 today. Previous creatinine on 06/03/2019 was 1.6. Patient does have history of chronic kidney disease, NKF stage III, and follows at our office with Dr. Markham. Renal function has been stable as outpatient prior to admission. This morning her potassium was elevated at 5.4 and patient was complaining of increased shortness of breath. She received a dose of Lasix this morning and has put out about 1000 mL. Patient has an indwelling Dhaliwal catheter. Urine output was low overnight. PAST MEDICAL HISTORY: 1. Chronic kidney disease, stage IV, secondary to chronic interstitial nephropathy/nephrosclerosis. We will check our office records. 2. Obesity. 3. Type 1 diabetes. 4. Gastroparesis. 5. Diastolic heart failure. 6. Obstructive sleep apnea. 7. Depression. 8. Chronic back pain. 9. Valvular heart disease. PAST SURGICAL HISTORY: 1. Aortic valve replacement. 2. Cardiac catheterization. SOCIAL HISTORY: Negative for smoking. Patient is a former smoker. No history of drug abuse or alcohol abuse. MEDICATIONS: Medications prior to admission included: 1. Elavil. 2. Aspirin. 3. Bumex. 4. Zestril. 5. Lopressor. 6. Zoloft. 7. Lipitor. 8. Reglan. 9. Calcitriol. 10.Insulin. ALLERGIES: ALLERGIES include LATEX and ADHESIVE TAPE. REVIEW OF SYSTEMS: As per HPI. Other systems negative. PHYSICAL EXAMINATION: Patient is comfortable, awake, alert, oriented x3. She is not in any acute distress. Blood pressure this morning was 90/63, heart rate of 118 per minute. She is afebrile. EXAMINATION OF THE HEART: S1 and S2. EXAMINATION OF LUNGS: Bilateral breath sounds are heard. Crackles heard at the bases. ABDOMEN: Soft, tender. Currently dressed. Examination of lower extremities shows trace edema bilaterally. SILK FINISHER exam is grossly intact. LABS: Sodium 135, potassium 5.4. CO2 is 15, chloride 109, BUN 17, creatinine 2.85. Lactic acid was 2.2. ASSESSMENT: 1. Acute kidney injury secondary to hypotension, initially oliguric; currently nonoliguric. I will decrease the IV fluids since patient is in volume overload. She has received a dose of Lasix today. We will repeat labs in a.m. Avoid any nephrotoxic agents. Hold off on antihypertensive medications as well. Check urinalysis. 2. Hyperkalemia associated with acute kidney injury. Repeat labs this evening. Hopefully correction of acidosis and initiation of bicarb drip will help with the potassium, and as the urine output picks up her serum potassium should improve as well. 3. Non-gap metabolic acidosis secondary to renal failure. There may be an element of anion-gap acidosis as well because lactic acid is mildly elevated. I will start the patient on IV bicarb. 4. Status post moriah-en-Y surgery for obesity. 5. Volume overload, status post Lasix x1. PLAN: Start bicarb drip. Decrease rate of fluids to about 40 mL/hour. Repeat electrolytes this evening. Repeat labs in a.m. Avoid any antihypertensive medications. Avoid any other nephrotoxic medications. Check urinalysis. Thank you for this consultation. Will continue to follow the patient with you during her hospitalization. MMNICOLASL / WILLIAMN: [id number] /
[2019-06-09] MEDS: FUROSEMIDE 10 MG/ML 4 ML VIAL IV SCH (23:26)
[2019-06-10] MEDS: ONDANSETRON 4 MG/2 ML VIAL IVP SCH ×4 (01:21→17:40)
[2019-06-10] MEDS: HYOSCYAMINE ORAL DROPS 1.875 MG/15 ML BOTTLE PO SCH ×4 (01:38→17:39)
[2019-06-10] MEDS: HEPARIN SODIUM,PORCINE 5,000 UNIT/ML 1 ML VIAL SQ SCH ×3 (01:38→16:45)
[2019-06-10] MEDS: SIMETHICONE 40 MG/0.6 ML DROPS 2,000 MG/30 ML BOTTLE PO SCH ×4 (01:38→17:39)
[2019-06-10] MEDS: DEXAMETHASONE SOD PHOSPHATE 4 MG/ML 1 ML VIAL IV SCH ×4 (01:49→17:40)
[2019-06-10] MEDS: PIPERACILLIN-TAZOBACTAM 3.375 GM in SODIUM CHLORIDE 0.9% 100 ML IVPB SCH ×3 (02:01→16:45)
[2019-06-10] MEDS: METOCLOPRAMIDE 5 MG/ML 2 ML VIAL IVP SCH ×4 (04:15→21:04)
[2019-06-10] MEDS: SODIUM CHLORIDE 0.9% 1,000 ML IV SCH (05:05)
[2019-06-10 07:03] LABS: Glucose,Whole Blood 170 mg/dL (75-99)
[2019-06-10] MEDS: IPRATROPIUM-ALBUTEROL 3 ML NEB INHALATION SCH ×4 (07:42→19:05)
[2019-06-10] MEDS: PANTOPRAZOLE 40 MG/10 ML VIAL IV SCH (07:51)
[2019-06-10] MEDS: METOPROLOL TARTRATE 12.5 MG TAB PO SCH ×2 (07:52→22:15)
[2019-06-10] MEDS: MIDODRINE 5 MG TAB PO SCH (07:52)
[2019-06-10] MEDS: FUROSEMIDE 10 MG/ML 4 ML VIAL IV SCH (07:52)
[2019-06-10] MEDS: INSULIN DETEMIR (LEVEMIR) 100 UNIT/ML SYR SQ SCH (07:53)
[2019-06-10] MEDS: INSULIN ASPART (NovoLOG) 100 UNIT/ML VIAL SQ SCH ×4 (07:53→22:16)
[2019-06-10 08:52] LABS: Calcium 7.8 mg/dL (8.4-10.2); Magnesium 1.9 mg/dL (1.6-2.3); Potassium 4.9 mmol/L (3.5-5.1)
[2019-06-10 09:10] LABS: Basophils % (A) 0 %; Eosinophils % (A) 0 %; HCT 33.5 % (34.0-46.0); HGB 10.6 gm/dL (11.4-16.0); Hypochromasia Slight; Lymphocytes # (A) 0.5 k/uL (1.0-4.8); Lymphocytes % (A) 6 %; MCH 29.9 pg (25.0-35.0); MCHC 31.8 g/dL (31.0-37.0); Mean Platelet Volume 6.7; Monocytes # (A) 0.4 k/uL (0-1.0); Monocytes % (A) 4 %; Neutrophils % (A) 89 %; Platelet Count 223 k/uL (150-450); RBC 3.57 m/uL (3.80-5.40); RDW 13.3 % (11.5-15.5)
[2019-06-10 09:28] LABS: MCV 93.9 fL (80.0-100.0)
[2019-06-10] MEDS ORDERED: ACETAMINOPHEN TAB 325 MG TAB PO PRN (09:41)
[2019-06-10] MEDS ORDERED: INSULIN DETEMIR (LEVEMIR) 100 UNIT/ML SYR SQ ONE (10:00)
--- NOTE | 2019-06-10 10:15 | P.PN ---
Subjective Progress Note Date: 06/10/19 Radha Grande is a 48 yo F with hx morbid obesity, T1DM, gastroparesis, diastolic CHF, CKD4, MJ, depression. She is admitted for scheduled rouy-en-y gastric bypass. Pt is POD#1 and complains of continued abdominal pain with any movement. She denies any nausea since her surgery. She is not passing gas and no BM. Pt hypotensive overnight to 90/60, BP improved this am to 100s/60s. Her home antihypertensive are held. She is tolerating ice chips. Labs reviewed and WBC 10, Cr 2.4 at baseline. 06/09/2019 maintaining O2 sats in the 90s on 3 L. No cough, no congestion. Patient reports that she has not been using her incentive spirometer. Chest x- ray ordered. Maintained on bariatric clear liquids . Reports one episode of nausea and vomiting this morning . Burping, no flatus, no bowel movement .Blood sugars uncontrolled, high 200s. Tachycardic, low 110s, systolic blood pressure currently in the 90s, last night had dropped into the high 80s, Midodrin initiated. Renal function worsening, 2.85, potassium 5.4, Bumex on hold. CO2 15, maintained on sodium bicarb drip. Afebrile, WBC 10.8. 06/10/2019 doing well this morning. Oxygen weaned off and maintaining O2 sats in the high 90s on room air. Maintained on bicarb drip with CO2 of 20. Midodrin initiated yesterday with significant improvement in blood pressures,SBP 110s to 130s. Renal function improving, creatinine down to 1.92. Chest x-ray yesterday reported new right minor fissure fluid, dilated loops of small bowel in the upper abdomen with possible ileus or obstruction, left basilar subsegmental atelectasis. Incentive spirometer up to 1000 this morning. Diuresing on Lasix IV push with 24-hour I&O reflecting a negative fluid balance. Echo suboptimal ,reported normal LV function, EF 55-60%. Complains of headache but overall pain improved. Diet intake 25%. Nausea and vomiting subsided. Blood sugars elevated, improving. Passing flatus, no bowel movement. Elevated d-dimer, bilateral Dopplers negative for DVT. Denies chest pain, palpitations or shortness of breath. Denies lightheadedness dizziness or focal deficits. Afebrile, normal WBC. Hemoglobin 10.6. Objective - Vital Signs Vital signs: Vital Signs Temp 97.9 F 06/10/19 07:00 Pulse 108 H 06/10/19 07:56 Resp 16 06/10/19 07:00 BP 135/82 06/10/19 07:00 Pulse Ox 96 06/10/19 07:00 Intake & Output 06/09/19 06/10/19 06/10/19 18:59 06:59 18:59 Intake Total 2 Output Total 1400 150 Balance -1400 -150 2 Weight 150.7 kg Intake: Oral 2 Output: Urine 1400 150 Uretheral (Dhaliwal) 100 Other: Voiding Method Indwelling Catheter Indwelling Catheter # Voids 2 - Exam General: Alert and oriented 3, sitting up in bed, no acute distress Eyes: PERRL, EOMI, conjunctiva normal, oral mucosa moist HENT: normocephalic, mucus membranes moist Neck: supple, no JVD Lungs: normal respiratory effort, no wheezes or rales, no crackles. Bilateral bases diminished CV: Regular rate and rhythm, systolic murmur. Peripheral pulses 2+ Abdomen: binder in place. soft and generalized tenderness. no guarding or rebound, positive bowel sounds Lymph: no cervical or axillary LAD Skin: warm and dry. Neuro: A&Ox3, normal mood and affect - Labs CBC & Chem 7: 06/10/19 07:45 06/10/19 07:45 Labs: Abnormal Lab Results - Last 24 Hours (Table) 06/09/19 06/09/19 06/09/19 Range/Units 09:09 11:21 11:59 RBC (3.80-5.40) m/uL Hgb (11.4-16.0) gm/dL Hct (34.0-46.0) % Neutrophils # (1.3-7.7) k/uL Lymphocytes # (1.0-4.8) k/uL D-Dimer 2.61 H (<0.60) mg/L FEU Chloride (98-107) mmol/L Carbon Dioxide (22-30) mmol/L Creatinine (0.52-1.04) mg/dL Glucose (74-99) mg/dL POC Glucose (mg/dL) 284 H (75-99) mg/dL Plasma Lactic Acid Crow 2.2 H* (0.7-2.0) mmol/L Calcium (8.4-10.2) mg/dL Urine Appearance (Clear) Urine Protein (Negative) Urine Glucose (UA) (Negative) Urine Ketones (Negative) Urine Blood (Negative) Ur Leukocyte Esterase (Negative) Urine RBC (0-5) /hpf Urine WBC (0-5) /hpf Amorphous Sediment (None) /hpf Urine Bacteria (None) /hpf Hyaline Casts (0-2) /lpf Urine Mucus (None) /hpf 06/09/19 06/09/19 06/09/19 Range/Units 17:16 18:30 20:45 RBC (3.80-5.40) m/uL Hgb (11.4-16.0) gm/dL Hct (34.0-46.0) % Neutrophils # (1.3-7.7) k/uL Lymphocytes # (1.0-4.8) k/uL D-Dimer (<0.60) mg/L FEU Chloride (98-107) mmol/L Carbon Dioxide (22-30) mmol/L Creatinine (0.52-1.04) mg/dL Glucose (74-99) mg/dL POC Glucose (mg/dL) 239 H 211 H (75-99) mg/dL Plasma Lactic Acid Crow (0.7-2.0) mmol/L Calcium (8.4-10.2) mg/dL Urine Appearance Cloudy H (Clear) Urine Protein 1+ H (Negative) Urine Glucose (UA) Trace H (Negative) Urine Ketones 1+ H (Negative) Urine Blood Moderate H (Negative) Ur Leukocyte Esterase Large H (Negative) Urine RBC 69 H (0-5) /hpf Urine WBC 20 H (0-5) /hpf Amorphous Sediment Rare H (None) /hpf Urine Bacteria Occasional H (None) /hpf Hyaline Casts 155 H (0-2) /lpf Urine Mucus Occasional H (None) /hpf 06/10/19 06/10/19 06/10/19 Range/Units 06:52 07:45 07:45 RBC 3.57 L (3.80-5.40) m/uL Hgb 10.6 L (11.4-16.0) gm/dL Hct 33.5 L (34.0-46.0) % Neutrophils # 8.0 H (1.3-7.7) k/uL Lymphocytes # 0.5 L (1.0-4.8) k/uL D-Dimer (<0.60) mg/L FEU Chloride 108 H (98-107) mmol/L Carbon Dioxide 20 L (22-30) mmol/L Creatinine 1.92 H (0.52-1.04) mg/dL Glucose 190 H (74-99) mg/dL POC Glucose (mg/dL) 170 H (75-99) mg/dL Plasma Lactic Acid Crow (0.7-2.0) mmol/L Calcium 7.8 L (8.4-10.2) mg/dL Urine Appearance (Clear) Urine Protein (Negative) Urine Glucose (UA) (Negative) Urine Ketones (Negative) Urine Blood (Negative) Ur Leukocyte Esterase (Negative) Urine RBC (0-5) /hpf Urine WBC (0-5) /hpf Amorphous Sediment (None) /hpf Urine Bacteria (None) /hpf Hyaline Casts (0-2) /lpf Urine Mucus (None) /hpf Assessment and Plan Assessment: (1) Morbid obesity due to excess calories, BMI 58.9, status post Pako-en-Y gastric bypass Current Visit: Yes Status: Acute Code(s): E66.01 - MORBID (SEVERE) OBESITY DUE TO EXCESS CALORIES SNOMED Code(s): 454705135 (2) Diabetic gastroparesis Current Visit: Yes Status: Acute Priority: Medium Code(s): E11.43 - TYPE 2 DIABETES W DIABETIC AUTONOMIC (POLY)NEUROPATHY; K31.84 - GASTROPARESIS SNOMED Code(s): 868770180 (3) acute on CKD stage 4 due to type 1 diabetes mellitus. Current Visit: Yes Status: Acute Code(s): E10.22 - TYPE 1 DIABETES MELLITUS W DIABETIC CHRONIC KIDNEY DISEASE; N18.4 - CHRONIC KIDNEY DISEASE, STAGE 4 (SEVERE) SNOMED Code(s): 38117505843735 (4) Postprocedural hypotension Current Visit: Yes Status: Acute Code(s): I95.81 - POSTPROCEDURAL HYPOTENSION SNOMED Code(s): 444746733 (5) Hypomagnesemia Current Visit: Yes Status: Acute Code(s): E83.42 - HYPOMAGNESEMIA SNOMED Code(s): 555924264 (6) Adult BMI 50.0-59.9 kg/sq m Current Visit: Yes Status: Acute Code(s): Z68.43 - BODY MASS INDEX (BMI) 50- 59.9, ADULT SNOMED Code(s): 264218816 (7) Type 1 diabetes mellitus, uncontrolled, hyperglycemic Current Visit: Yes Status: Acute Code(s): E10.9 - TYPE 1 DIABETES MELLITUS WITHOUT COMPLICATIONS SNOMED Code(s): 36246704 (8) acute hypoxic respiratory failure, multifactorial secondary to atelectasis, hypercapnia , acute diastolic CHF exacerbation Plan: Continue on current medication regime ,monitoring and symptomatic treatment. Maintain sodium bicarb drip, Midodrin. Tylenol for headache ordered. Diuretics as per cardiology/nephrology. Continue with aggressive pulmonary toileting with incentive spirometer reinforced. Pain management/diet advancement as per surgery.Levemir increased. Close monitoring of Accu-Cheks. Heparin subcu for DVT prophylaxis , Protonix for GI prophylaxis .Close monit oring of renal function, electrolytes with repeat labs ordered for a.m. The impression and plan of care has been dictated as directed. : I performed a history and examination of this patient, discussed the same with the dictator. I agree with the dictator's note ,documented as a scribe. Any additional findings or plans will be noted.
[2019-06-10 11:52] LABS: Glucose,Whole Blood 228 mg/dL (75-99)
--- NOTE | 2019-06-10 12:05 | CONS ---
CONSULTATION PULMONARY/CRITICAL CARE CONSULTATION: REASON FOR CONSULTATION: Shortness of breath and hypoxemia. This is a 48-year-old obese female who has a history of lifelong obesity. She also suffers from gastroparesis which is severe and diabetes. Anyway, the patient was brought in and had a Pako-en-Y gastric bypass on Friday. After surgery, she states that she developed shortness of breath. We were consulted for this reason. Prior to surgery, she denies any shortness of breath. She denies any cough or wheezing. Not producing any phlegm. No fever or chills. No chest pain or chest discomfort. She apparently had Dopplers of the lower extremities which were negative. A CT angiogram was not done because of her renal function. We recommended IV heparin and aggressive fluid resuscitation so that we could do a CT angiogram. A ventilation-perfusion lung scan would likely be nondiagnostic in this lady. PAST MEDICAL HISTORY: Anyway, the patient's past medical history includes morbid obesity, hypertension, sleep apnea syndrome, diabetes, chronic panniculitis, osteoarthritis, depression, anxiety, hyperlipidemia, iron deficiency, heart failure, GERD, and diabetic nephropathy. SURGICAL HISTORY: Surgical history includes aortic valve replacement and endoscopy. ALLERGIES: LATEX and ADHESIVE TAPES. MEDICATIONS: Medications include Elavil, aspirin, Lipitor, Bumex, Zyrtec, vitamin D2, iron, insulin, Zestril, Lopressor, Ozempic, and Zoloft. SOCIAL HISTORY: Social history is positive for previous tobacco use. She denies any illicit drug use or alcohol use. FAMILY HISTORY: Family history is positive for morbid obesity. REVIEW OF SYSTEMS: CONSTITUTIONAL: Negative. NEUROLOGIC: Negative. HEENT: Negative. CARDIOVASCULAR: Negative. PULMONARY: Shortness of breath just occurring after surgery. GI: Negative. : Negative. RHEUMATOLOGIC: Negative. IMMUNOLOGIC: Negative. ENDOCRINOLOGIC: neg. DERMATOLOGIC: Negative. PHYSICAL EXAMINATION: VITAL SIGNS: Current vital signs are reviewed. Her temperature is 97.9, heart rate 89, respiratory rate 16, blood pressure 135/82, mean 99, room air saturation 96%. GENERAL: She does look that she is mildly dyspneic and she is mildly tachypneic as well. There is no use of accessory muscles, conversational dyspnea or audible wheezing. HEENT: Examination is grossly unremarkable. NECK: Supple. CARDIOVASCULAR: Examination reveals regular rhythm and rate. S1, S2 normal. No S3, S4, or murmur. LUNGS: Reveal mostly clear breath sounds. No wheezes or rhonchi. Breath sounds equal bilaterally. No crackles. ABDOMEN: Obese. Bowel sounds are heard. EXTREMITIES: Are intact. No cyanosis, clubbing, or edema. SKIN: Without rash. NEUROLOGIC: Examination is brief but nonfocal. LABS: Labs are reviewed. White count 9, hemoglobin 10.6, hematocrit 33.5, platelet count 226,000. Sodium 137, potassium 4.9, chloride 108, CO2 is 20. Anion gap is 9. BUN and creatinine were 16 and 1.92. Urine is suggestive of urinary tract infection. The patient had Dopplers of the lower extremities which were negative. Her chest x-ray done on June 09 suggests some fluid in the minor fissure. There is some bibasilar atelectasis and small lung volumes. MEDICATIONS: Medications are reviewed. ASSESSMENT: 1. Shortness of breath, occurring postoperatively, rule out pulmonary embolism. 2. Possible underlying chronic obstructive pulmonary disease. 3. Obesity, status post Pako-en-Y gastric bypass, postoperative day #3. 4. History of hypertension. 5. History of sleep apnea syndrome. 6. Diabetes with diabetic nephropathy, stage III. 7. Chronic panniculitis. 8. Degenerative joint disease. 9. Anxiety/depression. 10.Hyperlipidemia. 11.Iron deficiency. 12.Status post aortic valve replacement. PLAN: We recommend aggressive hydration to see if we cannot correct the creatinine so that we could do a CT angiogram. I do not believe that a ventilation-perfusion lung scan will be particularly diagnostic in this patient. Dopplers were negative. In the meantime, we recommend IV heparin therapy. No additional recommendations are made. Prognosis is guarded. Hopefully we will able to do a CT angiogram in the next 24 hours or so, so that we can determine whether not there has been a pulmonary embolism. MMODL / IJN: [id number] / MTDD
[2019-06-10] MEDS: SODIUM CHLORIDE 0.45% 1,000 ML with SODIUM BICARB (1 MEQ/ML) 100 ML IV SCH ×2 (12:18)
--- NOTE | 2019-06-10 14:15 | P.PN ---
Subjective This is a pleasant 48-year-old female past medical history significant for bicuspid aortic valve s/p AVR with bioprosthetic valve 2013, diabetes mellitus, hypertension, dyslipidemia, chronic kidney disease, obstructive sleep apnea and morbid obesity. She follows in the office with Dr. Márquez. She saw Dr. Márquez in November for pre-op evaluation. She underwent robotic Pako-en-Y gastric bypass with Dr. Patterson 06/07/2019. We have been asked to see her in consultation for shortness of breath. Yesterday she was having some mild hypotension blood pressure 84/53 and 90/63 this morning. Heart rates have been elevated 110-130's. She received some fluids yesterday and was initiated on midodrine. This morning she is seen and examined sitting up in the chair in mild respiratory distress. She states she overall feels very poor. She did not sleep well due to inability to lay flat and ongoing shortness of breath. She also complains of mild nausea, one episode of vomiting this morning and abdominal discomfort. She is maintaining oxygen saturations on room air. Dhaliwal catheter in place with little urine output yet today. Nephrology has also been consulted and has initiated a bicarb infusion. Repeat chest xray this morning reveals right fissural fluid, dilated loops of small bowel consider ileus or obstruction and low lung volumes. Laboratory data reviewed, proBNP 2410, d-dimer 2.61, WBC 10.8, hgb 11.1, plt 230, sodium 135, potassium 5.4, creatinine 2.85 with GFR 19, troponin negative, magnesium 1.5 06/07. Mag was replaced 06/08. No baseline EKG on the chart. Echo obtained in the office in 2013 reveals preserved LV systolic function with EF 55-60%, normal diastolic function, normally functioning bioprostheic aortic valve with a mean gradient of 16 mmHg across the valve. She underwent a heart catheterization in 2013 revealing normal coronary arteries. 06/10/2019 Pt is seen and examined sitting up in the chair in no acute distress. She states overall she is feeling much better today and she does in fact look better. She is still somewhat short of breath but improved from yesterday. She denies chest pain, dizziness or palpitations. Blood pressure 135/82 heart rate 84 afebrile and maintaining oxygen saturation on room air. Laboratory data reviewed, WBC 9, hgb 10.6, plt 223, sodium 137, potassium 4.9, creatinine improved to 1.92, magnesium 1.9. She has had 1550 cc of urine output in the previous 24 hours. Repeat echocardiogram revealed preserved LV systolic function with EF 55-60%, normal functioning bioprosthetic aortic valve with mean gradient of 15 mmHg. GENERAL: This is a 48-year-old female in no apparent distress at the time of my examination. Morbidly obese. HEENT: Head is atraumatic, normocephalic. Pupils are equal, round. Sclerae anicteric. Conjunctivae are clear. Mucous membranes of the mouth are moist. Neck is supple. There is no jugular venous distention. No carotid bruit is heard. LUNGS: Clear to auscultation bilaterally. No rales, wheezes or rhonchi. No chest wall tenderness is noted on palpation or with deep breathing. HEART: Regular rate and rhythm with systolic ejection murmur at the base, no rubs or gallops. S1 and S2 heard. EXTREMITIES: Trace 1+ bilateral lower extremity edema. Purple discoloration of her toes, chronic per the patient. ASSESSMENT s/p gastric bypass surgery POD #3 Acute diastolic heart failure, BNP 2410. Improved. Acute on chronic renal failure Elevated d-dimer, pulmonary recommending hydration and CTA Hypomagnesemia, replaced Hyperkalemia History of aortic valve repair with bioprosthetic valve secondary to bicuspid valve Diabetes mellitus Hypertension Dyslipidemia Obstructive sleep apnea Morbid obesity, BMI 54 PLAN Transition to oral diuretics with lasix 40 mg daily starting tomorrow. Repeat chest xray. Nurse Practitioner note has been reviewed, I agree with a documented findings and plan of care. Patient was seen and examined. Objective - Vital Signs Vital signs: Vital Signs Temp 97.9 F 06/10/19 07:00 Pulse 84 06/10/19 12:09 Resp 16 06/10/19 08:00 BP 135/82 06/10/19 07:00 Pulse Ox 96 06/10/19 07:00 Intake & Output 06/09/19 06/10/19 06/10/19 18:59 06:59 18:59 Intake Total 2 Output Total 7517 608 1951 Balance -1400 -150 -1098 Weight 150.7 kg Intake: Oral 2 Output: Urine 9881 507 [id number] Uretheral (Dhaliwal) 100 1100 Other: Voiding Method Indwelling Catheter Indwelling Catheter Indwelling Catheter # Voids 2 - Labs CBC & Chem 7: 06/10/19 07:45 06/10/19 07:45 Labs: Abnormal Lab Results - Last 24 Hours (Table) 06/09/19 06/09/19 06/09/19 Range/Units 17:16 18:30 20:45 RBC (3.80-5.40) m/uL Hgb (11.4-16.0) gm/dL Hct (34.0-46.0) % Neutrophils # (1.3-7.7) k/uL Lymphocytes # (1.0-4.8) k/uL Chloride (98-107) mmol/L Carbon Dioxide (22-30) mmol/L Creatinine (0.52-1.04) mg/dL Glucose (74-99) mg/dL POC Glucose (mg/dL) 239 H 211 H (75-99) mg/dL Calcium (8.4-10.2) mg/dL Urine Appearance Cloudy H (Clear) Urine Protein 1+ H (Negative) Urine Glucose (UA) Trace H (Negative) Urine Ketones 1+ H (Negative) Urine Blood Moderate H (Negative) Ur Leukocyte Esterase Large H (Negative) Urine RBC 69 H (0-5) /hpf Urine WBC 20 H (0-5) /hpf Amorphous Sediment Rare H (None) /hpf Urine Bacteria Occasional H (None) /hpf Hyaline Casts 155 H (0-2) /lpf Urine Mucus Occasional H (None) /hpf 06/10/19 06/10/19 06/10/19 Range/Units 06:52 07:45 07:45 RBC 3.57 L (3.80-5.40) m/uL Hgb 10.6 L (11.4-16.0) gm/dL Hct 33.5 L (34.0-46.0) % Neutrophils # 8.0 H (1.3-7.7) k/uL Lymphocytes # 0.5 L (1.0-4.8) k/uL Chloride 108 H (98-107) mmol/L Carbon Dioxide 20 L (22-30) mmol/L Creatinine 1.92 H (0.52-1.04) mg/dL Glucose 190 H (74-99) mg/dL POC Glucose (mg/dL) 170 H (75-99) mg/dL Calcium 7.8 L (8.4-10.2) mg/dL Urine Appearance (Clear) Urine Protein (Negative) Urine Glucose (UA) (Negative) Urine Ketones (Negative) Urine Blood (Negative) Ur Leukocyte Esterase (Negative) Urine RBC (0-5) /hpf Urine WBC (0-5) /hpf Amorphous Sediment (None) /hpf Urine Bacteria (None) /hpf Hyaline Casts (0-2) /lpf Urine Mucus (None) /hpf 06/10/19 Range/Units 11:41 RBC (3.80-5.40) m/uL Hgb (11.4-16.0) gm/dL Hct (34.0-46.0) % Neutrophils # (1.3-7.7) k/uL Lymphocytes # (1.0-4.8) k/uL Chloride (98-107) mmol/L Carbon Dioxide (22-30) mmol/L Creatinine (0.52-1.04) mg/dL Glucose (74-99) mg/dL POC Glucose (mg/dL) 228 H (75-99) mg/dL Calcium (8.4-10.2) mg/dL Urine Appearance (Clear) Urine Protein (Negative) Urine Glucose (UA) (Negative) Urine Ketones (Negative) Urine Blood (Negative) Ur Leukocyte Esterase (Negative) Urine RBC (0-5) /hpf Urine WBC (0-5) /hpf Amorphous Sediment (None) /hpf Urine Bacteria (None) /hpf Hyaline Casts (0-2) /lpf Urine Mucus (None) /hpf
[2019-06-10] MEDS ORDERED: ACETAMINOPHEN ORAL SUSP (PEDS) 3,840 MG/120 ML BOTTLE PO PRN (14:24)
--- NOTE | 2019-06-10 14:36 | P.PN ---
<Diana Mueller Alycia - Last Filed: 06/10/19 14:18> Subjective Progress Note Date: 06/10/19 CHIEF COMPLAINT: Morbid obesity HISTORY OF PRESENT ILLNESS: 48-year-old female who underwent Pako-en-Y gastric bypass. Postoperative day #3. Patient examined this morning at the bedside. She reports she is feeling better today compared to yesterday. She reports improvement in her breathing today. She is on room air with oxygen saturations greater than 92%. Encouraged use of IS. She is tolerating clear liquid diet. Denies nausea or vomiting. Passing flatus. Denies BM. She has ambulated very little postoperatively. Creatinine is improved back to her baseline. Creatinine 1.92. PHYSICAL EXAM: VITAL SIGNS: Reviewed GENERAL: Well-developed in no acute distress. HEENT: No sclera icterus. Extraocular movements grossly intact. Moist buccal mucosa. Head is atraumatic, normocephalic. Hears conversational speech. No nasal drainage. NECK: Supple without lymphadenopathy. CHEST: Non-labored respirations and equal bilateral excursions. On room air. CARDIOVASCULAR: Regular rate with regular rhythm. Palpable 2+ radial pulses. ABDOMEN: Soft. Nondistended. Obese. Surgical incision sites clean dry intact. MUSCULOSKELETAL: No clubbing or cyanosis. NEUROLOGIC: No focal or lateralizing signs. Cranial nerves II through XII grossly intact. PSYCH: Appropriate affect. Alert and oriented to person, place and time. SKIN: Well perfused. Good skin turgor. ASSESSMENT: 1. Morbid obesity due to excess calories 2. Body mass index of 59.8 to 53.4 3. Hypertensive heart disease 4. Obstructive sleep apnea 5. Diabetes type I, insulin dependent 6. Chronic panniculitis 7. Osteoarthritis of the lower back. 8. Depression 9. Anxiety disorder 10. Hyperlipidemia 11. Iron deficiency 12. Congestive heart failure, diastolic, improved 13. Gastroesophageal reflux disease 14. Diabetic nephropathy, stage 3 15. History of aspiration pneumonia 16. Diabetic gastroparesis PLAN: Advance diet to bariatric full liquid diet Cardiology following. Patient to be transitioned to oral lasix per cardiology. Discontinue denis catheter today. Pulmonary consulted who are recommending aggressive IV hydration, CTA of chest, and IV heparin drip. Patient has CKD. Her creatinine is back to her baseline currently. Patient received 2.5L in boluses POD #1 and developed fluid overload. Her SOB has almost resolved completely with IV lasix. Suspect SOB secondary to fluid overload. D-Dimer elevated, however unreliable after recent surgical intervention. Patient is on room air with o2 saturations greater than 92%. Echo completed revealing normal EF, no RV strain, no pulmonary hypertension. Do not suspect PE as underlying cause of shortness of breath. Appreciate pulmonary recommendations. However, due to recent surgery, patient is not a candidate for IV heparin infusion at this time. Continue heparin subcu for DVT prophylaxis and increase ambulation as tolerated. Nurse practitioner note has been reviewed by physician. Signing provider agrees with the documented findings, assessment, and plan of care. Objective - Vital Signs Vital signs: Vital Signs Temp 97.9 F 06/10/19 07:00 Pulse 84 06/10/19 12:09 Resp 16 06/10/19 08:00 BP 135/82 06/10/19 07:00 Pulse Ox 96 06/10/19 07:00 Intake & Output 06/09/19 06/10/19 06/10/19 18:59 06:59 18:59 Intake Total 2 Output Total 8957 191 1959 Balance -1400 -150 -1098 Weight 150.7 kg Intake: Oral 2 Output: Urine 8312 927 0139 Uretheral (Denis) 100 1100 Other: Voiding Method Indwelling Catheter Indwelling Catheter Indwelling Catheter # Voids 2 - Labs CBC & Chem 7: 06/10/19 07:45 06/10/19 07:45 Labs: Abnormal Lab Results - Last 24 Hours (Table) 06/09/19 06/09/19 06/09/19 Range/Units 17:16 18:30 20:45 RBC (3.80-5.40) m/uL Hgb (11.4-16.0) gm/dL Hct (34.0-46.0) % Neutrophils # (1.3-7.7) k/uL Lymphocytes # (1.0-4.8) k/uL Chloride (98-107) mmol/L Carbon Dioxide (22-30) mmol/L Creatinine (0.52-1.04) mg/dL Glucose (74-99) mg/dL POC Glucose (mg/dL) 239 H 211 H (75-99) mg/dL Calcium (8.4-10.2) mg/dL Urine Appearance Cloudy H (Clear) Urine Protein 1+ H (Negative) Urine Glucose (UA) Trace H (Negative) Urine Ketones 1+ H (Negative) Urine Blood Moderate H (Negative) Ur Leukocyte Esterase Large H (Negative) Urine RBC 69 H (0-5) /hpf Urine WBC 20 H (0-5) /hpf Amorphous Sediment Rare H (None) /hpf Urine Bacteria Occasional H (None) /hpf Hyaline Casts 155 H (0-2) /lpf Urine Mucus Occasional H (None) /hpf 06/10/19 06/10/19 06/10/19 Range/Units 06:52 07:45 07:45 RBC 3.57 L (3.80-5.40) m/uL Hgb 10.6 L (11.4-16.0) gm/dL Hct 33.5 L (34.0-46.0) % Neutrophils # 8.0 H (1.3-7.7) k/uL Lymphocytes # 0.5 L (1.0-4.8) k/uL Chloride 108 H (98-107) mmol/L Carbon Dioxide 20 L (22-30) mmol/L Creatinine 1.92 H (0.52-1.04) mg/dL Glucose 190 H (74-99) mg/dL POC Glucose (mg/dL) 170 H (75-99) mg/dL Calcium 7.8 L (8.4-10.2) mg/dL Urine Appearance (Clear) Urine Protein (Negative) Urine Glucose (UA) (Negative) Urine Ketones (Negative) Urine Blood (Negative) Ur Leukocyte Esterase (Negative) Urine RBC (0-5) /hpf Urine WBC (0-5) /hpf Amorphous Sediment (None) /hpf Urine Bacteria (None) /hpf Hyaline Casts (0-2) /lpf Urine Mucus (None) /hpf 06/10/19 Range/Units 11:41 RBC (3.80-5.40) m/uL Hgb (11.4-16.0) gm/dL Hct (34.0-46.0) % Neutrophils # (1.3-7.7) k/uL Lymphocytes # (1.0-4.8) k/uL Chloride (98-107) mmol/L Carbon Dioxide (22-30) mmol/L Creatinine (0.52-1.04) mg/dL Glucose (74-99) mg/dL POC Glucose (mg/dL) 228 H (75-99) mg/dL Calcium (8.4-10.2) mg/dL Urine Appearance (Clear) Urine Protein (Negative) Urine Glucose (UA) (Negative) Urine Ketones (Negative) Urine Blood (Negative) Ur Leukocyte Esterase (Negative) Urine RBC (0-5) /hpf Urine WBC (0-5) /hpf Amorphous Sediment (None) /hpf Urine Bacteria (None) /hpf Hyaline Casts (0-2) /lpf Urine Mucus (None) /hpf <Mallorie Patterson - Last Filed: 06/10/19 18:30> Subjective Patient seen and evaluated. Patient was hypotensive the time of induction of her surgery prior to start of her gastric bypass. As a result, acute kidney injury secondary to hypoperfusion. Hypoperfusion now resolved. Appreciate nephrology and cardiac services. Patient has moderately clinically resolved with adjustment of medications. At this time, low suspicion of pulmonary embolism secondary to pre-existing hypotension at the start of surgery as well as O2 sat persistently over 92% and DVT studies has been negative and without right heart strain found on EKG or per echo. IV heparin and aggressive anticoagulation contraindicated with recent gastric bypass as she still has high risk for bleed. Agreeable with heparin analogs postop secondary to poor kidney function. Also agreeable with postop discharge anticoagulation with adjustment due to renal impairment Objective - Vital Signs Vital signs: Vital Signs Temp 98.3 F 06/10/19 14:43 Pulse 96 06/10/19 16:48 Resp 18 06/10/19 14:43 BP 115/64 06/10/19 14:43 Pulse Ox 100 06/10/19 14:43 Intake & Output 06/09/19 06/10/19 06/10/19 18:59 06:59 18:59 Intake Total 282 Output Total 7473 889 9248 Balance -1400 -150 -818 Weight 150.7 kg Intake: Intake, IV Titration 280 Amount Sodium Chloride 0.45% 1, 280 000 ml @ 40 mls/hr IV . Q24H MARTÍN with Sodium Bicarb (1 Meq/ml) 100 ml Rx#:[id number] Oral 2 Output: Urine 6052 446 9384 Uretheral (Denis) 100 1100 Other: Voiding Method Indwelling Catheter Indwelling Catheter Indwelling Catheter # Voids 2 - Labs CBC & Chem 7: 06/10/19 07:45 06/10/19 07:45 Labs: Abnormal Lab Results - Last 24 Hours (Table) 06/09/19 06/09/19 06/10/19 Range/Units 18:30 20:45 06:52 RBC (3.80-5.40) m/uL Hgb (11.4-16.0) gm/dL Hct (34.0-46.0) % Neutrophils # (1.3-7.7) k/uL Lymphocytes # (1.0-4.8) k/uL Chloride (98-107) mmol/L Carbon Dioxide (22-30) mmol/L Creatinine (0.52-1.04) mg/dL Glucose (74-99) mg/dL POC Glucose (mg/dL) 211 H 170 H (75-99) mg/dL Calcium (8.4-10.2) mg/dL Urine Appearance Cloudy H (Clear) Urine Protein 1+ H (Negative) Urine Glucose (UA) Trace H (Negative) Urine Ketones 1+ H (Negative) Urine Blood Moderate H (Negative) Ur Leukocyte Esterase Large H (Negative) Urine RBC 69 H (0-5) /hpf Urine WBC 20 H (0-5) /hpf Amorphous Sediment Rare H (None) /hpf Urine Bacteria Occasional H (None) /hpf Hyaline Casts 155 H (0-2) /lpf Urine Mucus Occasional H (None) /hpf 06/10/19 06/10/19 06/10/19 Range/Units 07:45 07:45 11:41 RBC 3.57 L (3.80-5.40) m/uL Hgb 10.6 L (11.4-16.0) gm/dL Hct 33.5 L (34.0-46.0) % Neutrophils # 8.0 H (1.3-7.7) k/uL Lymphocytes # 0.5 L (1.0-4.8) k/uL Chloride 108 H (98-107) mmol/L Carbon Dioxide 20 L (22-30) mmol/L Creatinine 1.92 H (0.52-1.04) mg/dL Glucose 190 H (74-99) mg/dL POC Glucose (mg/dL) 228 H (75-99) mg/dL Calcium 7.8 L (8.4-10.2) mg/dL Urine Appearance (Clear) Urine Protein (Negative) Urine Glucose (UA) (Negative) Urine Ketones (Negative) Urine Blood (Negative) Ur Leukocyte Esterase (Negative) Urine RBC (0-5) /hpf Urine WBC (0-5) /hpf Amorphous Sediment (None) /hpf Urine Bacteria (None) /hpf Hyaline Casts (0-2) /lpf Urine Mucus (None) /hpf 06/10/19 Range/Units 16:45 RBC (3.80-5.40) m/uL Hgb (11.4-16.0) gm/dL Hct (34.0-46.0) % Neutrophils # (1.3-7.7) k/uL Lymphocytes # (1.0-4.8) k/uL Chloride (98-107) mmol/L Carbon Dioxide (22-30) mmol/L Creatinine (0.52-1.04) mg/dL Glucose (74-99) mg/dL POC Glucose (mg/dL) 241 H (75-99) mg/dL Calcium (8.4-10.2) mg/dL Urine Appearance (Clear) Urine Protein (Negative) Urine Glucose (UA) (Negative) Urine Ketones (Negative) Urine Blood (Negative) Ur Leukocyte Esterase (Negative) Urine RBC (0-5) /hpf Urine WBC (0-5) /hpf Amorphous Sediment (None) /hpf Urine Bacteria (None) /hpf Hyaline Casts (0-2) /lpf Urine Mucus (None) /hpf Assessment and Plan (1) Uncontrolled diabetes mellitus Current Visit: No Status: Acute Code(s): E11.65 - TYPE 2 DIABETES MELLITUS WITH HYPERGLYCEMIA SNOMED Code(s): 86307802 (2) Morbid obesity due to excess calories Current Visit: Yes Status: Acute Code(s): E66.01 - MORBID (SEVERE) OBESITY DUE TO EXCESS CALORIES SNOMED Code(s): 423349666 (3) Adult BMI 50.0-59.9 kg/sq m Current Visit: Yes Status: Acute Code(s): Z68.43 - BODY MASS INDEX (BMI) 50- 59.9, ADULT SNOMED Code(s): 856924890 (4) Diabetic nephropathy associated with diabetes mellitus due to underlying condition Current Visit: Yes Status: Acute Code(s): E08.21 - DIABETES DUE TO UNDERLYING CONDITION W DIABETIC NEPHROPATHY SNOMED Code(s): 076106730
--- NOTE | 2019-06-10 15:02 | PN ---
PROGRESS NOTE Patient is seen for followup for acute kidney injury on top of chronic kidney disease. Patient is status post Pako-en-Y procedure. She developed hypotension and oliguria. Serum creatinine had peaked to 2.8 mg/dL. Patient received IV fluids. She did become volume overloaded and has been started on Lasix now. Her creatinine has improved to 1.9 today. Baseline creatinine is at about 1.6 to 1.9 mg/dL. Overall, patient states she is feeling better. PHYSICAL EXAMINATION: This morning, blood pressure was 135/82, heart rate 104 per minute. She is afebrile. Examination of the heart S1, S2. Examination of the lungs, bilateral breath sounds are heard. Abdomen is soft, tender from surgery. Examination of the lower extremities shows trace edema bilaterally. [employer] exam grossly intact. LABS: Show sodium 137, potassium 4.9, chloride 108, BUN 16, creatinine 1.92, hemoglobin of 10.6 g/dL. ASSESSMENT: 1. Acute kidney injury secondary to hypotension, currently improved. 2. Hypotension, now resolved. 3. Volume overload started on IV Lasix which we can discontinue after today's dose and patient can resume oral diuretics. 4. Chronic kidney disease secondary to nephrosclerosis, NKF stage III, previous creatinine 1.6 to 1.9 mg/dL, possibly a component of chronic interstitial nephropathy as well. 5. Acute kidney injury secondary to hypotension initially oliguric, now nonoliguric with improving renal function. Continue to hold off on antihypertensive treatment. I will discontinue the IV fluids. Change Lasix to p.o. 6. Hyperkalemia associated with acute kidney injury, currently improved. 7. Non-gap metabolic acidosis secondary to renal failure as well as an element of lactic acidosis, started on IV bicarb. 8. Morbid obesity. PLAN: DC bicarb drip, repeat labs in a.m. Hold off on antihypertensive treatment. We can DC the midodrine as well. MMODL / IJN: [id number] /
[2019-06-10 17:01] LABS: Glucose,Whole Blood 241 mg/dL (75-99)
--- NOTE | 2019-06-10 18:41 | XR ---
EXAMINATION TYPE: XR chest 2V DATE OF EXAM: 06/10/2019 COMPARISON: 06/09/2019 HISTORY: Bariatric surgery. Volume overload. TECHNIQUE: Frontal and lateral views of the chest are obtained. FINDINGS: There is no heart failure nor confluent pneumonic infiltrate. There is cardiac surgery. Th ere is no pleural effusion. There are no hilar masses. IMPRESSION: No active cardiopulmonary disease. There is improved aeration of the lung bases compared to last exam.
[2019-06-10] MEDS ORDERED: METOPROLOL TARTRATE 25 MG TAB PO SCH ×2 (21:00)
[2019-06-10 21:19] LABS: Glucose,Whole Blood 231 mg/dL (75-99)
[2019-06-11] MEDS: ONDANSETRON 4 MG/2 ML VIAL IVP SCH ×3 (00:03→12:37)
[2019-06-11] MEDS: SIMETHICONE 40 MG/0.6 ML DROPS 2,000 MG/30 ML BOTTLE PO SCH ×3 (02:07→12:37)
[2019-06-11] MEDS: DEXAMETHASONE SOD PHOSPHATE 4 MG/ML 1 ML VIAL IV SCH ×2 (02:07→06:51)
[2019-06-11] MEDS: HEPARIN SODIUM,PORCINE 5,000 UNIT/ML 1 ML VIAL SQ SCH ×2 (02:27→08:16)
[2019-06-11] MEDS: PIPERACILLIN-TAZOBACTAM 3.375 GM in SODIUM CHLORIDE 0.9% 100 ML IVPB SCH ×2 (02:28→08:16)
[2019-06-11] MEDS: SODIUM CHLORIDE 0.9% 1,000 ML IV SCH (02:33)
[2019-06-11] MEDS: METOCLOPRAMIDE 5 MG/ML 2 ML VIAL IVP SCH ×3 (02:44→12:37)
[2019-06-11] MEDS ORDERED: INSULIN DETEMIR (LEVEMIR) 100 UNIT/ML SYR SQ SCH (07:00)
[2019-06-11 07:07] LABS: Glucose,Whole Blood 148 mg/dL (75-99)
[2019-06-11] MEDS: IPRATROPIUM-ALBUTEROL 3 ML NEB INHALATION SCH ×3 (07:26→17:01)
[2019-06-11] MEDS: METOPROLOL TARTRATE 12.5 MG TAB PO SCH (08:15)
[2019-06-11] MEDS: INSULIN ASPART (NovoLOG) 100 UNIT/ML VIAL SQ SCH ×2 (08:16→12:38)
[2019-06-11] MEDS: PANTOPRAZOLE 40 MG/10 ML VIAL IV SCH (08:16)
[2019-06-11 08:29] LABS: Calcium 8.2 mg/dL (8.4-10.2); Potassium 4.8 mmol/L (3.5-5.1)
[2019-06-11] MEDS ORDERED: FUROSEMIDE 40 MG TAB PO SCH (09:00)
[2019-06-11 11:48] LABS: Glucose,Whole Blood 215 mg/dL (75-99)
--- NOTE | 2019-06-11 11:51 | NM ---
EXAMINATION TYPE: NM pul vent and perfuse DATE OF EXAM: 06/11/2019 COMPARISON: Chest x-ray dated 06/10/2019 HISTORY: Hypoxemia TECHNIQUE: Utilizing inhalation of 65.9 mCi Tc 99m DTPA aerosol and intravenous injection of 5.45 mC i of Tc 99m MAA, ventilation and perfusion images are acquired post injection in multiple projections . FINDINGS: Normal radiotracer distribution is noted in the lungs. Normal gradient effect is seen in the lungs. L ow lung volumes are noted as seen on the prior x-ray. There is no evidence of mismatched defects. Keron e radiotracer incidentally seen in the trachea on ventilation images. IMPRESSION: Low probability for pulmonary embolus.
--- NOTE | 2019-06-11 12:22 | P.PN ---
Subjective Progress Note Date: 06/11/19 Radha Grande is a 48 yo F with hx morbid obesity, T1DM, gastroparesis, diastolic CHF, CKD4, MJ, depression. She is admitted for scheduled rouy-en-y gastric bypass. Pt is POD#1 and complains of continued abdominal pain with any movement. She denies any nausea since her surgery. She is not passing gas and no BM. Pt hypotensive overnight to 90/60, BP improved this am to 100s/60s. Her home antihypertensive are held. She is tolerating ice chips. Labs reviewed and WBC 10, Cr 2.4 at baseline. 06/09/2019 maintaining O2 sats in the 90s on 3 L. No cough, no congestion. Patient reports that she has not been using her incentive spirometer. Chest x- ray ordered. Maintained on bariatric clear liquids . Reports one episode of nausea and vomiting this morning . Burping, no flatus, no bowel movement .Blood sugars uncontrolled, high 200s. Tachycardic, low 110s, systolic blood pressure currently in the 90s, last night had dropped into the high 80s, Midodrin initiated. Renal function worsening, 2.85, potassium 5.4, Bumex on hold. CO2 15, maintained on sodium bicarb drip. Afebrile, WBC 10.8. 06/10/2019 doing well this morning. Oxygen weaned off and maintaining O2 sats in the high 90s on room air. Maintained on bicarb drip with CO2 of 20. Midodrin initiated yesterday with significant improvement in blood pressures,SBP 110s to 130s. Renal function improving, creatinine down to 1.92. Chest x-ray yesterday reported new right minor fissure fluid, dilated loops of small bowel in the upper abdomen with possible ileus or obstruction, left basilar subsegmental atelectasis. Incentive spirometer up to 1000 this morning. Diuresing on Lasix IV push with 24-hour I&O reflecting a negative fluid balance. Echo suboptimal ,reported normal LV function, EF 55-60%. Complains of headache but overall pain improved. Diet intake 25%. Nausea and vomiting subsided. Blood sugars elevated, improving. Passing flatus, no bowel movement. Elevated d-dimer, bilateral Dopplers negative for DVT. Denies chest pain, palpitations or shortness of breath. Denies lightheadedness dizziness or focal deficits. Afebrile, normal WBC. Hemoglobin 10.6. 06/11/2019 tolerating bariatric full liquid diet, no nausea, no vomiting. Passing flatus, no bowel movement. Denies pain. Renal function continues to i mprove, down to 1.5.Chest CTA pending. Diuresed well on Lasix IV push with 24- hour I&O reflecting a negative fluid balance, improvement in edema and breathing. Maintaining O2 sats in the high 90s on room air. CO2 23. Lasix converted to oral. Vital signs stable on Midodrin. Ambulating in hallway, tolerating exertion well. Objective - Vital Signs Vital signs: Vital Signs Temp 98.2 F 06/11/19 07:00 Pulse 87 06/11/19 08:00 Resp 16 06/11/19 08:00 BP 143/72 06/11/19 07:00 Pulse Ox 94 L 06/11/19 07:26 Intake & Output 06/10/19 06/11/19 06/11/19 18:59 06:59 18:59 Intake Total 282 Output Total 1100 Balance -818 Weight 146.2 kg Intake: Intake, IV Titration 280 Amount Sodium Chloride 0.45% 1, 280 000 ml @ 40 mls/hr IV . Q24H MARTÍN with Sodium Bicarb (1 Meq/ml) 100 ml Rx#:[id number] Oral 2 Output: Urine 1100 Uretheral (Dhaliwal) 1100 Other: Voiding Method Indwelling Catheter # Voids 1 - Exam General: Alert and oriented 3, sitting up in bed, no acute distress Eyes: PERRL, EOMI, conjunctiva normal, oral mucosa moist HENT: normocephalic, mucus membranes moist Neck: supple, no JVD Lungs: normal respiratory effort, no wheezes or rales, fine left basilar crackles. Bilateral bases diminished CV: Regular rate and rhythm, systolic murmur. Peripheral pulses 2+ Abdomen: binder in place. soft and generalized tenderness. no guarding or rebound, positive bowel sounds Skin: warm and dry. Neuro: A&Ox3, normal mood and affect - Labs CBC & Chem 7: 06/10/19 07:45 06/11/19 07:47 Labs: Abnormal Lab Results - Last 24 Hours (Table) 10/10/19 10/10/19 10/11/19 Range/Units 16:45 21:07 07:06 Creatinine (0.52-1.04) mg/dL Glucose (74-99) mg/dL POC Glucose (mg/dL) 241 H 231 H 148 H (75-99) mg/dL Calcium (8.4-10.2) mg/dL 06/11/19 06/11/19 Range/Units 07:47 11:47 Creatinine 1.50 H (0.52-1.04) mg/dL Glucose 169 H (74-99) mg/dL POC Glucose (mg/dL) 215 H (75-99) mg/dL Calcium 8.2 L (8.4-10.2) mg/dL Assessment and Plan Assessment: (1) Morbid obesity due to excess calories, BMI 58.9, status post Pako-en-Y gastric bypass Current Visit: Yes Status: Acute Code(s): E66.01 - MORBID (SEVERE) OBESITY DUE TO EXCESS CALORIES SNOMED Code(s): 958994642 (2) Diabetic gastroparesis Current Visit: Yes Status: Acute Priority: Medium Code(s): E11.43 - TYPE 2 DIABETES W DIABETIC AUTONOMIC (POLY)NEUROPATHY; K31.84 - GASTROPARESIS SNOMED Code(s): 097786827 (3) acute on CKD stage 4 due to type 1 diabetes mellitus. Current Visit: Yes Status: Acute Code(s): E10.22 - TYPE 1 DIABETES MELLITUS W DIABETIC CHRONIC KIDNEY DISEASE; N18.4 - CHRONIC KIDNEY DISEASE, STAGE 4 (SEVERE) SNOMED Code(s): 29338403401788 (4) Postprocedural hypotension Current Visit: Yes Status: Acute Code(s): I95.81 - POSTPROCEDURAL HYPOTENSION SNOMED Code(s): 032828697 (5) Hypomagnesemia Current Visit: Yes Status: Acute Code(s): E83.42 - HYPOMAGNESEMIA SNOMED Code(s): 304430265 (6) Adult BMI 50.0-59.9 kg/sq m Current Visit: Yes Status: Acute Code(s): Z68.43 - BODY MASS INDEX (BMI) 50- 59.9, ADULT SNOMED Code(s): 630005335 (7) Type 1 diabetes mellitus, uncontrolled, hyperglycemic Current Visit: Yes Status: Acute Code(s): E10.9 - TYPE 1 DIABETES MELLITUS WITHOUT COMPLICATIONS SNOMED Code(s): 41237270 (8) acute hypoxic respiratory failure, multifactorial secondary to atelectasis, hypercapnia , acute diastolic CHF exacerbation Plan: Continue on current medication regime ,monitoring and symptomatic treatment. Discharge planning in progress as per surgery potentially for today. CTA pending as per pulmonary.Close monitoring of renal function.follow-up with PCP in one week. Continue incentive spirometer at home as advised here. Thank you Dr. Daugherty for allowing us to participate in the care of this pleasant young lady. The impression and plan of care has been dictated as directed. : I performed a history and examination of this patient, discussed the same with the dictator. I agree with the dictator's note ,documented as a scribe. Any additional findings or plans will be noted.
[2019-06-11 15:15] VITALS: BP 135/55; RESP 18; TEMP 98.1
--- NOTE | 2019-06-11 15:33 | PN ---
PROGRESS NOTE DATE OF SERVICE: 06/11/2019 This is a 48-year-old female that we saw yesterday in consultation. She apparently developed some shortness of breath after a Pako-en-Y gastric bypass surgery, which was done on Friday. Today is postop day #4. We were concerned about pulmonary embolism. She could not have a CT angiogram because of her renal function. We wanted to start the patient on heparin therapy. The surgeon did not want her on heparin. Her Dopplers of the lower extremities were negative. We did do a ventilation-perfusion lung scan and it was low probability. There is still about a 5%-14% chance that she had a PE, even with a low probability V/Q scan. Nonetheless, she seems to be feeling much better. Her shortness of breath is much improved. Currently, her temperature is 98.2, heart rate 87, respiratory rate 16, blood pressure 143/72 mean 95, room air saturation 97%. She appears in no acute distress. HEENT: Examination is grossly unremarkable. Mucous membranes are moist. No oral lesions. NECK: Supple. Full range of motion. No adenopathy or thyromegaly. Neck veins are flat. CARDIOVASCULAR:: Examination reveals distant heart sounds. Heart rate about mid 80s. S1, S2 normal. LUNGS: Reveal mostly clear breath sounds. A few scattered rhonchi. No wheezes or crackles. ABDOMEN: Obese. Bowel sounds are heard. EXTREMITIES:: Reveal mild edema. SKIN: Reveals some mild erythema and some mild chronic venostasis changes. NEUROLOGIC: Examination is brief but nonfocal. LABS: Data is reviewed. Sodium 139, potassium 4.8, chloride is 107, CO2 is 23, anion gap is 9. BUN and creatinine were 14 and 1.50. Her lung scan was low probability. ASSESSMENT: 1. Shortness of breath, resolved, doubtful that this is a pulmonary emboli, although even with a low-probability V/Q scan, the incidence of pulmonary embolism proven by pulmonary arteriogram is between 5% and 14%. 2. Possible underlying chronic obstructive pulmonary disease. 3. Obesity, status post Pako-en-Y gastric bypass, postoperative day #4. 4. History of hypertension. 5. History of sleep apnea syndrome. 6. Diabetes with diabetic nephropathy, stage III. 7. Chronic panniculitis. 8. Degenerative joint disease. 9. Anxiety/depression. 10.Hyperlipidemia. 11.Iron deficiency. 12.Status post aortic valve replacement. PLAN: The patient's V/Q scan was low probability. This does not necessarily rule out PE but makes it much less likely. The risk of having a PE with a low probability V/Q scan is somewhere between 5%-14% if evaluated by pulmonary angiography. The patient seems to be much better though. Her breathing is much improved. Her room-air saturations are excellent. Will follow as needed. MMNICOLASL / IJN: [id number] /
--- NOTE | 2019-06-11 15:43 | P.DS ---
<ErvinLisbetDiana A - Last Filed: 06/11/19 15:39> Providers Expected date of discharge: 06/11/19 - Discharge Diagnosis(es) (1) Adult BMI 50.0-59.9 kg/sq m Current Visit: Yes Status: Acute (2) CKD stage 4 due to type 1 diabetes mellitus Current Visit: Yes Status: Acute (3) Diabetic gastroparesis Current Visit: Yes Status: Acute Priority: Medium (4) Diabetic nephropathy associated with diabetes mellitus due to underlying condition Current Visit: Yes Status: Acute (5) Morbid obesity due to excess calories Current Visit: Yes Status: Acute (6) Postprocedural hypotension Current Visit: Yes Status: Acute Hospital Course: 48-year-old female who underwent Pako-en-Y gastric bypass by Dr. Kennedy. Patient was hypotensive postoperatively with minimal urine output. She received IV fluids boluses. She did develop some respiratory distress and fluid overload. Cardiology was consulted. Patient takes Bumex at home. She was started on IV lasix and transitioned to oral lasix. Her respiratory status has improved back to her baseline. Patient also has baseline CKD. However, her creatinine was elevated postoperatively. She was evaluated by nephrology during hospitalization. Her creatinine has since improved back to her baseline. She is tolerating liquid diet. No nausea or vomiting. Pain controlled on oral medications. Vital signs have been stable. She is stable for DC home today. Please see EMR for further hospital course details. Discharge Diagnosis: 1. Morbid obesity due to excess calories 2. Body mass index of 59.8 to 53.4 3. Hypertensive heart disease. 4. Obstructive sleep apnea 5. Diabetes type I, insulin dependent 6. Chronic panniculitis 7. Osteoarthritis of the lower back. 8. Depression 9. Anxiety disorder 10. Hyperlipidemia 11. Iron deficiency 12. Congestive heart failure 13. Gastroesophageal reflux disease 14. Diabetic nephropathy, stage 3 15. History of aspiration pneumonia 16. Diabetic gastroparesis Nurse practitioner note has been reviewed by physician. Signing provider agrees with the documented findings, assessment, and plan of care. Patient Condition at Discharge: Stable Plan - Discharge Summary Discharge Rx Participant: Yes New Discharge Prescriptions: New Bisacodyl [Dulcolax] 5 mg PO DAILY PRN #10 tablet. PRN Reason: Constipation Simethicone 40 mg/0.6 ml Drops [Mylicon Drops] 40 mg PO PCHS PRN #30 ml PRN Reason: gas Omeprazole 40 mg PO DAILY #30 cap Ondansetron Odt [Zofran Odt] 4 mg PO Q8HR PRN #9 tab PRN Reason: Nausea Acetaminophen Oral Susp [Tylenol Oral Susp] 650 mg PO Q4H PRN #200 ml PRN Reason: Pain Furosemide [Lasix] 40 mg PO DAILY #30 tablet INSULIN ASPART (NovoLOG) [NovoLOG (formulary)] 0 unit SQ ACHS vial Continue Metoprolol Tartrate [Lopressor] 25 mg PO HS Discontinued Semaglutide [Ozempic] 1 mg SQ SA Amitriptyline HCl [Elavil] 50 mg PO HS Lisinopril [Zestril] 10 mg PO QAM Bumetanide [BUMEX] 1 mg PO QAM Aspirin [Children's Aspirin] 81 mg PO DAILY Sertraline HCl [Zoloft] 150 mg PO HS Metoclopramide [Reglan] 10 mg PO BID Atorvastatin [Lipitor] 40 mg PO HS INSULIN ASPART (NovoLOG) [NovoLOG (formulary)] 15 unit SQ DIRECTED PRN PRN Reason: Blood Sugar - High Calcitriol 0.5 mcg PO MO Insulin Glargine [Lantus] 15 unit SQ QAM Discharge Medication List Metoprolol Tartrate [Lopressor] 25 mg PO HS 11/04/18 [History] Acetaminophen Oral Susp [Tylenol Oral Susp] 650 mg PO Q4H PRN #200 ml 06/11/19 [Rx] Bisacodyl [Dulcolax] 5 mg PO DAILY PRN #10 tablet. 06/11/19 [Rx] Furosemide [Lasix] 40 mg PO DAILY #30 tablet 06/11/19 [Rx] INSULIN ASPART (NovoLOG) [NovoLOG (formulary)] 0 unit SQ ACHS vial 06/11/19 [Rx] Omeprazole 40 mg PO DAILY #30 cap 06/11/19 [Rx] Ondansetron Odt [Zofran Odt] 4 mg PO Q8HR PRN #9 tab 06/11/19 [Rx] Simethicone 40 mg/0.6 ml Drops [Mylicon Drops] 40 mg PO PCHS PRN #30 ml 06/11/19 [Rx] Follow up Appointment(s)/Referral(s): Jose Márquez MD [STAFF PHYSICIAN] - 06/18/19 2:45 pm [place], [place] [NON-STAFF] - 06/14/19 10:00 am Patient Instructions/Handouts: Abdominal Binder (DC), Pako-en-Y Gastric Bypass (DC) Activity/Diet/Wound Care/Special Instructions: Follow-up at the bariatric center. Check blood sugars at least twice daily. Hold diabetic medications of blood sugar is less than 150. NO lifting over 4 pounds in 4 weeks, July 08. May shower. No bathtub soaks. Dressings to be removed by your doctor in the office. Drink 64 oz of fluid daily. Start protein shakes on . Notify bariatric center for temp over 101.0, increased pain, drainage from incisions. No straws or carbonated beverages. Liquid diet only. Sugar content should be less than 6 g to avoid dumping syndrome. Take MOM for constipation. CRUSH, OPEN, OR CUT TABLETS LARGER THAN A SIZE OF A TIC TAC Discharge Disposition: HOME SELF-CARE <Mallorie Kennedy - Last Filed: 06/11/19 16:10> Providers Date of admission: 06/07/19 06:26 Attending physician: Mallorie Kennedy Consults: 06/07/19 12:52 Consult Physician Routine Consulting Provider: Franck Trujillo Consult Reason/Comments: Medical management Do you want consulting provider notified?: Yes 06/08/19 13:02 Consult Physician Routine Consulting Provider: Rebekah Delong Consult Reason/Comments: Acute on chronic renal failure Do you want consulting provider notified?: Yes 06/08/19 15:33 Consult Physician Routine Consulting Provider: Thalia Gaitan Consult Reason/Comments: per dr kennedy, persistent hypotension Do you want consulting provider notified?: Already Contacted 06/09/19 12:54 Consult Physician Routine Consulting Provider: Ke Uriostegui Consult Reason/Comments: shortness of breath Do you want consulting provider notified?: Yes Primary care physician: Yolis Daily - Discharge Diagnosis(es) (1) Uncontrolled diabetes mellitus Current Visit: No Status: Acute (2) Morbid obesity due to excess calories Current Visit: Yes Status: Acute (3) Adult BMI 50.0-59.9 kg/sq m Current Visit: Yes Status: Acute (4) Diabetic nephropathy associated with diabetes mellitus due to underlying condition Current Visit: Yes Status: Acute (5) S/P gastric bypass Current Visit: Yes Status: Acute (6) Acute kidney injury Current Visit: No Status: Acute (7) Hyperglycemia Current Visit: No Status: Acute (8) Moderate COPD (chronic obstructive pulmonary disease) Current Visit: Yes Status: Acute Hospital Course: Patient presents with multiple comorbidities which makes her procedure high risk including hypotension present at the time of induction. As a result, hypoperfusion to the kidneys occurred with acute kidney injury with baseline chronic renal insufficiency. Fluids were given however as the patient is diuretic dependent, nephrology consultation with start of Lasix improved her ki dney function. She has moderate COPD for which she had expected dyspnea. Pulmonary consultation was obtained. Patient entire clinical course did not support pulmonary embolism. Prior to discharge, patient was baseline. She was tolerating diet. She is ambulating independently. Discharge instructions reviewed. Medications for her insulin and diabetes were adjusted. Patient was stable for discharge for follow-up in bariatric center in 48-72 hours.
[2019-06-11 16:57] LABS: Glucose,Whole Blood 170 mg/dL (75-99)
[2019-06-11 17:04] VITALS: PULSE 78
--- NOTE | 2019-06-11 18:32 | PN ---
PROGRESS NOTE Patient is seen for followup for acute kidney injury on top of chronic kidney disease. Patient is status post pako-en-Y surgery for morbid obesity. She developed hypotension postoperatively associated with oliguria and acute kidney injury. Renal function has now improved and it is close to baseline. Creatinine peaked at 2.8. It is down to 1.5 now, which is her baseline renal function. Patient was on IV fluids, then developed volume overload and is currently being diuresed. Lasix has been switched to p.o. Overall, patient states she is feeling well. On examination this morning, blood pressure was 132/78, heart rate 84 per minute. Patient is afebrile. EXAMINATION OF THE HEART: S1 and S2. EXAMINATION OF LUNGS: Decreased breath sounds at bases. ABDOMEN: Soft, obese, tender. It is currently dressed. Examination of lower extremities shows no significant edema. Labs show sodium 139, potassium 4.8, BUN 14, creatinine 1.5, calcium 8.2. ASSESSMENT: 1. Acute kidney injury secondary to hypotension, hypoperfusion; initially oliguric; currently nonoliguric and improved. 2. Chronic kidney disease, stage III, secondary to chronic interstitial nephropathy. Renal function at baseline. 3. Pyuria, currently asymptomatic. Need to follow up with repeat UA as outpatient. Patient had a Dhaliwal catheter, I believe, when this UA was done. 4. Volume overload, currently resolved. Lasix is switched to p.o. 5. Hypotension postoperatively, now resolved. 6. Status post Pako-en-Y gastric bypass for morbid obesity. PLAN: Increase oral intake. Discontinue IV fluids tomorrow. Patient can be discharged from nephrology standpoint. MMODL / IJN: [id number] /
[2019-06-12] MEDS ORDERED: SEMAGLUTIDE 1 MG SQ SCH (12:00)
--- NOTE | 2019-06-12 12:57 | P.PN ---
Progress Note - Text Progress Note Date: 06/12/19 Called patient at home for listed number on record. Left message on answering machine for follow-up after discharge.
== END 2019-06-11 18:07 | disposition home or self-care (01) | DRG 619 ==
LOC: 2ORMAIN 06:26 → EDSTATUS 08:00 → 4SSUR 12:12
PROVIDERS: ADMIT Surgery Plastic and Reconstructive Surgery; ATTEND Surgery Plastic and Reconstructive Surgery
PROC: 8E0W4CZ Robotic Assisted Procedure of Trunk Region, Percutaneous Endoscopic Approach (ICD-10-PCS; principal; 2019-06-07 08:00)
PROC: 0DJ08ZZ Inspection of Upper Intestinal Tract, Via Natural or Artificial Opening Endoscopic (ICD-10-PCS; principal; 2019-06-07 08:00)
PROC: 0D164ZA Bypass Stomach to Jejunum, Percutaneous Endoscopic Approach (ICD-10-PCS; principal; 2019-06-07 08:00)
DX: E66.01 Morbid (severe) obesity due to excess calories (principal); I50.33 Acute on chronic diastolic (congestive) heart failure; J96.01 Acute respiratory failure with hypoxia; E87.2 Acidosis; I13.0 Hypertensive heart and chronic kidney disease with heart failure and stage 1 through stage 4 chronic kidney disease, or unspecified chronic kidney disease; J98.11 Atelectasis; N17.9 Acute kidney failure, unspecified; N18.4 Chronic kidney disease, stage 4 (severe); E10.21 Type 1 diabetes mellitus with diabetic nephropathy; E10.22 Type 1 diabetes mellitus with diabetic chronic kidney disease; E10.42 Type 1 diabetes mellitus with diabetic polyneuropathy; E10.43 Type 1 diabetes mellitus with diabetic autonomic (poly)neuropathy; E10.65 Type 1 diabetes mellitus with hyperglycemia; E61.1 Iron deficiency; E78.5 Hyperlipidemia, unspecified; E83.42 Hypomagnesemia; E87.5 Hyperkalemia; F32.9 Major depressive disorder, single episode, unspecified; F41.9 Anxiety disorder, unspecified; G47.33 Obstructive sleep apnea (adult) (pediatric); I25.2 Old myocardial infarction; I48.91 Unspecified atrial fibrillation; I95.9 Hypotension, unspecified; J44.9 Chronic obstructive pulmonary disease, unspecified; K21.9 Gastro-esophageal reflux disease without esophagitis; K31.84 Gastroparesis; M47.9 Spondylosis, unspecified; M79.3 Panniculitis, unspecified; Z68.43 Body mass index [BMI] 50.0-59.9, adult; Z79.4 Long term (current) use of insulin; Z79.82 Long term (current) use of aspirin; Z79.899 Other long term (current) drug therapy; Z82.0 Family history of epilepsy and other diseases of the nervous system; Z82.49 Family history of ischemic heart disease and other diseases of the circulatory system; Z86.711 Personal history of pulmonary embolism; Z87.01 Personal history of pneumonia (recurrent); Z87.891 Personal history of nicotine dependence; Z95.3 Presence of xenogenic heart valve; Z96.41 Presence of insulin pump (external) (internal)
CPT/HCPCS: 36410; 71046; 76937; 78582; 80048; 80051; 81001; 81025; 82310; 82565; 83036; 83605; 83735; 83880; 84100; 84132; 84484; 84520; 85025; 85379; 86850; 86900; 86901; 93306; 93970; 94640; 94760; 94762

== ENCOUNTER → 2019-06-14 | Outpatient (CLI) | payer MEDICARE ==
--- NOTE | 2019-06-14 10:34 | P.PN ---
Subjective Progress Note Date: 06/14/19 DATE OF SERVICE: 06/14/2019 CHIEF COMPLAINT: Morbid obesity HISTORY OF PRESENT ILLNESS: Radha Grande is a 48-year-old female who is status post gastric bypass, 06/07/19. She is POD 7. She reports chewing well. No nausea or vomiting. She is tolerating liquid diet. Blood sugars are low at 73 with insulin. No reports of dizziness. She does report vaginitis. She takes her Zoloft. She is at home by herself. At height of 5 feet 3.5 inches, her ideal body weight is 140 pounds. Her highest weight was 342 pounds. Her body mass index highest was 59.8. She comes in 310 pounds from 309, 1 month ago. Weight loss of 1 pound in 1 month. Today her BMI is 54.2. She is 170 pounds overweight. PHYSICAL EXAM: VITAL SIGNS: Height 5 foot 3.5 inches, weight 310 pounds. BMI 54.2 Vital Signs Temp 98.2 F 06/14/19 10:52 Pulse 97 06/14/19 10:52 Resp BP 144/86 06/14/19 10:52 Pulse Ox GENERAL: Well-developed in no acute distress. HEENT: No scleral icterus. Extraocular movements grossly intact. Hears conversational speech. No nasal drainage. NECK: Supple without lymphadenopathy. CHEST: Nonlabored respirations with equal bilateral excursions. CARDIOVASCULAR: Regular rate and regular rhythm. Distal 2+ pulses. ABDOMEN: Incision clean, dry and intact. MUSCULOSKELETAL: No clubbing, cyanosis. Gross strength 5/5 distal lower extremities. NEURO: No focal or lateralizing signs. Cranial nerves 2 through 12 grossly within normal limits. PSYCH: Appropriate affect. Alert and oriented to person, place and time. SKIN: Good skin turgor. Well perfused. Has panniculitis. ASSESSMENT: 1. Morbid obesity due to excess calories 2. Body mass index of 59.8 to 54.2 3. Hypertensive heart disease. 4. Obstructive sleep apnea 5. Diabetes type I, insulin dependent 6. Chronic panniculitis 7. Osteoarthritis of the lower back. 8. Depression 9. Anxiety disorder 10. Hyperlipidemia 11. Iron deficiency 12. Congestive heart failure 13. Gastroesophageal reflux disease 14. Diabetic nephropathy, stage 3 15. History of aspiration pneumonia 16. Diabetic gastroparesis 17. Status post gastric bypass PLAN: 1. Questions were addressed in terms of needs and patient reports and she reports that all of her needs are being met. 2. Recommend follow-up in the bariatric Center 3-5 days.
[2019-06-14 10:56] VITALS: BP 144/86; PULSE 97; TEMP 98.2; BMI 54.2
== END | disposition home or self-care (01) ==
LOC: BARWHC3 08:28
PROVIDERS: ATTEND Surgery Plastic and Reconstructive Surgery
DX: Z01.810 Encounter for preprocedural cardiovascular examination (principal); E78.5 Hyperlipidemia, unspecified; F17.200 Nicotine dependence, unspecified, uncomplicated; N18.4 Chronic kidney disease, stage 4 (severe); I12.9 Hypertensive chronic kidney disease with stage 1 through stage 4 chronic kidney disease, or unspecified chronic kidney disease; E11.22 Type 2 diabetes mellitus with diabetic chronic kidney disease; M10.9 Gout, unspecified; E55.9 Vitamin D deficiency, unspecified; E21.3 Hyperparathyroidism, unspecified; F41.1 Generalized anxiety disorder; I10 Essential (primary) hypertension; Z95.2 Presence of prosthetic heart valve; Z79.899 Other long term (current) drug therapy; Z79.82 Long term (current) use of aspirin
CPT/HCPCS: 99211

== ENCOUNTER → 2019-06-18 | Outpatient (CLI) | payer MEDICARE ==
[2019-06-18 10:45] VITALS: BP 134/87; PULSE 102; TEMP 98.1; BMI 51.7
--- NOTE | 2019-06-18 11:12 | P.PN ---
Subjective Progress Note Date: 06/18/19 DATE OF SERVICE: 06/18/2019 CHIEF COMPLAINT: Morbid obesity HISTORY OF PRESENT ILLNESS: Radha Grande is a 48-year-old female who is status post gastric bypass, 06/07/19. She is POD 11. Her blood sugar glucose is above 250. Her lowest BSG is 88. No fevers or chills. No reports of abdominal pain. At height of 5 feet 3.5 inches, her ideal body weight is 140 pounds. Her highest weight was 342 pounds. Her body mass index highest was 59.8. She comes in 296 pounds from 310 pounds, 1 week ago. Weight loss of 14 pounds in 1 week. Today her BMI is 51.8. She is 156 pounds overweight. Lifetime weight loss of 46 pounds. Percent excess weight loss is 23% lifetime. PHYSICAL EXAM: VITAL SIGNS: Height 5 foot 3.5 inches, weight 296 pounds. BMI 51.8 Vital Signs Temp 98.1 F 06/18/19 10:30 Pulse 102 H 06/18/19 10:30 Resp BP 134/87 06/18/19 10:30 Pulse Ox GENERAL: Well-developed in no acute distress. HEENT: No scleral icterus. Extraocular movements grossly intact. Hears conversational speech. No nasal drainage. NECK: Supple without lymphadenopathy. CHEST: Nonlabored respirations with equal bilateral excursions. CARDIOVASCULAR: Distal 2+ pulses. ABDOMEN: Incision clean, dry and intact. MUSCULOSKELETAL: No clubbing, cyanosis. Gross strength 5/5 distal lower extremities. NEURO: No focal or lateralizing signs. Cranial nerves 2 through 12 grossly within normal limits. PSYCH: Appropriate affect. Alert and oriented to person, place and time. SKIN: Good skin turgor. Well perfused. Has panniculitis. ASSESSMENT: 1. Morbid obesity due to excess calories 2. Body mass index of 59.8 to 51.8 3. Hypertensive heart disease. 4. Obstructive sleep apnea 5. Diabetes type I, insulin dependent 6. Chronic panniculitis 7. Osteoarthritis of the lower back. 8. Depression 9. Anxiety disorder 10. Hyperlipidemia 11. Iron deficiency 12. Congestive heart failure 13. Gastroesophageal reflux disease 14. Diabetic nephropathy, stage 3 15. History of aspiration pneumonia 16. Diabetic gastroparesis 17. Status post gastric bypass PLAN: 1. Recommend start of blood sugar glucose medications. 2. Recommend re-check protein shakes with too much sugars. 3. Recommend long acting use of 1/2 dose insulin Objective - Vital Signs Vital signs: Vital Signs Temp 98.1 F 06/18/19 10:30 Pulse 102 H 06/18/19 10:30 Resp BP 134/87 06/18/19 10:30 Pulse Ox Intake & Output 06/17/19 06/18/19 06/18/19 18:59 06:59 18:59 Weight 134.717 kg
== END | disposition home or self-care (01) ==
LOC: BARWHC3 09:39
PROVIDERS: ATTEND Surgery Plastic and Reconstructive Surgery
DX: E66.01 Morbid (severe) obesity due to excess calories (principal); I11.0 Hypertensive heart disease with heart failure; G47.33 Obstructive sleep apnea (adult) (pediatric); E10.43 Type 1 diabetes mellitus with diabetic autonomic (poly)neuropathy; E10.21 Type 1 diabetes mellitus with diabetic nephropathy; M79.3 Panniculitis, unspecified; F32.9 Major depressive disorder, single episode, unspecified; F41.9 Anxiety disorder, unspecified; E78.5 Hyperlipidemia, unspecified; E61.1 Iron deficiency; K21.9 Gastro-esophageal reflux disease without esophagitis; K31.84 Gastroparesis; Z87.01 Personal history of pneumonia (recurrent); Z79.4 Long term (current) use of insulin; Z98.84 Bariatric surgery status; Z68.43 Body mass index [BMI] 50.0-59.9, adult
CPT/HCPCS: 99211

== ENCOUNTER → 2019-06-30 | Outpatient (CLI) | payer MEDICARE ==
[2019-06-30 15:37] VITALS: BP 105/75; PULSE 102; RESP 16; TEMP 97.5; BMI 50.2
--- NOTE | 2019-06-30 16:17 | P.PN ---
Subjective Progress Note Date: 06/30/19 She has lost 20 pounds in 2 weeks. Her blood sugars run 80 to 330. Her blood pressure is low with orthostatic. She reports no abdominal pain. NO infection. Heart rate is high and Follow up with heart doctor. She is tachycardic. Dr. soliman. Check cbc and electrolytes. Objective - Vital Signs Vital signs: Vital Signs Temp 97.5 F L 06/30/19 15:34 Pulse 102 H 06/30/19 15:34 Resp 16 06/30/19 15:34 BP 105/75 06/30/19 15:34 Pulse Ox Intake & Output 06/29/19 06/30/19 06/30/19 18:59 06:59 18:59 Weight 130.635 kg
[2019-06-30 17:36] LABS: HGB 12.5 gm/dL (11.4-16.0); MCH 28.8 pg (25.0-35.0); MCHC 32.8 g/dL (31.0-37.0); Mean Platelet Volume 7.7; Platelet Count 350 k/uL (150-450); RBC 4.33 m/uL (3.80-5.40); RDW 13.3 % (11.5-15.5); WBC 7.8 k/uL (3.8-10.6)
[2019-06-30 17:37] LABS: MCV 87.8 fL (80.0-100.0)
[2019-07-01 02:20] LABS: African American GFR (CKD) 43.4 (60.0-200.0); Albumin/Globulin Ratio 1.67 (1.60-3.17); Anion Gap 20.9 mmol/L (4.00-12.00); BUN/Creat Ratio 18.13 Ratio (12.00-20.00); Calcium 9.3 mg/dL (8.7-10.3); Carbon Dioxide 18.1 mmol/L (21.6-31.8); Globulin 2.4 g/dL (1.6-3.3); Potassium 4.3 mmol/L (3.5-5.5); Total Bilirubin 0.2 mg/dL (0.2-1.2); Total Protein 6.4 g/dL (6.2-8.2)
== END | disposition home or self-care (01) ==
LOC: BARWHC3 15:01
PROVIDERS: ATTEND Surgery Plastic and Reconstructive Surgery
DX: E66.01 Morbid (severe) obesity due to excess calories (principal); I95.1 Orthostatic hypotension; R00.0 Tachycardia, unspecified; Z68.43 Body mass index [BMI] 50.0-59.9, adult
CPT/HCPCS: 80053; 85027; 97803; 36415; G0463; 99211

== ENCOUNTER → 2019-07-14 | Outpatient (CLI) | payer MEDICARE ==
[2019-07-14 15:43] VITALS: BP 137/81; PULSE 93; RESP 16; TEMP 97.7; BMI 49.3
--- NOTE | 2019-07-14 15:56 | P.PN ---
Subjective Progress Note Date: 07/14/19 DATE OF SERVICE: 07/14/2019 CHIEF COMPLAINT: Morbid obesity HISTORY OF PRESENT ILLNESS: Radha Grande is a 49-year-old female who is status post gastric bypass, 06/07/19. She is 1 month out. She is on Metoprolol is now changed to long acting. She has orthostatic hypotensive events. Her blood sugar glucoes is at 231 high and has lows 70. Her average is 180. She is on sliding scale. No reports of abdominal pain. She reports gas pains that is not helping with medications and is worse at night. She denies gas bloat. She reports gas pains every night that is better by the morning. Her dinner last n ight was eggs and sausage. At height of 5 feet 3.5 inches, her ideal body weight is 140 pounds. Her highest weight was 342 pounds. Her body mass index highest was 59.8. She comes in 282 pounds from 287 pounds, 2 weeks ago. Weight loss of 5 pounds in 2 weeks. Today her BMI is 49.3. She is 142 pounds overweight. Lifetime weight loss of 60 pounds. Percent excess weight loss is 30 % lifetime. PHYSICAL EXAM: VITAL SIGNS: Height 5 foot 3.5 inches, weight 282 pounds. BMI 49.3 Vital Signs Temp 97.7 F 07/14/19 15:41 Pulse 93 07/14/19 15:41 Resp 16 07/14/19 15:41 BP 137/81 07/14/19 15:41 Pulse Ox GENERAL: Well-developed in no acute distress. HEENT: No scleral icterus. Extraocular movements grossly intact. Hears conversational speech. No nasal drainage. NECK: Supple without lymphadenopathy. CHEST: Nonlabored respirations with equal bilateral excursions. CARDIOVASCULAR: Distal 2+ pulses. ABDOMEN: Soft, non-tender. Non-distended. MUSCULOSKELETAL: No clubbing, cyanosis. Gross strength 5/5 distal lower extremities. NEURO: No focal or lateralizing signs. Cranial nerves 2 through 12 grossly within normal limits. PSYCH: Appropriate affect. Alert and oriented to person, place and time. SKIN: Good skin turgor. Well perfused. ASSESSMENT: 1. Morbid obesity due to excess calories 2. Body mass index of 59.8 to 49.3 3. Hypertensive heart disease. 4. Obstructive sleep apnea 5. Diabetes type I, insulin dependent 6. Chronic panniculitis 7. Osteoarthritis of the lower back. 8. Depression 9. Anxiety disorder 10. Hyperlipidemia 11. Iron deficiency 12. Congestive heart failure 13. Gastroesophageal reflux disease 14. Diabetic nephropathy, stage 3 15. History of aspiration pneumonia 16. Diabetic gastroparesis 17. Status post gastric bypass PLAN: 1. Recommend bariatric labs 2. Recommend ultrasound of the gallbladder for gallstones secondary to fatty food intolerance. Laboratory Last Values WBC 11.4 k/uL (3.8-10.6) H 07/14/19 16:45 RBC 4.50 m/uL (3.80-5.40) 07/14/19 16:45 Hgb 13.0 gm/dL (11.4-16.0) 07/14/19 16:45 Hct 40.2 % (34.0-46.0) 07/14/19 16:45 MCV 89.3 fL (80.0-100.0) 07/14/19 16:45 MCH 29.0 pg (25.0-35.0) 07/14/19 16:45 MCHC 32.5 g/dL (31.0-37.0) 07/14/19 16:45 RDW 13.2 % (11.5-15.5) 07/14/19 16:45 Plt Count 248 k/uL (150-450) 07/14/19 16:45 PT 9.4 sec (9.0-12.0) 07/14/19 16:45 INR 0.9 (<1.2) 07/14/19 16:45 APTT 22.9 sec (22.0-30.0) 07/14/19 16:45 Sodium 141 mmol/L (135-145) 07/14/19 16:45 Potassium 3.8 mmol/L (3.5-5.5) 07/14/19 16:45 Chloride 99 mmol/L (96-109) 07/14/19 16:45 Carbon Dioxide 29.7 mmol/L (21.6-31.8) 07/14/19 16:45 Anion Gap 12.30 mmol/L (4.00-12.00) H 07/14/19 16:45 BUN 26.0 mg/dL (9.0-27.0) 07/14/19 16:45 Creatinine 1.6 mg/dL (0.6-1.5) H 07/14/19 16:45 Est GFR (CKD-EPI)AfAm 43.4 (60.0-200.0) L 07/14/19 16:45 Est GFR (CKD-EPI)NonAf 37.4 (60.0-200.0) L 07/14/19 16:45 BUN/Creatinine Ratio 16.25 Ratio (12.00-20.00) 07/14/19 16:45 Glucose 112 mg/dL (70-110) H 07/14/19 16:[address] Glu mg/dL 143 07/14/19 16:45 Hemoglobin A1c 6.6 % (4.0-6.0) H 07/14/19 16:45 Calcium 9.9 mg/dL (8.7-10.3) 07/14/19 16:45 Phosphorus 3.7 mg/dL (2.4-5.1) 07/14/19 16:45 Magnesium 1.4 mg/dL (1.5-2.4) L 07/14/19 16:45 Iron 38 ug/dL (50-170) L 07/14/19 16:45 TIBC 232 ug/dL (228-460) 07/14/19 16:45 % Saturation 16.38 (12.00-45.00) 07/14/19 16:45 Ferritin 111.7 ng/mL (10.0-291.0) 07/14/19 16:45 Total Bilirubin 0.3 mg/dL (0.3-1.2) 07/14/19 16:45 AST 18 U/L (13-35) 07/14/19 16:45 ALT 13 U/L (8-44) 07/14/19 16:45 Alkaline Phosphatase 109 U/L (41-126) 07/14/19 16:45 Total Protein 6.3 g/dL (6.2-8.2) 07/14/19 16:45 Albumin 4.00 g/dL (3.80-4.90) 07/14/19 16:45 Globulin 2.3 g/dL (1.6-3.3) 07/14/19 16:45 Albumin/Globulin Ratio 1.74 g/dL (1.60-3.17) 07/14/19 16:45 Prealbumin 20.0 mg/dL (18.0-42.0) 07/14/19 16:45 Triglycerides 176.0 mg/dL (0.0-149.0) H 07/14/19 16:45 Cholesterol 213 mg/dL (0-200) H 07/14/19 16:45 LDL Cholesterol, Calc 135.8 mg/dL (0.0-131.0) H 07/14/19 16:45 VLDL Cholesterol, Calc 35.20 mg/dL (5.00-40.00) 07/14/19 16:45 HDL Cholesterol 42.0 mg/dL (40.0-60.0) 07/14/19 16:45 Cholesterol/HDL Ratio 5.07 07/14/19 16:45 Vitamin A 72 ug/dL (38-106) 07/14/19 16:45 Vitamin B1 60 ug/L (38-122) 07/14/19 16:45 Vitamin B12 >4000.0 pg/mL (211-911) H 07/14/19 16:45 Vitamin D 25-Hydroxy 39.6 ng/mL (30.0-100.0) 07/14/19 16:45 Folate 11.9 ng/mL 07/14/19 16:45 TSH 3.550 uIU/mL (0.350-5.500) 07/14/19 16:45 PTH Intact 25.1 pg/mL (14.0-72.0) 07/14/19 16:45 Copper 1530 ug/L (810-1990) 07/14/19 16:45 Selenium 132 mcg/L (63-160) 07/14/19 16:45 Zinc 74 ug/dL (60-130) 07/14/19 16:45 Objective - Vital Signs Vital signs: Vital Signs Temp 97.7 F 07/14/19 15:41 Pulse 93 07/14/19 15:41 Resp 16 07/14/19 15:41 BP 137/81 07/14/19 15:41 Pulse Ox Intake & Output 07/13/19 07/14/19 07/14/19 18:59 06:59 18:59 Weight 128.367 kg - Labs CBC & Chem 7: 07/14/19 16:45 07/14/19 16:45
[2019-07-14 17:31] LABS: HCT 40.2 % (34.0-46.0); MCHC 32.5 g/dL (31.0-37.0); MCV 89.3 fL (80.0-100.0); Mean Platelet Volume 6.6; Platelet Count 248 k/uL (150-450); RDW 13.2 % (11.5-15.5); WBC 11.4 k/uL (3.8-10.6)
[2019-07-14 17:47] LABS: INR 0.9 (<1.2); Partial Thromboplastin Time 22.9 sec (22.0-30.0); Prothrombin Time 9.4 sec (9.0-12.0)
[2019-07-14 23:38] LABS: % Iron Saturation 16.38 (12.00-45.00); ALT 13 U/L (8-44); AST 18 U/L (13-35); African American GFR (CKD) 43.4 (60.0-200.0); Albumin/Globulin Ratio 1.74 (1.60-3.17); Alkaline Phosphatase 109 U/L (41-126); BUN/Creat Ratio 16.25 Ratio (12.00-20.00); Calcium 9.9 mg/dL (8.7-10.3); Carbon Dioxide 29.7 mmol/L (21.6-31.8); Chloride 99 mmol/L (96-109); Chol/HDL Ratio 5.07; Cholesterol 213 mg/dL (0-200); Globulin 2.3 g/dL (1.6-3.3); Glucose 112 mg/dL (70-110); Iron 38 ug/dL (50-170); LDL Cholesterol,Calculated 135.8 mg/dL (0.0-131.0); Magnesium 1.4 mg/dL (1.5-2.4); Non-African American GFR(CKD) 37.4 (60.0-200.0); Phosphorus 3.7 mg/dL (2.4-5.1); Potassium 3.8 mmol/L (3.5-5.5); Sodium 141 mmol/L (135-145); Total Bilirubin 0.3 mg/dL (0.3-1.2); Total Iron Binding Capacity 232 ug/dL (228-460); Total Protein 6.3 g/dL (6.2-8.2)
[2019-07-14 23:45] LABS: Ferritin 111.7 ng/mL (10.0-291.0)
[2019-07-15 00:25] LABS: Folate, Serum 11.9 ng/mL; Vitamin B12 >4000.0 pg/mL (211-911)
[2019-07-15 04:25] LABS: Hemoglobin A1C 6.6 % (4.0-6.0)
[2019-07-15 12:22] LABS: Zinc, Serum 74 ug/dL (60-130)
[2019-07-15 13:41] LABS: Vitamin A 72 ug/dL (38-106)
[2019-07-16 09:51] LABS: Vit B1(Thiamine) 60 ug/L (38-122)
[2019-07-26 11:27] LABS: Selenium 132 mcg/L (63-160)
== END | disposition home or self-care (01) ==
LOC: BARWHC3 14:29
PROVIDERS: ATTEND Surgery Plastic and Reconstructive Surgery
DX: E66.01 Morbid (severe) obesity due to excess calories (principal); I11.0 Hypertensive heart disease with heart failure; G47.33 Obstructive sleep apnea (adult) (pediatric); M79.3 Panniculitis, unspecified; M47.816 Spondylosis without myelopathy or radiculopathy, lumbar region; F32.9 Major depressive disorder, single episode, unspecified; F41.9 Anxiety disorder, unspecified; E78.5 Hyperlipidemia, unspecified; K21.9 Gastro-esophageal reflux disease without esophagitis; E10.21 Type 1 diabetes mellitus with diabetic nephropathy; Z87.01 Personal history of pneumonia (recurrent); K31.84 Gastroparesis; Z98.84 Bariatric surgery status; Z68.43 Body mass index [BMI] 50.0-59.9, adult; Z79.4 Long term (current) use of insulin
CPT/HCPCS: 84255; 84134; 84425; 80061; 80053; 82607; 82728; 82525; 82746; 83540; 83550; 83735; 84100; 84443; 84590; 84630; 85027; 85610; 85730; 82306; 83970; 83036; 97803; G0463; 99211

== ENCOUNTER → 2019-08-03 | Outpatient (CLI) | payer MEDICARE ==
--- NOTE | 2019-08-03 10:00 | US ---
EXAMINATION TYPE: US gallbladder DATE OF EXAM: 08/03/2019 COMPARISON: CT abdomen March 03, 2018 CLINICAL HISTORY: R10.11 right upper quadrant pain, gallstones. patient had gastric bypass Oct 7, epi sodes of gas and ruq pain EXAM MEASUREMENTS: Liver Length: 15.8 cm Gallbladder Wall: 0.2 cm CBD: 0.5 cm Right Kidney: 12.9 x 5.5 x 5.9 cm *large body habitus and bowel gas limits exam Pancreas: very limited views Liver: difficult to penetrate, wnl Gallbladder: wnl Evidence for sonographic Yun's sign: no CBD: wnl Right Kidney: wnl Suboptimal evaluation of pancreas on images 32 body habitus and overlying bowel gas. Visualized porti on of liver show no worrisome mass or ductal dilatation. IMPRESSION: Suboptimal study without shadowing mobile gallstones or ultrasound evidence for acute cho lecystitis.
== END | disposition home or self-care (01) ==
LOC: RADUSWWP 09:18
PROVIDERS: ATTEND Surgery Plastic and Reconstructive Surgery
DX: R10.11 Right upper quadrant pain (principal); K80.20 Calculus of gallbladder without cholecystitis without obstruction
CPT/HCPCS: 76705

== ENCOUNTER → 2019-12-29 | Outpatient (CLI) | payer MEDICARE ==
[2019-12-29 11:57] LABS: HCT 36.2 % (34.0-46.0); HGB 11.3 gm/dL (11.4-16.0); Hypochromasia Slight; MCH 27.1 pg (25.0-35.0); MCHC 31.3 g/dL (31.0-37.0); MCV 86.8 fL (80.0-100.0); Mean Platelet Volume 7.9; Platelet Count 229 k/uL (150-450); RBC 4.17 m/uL (3.80-5.40); RDW 14.5 % (11.5-15.5); WBC 8.4 k/uL (3.8-10.6)
[2019-12-29 18:43] LABS: ALT 14 U/L (8-44); AST 16 U/L (13-35); African American GFR (CKD) 43.4 (60.0-200.0); Albumin/Globulin Ratio 1.64 (1.60-3.17); Alkaline Phosphatase 105 U/L (41-126); BUN/Creat Ratio 11.88 Ratio (12.00-20.00); Calcium 9.3 mg/dL (8.7-10.3); Chloride 105 mmol/L (96-109); Globulin 2.2 g/dL (1.6-3.3); Glucose 194 mg/dL (70-110); Magnesium 1.5 mg/dL (1.5-2.4); Non-African American GFR(CKD) 37.4 (60.0-200.0); Potassium 4.4 mmol/L (3.5-5.5); Sodium 141 mmol/L (135-145); Total Bilirubin 0.4 mg/dL (0.3-1.2); Total Protein 5.8 g/dL (6.2-8.2)
[2019-12-29 20:12] LABS: Vitamin B12 >4000.0 pg/mL (211-911)
== END | disposition home or self-care (01) ==
LOC: LABWHC1 10:38
PROVIDERS: ATTEND Family Medicine
DX: I10 Essential (primary) hypertension (principal); K21.9 Gastro-esophageal reflux disease without esophagitis; E53.8 Deficiency of other specified B group vitamins; E55.9 Vitamin D deficiency, unspecified; Z98.84 Bariatric surgery status; F41.9 Anxiety disorder, unspecified
CPT/HCPCS: 36415; 80053; 82306; 82607; 83735; 84443; 84481; 85027

== ENCOUNTER → 2020-03-15 | Outpatient (CLI) | payer MEDICARE ==
[2020-03-15 11:55] LABS: Appearance,Urine Clear (Clear); Bilirubin,Urine Negative (Negative); Blood,Urine Negative (Negative); Color,Urine Colorless; Glucose,Urine (UA) Negative (Negative); Ketones,Urine Negative (Negative); Leukocyte Esterase,Urine Negative (Negative); Nitrite,Urine Negative (Negative); Protein,Urine Negative (Negative); Specific Gravity,Urine 1.004 (1.001-1.035); Urobilinogen,Urine <2.0 mg/dL (<2.0)
[2020-03-15 12:00] LABS: HCT 36.5 % (34.0-46.0); HGB 11.6 gm/dL (11.4-16.0); MCH 26.9 pg (25.0-35.0); MCHC 31.7 g/dL (31.0-37.0); MCV 85.1 fL (80.0-100.0); Platelet Count 205 k/uL (150-450); RBC 4.29 m/uL (3.80-5.40); RDW 14.1 % (11.5-15.5); WBC 6.5 k/uL (3.8-10.6)
[2020-03-15 21:12] LABS: Microalbumin Creatinine Ratio <30 mg/g Creat (0-30); Urine Creatinine 13.6 mg/dL
[2020-03-15 22:29] LABS: Hemoglobin A1C 7.6 % (4.0-6.0)
== END | disposition home or self-care (01) ==
LOC: LABWHC1 10:08
PROVIDERS: ATTEND Internal Medicine
DX: N18.4 Chronic kidney disease, stage 4 (severe) (principal); E10.9 Type 1 diabetes mellitus without complications; E03.9 Hypothyroidism, unspecified; N25.81 Secondary hyperparathyroidism of renal origin; E55.9 Vitamin D deficiency, unspecified; E79.0 Hyperuricemia without signs of inflammatory arthritis and tophaceous disease
CPT/HCPCS: 36415; 81003; 82043; 82570; 83036; 83970; 85027

== ENCOUNTER → 2020-03-17 | Outpatient (CLI) | payer MEDICARE ==
[2020-03-17 19:50] LABS: % Iron Saturation 15.18 (12.00-45.00); African American GFR (CKD) 33.1 (60.0-200.0); Albumin 3.6 g/dL (3.80-4.90); Albumin/Globulin Ratio 1.64 (1.60-3.17); Anion Gap 7.5 mmol/L (4.00-12.00); Carbon Dioxide 29.5 mmol/L (21.6-31.8); Chol/HDL Ratio 3.41; Globulin 2.2 g/dL (1.6-3.3); LDL Cholesterol,Calculated 60.6 mg/dL (0.0-131.0); Magnesium 1.8 mg/dL (1.5-2.4); Non-African American GFR(CKD) 28.6 (60.0-200.0); Phosphorus 4.2 mg/dL (2.4-5.1); Potassium 4.4 mmol/L (3.5-5.5); Total Bilirubin 0.3 mg/dL (0.3-1.2); Total Protein 5.8 g/dL (6.2-8.2); Uric Acid 6.3 mg/dL (2.9-7.7); VLDL Calculation 28.4 mg/dL (5.00-40.00)
[2020-03-17 19:58] LABS: Ferritin 39.7 ng/mL (10.0-291.0)
== END | disposition home or self-care (01) ==
LOC: LABWHC1 08:11
PROVIDERS: ATTEND Nurse Practitioner Family
DX: E10.9 Type 1 diabetes mellitus without complications (principal); E03.9 Hypothyroidism, unspecified; N18.4 Chronic kidney disease, stage 4 (severe); E79.0 Hyperuricemia without signs of inflammatory arthritis and tophaceous disease; N25.81 Secondary hyperparathyroidism of renal origin; R80.9 Proteinuria, unspecified
CPT/HCPCS: 36415; 80053; 80061; 82306; 82728; 83540; 83550; 83735; 84100; 84550

== ENCOUNTER → 2020-06-29 | Outpatient (CLI) | payer MEDICARE, OTHER ==
[2020-06-29 17:36] LABS: Hemoglobin A1C 7.3 % (4.0-6.0)
[2020-06-29 17:50] LABS: African American GFR (CKD) 37.4 (60.0-200.0); Albumin 3.8 g/dL (3.80-4.90); Albumin/Globulin Ratio 1.73 (1.60-3.17); Anion Gap 8.7 mmol/L (4.00-12.00); BUN/Creat Ratio 15.56 Ratio (12.00-20.00); Calcium 8.8 mg/dL (8.7-10.3); Carbon Dioxide 25.3 mmol/L (21.6-31.8); Chol/HDL Ratio 3.44; Globulin 2.2 g/dL (1.6-3.3); LDL Cholesterol,Calculated 56.4 mg/dL (0.0-131.0); Magnesium 1.7 mg/dL (1.5-2.4); Non-African American GFR(CKD) 32.2 (60.0-200.0); Potassium 4.3 mmol/L (3.5-5.5); Total Bilirubin 0.3 mg/dL (0.3-1.2); VLDL Calculation 21.6 mg/dL (5.00-40.00)
[2020-06-29 19:05] LABS: Microalbumin Creatinine Ratio <30 mg/g Creat (0-30); Urine Creatinine 48.9 mg/dL
== END | disposition home or self-care (01) ==
LOC: LABWHC1 08:31
PROVIDERS: ATTEND Internal Medicine
DX: E10.9 Type 1 diabetes mellitus without complications (principal); I10 Essential (primary) hypertension; E78.5 Hyperlipidemia, unspecified; R00.0 Tachycardia, unspecified
CPT/HCPCS: 36415; 80053; 80061; 82043; 82570; 83036; 83735; 84443; 84481

== ENCOUNTER → 2020-07-31 | Outpatient (CLI) | payer MEDICARE, OTHER ==
[2020-07-31 14:24] LABS: HCT 36.9 % (34.0-46.0); HGB 12.2 gm/dL (11.4-16.0); MCH 28.8 pg (25.0-35.0); MCHC 32.9 g/dL (31.0-37.0); MCV 87.6 fL (80.0-100.0); Mean Platelet Volume 7.3; Platelet Count 205 k/uL (150-450); RBC 4.22 m/uL (3.80-5.40); RDW 13.4 % (11.5-15.5); WBC 6.5 k/uL (3.8-10.6)
[2020-07-31 14:35] LABS: Appearance,Urine Clear (Clear); Bacteria,Urine Occasional /hpf; Bilirubin,Urine Negative (Negative); Blood,Urine Trace (Negative); Color,Urine Light Yellow; Glucose,Urine (UA) Negative (Negative); Hyaline Casts,Urine 3 /lpf (0-2); Ketones,Urine Negative (Negative); Leukocyte Esterase,Urine Negative (Negative); Mucus,Urine Rare /hpf; Nitrite,Urine Negative (Negative); PH, Urine 5.5 (5.0-8.0); Protein,Urine Negative (Negative); RBC,Urine <1 /hpf (0-5); Specific Gravity,Urine 1.005 (1.001-1.035); Squamous Epithelial Cell,Urine <1 /hpf (0-4); Urobilinogen,Urine <2.0 mg/dL (<2.0); WBC,Urine <1 /hpf (0-5)
[2020-08-01 00:45] LABS: % Iron Saturation 26.69 (12.00-45.00); African American GFR (CKD) 37.4 (60.0-200.0); Albumin 3.8 g/dL (3.80-4.90); Albumin/Globulin Ratio 1.81 (1.60-3.17); Anion Gap 11.1 mmol/L (4.00-12.00); BUN/Creat Ratio 11.67 Ratio (12.00-20.00); Calcium 9.2 mg/dL (8.7-10.3); Carbon Dioxide 26.9 mmol/L (21.6-31.8); Globulin 2.1 g/dL (1.6-3.3); Magnesium 1.8 mg/dL (1.5-2.4); Non-African American GFR(CKD) 32.2 (60.0-200.0); Phosphorus 3.6 mg/dL (2.4-5.1); Potassium 4.5 mmol/L (3.5-5.5); Total Bilirubin 0.3 mg/dL (0.2-1.2); Total Protein 5.9 g/dL (6.2-8.2); Uric Acid 6.9 mg/dL (2.9-7.7)
[2020-08-01 00:52] LABS: Ferritin 44.7 ng/mL (10.0-291.0)
[2020-08-01 02:50] LABS: Urine Creatinine 23.6 mg/dL
[2020-08-01 03:55] LABS: Microalbumin Creatinine Ratio <30 mg/g Creat (0-30)
== END | disposition home or self-care (01) ==
LOC: LABWHC1 13:13
PROVIDERS: ATTEND Internal Medicine
DX: N18.4 Chronic kidney disease, stage 4 (severe) (principal); D63.1 Anemia in chronic kidney disease; N39.0 Urinary tract infection, site not specified; E55.9 Vitamin D deficiency, unspecified; M10.9 Gout, unspecified; N25.81 Secondary hyperparathyroidism of renal origin
CPT/HCPCS: 36415; 80053; 81001; 82043; 82306; 82570; 82728; 83540; 83550; 83735; 83970; 84100; 84550; 85027

== ENCOUNTER → 2020-09-14 | Outpatient (CLI) | payer MEDICARE, OTHER ==
[2020-09-14 13:32] LABS: Basophils # (A) 0.1 k/uL (0-0.2); Basophils % (A) 1 %; Eosinophils # (A) 0.2 k/uL (0-0.7); Eosinophils % (A) 2 %; HCT 39.4 % (34.0-46.0); HGB 12.5 gm/dL (11.4-16.0); Lymphocytes # (A) 1.2 k/uL (1.0-4.8); Lymphocytes % (A) 15 %; MCH 28.3 pg (25.0-35.0); MCHC 31.8 g/dL (31.0-37.0); Mean Platelet Volume 7.5; Monocytes # (A) 0.4 k/uL (0-1.0); Monocytes % (A) 4 %; Neutrophils # (A) 6.2 k/uL (1.3-7.7); Neutrophils % (A) 76 %; Platelet Count 192 k/uL (150-450); RBC 4.42 m/uL (3.80-5.40); RDW 13.1 % (11.5-15.5); WBC 8.2 k/uL (3.8-10.6)
[2020-09-14 13:57] LABS: Appearance,Urine Clear (Clear); Bilirubin,Urine Negative (Negative); Blood,Urine Moderate (Negative); Color,Urine Light Yellow; Glucose,Urine (UA) 2+ (Negative); Ketones,Urine Negative (Negative); Leukocyte Esterase,Urine Negative (Negative); Nitrite,Urine Negative (Negative); Protein,Urine Negative (Negative); RBC,Urine 1 /hpf (0-5); Specific Gravity,Urine 1.007 (1.001-1.035); Squamous Epithelial Cell,Urine 1 /hpf (0-4); Urobilinogen,Urine <2.0 mg/dL (<2.0); WBC,Urine 1 /hpf (0-5)
[2020-09-14 21:06] LABS: % Iron Saturation 22.14 (12.00-45.00); African American GFR (CKD) 32.9 (60.0-200.0); Albumin 4.2 g/dL (3.80-4.90); Albumin/Globulin Ratio 1.83 (1.60-3.17); Anion Gap 9.7 mmol/L (4.00-12.00); Calcium 9.6 mg/dL (8.7-10.3); Carbon Dioxide 23.3 mmol/L (21.6-31.8); Chol/HDL Ratio 2.65; Globulin 2.3 g/dL (1.6-3.3); LDL Cholesterol,Calculated 69.4 mg/dL (0.0-131.0); Magnesium 1.9 mg/dL (1.5-2.4); Non-African American GFR(CKD) 28.4 (60.0-200.0); Phosphorus 2.5 mg/dL (2.4-5.1); Potassium 4.5 mmol/L (3.5-5.5); Total Bilirubin 0.4 mg/dL (0.2-1.2); Total Protein 6.5 g/dL (6.2-8.2); Uric Acid 6.8 mg/dL (2.9-7.7); VLDL Calculation 14.6 mg/dL (5.00-40.00)
[2020-09-14 22:41] LABS: Urine Creatinine 53.8 mg/dL
== END | disposition home or self-care (01) ==
LOC: LABWHC1 12:11
PROVIDERS: ATTEND Internal Medicine
DX: Z00.00 Encounter for general adult medical examination without abnormal findings (principal); E10.22 Type 1 diabetes mellitus with diabetic chronic kidney disease; I12.9 Hypertensive chronic kidney disease with stage 1 through stage 4 chronic kidney disease, or unspecified chronic kidney disease; N18.4 Chronic kidney disease, stage 4 (severe)
CPT/HCPCS: 36415; 80053; 80061; 81001; 82043; 82306; 82570; 82728; 83036; 83540; 83550; 83735; 83970; 84100; 84443; 84550; 85025

== ENCOUNTER → 2021-01-04 | Outpatient (CLI) | payer MEDICARE, OTHER ==
--- NOTE | 2021-01-05 11:16 | MM ---
Reason for exam: screening (asymptomatic). History: Patient is nulliparous. Family history of breast cancer in maternal cousin at age 50. Physical Findings: A clinical breast exam by your physician is recommended on an annual basis and results should be correlated with mammographic findings. MG Screening Mammo w CAD Bilateral CC and MLO view(s) were taken. No prior studies available for comparison. The breast tissue is heterogeneously dense. This may lower the sensitivity of mammography. There are benign appearing round dystrophic calcifications bilaterally. Grouped indeterminate calcifications anterior central right breast. ASSESSMENT: Incomplete: need additional imaging evaluation, BI-RAD 0 RECOMMENDATION: Special view mammogram of the right breast. [facility] will attempt to contact patient to return for supplemental views.
== END | disposition home or self-care (01) ==
LOC: RADMAMWWP 10:42
PROVIDERS: ATTEND Family Medicine
DX: Z12.31 Encounter for screening mammogram for malignant neoplasm of breast (principal); Z80.3 Family history of malignant neoplasm of breast
CPT/HCPCS: 77067

== ENCOUNTER → 2021-01-17 | Outpatient (CLI) | payer MEDICARE, OTHER ==
--- NOTE | 2021-01-17 14:36 | MM ---
Reason for exam: additional evaluation requested from abnormal screening. Last mammogram was performed less than 1 month ago. History: Patient is nulliparous. Family history of breast cancer in maternal cousin at age 50. Physical Findings: Nurse did not find any significant physical abnormalities on exam. MG Work Up Mamm w CAD RT CC with magnification, LM with magnification, and LM view(s) were taken of the right breast. Prior study comparison: January 04, 2021, bilateral MG screening mammo w CAD. There are scattered fibroglandular densities. Punctate round grouped calcifications lower inner right breast at 4-5 o'clock 3cm from nipple. These results were verbally communicated with the patient and result sheet given to the patient on 01/17/21. ASSESSMENT: Probably benign, BI-RAD 3 RECOMMENDATION: Follow-up diagnostic mammogram of the right breast in 6 months.
== END | disposition home or self-care (01) ==
LOC: RADMAMWWP 13:12
PROVIDERS: ATTEND Family Medicine
DX: R92.1 Mammographic calcification found on diagnostic imaging of breast (principal); Z80.3 Family history of malignant neoplasm of breast
CPT/HCPCS: 77065

== ENCOUNTER 2021-02-17 14:46 | Observation (INO) | payer MEDICARE, OTHER ==
[2021-02-17 15:12] LABS: Glucose,Whole Blood 67 mg/dL (75-99)
[2021-02-17 15:12] LABS: Glucose,Whole Blood 55 mg/dL (75-99)
--- NOTE | 2021-02-17 15:24 | ED ---
General Adult HPI - General Chief complaint: Recheck/Abnormal Lab/Rx Stated complaint: Hypoglycemia Time Seen by Provider: 02/17/21 15:03 Source: EMS Mode of arrival: EMS Limitations: no limitations - History of Present Illness Initial comments: Dictation was produced using [employer] dictation software. please excuse any grammatical, word or spelling errors. Chief Complaint: 50-year-old female presents with left knee and left foot injury and accidental overdose on insulin History of Present Illness: Patient is a 50-year-old female presents via EMS for left knee and left foot injury. Patient states that she was worried early this morning that she took much of her insulin. Called EMS when EMS arrived they tried to get into the house. They nontender door and patient tripped landing on her left lower extremity while going to the door. Patient's sugar has been stable. She's been eating well. The ROS documented in this emergency department record has been reviewed and confirmed by me. Those systems with pertinent positive or negative responses have been documented in the HPI. All other systems are other negative and/or noncontributory. PHYSICAL EXAM: General Impression: Alert and oriented x3, not in acute distress HEENT: Normocephalic atraumatic, extra-ocular movements intact, pupils equal and reactive to light bilaterally, mucous membranes moist. Cardiovascular: Heart regular rate and rhythm Chest: Able to complete full sentences, no retractions, no tachypnea Abdomen: abdomen soft, non-tender, non-distended, no organomegaly Musculoskeletal: Pulses present and equal in all extremities, no peripheral edema Motor: no focal deficits noted Neurological: CN II-XII grossly intact, no focal motor or sensory deficits noted Skin: Intact with no visualized rashes Psych: Normal affect and mood ED course: 50-year-old female presents with left knee and left foot pain after fall. Signs upon arrival are within acceptable limits. Point of care glucose is 67. Patient given oral glucose. Further x-rays unremarkable. Knee x-ray and foot x-ray is unremarkable. Patient continues to have low blood glucose. Patient's insulin pump was turned off for the time being. Patient given juice. Patient was observed in emergency department her sugars continued to drop into the 40s despite dextrose and oral glucose. We will have patient needed. Case discussed with Jo Comer of [facility] was willing to accept patients care. - Related Data Home Medications Medication Instructions Recorded Confirmed Furosemide [Lasix] 20 mg PO DAILY 01/09/21 01/15/21 Insulin Aspart (For Pump) [NovoLOG 0.01 unit SQ-PUMP CONTINUOUS 01/09/21 01/15/21 (For Pump)] Metoprolol Succinate [Toprol XL] 50 mg PO DAILY 01/09/21 01/15/21 Previous Rx's Medication Instructions Recorded Acetaminophen Oral Susp [Tylenol 650 mg PO Q4H PRN #200 ml 06/11/19 Oral Susp] Omeprazole 40 mg PO DAILY #30 cap 06/11/19 Allergies Allergy/AdvReac Type Severity Reaction Status Date / Time adhesive Allergy Intermediate Rash/Hives Verified 02/17/21 15:00 latex Allergy Intermediate Rash/Hives Verified 02/17/21 15:00 Review of Systems ROS Statement: Those systems with pertinent positive or pertinent negative responses have been documented in the HPI. ROS Other: All systems not noted in ROS Statement are negative. Past Medical History Past Medical History: Diabetes Mellitus, Hyperlipidemia, Hypertension, Renal Disease, Sleep Apnea/CPAP/BIPAP Additional Past Medical History / Comment(s): seasonal allergies, STAGE 4 KIDNEY FAILURE, CHRONIC BACK PAIN Last Myocardial Infarction Date:: 2013 History of Any Multi-Drug Resistant Organisms: None Reported Past Surgical History: Bariatric Surgery, Cardiac Valve Replacement, Heart Catheterization Additional Past Surgical History / Comment(s): Aortic valve replacement 2013 gastric bypass 06-07-19 Past Anesthesia/Blood Transfusion Reactions: No Reported Reaction Additional Past Anesthesia/Blood Transfusion Reaction / Comment(s): NO blood transfusion to date Past Psychological History: Anxiety, Depression Smoking Status: Former smoker Past Alcohol Use History: None Reported Past Drug Use History: None Reported - Past Family History Mother Family Medical History: Cancer Additional Family Medical History / Comment(s): vulva cancer Father Family Medical History: Dementia, Hypertension, Neurologic Disorder Additional Family Medical History / Comment(s): at age 69 from dementia/parkinsons Sister(s) Family Medical History: Hypertension General Exam Limitations: no limitations Course Vital Signs 02/17/21 02/17/21 14:49 18:13 Temperature 97.5 F L Pulse Rate 72 71 Respiratory 18 18 Rate Blood Pressure 113/65 146/84 O2 Sat by Pulse 100 98 Oximetry Medical Decision Making - Lab Data Lab Results 02/17/21 02/17/21 02/17/21 Range/Units 15:09 15:10 15:34 POC Glucose (mg/dL) 55 L 67 L 57 L (75-99) mg/dL POC Glu Technical Program Manager Latonia Goyal Alisha Welsh, Alisha 02/17/21 02/17/21 02/17/21 Range/Units 16:00 16:28 16:30 POC Glucose (mg/dL) 62 L 43 L 36 L (75-99) mg/dL POC Glu Technical Program Manager Derek Wu Randi Frazer, Randi 02/17/21 02/17/21 02/17/21 Range/Units 16:54 17:40 18:14 POC Glucose (mg/dL) 97 86 69 L (75-99) mg/dL POC Glu Technical Program Manager Latonia Goyal Andrew Welsh, Alisha Disposition Clinical Impression: Hypoglycemia Disposition: ADMITTED IP TO THIS [facility] Referrals: Rudy Novoa III, MD [Primary Care Provider] - 1-2 days
[2021-02-17 15:36] LABS: Glucose,Whole Blood 57 mg/dL (75-99)
[2021-02-17 16:02] LABS: Glucose,Whole Blood 62 mg/dL (75-99)
--- NOTE | 2021-02-17 16:08 | XR ---
RESULT: HISTORY: pain s/p fall TECHNIQUE: 4 views of the left knee were obtained. COMPARISON: None. FINDINGS: There is no acute fracture or dislocation. There is mild tricompartmental osteoarthritis. No joint ef fusion. IMPRESSION: No acute osseous abnormality.
--- NOTE | 2021-02-17 16:09 | XR ---
Result: History: Pain. Comparison: None available. Technique: 3 views of the left foot. Findings: The bone mineralization is appropriate for age. No acute fracture or dislocation is seen. The visualized osseous structures are in anatomic alignmen t. There are scattered mild degenerative changes. Small to moderate sized dorsal and plantar calcane al spurs seen. Impression: No acute osseous abnormality.
[2021-02-17] MEDS ORDERED: DEXTROSE 50% SYRINGE 50 ML IVP STA ×2 (16:35→18:27)
[2021-02-17 16:36] LABS: Glucose,Whole Blood 36 mg/dL (75-99)
[2021-02-17 16:36] LABS: Glucose,Whole Blood 43 mg/dL (75-99)
[2021-02-17 16:55] LABS: Glucose,Whole Blood 97 mg/dL (75-99)
[2021-02-17 17:42] LABS: Glucose,Whole Blood 86 mg/dL (75-99)
[2021-02-17 18:25] LABS: Glucose,Whole Blood 69 mg/dL (75-99)
[2021-02-17] MEDS ORDERED: NALOXONE 0.4 MG/ML 1 ML VIAL IV PRN (18:31)
[2021-02-17 18:40] LABS: Glucose,Whole Blood 158 mg/dL (75-99)
[2021-02-17 18:55] LABS: Basophils % (A) 0 %; Eosinophils # (A) 0.2 k/uL (0-0.7); Eosinophils % (A) 2 %; HCT 37.7 % (34.0-46.0); HGB 12.5 gm/dL (11.4-16.0); Lymphocytes # (A) 0.9 k/uL (1.0-4.8); Lymphocytes % (A) 12 %; MCH 29.4 pg (25.0-35.0); MCHC 33.1 g/dL (31.0-37.0); MCV 88.6 fL (80.0-100.0); Mean Platelet Volume 7.9; Monocytes # (A) 0.4 k/uL (0-1.0); Monocytes % (A) 5 %; Neutrophils # (A) 5.9 k/uL (1.3-7.7); Neutrophils % (A) 80 %; Platelet Count 154 k/uL (150-450); RBC 4.26 m/uL (3.80-5.40); RDW 14.2 % (11.5-15.5); WBC 7.4 k/uL (3.8-10.6)
[2021-02-17 18:58] LABS: Calcium 8.5 mg/dL (8.4-10.2); Potassium 3.9 mmol/L (3.5-5.1)
[2021-02-17 19:35] LABS: Glucose,Whole Blood 124 mg/dL (75-99)
[2021-02-17 19:42] VITALS: RESP 16
--- NOTE | 2021-02-17 20:08 | XR ---
EXAMINATION TYPE: XR chest 1V portable DATE OF EXAM: 02/17/2021 COMPARISON: 06/10/2019. HISTORY: Weakness and fall. TECHNIQUE: Single frontal view of the chest is obtained. FINDINGS: There is no focal air space opacity, pleural effusion, or pneumothorax seen. The cardiac silhouette size is within normal limits. The osseous structures are intact. Median sternotomy seen. IMPRESSION: No acute process.
[2021-02-17 20:31] LABS: Glucose,Whole Blood 143 mg/dL (75-99)
[2021-02-17] MEDS ORDERED: ATORVASTATIN 40 MG TAB PO SCH (21:00)
[2021-02-17] MEDS ORDERED: PANTOPRAZOLE 40 MG TABLET PO SCH (21:00)
[2021-02-17] MEDS ORDERED: SERTRALINE 100 MG TAB PO SCH (21:00)
[2021-02-17] MEDS ORDERED: METOPROLOL SUCCINATE (ER) 50 MG TAB.ER.24H PO SCH (21:00)
[2021-02-17] MEDS ORDERED: traZODone HCL 100 MG TAB PO SCH (21:00)
[2021-02-17] MEDS ORDERED: lisinopriL 5 MG TAB PO SCH (21:00)
[2021-02-17] MEDS ORDERED: AMITRIPTYLINE HCL 50 MG TAB PO SCH (21:00)
--- NOTE | 2021-02-17 21:04 | HP ---
HISTORY AND PHYSICAL CHIEF COMPLAINT: Hypoglycemia. HISTORY OF PRESENT ILLNESS: This 50-year-old woman with the past medical history of diabetes, hypertension, sleep apnea, seasonal allergies, history of bariatric surgery, history of anxiety and depression, being followed by Dr. Yolis Daily in the outpatient setting was apparently supposed to take Ozempic today but apparently patient keeps some extra NovoLog insulin and the patient was confused to begin with and subsequently patient called EMS. The patient also had a fall injuring the left side. X-rays are normal. Patient admitted for further evaluation and treatment. After admission, blood sugars were low. The blood sugar was 41 and with IV and p.o. glucose sugar came up to 124. COVIC-19 is negative. There is no history of any fever, rigors, chills at this time. PAST MEDICAL HISTORY: Diabetes mellitus, hypertension, hyperlipidemia, history of DJD sleep apnea. HOME MEDICATIONS: Insulin pump, trazodone, calcitriol, Ozempic, Lasix Zoloft, omeprazole, Toprol-XL, Prinivil, Lipitor, Elavil. Doses reviewed. ALLERGIES: ADHESIVES, LATEX. FAMILY HISTORY: History of vulvar cancer. SOCIAL HISTORY: Previous history of smoking. No history of current smoking or alcohol. REVIEW OF SYSTEMS: ENT No history of diminished hearing or vision. CARDIOVASCULAR No angina or palpitations. RESPIRATORY No cough, no hemoptysis. GI No nausea, vomiting, or diarrhea. No dysuria or hematuria. NERVOUS No numbness or weakness. ALLERGY/IMMUNOLOGY No asthma or hayfever. MUSCULOSKELETAL As mentioned earlier. HEMATOLOGY/ONCOLOGY Negative. ENDOCRINE As mentioned earlier. CONSTITUTIONAL As mentioned earlier. DERMATOLOGY Negative. RHEUMATOLOGY Negative, PSYCHIATRY As mentioned earlier. PHYSICAL EXAMINATION: Alert and oriented x3. Pulse is 70, blood pressure 140/80, respirations 16, temperature 97.2, pulse ox 100% on room air. HEENT: Conjunctivae normal. Oral mucosa moist. NECK: No jugular venous distention. No lymph node enlargement. CARDIOVASCULAR: S1, S2, muffled. No S3, no S4, RESPIRATORY: Diminished breath sounds at the bases. No rhonchi, no crackles. ABDOMEN: Soft, obese, nontender. LEGS: No edema, no swelling. NERVOUS SYSTEM: Higher functions mentioned earlier. Moves all four limbs. No focal motor or sensory deficits. LYMPHATICS: No lymph node in neck or axilla. SKIN: No rash. JOINTS: No active deforming arthropathy. LABS: WBC 7.2, hemoglobin 12.4, sodium 130 potassium 3.9, creatinine 1.55. Glucose noted. ASSESSMENT: 1. Diabetes mellitus type 2, uncontrolled with hypoglycemia. 2. Change in mental status and confusion possibly. 3. Increased creatinine with chronic kidney disease stage 3. 4. Lymphopenia, mild. 5. History of diabetes type 2. 6. Hypertension. 7. Hyperlipidemia. 8. History of sleep apnea. 9. History of seasonal allergies. 10.Stage IV kidney failure. 11.History of bariatric surgery. 12.History of cardiac valve replacement. 13.History of aortic valve replacement. 14.History of gastric bypass. 15.Anxiety, depression. 16.Remote history of nicotine dependence. 17.Obesity with body mass index 47.8. 18.FULL CODE. RECOMMENDATIONS: In this 50-year-old woman who presented with multiple complex medical issues, we will monitor the patient closely, continue the current management and symptomatic treatment. At this time I would recommend hold insulin pump. Accu-Cheks before meals and at bedtime, scale also. if the sugars are elevated, dextrose 50% is being initiated. If the blood sugars are persistently low, D10 water could be initiated. The blood sugar will be monitored. The patient is not on any oral antidiabetic medications. The prognosis guarded because of multiple complex medical issues. In the morning the patient was said to be slightly confused. She is not sure whether she is actually waking up or she has confusion, but we will do basic workup including checking the UA and chest x-ray also. Prognosis guarded. MMODL / IJN: [id number] /
[2021-02-17 21:21] LABS: Glucose,Whole Blood 217 mg/dL (75-99)
[2021-02-17 22:10] LABS: Appearance,Urine Clear (Clear); Bilirubin,Urine Negative (Negative); Blood,Urine Negative (Negative); Color,Urine Light Yellow; Glucose,Urine (UA) 3+ (Negative); Ketones,Urine Negative (Negative); Leukocyte Esterase,Urine Negative (Negative); Nitrite,Urine Negative (Negative); PH, Urine 5.5 (5.0-8.0); Protein,Urine Negative (Negative); Specific Gravity,Urine 1.011 (1.001-1.035); Urobilinogen,Urine <2.0 mg/dL (<2.0)
[2021-02-17] MEDS: HEPARIN SODIUM,PORCINE/PF 5,000 UNIT/0.5 ML SYRINGE SQ SCH (22:20)
[2021-02-17] MEDS: INSULIN ASPART (NovoLOG) 100 UNIT/ML VIAL SQ SCH (22:21)
[2021-02-17 22:26] LABS: Amphetamine Screen,Urine Not Detected (NotDetected); Barbiturate Screen,Urine Not Detected (NotDetected); Benzodiazepines Screen,Urine Not Detected (NotDetected); Cocaine Screen,Urine Not Detected (NotDetected); Methadone Screen, Urine Not Detected (NotDetected); Opiate Screen,Urine Not Detected (NotDetected); Oxycodone Screen, Urine Not Detected (NotDetected); Phencyclidine Screen,Urine Not Detected (NotDetected); Tricyclic Antidepressant,Urine Detected (NotDetected); Urn Cannabinoid Scrn Not Detected (NotDetected)
[2021-02-18 02:15] LABS: Glucose,Whole Blood 348 mg/dL (75-99)
[2021-02-18 04:35] LABS: Basophils % (A) 0 %; Eosinophils # (A) 0.1 k/uL (0-0.7); Eosinophils % (A) 2 %; HCT 38.2 % (34.0-46.0); HGB 12.6 gm/dL (11.4-16.0); Lymphocytes # (A) 0.8 k/uL (1.0-4.8); Lymphocytes % (A) 12 %; MCH 29.9 pg (25.0-35.0); MCHC 32.9 g/dL (31.0-37.0); MCV 90.8 fL (80.0-100.0); Mean Platelet Volume 7.3; Monocytes # (A) 0.4 k/uL (0-1.0); Monocytes % (A) 6 %; Neutrophils # (A) 5.4 k/uL (1.3-7.7); Neutrophils % (A) 79 %; Platelet Count 151 k/uL (150-450); RDW 14.2 % (11.5-15.5); WBC 6.8 k/uL (3.8-10.6)
[2021-02-18 06:58] LABS: Glucose,Whole Blood 418 mg/dL (75-99)
[2021-02-18] MEDS ORDERED: FUROSEMIDE 20 MG TAB PO SCH (09:00)
[2021-02-18] MEDS: HEPARIN SODIUM,PORCINE/PF 5,000 UNIT/0.5 ML SYRINGE SQ SCH (09:07)
[2021-02-18] MEDS: INSULIN ASPART (NovoLOG) 100 UNIT/ML VIAL SQ SCH ×2 (09:07→11:50)
[2021-02-18 10:15] LABS: Anion Gap 5.7 mmol/L (4.00-12.00); BUN/Creat Ratio 13.89 Ratio (12.00-20.00); Calcium 8.5 mg/dL (8.7-10.3); Carbon Dioxide 25.3 mmol/L (21.6-31.8); Non-African American GFR(CKD) 32.2 (60.0-200.0); Potassium 5.5 mmol/L (3.5-5.5)
[2021-02-18 10:26] LABS: African American GFR (CKD) 37.4 (60.0-200.0)
[2021-02-18 10:39] LABS: Glucose,Whole Blood 187 mg/dL (75-99)
[2021-02-18 11:46] LABS: Glucose,Whole Blood 130 mg/dL (75-99)
[2021-02-18 11:50] VITALS: BP 86/59; PULSE 88; TEMP 98
--- NOTE | 2021-02-19 07:36 | DS ---
DISCHARGE SUMMARY DATE OF SERVICE: 02/18/2021 FINAL DIAGNOSIS: 1. Hypoglycemia with inadvertent injection of insulin with diabetes type 2, uncontrolled. 2. Change in mental status and confusion and acute metabolic encephalopathy, undetermined etiology possibly. 3. Increased creatinine with chronic kidney disease stage 3. 4. Lymphopenia, mild. 5. History of diabetes type 2. 6. Hypertension. 7. Hyperlipidemia. 8. History of sleep apnea. 9. History of seasonal allergies. 10.Stage IV kidney failure history. 11.History of bariatric surgery. 12.History of cardiac valve replacement. 13.History of aortic valve replacement. 14.History of gastric bypass. 15.History of depression. 16.History of nicotine dependence. 17.Obesity with body mass index of 47.6. 18.History of anxiety. 19.FULL CODE. DISCHARGE DISPOSITION: The patient will be discharged in stable condition with guarded prognosis. Patient is keen on going home at this time. I recommend close outpatient followup. HISTORY: In this 50-year-old woman with a past medical history of multiple medical problems was admitted with inadvertent injection of NovoLog insulin instead of Ozempic, according to her. The patient was found to be hypoglycemic. The blood sugar was found to be 41 and the patient was given dextrose and improved. Blood sugars improved and subsequently the insulin pump was re-initiated with excellent control of blood sugars. Creatinine was 1.8. The patient also denied any suicidal ideations, depression or anxiety at this time. I recommend close follow up in the outpatient setting. PHYSICAL EXAMINATION: On exam, vitals are stable. Cardiovascular S1 and S2. Abdomen soft. Nervous System no focal deficits. DISCHARGE INSTRUCTIONS: Diet is consistent carb. Activity limited until followup. Follow up with Dr. Novoa in 1-2 days. Accu-Cheks reports with Dr. Novoa. Continue insulin pump. MEDICATIONS: 1. Calcitriol 0.5 p.o. Friday, Friday, Friday as before. 2. Elavil 100 mg q.h.s. 3. Lasix 20 mg daily. 4. Lipitor 40 mg q.h.s. 5. Insulin pump as before. 6. Omeprazole 40 mg q.h.s. 7. Ozempic 1 mg subcu Friday. 8. Prinivil 5 mg q.h.s. 9. Toprol-XL 50 mg q.h.s. 10.Trazodone 100 mg q.h.s. 11.Zoloft 200 mg q.h.s. Once again the patient will be discharged in stable condition with guarded prognosis. MMBELL / WILLIAMN: [id number] /
== END 2021-02-18 12:45 | disposition home or self-care (01) ==
LOC: EC 14:46 → 5NMEDONC 18:32
PROVIDERS: ADMIT Hospitalist; ATTEND Hospitalist
DX: T38.3X1A Poisoning by insulin and oral hypoglycemic [antidiabetic] drugs, accidental (unintentional), initial encounter (principal); E11.649 Type 2 diabetes mellitus with hypoglycemia without coma; G93.41 Metabolic encephalopathy; E11.22 Type 2 diabetes mellitus with diabetic chronic kidney disease; I12.9 Hypertensive chronic kidney disease with stage 1 through stage 4 chronic kidney disease, or unspecified chronic kidney disease; N18.4 Chronic kidney disease, stage 4 (severe); W01.0XXA Fall on same level from slipping, tripping and stumbling without subsequent striking against object, initial encounter; M79.672 Pain in left foot; M25.562 Pain in left knee; D72.810 Lymphocytopenia; E78.5 Hyperlipidemia, unspecified; G47.30 Sleep apnea, unspecified; J30.2 Other seasonal allergic rhinitis; F32.9 Major depressive disorder, single episode, unspecified; E66.9 Obesity, unspecified; Z68.42 Body mass index [BMI] 45.0-49.9, adult; F41.9 Anxiety disorder, unspecified; M19.90 Unspecified osteoarthritis, unspecified site; I25.2 Old myocardial infarction; G89.29 Other chronic pain; M54.9 Dorsalgia, unspecified; Z20.822 Contact with and (suspected) exposure to COVID-19; Z98.84 Bariatric surgery status; Z79.899 Other long term (current) drug therapy; Z79.4 Long term (current) use of insulin; Z96.41 Presence of insulin pump (external) (internal); Z87.891 Personal history of nicotine dependence; Z91.048 Other nonmedicinal substance allergy status; Z91.040 Latex allergy status; Z95.2 Presence of prosthetic heart valve; Z80.49 Family history of malignant neoplasm of other genital organs; Z82.49 Family history of ischemic heart disease and other diseases of the circulatory system; Z82.0 Family history of epilepsy and other diseases of the nervous system; Z81.8 Family history of other mental and behavioral disorders
CPT/HCPCS: 96372; 96376; 96374; 99285; 36415; 80048 ×2; 85025 ×2; 81003; 80306; 87635; 73564; 73630; 71045; G0378 ×2; J1644

== ENCOUNTER → 2021-04-18 | Outpatient (CLI) | payer MEDICARE, OTHER | END | disposition home or self-care (01) | LOC: LABWHC1 14:00 | PROVIDERS: ATTEND Family Medicine | DX: Z20.822 Contact with and (suspected) exposure to COVID-19 (principal); R05 Cough; R09.81 Nasal congestion; R53.83 Other fatigue | CPT/HCPCS: U0003; C9803; U0005 ==

== ENCOUNTER → 2024-06-23 | Outpatient (CLI) | payer MEDICARE, OTHER ==
[2024-06-23 14:16] VITALS: BP 99/65; PULSE 62; RESP 16; TEMP 97.7
--- NOTE | 2024-06-23 14:53 | P.SLEEP ---
History of Present Illness DATE: 06/23/2024 CONSULTATION/NEW PATIENT EVALUATION HISTORY OF PRESENT ILLNESS/SLEEP-WAKE EVALUATION: 54-year-old lady had been evaluated in the sleep center for possible obstructive sleep apnea hypopnea syndrome. Patient has history of obstructive sleep apnea in the past was on treatment with CPAP for short period of time, but then for different reason treatment was stopped. SLEEP SCHEDULE: Usually sleep schedule from 9 PM to 6 AM on weekdays and from 10 PM to 7 AM on weekend. FALLING ASLEEP: Patient does have problems with falling asleep, although no TV in bedroom. DURING SLEEP: Patient snores and has witnessed episodes of stop breathing during the sleep. Positive history of dry mouth. Patient wakes up from sleep several times with 2 episodes of nocturia. Positive history of dry mouth during the sleep. No history of hypnogogical hallucinations, sleep paralysis, or cataplexy. DURING THE DAY/WAKE STATE: In the morning patient wake up tired. Rohwer sleepiness scale is 4. Patient take one nap afternoon. PAST MEDICAL HISTORY: Hypertension, diabetes mellitus, depression. PAST SURGICAL HISTORY: Aortic valve replacement in 2013 with cow valve. MEDICATIONS: Please see below. SOCIAL HISTORY: Please see below. FAMILY HISTORY: Hypertension, stroke, cancer, mental illness. REVIEW OF SYSTEMS: Snoring, multiple awakenings from sleep. No fevers. No double vision. No recent chest pain. No shortness of breath. No abdominal pain. No bleeding episodes. No blood in urine. No seizure episodes. PHYSICAL EXAMINATION: GENERAL: A pleasant patient without any distress. VITAL SIGNS: Please see below, weight 201 pounds, BMI 36.1. HEENT: PERRLA, EOMI. Evaluation of oropharynx showed tongue protrudes midline, low position of soft palate Mallampati 34. NECK: Supple. No JVD. Thyroid is not palpable. 14.5 inches in circumference. LUNGS: Clear to percussion and to auscultation. Good air exchange. No wheezing or rhonchi. HEART: S1, S2 regular. Systolic murmur mostly on aortic area, no gallops or rubs. ABDOMEN: Soft and nontender. Bowel sounds are present. No organomegaly appreciated. EXTREMITIES: No clubbing or cyanosis. LIBRARY SUPERVISOR: Awake, alert, and oriented x3. Cranial nerves 2 to 7 intact. There is no fasciculation or atrophy noted. No focal deficits observed. ASSESSMENT: 1. Snoring, witnessed episodes of stop breathing during the sleep, extremely low position of soft palate Mallampati 34, history of obstructive sleep apnea in the past. Obstructive sleep apnea hypopnea syndrome. 2. Status post aortic valve replacement. 3. Hypertension. 4. Diabetes mellitus. 5 history of depression. 6 . Obesity, BMI 36.1. PLAN: 1. Polysomnography for evaluation of patient's breathing during sleep. 2. Following plan after reading sleep study. 3. Preferable position during sleep on the side. 4. No driving if patient feels any sleepiness. Patient is aware of civil and criminal liability for unsafe driving. 5. Sleep hygiene with regular sleep time for at least 7.5-8 hours. 6. Watching and losing weight. Thank you very much for referring this patient for consultation. Sincerely, Manny Pope MD, PhD, FAASM. Diplomat of [place] [employer], Sleep Medicine Board by [place] [employer] [place] [employer] Permit Review Assistant of [facility] cc: Jack Lopez DO Past Medical History Past Medical History: Diabetes Mellitus, Hyperlipidemia, Hypertension, Renal Disease, Sleep Apnea/CPAP/BIPAP Additional Past Medical History / Comment(s): seasonal allergies, STAGE 4 KIDNEY FAILURE, CHRONIC BACK PAIN Last Myocardial Infarction Date:: 2013 History of Any Multi-Drug Resistant Organisms: None Reported Past Surgical History: Bariatric Surgery, Cardiac Valve Replacement, Heart Catheterization Additional Past Surgical History / Comment(s): Aortic valve replacement 2013 gastric bypass 06-07-19 Past Anesthesia/Blood Transfusion Reactions: No Reported Reaction Additional Past Anesthesia/Blood Transfusion Reaction / Comment(s): NO blood transfusion to date Past Psychological History: Anxiety, Depression Additional Psychological History / Comment(s): Take zoloft daily Smoking Status: Never smoker Past Alcohol Use History: None Reported Additional Past Alcohol Use History / Comment(s): Quit smoking 2006 (started smoking at age 12, smoked 1/5 packs/day x 25 years) Past Drug Use History: None Reported Additional Drug Use History / Comment(s): No alcohol usage - Past Family History Mother Family Medical History: Cancer, Coronary Artery Disease (CAD), Hypertension Additional Family Medical History / Comment(s): vulva cancer Father Family Medical History: Dementia, Hypertension, Neurologic Disorder Additional Family Medical History / Comment(s): at age 69 from dementia/parkinsons Sister(s) Family Medical History: Hypertension Medications and Allergies Home Medications Medication Instructions Recorded Confirmed Type Insulin Aspart (For Pump) [NovoLOG 0.01 unit SQ-PUMP CONTINUOUS 01/09/21 06/23/24 History (For Pump)] Metoprolol Succinate [Toprol XL] 50 mg PO HS 01/09/21 06/23/24 History Amitriptyline HCl [Elavil] 100 mg PO HS 02/17/21 02/17/21 History Atorvastatin [Lipitor] 40 mg PO HS 02/17/21 06/23/24 History Furosemide [Lasix] 20 mg PO DAILY 02/17/21 06/23/24 History Omeprazole 40 mg PO HS 02/17/21 06/23/24 History Semaglutide [Ozempic] 1 mg SQ SA 02/17/21 06/23/24 History Sertraline HCl [Zoloft] 200 mg PO HS 02/17/21 02/17/21 History calcitrioL 0.5 mcg PO MOWEFR 02/17/21 06/23/24 History lisinopriL [Prinivil] 5 mg PO HS 02/17/21 06/23/24 History traZODone HCL 100 mg PO HS 02/17/21 02/17/21 History ARIPiprazole [Abilify] 5 mg PO DAILY 06/23/24 06/23/24 History Multivitamins, Thera [Multivitamin See Rx Instructions .ROUTE .COMPLEX 06/23/24 06/23/24 History (formulary)] Secukinumab [Cosentyx Sensoready 150 mg SQ QMONTHLY 06/23/24 06/23/24 History Pen] Suvorexant [Belsomra] 20 mg PO DAILY 06/23/24 06/23/24 History Vortioxetine Hydrobromide 20 mg PO DAILY 06/23/24 06/23/24 History [Trintellix] Allergies Allergy/AdvReac Type Severity Reaction Status Date / Time adhesive Allergy Intermediate Rash/Hives Verified 02/17/21 18:36 latex Allergy Intermediate Rash/Hives Verified 02/17/21 18:36 Physical Exam Vitals: Vital Signs Temp Pulse Resp BP Pulse Ox 06/23/24 14:15 97.7 F 62 16 99/65 100 Intake and Output 06/22/24 06/23/24 06/23/24 22:59 06:59 14:59 Other: Weight 91.172 kg Sleep Note - Sleep Data ESS Total: 4 - Sleep Note Sleep Note: Temperature: 97.7 F Pulse Rate: 62 Respiratory Rate: 16 Blood Pressure: 99/65 SpO2: 100 Height: 5 ft 2.5 in Weight: 91.172 kg BMI: Neck Circumference: 14.5
== END ==
LOC: 3 N SLEEP 13:47
PROVIDERS: ATTEND Internal Medicine
CPT/HCPCS: 99211

== ENCOUNTER → 2024-06-23 | Outpatient (CLI) | payer MEDICARE, OTHER | END | disposition home or self-care (01) | LOC: LABWHC1 13:06 | PROVIDERS: ATTEND Specialist | DX: L40.0 Psoriasis vulgaris (principal) | CPT/HCPCS: 36415; 86480 ==

== ENCOUNTER 2024-08-26 17:42 | Observation (INO) | payer MEDICARE, OTHER ==
[2024-08-26 17:52] LABS: Glucose,Whole Blood 90 mg/dL (70-110)
[2024-08-26 19:06] LABS: Glucose,Whole Blood 114 mg/dL (70-110)
--- NOTE | 2024-08-26 19:11 | ED ---
Recheck HPI - General Chief Complaint: Recheck/Abnormal Lab/Rx Stated Complaint: diabetic issues Time Seen by Provider: 08/26/24 18:10 Source: patient, EMS, RN notes reviewed Mode of arrival: EMS Limitations: no limitations - History of Present Illness Initial Comments: Patient is a 54-year-old female with a past medical history of type 1 diabetes with an insulin pump presenting today for vomiting x 1 week and hypoglycemia. Patient had originally presented to a local urgent care for lightheadedness and dizziness and was noted to have a blood glucose of 57, given orange juice and sent to the ED. Patient states that over the course of the last week every time she eats solids about 5 minutes after having something to eat she has an episode of nonbloody nonbilious emesis. This does not happen with liquids. Denies difficulty swallowing or sore throat. Denies any abdominal pain or lightheadedness or dizziness currently. Denies any chest pain or shortness of breath. Denies fevers, diarrhea black or bloody stools. Has a history of prior gastric bypass done by Dr. Patterson in 2019. States that it is not uncommon for her insulin pump to malfunction. She denies dysuria or urinary frequency. - Related Data Home Medications Medication Instructions Recorded Confirmed Insulin Aspart (For Pump) [NovoLOG 0.01 unit SQ-PUMP CONTINUOUS 01/09/21 06/23/24 (For Pump)] Metoprolol Succinate [Toprol XL] 50 mg PO HS 01/09/21 06/23/24 Amitriptyline HCl [Elavil] 100 mg PO HS 02/17/21 02/17/21 Atorvastatin [Lipitor] 40 mg PO HS 02/17/21 06/23/24 Furosemide [Lasix] 20 mg PO DAILY 02/17/21 06/23/24 Omeprazole 40 mg PO HS 02/17/21 06/23/24 Semaglutide [Ozempic] 1 mg SQ SA 02/17/21 06/23/24 Sertraline HCl [Zoloft] 200 mg PO HS 02/17/21 02/17/21 calcitrioL 0.5 mcg PO MOWEFR 02/17/21 06/23/24 lisinopriL [Prinivil] 5 mg PO HS 02/17/21 06/23/24 traZODone HCL 100 mg PO HS 02/17/21 02/17/21 ARIPiprazole [Abilify] 5 mg PO DAILY 06/23/24 06/23/24 Multivitamins, Thera [Multivitamin See Rx Instructions .ROUTE .COMPLEX 06/23/24 06/23/24 (formulary)] Secukinumab [Cosentyx Sensoready 150 mg SQ QMONTHLY 06/23/24 06/23/24 Pen] Suvorexant [Belsomra] 20 mg PO DAILY 06/23/24 06/23/24 Vortioxetine Hydrobromide 20 mg PO DAILY 06/23/24 06/23/24 [Trintellix] Allergies Allergy/AdvReac Type Severity Reaction Status Date / Time adhesive Allergy Intermediate Rash/Hives Verified 08/26/24 17:47 latex Allergy Intermediate Rash/Hives Verified 08/26/24 17:47 Review of Systems ROS Statement: Those systems with pertinent positive or pertinent negative responses have been documented in the HPI. ROS Other: All systems not noted in ROS Statement are negative. Past Medical History Past Medical History: Diabetes Mellitus, Hyperlipidemia, Hypertension, Renal Disease, Sleep Apnea/CPAP/BIPAP Additional Past Medical History / Comment(s): seasonal allergies, STAGE 4 KIDNEY FAILURE, CHRONIC BACK PAIN Last Myocardial Infarction Date:: 2013 History of Any Multi-Drug Resistant Organisms: None Reported Past Surgical History: Bariatric Surgery, Cardiac Valve Replacement, Heart Catheterization Additional Past Surgical History / Comment(s): Aortic valve replacement 2013 gastric bypass 06-07-19 Past Anesthesia/Blood Transfusion Reactions: No Reported Reaction Additional Past Anesthesia/Blood Transfusion Reaction / Comment(s): NO blood transfusion to date Past Psychological History: Anxiety, Depression Smoking Status: Never smoker Past Alcohol Use History: None Reported Past Drug Use History: None Reported - Past Family History Mother Family Medical History: Cancer, Coronary Artery Disease (CAD), Hypertension Additional Family Medical History / Comment(s): vulva cancer Father Family Medical History: Dementia, Hypertension, Neurologic Disorder Additional Family Medical History / Comment(s): at age 69 from dementi a/parkinsons Sister(s) Family Medical History: Hypertension General Exam - General Exam Comments Initial Comments: PE: CONSTITUTIONAL: No apparent distress, well appearing SKIN: Warm, dry, no jaundice, hives or petechiae EYES: Pupils are equally round, extraocular movements intact without nystagmus, clear conjunctiva, non-icteric sclera HENT: Normocephalic, atraumatic, moist mucus membranes, oropharynx clear without exudates NECK: , Full range of motion, normal appearance PULMONARY: Clear to auscultation without wheezes, rhonchi, or rales, normal excursion, no accessory muscle use and no stridor CARDIOVASCULAR: Regular rate, rhythm, normal S1 and S2. No appreciated murmurs, rubs or gallops. Strong radial pulses with intact distal perfusion. No lower extremity edema GASTROINTESTINAL: Soft, active bowel sounds throughout, non-tender, non- distended, no palpable masses, no rebound or guarding. No hepatosplenomegaly GENITOURINARY: MUSCULOSKELETAL: Extremities have no gross deformity, no edema, redness, or swelling. No calf swelling NEUROLOGIC:_a/o x 3, GCS 15, normal mentation and speech. Moves all extremities x 4 without motor or sensory deficit PSYCHIATRIC:_normal mood and affect, thought process is clear and linear Limitations: no limitations Course Vital Signs 08/26/24 08/26/24 08/26/24 17:47 18:27 22:12 Temperature 97.3 F L 97.7 F Pulse Rate 74 80 79 Respiratory 18 19 17 Rate Blood Pressure 98/63 100/63 111/68 O2 Sat by Pulse 99 Oximetry Medical Decision Making - Medical Decision Making Was pt. sent in by a medical professional or institution (JERE Grover, CAREER SERVICES DIRECTOR, urgent care, hospital, or penitentiary...) When possible be specific Patient was sent over from local urgent care Did you speak to anyone other than the patient for history (EMS, parent, family, police, friend...)? What history was obtained from this source @ -No Did you review nursing and triage notes (agree or disagree)? Why? @ -I reviewed and agree with nursing and triage notes Were old charts reviewed (outside hosp., previous admission, EMS record, old E KG, old radiological studies, urgent care reports/EKG's, penitentiary records)? Report findings @ -Medical records reviewed Differential Diagnosis (chest pain, altered mental status, abdominal pain women, abdominal pain men, vaginal bleeding, weakness, fever, dyspnea, syncope, headache, dizziness, GI bleed, back pain, seizure, CVA, palpatations, mental health, musculoskeletal)? Differential diagnose remains broad over top considerations include viral infection, gastroenteritis, gastric outlet obstruction, bowel obstruction, infection, glucometer and insulin pump malfunction this is not an all-inclusive list EKG interpreted by me (3pts min.). @Sinus rhythm, rate 69 bpm, AR interval 193 ms, QRS duration 104 ms, QT/QTc 399/418 ms, normal axis, artifact present in lead III, no ST elevations or depressions, no arrhythmia X-rays interpreted by me (1pt min.). @On chest x-ray I see no evidence of cardiomegaly, pleural effusions or pneumothorax, abdominal x-ray showed no evidence of obstruction or free air CT interpreted by me (1pt min.). @ -None done U/S interpreted by me (1pt. min.). @ -None done What testing was considered but not performed or refused? (CT, X-rays, U/S, labs)? Why? @I did consider a CT of the abdomen however patient has a soft nontender abdomen without any abdominal pain, abdominal exam is benign What meds were considered but not given or refused? Why? @ -None Did you discuss the management of the patient with other professionals (professionals i.e. , PA, CAREER SERVICES DIRECTOR, lab, RT, psych nurse, 7th grade social studies teacher, buckle coverer, teacher, chairman and chief executive officer, case packer and sealer)? Give summary @ -No Was smoking cessation discussed for >3mins.? @ -No Yes 35 minutes Were there social determinants of health that impacted care today? How? (Homelessness, low income, unemployed, alcoholism, drug addiction, transportation, low edu. Level, literacy, decrease access to med. care, fdc, rehab)? @ -No Was there de-escalation of care discussed even if they declined (Discuss DNR or withdrawal of care, Hospice)? @ -No What co-morbidities impacted this encounter? (DM, HTN, Smoking, COPD, CAD, Cancer, CVA, ARF, Chemo, Hep., AIDS, mental health diagnosis, sleep apnea, morbid obesity)? DM Was patient admitted / discharged? Hospital course, mention meds given and route, prescriptions, significant lab abnormalities, going to OR and other pertinent info. @Admission- patient is a 54-year-old female past medical history of diabetes with insulin pump presenting today for hypoglycemia. She was sent in from an urgent care where she presented due to a week of vomiting after eating solids and new lig htheadedness. There her blood glucose was 57 and she was sent to the ER after being given orange juice. Here [id number] glucose is 122 on arrival. Blood glucose on patient's monitor was 151. Asked patient to turn off her insulin pump and we will continue to monitor her blood glucose every hours. Concern for gastric outlet obstruction due to patient's history of gastric bypass, will start with chest x-ray abdominal x-rays as well to assess for signs of obstruction, may progress to CT if significant findings on XR. Overall patient has benign abdominal exam and no complaints of abdominal pain, so unless significant XR findings, do not feel CT abdomen indicated at this point. X-ray negative for acute process. Patient was noted to be hypoglycemic again with blood glucose 42. Patient was given sandwich by RN, which she was able to tolerate and keep down, I gave patient orange juice and she received an amp of D50. Given this is the second instance of patient's hypoglycemia today, we will start patient on D5 infusion and admit for observation. Patient agreeable with plan of care. Additionally patient appears to have an RITESH with a GFR of 24, previously 32, creatinine 2.28. This is consistent with patient's history of vomiting x 1 week, likely volume depleted. Patient received 1 L normal saline prior to starting D5 infusion. Repeat glucose check was 189. D5 infusion decreased to 50 cc an hour. Patient discussed with Dr. Venegas and admitted to [facility] emergency department in stable condition. Undiagnosed new problem with uncertain prognosis? @ -No Drug Therapy requiring intensive monitoring for toxicity (Heparin, Nitro, Insulin, Cardizem)? @ -No Were any procedures done? @ -No Diagnosis/symptom? @ -Persistent hypoglycemia, RITESH Acute, or Chronic, or Acute on Chronic? @ -Acute Uncomplicated (without systemic symptoms) or Complicated (systemic symptoms)? @ -Complicated Side effects of treatment? @ -No Exacerbation, Progression, or Severe Exacerbation? @ -No Poses a threat to life or bodily function? How? (Chest pain, USA, PA, pneumonia, PE, COPD, DKA, ARF, appy, cholecystitis, CVA, Diverticulitis, Homicidal, Suicidal, threat to staff... and all critical care pts) @ -Yes, if allowed to continue untreated and hypoglycemia persist could result in seizure and secondary to hypoglycemia - Lab Data Result diagrams: 08/26/24 19:55 08/26/24 19:55 Lab Results 08/26/24 08/26/24 08/26/24 Range/Units 17:51 19:04 19:55 WBC 7.2 (3.8-10.6) k/uL RBC 4.40 (3.80-5.40) m/uL Hgb 12.4 (11.4-16.0) gm/dL Hct 38.9 (34.0-46.0) % MCV 88.3 (80.0-100.0) fL MCH 28.2 (25.0-35.0) pg MCHC 31.9 (31.0-37.0) g/dL RDW 12.9 (11.5-15.5) % Plt Count 159 (150-450) k/uL MPV 9.1 Neutrophils % 65 % Lymphocytes % 17 % Monocytes % 6 % Eosinophils % 8 % Basophils % 0 % Neutrophils # 4.7 (1.3-7.7) k/uL Lymphocytes # 1.3 (1.0-4.8) k/uL Monocytes # 0.5 (0-1.0) k/uL Eosinophils # 0.6 (0-0.7) k/uL Basophils # 0.0 (0-0.2) k/uL Sodium (137-145) mmol/L Potassium (3.5-5.1) mmol/L Chloride (98-107) mmol/L Carbon Dioxide (22-30) mmol/L Anion Gap mmol/L BUN (7-17) mg/dL Creatinine (0.52-1.04) mg/dL Est GFR (CKD-EPI)AfAm (>60 ml/min/1.73 sqM) Est GFR (CKD-EPI)NonAf (>60 ml/min/1.73 sqM) Glucose (74-99) mg/dL POC Glucose (mg/dL) 90 114 H (70-110) mg/dL POC Glu Postal Transportation Clerk ID Zbigniew Hernandez Calcium (8.4-10.2) mg/dL Phosphorus (2.5-4.5) mg/dL Magnesium (1.6-2.3) mg/dL Total Bilirubin (0.2-1.3) mg/dL AST (14-36) U/L ALT (4-34) U/L Alkaline Phosphatase (38-126) U/L Troponin I (0.000-0.034) ng/mL Total Protein (6.3-8.2) g/dL Albumin (3.5-5.0) g/dL Lipase (23-300) U/L Acetone, Qual (Negative) 08/26/24 08/26/24 08/26/24 Range/Units 19:55 19:55 20:35 WBC (3.8-10.6) k/uL RBC (3.80-5.40) m/uL Hgb (11.4-16.0) gm/dL Hct (34.0-46.0) % MCV (80.0-100.0) fL MCH (25.0-35.0) pg MCHC (31.0-37.0) g/dL RDW (11.5-15.5) % Plt Count (150-450) k/uL MPV Neutrophils % % Lymphocytes % % Monocytes % % Eosinophils % % Basophils % % Neutrophils # (1.3-7.7) k/uL Lymphocytes # (1.0-4.8) k/uL Monocytes # (0-1.0) k/uL Eosinophils # (0-0.7) k/uL Basophils # (0-0.2) k/uL Sodium 136 L (137-145) mmol/L Potassium 5.5 H (3.5-5.1) mmol/L Chloride 103 (98-107) mmol/L Carbon Dioxide 29 (22-30) mmol/L Anion Gap 4 mmol/L BUN 49 H (7-17) mg/dL Creatinine 2.28 H (0.52-1.04) mg/dL Est GFR (CKD-EPI)AfAm 27 (>60 ml/min/1.73 sqM) Est GFR (CKD-EPI)NonAf 24 (>60 ml/min/1.73 sqM) Glucose 60 L (74-99) mg/dL POC Glucose (mg/dL) 42 L* (70-110) mg/dL POC Glu Postal Transportation Clerk ID Terese Tong Ree Calcium 10.4 H (8.4-10.2) mg/dL Phosphorus 3.5 (2.5-4.5) mg/dL Magnesium 2.1 (1.6-2.3) mg/dL Total Bilirubin 1.4 H (0.2-1.3) mg/dL AST 53 H (14-36) U/L ALT 31 (4-34) U/L Alkaline Phosphatase 71 (38-126) U/L Troponin I <0.012 (0.000-0.034) ng/mL Total Protein 6.9 (6.3-8.2) g/dL Albumin 4.3 (3.5-5.0) g/dL Lipase 125 (23-300) U/L Acetone, Qual Negative (Negative) 08/26/24 Range/Units 21:02 WBC (3.8-10.6) k/uL RBC (3.80-5.40) m/uL Hgb (11.4-16.0) gm/dL Hct (34.0-46.0) % MCV (80.0-100.0) fL MCH (25.0-35.0) pg MCHC (31.0-37.0) g/dL RDW (11.5-15.5) % Plt Count (150-450) k/uL MPV Neutrophils % % Lymphocytes % % Monocytes % % Eosinophils % % Basophils % % Neutrophils # (1.3-7.7) k/uL Lymphocytes # (1.0-4.8) k/uL Monocytes # (0-1.0) k/uL Eosinophils # (0-0.7) k/uL Basophils # (0-0.2) k/uL Sodium (137-145) mmol/L Potassium (3.5-5.1) mmol/L Chloride (98-107) mmol/L Carbon Dioxide (22-30) mmol/L Anion Gap mmol/L BUN (7-17) mg/dL Creatinine (0.52-1.04) mg/dL Est GFR (CKD-EPI)AfAm (>60 ml/min/1.73 sqM) Est GFR (CKD-EPI)NonAf (>60 ml/min/1.73 sqM) Glucose (74-99) mg/dL POC Glucose (mg/dL) 189 H (70-110) mg/dL POC Glu Postal Transportation Clerk ID Terese Tong Ree Calcium (8.4-10.2) mg/dL Phosphorus (2.5-4.5) mg/dL Magnesium (1.6-2.3) mg/dL Total Bilirubin (0.2-1.3) mg/dL AST (14-36) U/L ALT (4-34) U/L Alkaline Phosphatase (38-126) U/L Troponin I (0.000-0.034) ng/mL Total Protein (6.3-8.2) g/dL Albumin (3.5-5.0) g/dL Lipase (23-300) U/L Acetone, Qual (Negative) Disposition Clinical Impression: Hypoglycemia, Vomiting, RITESH (acute kidney injury) Disposition: ADMITTED IP TO THIS [facility] Condition: Good
[2024-08-26] MEDS: ONDANSETRON 4 MG/2 ML VIAL IVP STA (20:09)
[2024-08-26] MEDS: SODIUM CHLORIDE 0.9% 1,000 ML IV STA (20:09)
[2024-08-26 20:12] LABS: ALT 31 U/L (4-34); African American GFR (CKD) 27 (>60 ml/min/1.73 sqM); Albumin 4.3 g/dL (3.5-5.0); Anion Gap 4 mmol/L; Carbon Dioxide 29 mmol/L (22-30); Chloride 103 mmol/L (98-107); Glucose 60 mg/dL (74-99); Lipase 125 U/L (23-300); Magnesium 2.1 mg/dL (1.6-2.3); Non-African American GFR(CKD) 24 (>60 ml/min/1.73 sqM); Phosphorus 3.5 mg/dL (2.5-4.5); Sodium 136 mmol/L (137-145); Total Protein 6.9 g/dL (6.3-8.2)
[2024-08-26 20:13] LABS: Basophils % (A) 0 %; Eosinophils # (A) 0.6 k/uL (0-0.7); Eosinophils % (A) 8 %; HCT 38.9 % (34.0-46.0); HGB 12.4 gm/dL (11.4-16.0); Lymphocytes # (A) 1.3 k/uL (1.0-4.8); Lymphocytes % (A) 17 %; MCH 28.2 pg (25.0-35.0); MCHC 31.9 g/dL (31.0-37.0); MCV 88.3 fL (80.0-100.0); Mean Platelet Volume 9.1; Monocytes # (A) 0.5 k/uL (0-1.0); Monocytes % (A) 6 %; Neutrophils # (A) 4.7 k/uL (1.3-7.7); Neutrophils % (A) 65 %; Platelet Count 159 k/uL (150-450); RDW 12.9 % (11.5-15.5); WBC 7.2 k/uL (3.8-10.6)
[2024-08-26 20:22] LABS: Potassium 5.5 mmol/L (3.5-5.1)
[2024-08-26 20:23] LABS: AST 53 U/L (14-36); Alkaline Phosphatase 71 U/L (38-126); Blood Urea Nitrogen 49 mg/dL (7-17); Calcium 10.4 mg/dL (8.4-10.2); Total Bilirubin 1.4 mg/dL (0.2-1.3)
[2024-08-26 20:36] LABS: Glucose,Whole Blood 42 mg/dL (70-110)
[2024-08-26] MEDS: DEXTROSE 50% SYRINGE 50 ML IVP STA (20:47)
[2024-08-26] MEDS: DEXTROSE 5%-0.9% NACL 1,000 ML IV SCH (20:53)
[2024-08-26 21:04] LABS: Glucose,Whole Blood 189 mg/dL (70-110)
--- NOTE | 2024-08-26 21:29 | XR ---
EXAMINATION TYPE: XR abdomen acute w cxr DATE OF EXAM: 08/26/2024 9:24 PM CLINICAL INDICATION:Female, 54 years old with history of hx gastric bypass, vomiting w/ solids; [facility] COMPARISON: Chest radiograph 02/18/2020 TECHNIQUE: Two radiographic views of the abdomen (upright and supine) and a frontal chest radiograph were obtained. FINDINGS CHEST: Lungs/Pleura: The lungs are clear. There is no evidence of pleural effusion, focal consolidation or p neumothorax. Mediastinum: Unremarkable. Vasculature: Normal. Heart: Normal in size. Musculoskeletal: The osseous structures are intact. Median sternotomy wires present. Other findings: No significant. FINDINGS ABDOMEN: Bowel gas pattern: Normal without dilated loops of small or large bowel. Fecal material and gas are d emonstrated throughout the colon and rectum. Abnormal calcifications: Phleboliths are identified in the pelvis. Musculoskeletal: Normal. Other: None. IMPRESSION: 1. No radiographic evidence for acute abdominal process. 2. No acute cardiopulmonary process [facility], , 08/26/2024 9:26 PM
[2024-08-26] MEDS ORDERED: traMADol 50 MG TAB PO PRN (21:56)
[2024-08-26] MEDS ORDERED: ONDANSETRON 4 MG/2 ML VIAL IVP PRN (21:56)
[2024-08-26] MEDS ORDERED: CALCIUM CARBONATE 500 MG CHEWABLE PO PRN (21:56)
[2024-08-26] MEDS ORDERED: ACETAMINOPHEN TAB 325 MG TAB PO PRN (21:56)
[2024-08-26] MEDS ORDERED: MAG HYDROX/AL HYDROX/SIMETH 30 ML CUP PO PRN (21:56)
[2024-08-26] MEDS ORDERED: NALOXONE 0.4 MG/ML 1 ML VIAL IV PRN (21:56)
[2024-08-26 22:15] LABS: Glucose,Whole Blood 186 mg/dL (70-110)
[2024-08-26 23:07] LABS: Appearance,Urine Clear (Clear); Bilirubin,Urine Negative (Negative); Blood,Urine Negative (Negative); Color,Urine Colorless; Glucose,Urine (UA) Negative (Negative); Ketones,Urine Negative (Negative); Leukocyte Esterase,Urine Negative (Negative); Nitrite,Urine Negative (Negative); PH, Urine 5.5 (5.0-8.0); Protein,Urine Negative (Negative); Specific Gravity,Urine 1.009 (1.001-1.035); Urobilinogen,Urine <2.0 mg/dL (<2.0)
[2024-08-27] LABS: Glucose,Whole Blood 189 mg/dL (70-110)
[2024-08-27 00:37] LABS: African American GFR (CKD) 27 (>60 ml/min/1.73 sqM); Anion Gap 1 mmol/L; Blood Urea Nitrogen 44 mg/dL (7-17); Carbon Dioxide 27 mmol/L (22-30); Chloride 105 mmol/L (98-107); Glucose 192 mg/dL (74-99); Non-African American GFR(CKD) 24 (>60 ml/min/1.73 sqM); Potassium 4.4 mmol/L (3.5-5.1); Sodium 133 mmol/L (137-145)
[2024-08-27 02:09] LABS: Glucose,Whole Blood 117 mg/dL (70-110)
--- NOTE | 2024-08-27 03:13 | P.HPIM ---
History of Present Illness H&P Date: 08/26/24 Chief Complaint: Hypoglycemia, vomiting Patient is a 54-year-old female with diabetes mellitus on insulin pump, gastric bypass surgery in 2019 with no complications, hyperlipidemia, hypertension, chronic kidney disease stage IV, chronic back pain and sleep apnea presented to the emergency department with nausea and vomiting. Patient was sent to the emergency department from [facility] via EMS for hypoglycemia. Patient was seen at bedside. Reports that the nausea and vomiting started about a week ago. Patient has not been able to keep anything down. She has been vomiting mostly food content, denies any hematemesis. This is the first time she has experienced anything like this before. She denies any belly pain. Patient went to the urgent care and there it was found that her blood glucose was 57, patient was subsequently sent to the ED for further evaluation. Reports feeling dizzy and lightheaded, but no loss of consciousness or passing out. Did not sustain any falls. Patient denies fever, chills, constipation/diarrhea, chest pain, shortness of breath, belly pain, weakness or numbness in upper or lower extremity, no hematochezia/melena. ED documentation reviewed. In the ED patient was treated with Zofran 4 mg IV x 1, a bolus of normal saline, dextrose 50% syringe 50 mL IV x 1 Vitals on admission temperature 97.7, pulse rate of 79, respiratory rate 17, BP 111/68, saturating 99% on room air EKG independently interpreted as sinus rhythm with ventricular rate of 69 bpm, QTc 418 ms Acute abdominal series show no radiographic evidence for acute abdominal process. No acute cardiopulmonary process. Labs on admission show WBC 7.2, hemoglobin 12.4, hematocrit 38.9, platelets 159, sodium 136, potassium 5.5, chloride 103, carbon dioxide 29, BUN 49, creatinine 2.28, glucose 186, calcium 10.4, total bilirubin 1.4, AST 53, troponin less than 0.012, lipase 125 UA shows negative for nitrites and leukocyte esterase Review of systems: Pertinent positives and negatives as discussed in HPI, a complete review of systems was performed and all other systems are negative. PMH: Diabetes mellitus, hyperlipidemia, hypertension, CKD stage IV, chronic back pain, sleep apnea PSH: Bariatric surgery, cardiac valve replacement, heart catheterization, aortic valve replacement in 2014, robotic assisted laparoscopic trans gastric Pako-en-Y gastric bypass in 2019 [facility]: Has a family history of heart disease Allergies: Adhesive, latex Social history: Tobacco: Never smoker Alcohol: No alcohol use Recreational drugs: No drug use Travel: No travel history Sick contacts: No sick contacts Physical examination: Vital signs reviewed General: nontoxic, no distress, appears at stated age Derm: warm, dry, intact Head: atraumatic, normocephalic, symmetric Eyes: EOMI, anicteric sclera Mouth: no lip lesion, mucus membranes moist Cardiovascular: S1 S2 reg, no murmur Lungs: CTA bilateral, no rhonchi, no rales, no accessory muscle use Abdominal: soft, non-tender to palpation, no distention Extremities: No cyanosis, clubbing, or pedal edema. Neuro: Alert, Oriented to time, person, place, Gross neurological examination did not reveal any focal deficits. Cranial nerves II to XII grossly intact. Bilateral upper and lower extremity muscle strength and sensation intact. Psych: well appearing, appropriate affect Assessment/Plan: 54-year-old female with diabetes mellitus, hyperlipidemia, hypertension, chronic kidney disease stage IV, chronic back pain and sleep apnea on CPAP/BiPAP presented to the emergency department with nausea and vomiting. Patient will be admitted to inpatient medicine service. Active: #. Nausea and vomiting, likely due to viral gastroenteritis #. History of gastric Pako-en-Y bypass surgery in 2019 Acute abdominal series showed no radiographic evidence for acute abdominal process. No acute cardiopulmonary process. Continue with pain and nausea control with Tylenol 650 mg every 6 hours as needed and Zofran 4 mg IV every 8 hours as needed Discontinue D5W, initiate normal saline at 75 cc an hour Consult general surgery Continue cardiac monitoring #. Hyponatremia Sodium 133 Initiate normal saline at 75 cc an hour Check morning CMP #. Hyperkalemia, resolved Initial potassium 5.5 Repeat potassium level of 4.4 Check morning CMP #. RITESH on Chronic kidney disease stage Baseline creatinine of 1.9 in January 2024 Creatinine this admission has been 2.28 and 2.27 Initiate normal saline at 75 cc an hour Monitor morning CMP #. Hypoglycemia, resolved #. Hyperglycemia Glucose of 117 hold insulin pump briefly until blood sugar stablize then Continue insulin pump infusion Accu-Cheks every 2 hours #. Hypercalcemia, resolved Initial calcium 10.4, repeat measurement at 10.0 Monitor morning CMP #. Elevated AST and total bilirubin Total bili 1.4 AST 53 Monitor morning CMP Chronic: #. Hyperlipidemia Restart home atorvastatin 40 mg at bedtime #. Hypertension Restart home lisinopril 5 mg at bedtime and metoprolol succinate 50 mg at bedtime #. GERD Restart omeprazole 40 mg at bedtime F: No restrictions E: Replete as needed N: Consistent carbohydrate diet A: EMS DVT prophylaxis: Lovenox 40 mg subcu daily, patient's calculated creatinine clearance of 39 mL/min The patient is admitted with an anticipated more than 2 midnight stay for evaluation of nausea and vomiting CODE STATUS: Full code Discussed with: Patient Anticipated discharge place: Home I have seen and evaluated the patient today. I Discussed the case with the resident and agree with the resident's findings I edited the assessment and plan as necessary as documented in the resident's note. Past Medical History Past Medical History: Diabetes Mellitus, Hyperlipidemia, Hypertension, Renal Disease, Sleep Apnea/CPAP/BIPAP Additional Past Medical History / Comment(s): seasonal allergies, STAGE 4 KIDNEY FAILURE, CHRONIC BACK PAIN Last Myocardial Infarction Date:: 2013 History of Any Multi-Drug Resistant Organisms: None Reported Past Surgical History: Bariatric Surgery, Cardiac Valve Replacement, Heart Catheterization Additional Past Surgical History / Comment(s): Aortic valve replacement 2013 gastric bypass 06-07-19 Past Anesthesia/Blood Transfusion Reactions: No Reported Reaction Additional Past Anesthesia/Blood Transfusion Reaction / Comment(s): NO blood transfusion to date Past Psychological History: Anxiety, Depression Smoking Status: Never smoker Past Alcohol Use History: None Reported Past Drug Use History: None Reported - Past Family History Mother Family Medical History: Cancer, Coronary Artery Disease (CAD), Hypertension Additional Family Medical History / Comment(s): vulva cancer Father Family Medical History: Dementia, Hypertension, Neurologic Disorder Additional Family Medical History / Comment(s): at age 69 from dementia/parkinsons Sister(s) Family Medical History: Hypertension Medications and Allergies Home Medications Medication Instructions Recorded Confirmed Type Insulin Aspart (For Pump) [NovoLOG 0.01 unit SQ-PUMP CONTINUOUS 01/09/21 06/23/24 History (For Pump)] Metoprolol Succinate [Toprol XL] 50 mg PO HS 01/09/21 06/23/24 History Amitriptyline HCl [Elavil] 100 mg PO HS 02/17/21 02/17/21 History Atorvastatin [Lipitor] 40 mg PO HS 02/17/21 06/23/24 History Furosemide [Lasix] 20 mg PO DAILY 02/17/21 06/23/24 History Omeprazole 40 mg PO HS 02/17/21 06/23/24 History Semaglutide [Ozempic] 1 mg SQ SA 02/17/21 06/23/24 History Sertraline HCl [Zoloft] 200 mg PO HS 02/17/21 02/17/21 History calcitrioL 0.5 mcg PO MOWEFR 02/17/21 06/23/24 History lisinopriL [Prinivil] 5 mg PO HS 02/17/21 06/23/24 History traZODone HCL 100 mg PO HS 02/17/21 02/17/21 History ARIPiprazole [Abilify] 5 mg PO DAILY 06/23/24 06/23/24 History Multivitamins, Thera [Multivitamin See Rx Instructions .ROUTE .COMPLEX 06/23/24 06/23/24 History (formulary)] Secukinumab [Cosentyx Sensoready 150 mg SQ QMONTHLY 06/23/24 06/23/24 History Pen] Suvorexant [Belsomra] 20 mg PO DAILY 06/23/24 06/23/24 History Vortioxetine Hydrobromide 20 mg PO DAILY 06/23/24 06/23/24 History [Trintellix] Allergies Allergy/AdvReac Type Severity Reaction Status Date / Time adhesive Allergy Intermediate Rash/Hives Verified 08/26/24 17:47 latex Allergy Intermediate Rash/Hives Verified 08/26/24 17:47 Physical Exam Vitals: Vital Signs Temp Pulse Resp BP Pulse Ox 08/26/24 22:12 97.7 F 79 17 111/68 08/26/24 18:27 80 19 100/63 08/26/24 17:47 97.3 F L 74 18 98/63 99 Intake and Output 08/26/24 08/26/24 08/27/24 14:59 22:59 06:59 Other: Weight 88.451 kg Results CBC & Chem 7: 08/26/24 19:55 08/27/24 00:00 Labs: Abnormal Lab Results - Last 24 Hours (Table) 08/26/24 08/26/24 08/26/24 Range/Units 19:04 19:55 20:35 Sodium 136 L (137-145) mmol/L Potassium 5.5 H (3.5-5.1) mmol/L BUN 49 H (7-17) mg/dL Creatinine 2.28 H (0.52-1.04) mg/dL Glucose 60 L (74-99) mg/dL POC Glucose (mg/dL) 114 H 42 L* (70-110) mg/dL Calcium 10.4 H (8.4-10.2) mg/dL Total Bilirubin 1.4 H (0.2-1.3) mg/dL AST 53 H (14-36) U/L 08/26/24 08/26/24 Range/Units 21:02 22:13 Sodium (137-145) mmol/L Potassium (3.5-5.1) mmol/L BUN (7-17) mg/dL Creatinine (0.52-1.04) mg/dL Glucose (74-99) mg/dL POC Glucose (mg/dL) 189 H 186 H (70-110) mg/dL Calcium (8.4-10.2) mg/dL Total Bilirubin (0.2-1.3) mg/dL AST (14-36) U/L
[2024-08-27 04:10] LABS: Glucose,Whole Blood 79 mg/dL (70-110)
[2024-08-27 06:27] LABS: Glucose,Whole Blood 81 mg/dL (70-110)
[2024-08-27 07:43] VITALS: BP 112/72; PULSE 83; RESP 19; TEMP 97.6
[2024-08-27 08:16] LABS: Basophils % (A) 1 %; Eosinophils # (A) 0.8 k/uL (0-0.7); Eosinophils % (A) 13 %; HCT 37.3 % (34.0-46.0); HGB 12.1 gm/dL (11.4-16.0); Lymphocytes # (A) 1.5 k/uL (1.0-4.8); Lymphocytes % (A) 24 %; MCH 29.1 pg (25.0-35.0); MCHC 32.3 g/dL (31.0-37.0); MCV 90.1 fL (80.0-100.0); Mean Platelet Volume 8.3; Monocytes # (A) 0.5 k/uL (0-1.0); Monocytes % (A) 8 %; Neutrophils # (A) 3.1 k/uL (1.3-7.7); Neutrophils % (A) 52 %; Platelet Count 134 k/uL (150-450); RBC 4.14 m/uL (3.80-5.40); RDW 12.9 % (11.5-15.5)
[2024-08-27 08:30] LABS: ALT 23 U/L (4-34); AST 28 U/L (14-36); African American GFR (CKD) 33 (>60 ml/min/1.73 sqM); Albumin 3.1 g/dL (3.5-5.0); Albumin/Globulin Ratio 1.3; Alkaline Phosphatase 89 U/L (38-126); Anion Gap 2 mmol/L; Blood Urea Nitrogen 38 mg/dL (7-17); Carbon Dioxide 28 mmol/L (22-30); Chloride 108 mmol/L (98-107); Globulin 2.4 g/dL; Glucose 74 mg/dL (74-99); Non-African American GFR(CKD) 28 (>60 ml/min/1.73 sqM); Potassium 4.1 mmol/L (3.5-5.1); Sodium 138 mmol/L (137-145); Total Bilirubin 0.8 mg/dL (0.2-1.3); Total Protein 5.5 g/dL (6.3-8.2)
[2024-08-27 08:33] LABS: Glucose,Whole Blood 165 mg/dL (70-110)
[2024-08-27] MEDS: INSULIN ASPART (NovoLOG) 100 UNIT/ML VIAL SQ SCH (08:33)
[2024-08-27] MEDS: FAMOTIDINE 20 MG TAB PO SCH (08:35)
[2024-08-27] MEDS: ENOXAPARIN 40 MG/0.4 ML SYRINGE SQ SCH (10:01)
[2024-08-27] MEDS: SODIUM CHLORIDE 0.9% 1,000 ML IV SCH (10:02)
[2024-08-27 10:18] LABS: Glucose,Whole Blood 116 mg/dL (70-110)
--- NOTE | 2024-08-27 11:59 | P.DS ---
Providers Date of admission: 08/26/24 21:59 Attending physician: Dex Scott MD Consults: 08/26/24 21:56 Consult Physician Routine Consulting Provider: Mallorie Patterson Consult Reason/Comments: Vomiting, prior gastric bypass Do you want consulting provider notified?: Yes, Notify in am Primary care physician: [facility] Course: Hospital Course: Patient is a 54-year-old female with diabetes mellitus on insulin pump, gastric bypass surgery in 2019 with no complications, hyperlipidemia, hypertension, chronic kidney disease stage IV, chronic back pain and sleep apnea presented to the emergency department with nausea and vomiting. Patient was sent to the emergency department from [place] [facility] via EMS for hypoglycemia. Patient was seen at bedside. Reports that the nausea and vomiting started about a week ago. Patient has not been able to keep anything down. She has been vomiting mostly food content, denies any hematemesis. This is the first time she has experienced anything like this before. She notes that she had to change her insulin pump before work yesterday, noticed her blood sugar was beginning to spike so she gave herself 10 units of insulin while wearing the pump. A little while later she notes that she was still feeling nauseous and was diaphoretic so she went to urgent care which is where they found her to be hypoglycemic (around 57) and was subsequently sent to the ED for further evaluation. She reports a few episodes over the last 4 years of hypoglycemia. Reports feeling dizzy and lightheaded, but no loss of consciousness or syncope. Patient denies fever, chills, constipation/diarrhea, chest pain, dyspnea, abdominal pain, weakness or numbness in upper or lower extremity, no hematochezia/melena. In the ED patient was treated with Zofran 4 mg IV x 1, a bolus of normal saline, dextrose 50% syringe 50 mL IV x 1, and was briefly placed on a D5/NS drip, quickly converted to NS without D5 and did not have further episodes of hypoglycemia. Patient is medically optimized for discharge. Patient should follow-up with primary care provider within 1 to 2 days. Final Diagnosis: #. Hypoglycemia, resolved #. Nausea and vomiting, improved #. Hyponatremia, resolved #. Hyperkalemia, resolved #. RITESH on chronic kidney disease stage IV, resolved #. Hypercalcemia, resolved #. Insulin-dependent diabetes mellitus on insulin pump #. Chronic kidney disease stage IV #. Hyperlipidemia #. History of aortic valve replacement #. Hypertension #. GERD #. Sleep apnea Physical examination: Vital signs reviewed General: Nontoxic, no distress, appears stated age, well-appearing Derm: Warm, dry, intact Head: Atraumatic, normocephalic, symmetric Eyes: EOMI, anicteric sclera Mouth: No lip lesion, mucus membranes moist Cardiovascular: S1-S2 regular, systolic murmur Lungs: CTA bilateral, no rhonchi, no rales, no accessory muscle use Abdominal: Soft, non-tender to palpation Extremities: No cyanosis, clubbing, or pedal edema Neuro: Alert, oriented x 3, gross neurological examination did not reveal any focal deficits. Cranial nerves II to XII grossly intact. I saw and evaluated the patient during the garrison and critical portions of this encounter, and discussed the case in detail with the resident author of this note, I agree with the Assessment and Plan, and my changes, if any, are highlighted in blue. [place] Patient Condition at Discharge: Good Plan - Discharge Summary New Discharge Prescriptions: Continue Omeprazole 40 mg PO HS Atorvastatin [Lipitor] 40 mg PO HS Furosemide [Lasix] 40 mg PO DAILY Suvorexant [Belsomra] 20 mg PO HS busPIRone HCL 15 mg PO BID lisinopriL [Zestril] 2.5 mg PO Q2D Tacrolimus [Protoptic 0.1%] 1 applic TOPICAL BID Semaglutide [Ozempic] 2 mg SQ TH Clobetasol Propionate [Temovate 0.05% Cream] 1 applic TOPICAL BID PRN PRN Reason: Skin Irritation Insulin Aspart (For Pump) [NovoLOG (For Pump)] 0.01 unit SQ-PUMP CONTINUOUS calcitrioL 0.5 mcg PO Q2D Vortioxetine Hydrobromide [Trintellix] 20 mg PO DAILY Secukinumab [Cosentyx Sensoready Pen] 150 mg SQ Q30D Nystatin 100,000 Unit/gm Powd [Mycostatin Powder] 1 applic TOPICAL BID Metoprolol Succinate (ER) [Toprol XL] 25 mg PO HS Glucagon [Gvoke Pfs 1-Pack Syringe] 1 mg IM ONCE PRN PRN Reason: Hypoglycemia Discharge Medication List Insulin Aspart (For Pump) [NovoLOG (For Pump)] 0.01 unit SQ-PUMP CONTINUOUS 01/09/21 [History] Atorvastatin [Lipitor] 40 mg PO HS 02/17/21 [History] Furosemide [Lasix] 40 mg PO DAILY 02/17/21 [History] Omeprazole 40 mg PO HS 02/17/21 [History] calcitrioL 0.5 mcg PO Q2D 02/17/21 [History] Secukinumab [Cosentyx Sensoready Pen] 150 mg SQ Q30D 06/23/24 [History] Suvorexant [Belsomra] 20 mg PO HS 06/23/24 [History] Vortioxetine Hydrobromide [Trintellix] 20 mg PO DAILY 06/23/24 [History] Clobetasol Propionate [Temovate 0.05% Cream] 1 applic TOPICAL BID PRN 08/27/24 [History] Glucagon [Gvoke Pfs 1-Pack Syringe] 1 mg IM ONCE PRN 08/27/24 [History] Metoprolol Succinate (ER) [Toprol XL] 25 mg PO HS 08/27/24 [History] Nystatin 100,000 Unit/gm Powd [Mycostatin Powder] 1 applic TOPICAL BID 08/27/24 [History] Semaglutide [Ozempic] 2 mg SQ TH 08/27/24 [History] Tacrolimus [Protoptic 0.1%] 1 applic TOPICAL BID 08/27/24 [History] busPIRone HCL 15 mg PO BID 08/27/24 [History] lisinopriL [Zestril] 2.5 mg PO Q2D 08/27/24 [History] Follow up Appointment(s)/Referral(s): Claudia Lopez MD [Medical Doctor] - 1-2 days Mallorie Patterson MD [STAFF PHYSICIAN] - 1 Week Patient Instructions/Handouts: Hypoglycemia in a Person with Diabetes (DC) Discharge Disposition: HOME SELF-CARE
--- NOTE | 2024-08-27 12:05 | P.GSCN ---
History of Present Illness Consult date: 08/27/24 History of present illness: CHIEF COMPLAINT: Vomiting HISTORY OF PRESENT ILLNESS: This is a 54-year-old female with a known history of Pako-en-Y gastric bypass in 2019. Patient reports over the last week she has been vomiting every time she eats solid foods. She denies any abdominal pain. She reports able to take in liquids. She is also been having issues with hy poglycemia. She reports regular bowel movements. Abdominal x-ray was unremarkable. She reports her last EGD was several years ago. PAST MEDICAL HISTORY: See below PAST SURGICAL HISTORY: See below MEDICATIONS: See below ALLERGIES: See below SOCIAL HISTORY: No illicit drug use. REVIEW OF SYSTEMS: CONSTITUTIONAL: Denies fever or chills. HEENT: Denies blurred vision, vision changes, or eye pain. Denies hemoptysis CARDIOVASCULAR: Denies chest pain or pressure. RESPIRATORY: No shortness of breath. GASTROINTESTINAL: See HPI for pertinent findings HEMATOLOGIC: Denies bleeding disorders. GENITOURINARY: Denies any blood in urine or increased urinary frequency. SKIN: Denies pruitis. Denies rash. PHYSICAL EXAM: VITAL SIGNS: Reviewed GENERAL: Well-developed in no acute distress. HEENT: No sclera icterus. Extraocular movements grossly intact. Moist buccal mucosa. Head is atraumatic, normocephalic. No nasal drainage. ABDOMEN: Soft. Nondistended. Nontender NEUROLOGIC: Alert and oriented. Cranial nerves II through XII grossly intact. LABORATORY DATA: WBC 6.0 Hgb 12.1 platelets 134 Sodium 138 potassium 4.1 creatinine 1.96 IMAGING: Acute abdominal series reports no evidence of acute abdominal process ASSESSMENT: 1. Dysphagia. Patient vomiting after intake of solid foods 2. History of Pako-en-Y gastric bypass PLAN: -Patient requesting to be discharged. Will advance diet to full liquids. Patient can be discharged if able to tolerate full liquid diet. Recommend outpatient follow-up. Physician Meter/Relay Technician note has been reviewed by physician. Signing provider agrees with the documented findings, assessment, and plan of care. I have personally seen and examined the patient, reviewed the [employer] /PAs history, exam and MDM and agree with the assessment and plan as written. Based on total visit time, I have performed more than 50% of the visit. As above: Patient feeling better this morning. She says she is very anxious to go home because she has some pets she is concerned about. Advance to full liquids. If tolerates may discharge with outpatient follow-up with Dr. Patterson. If the patient stays hospitalized because of ongoing symptoms recommend CT abdomen pelvis. Past Medical History Past Medical History: Diabetes Mellitus, Hyperlipidemia, Hypertension, Renal Disease, Sleep Apnea/CPAP/BIPAP Additional Past Medical History / Comment(s): seasonal allergies, STAGE 4 KIDNEY FAILURE, CHRONIC BACK PAIN Last Myocardial Infarction Date:: 2013 History of Any Multi-Drug Resistant Organisms: None Reported Past Surgical History: Bariatric Surgery, Cardiac Valve Replacement, Heart Catheterization Additional Past Surgical History / Comment(s): Aortic valve replacement 2013 gastric bypass 06-07-19 Past Anesthesia/Blood Transfusion Reactions: No Reported Reaction Additional Past Anesthesia/Blood Transfusion Reaction / Comm: NO blood t ransfusion to date Past Psychological History: Anxiety, Depression Smoking Status: Never smoker Past Alcohol Use History: None Reported Past Drug Use History: None Reported - Past Family History Mother Family Medical History: Cancer, Coronary Artery Disease (CAD), Hypertension Additional Family Medical History / Comment(s): vulva cancer Father Family Medical History: Dementia, Hypertension, Neurologic Disorder Additional Family Medical History / Comment(s): at age 69 from dementia/parkinsons Sister(s) Family Medical History: Hypertension Medications and Allergies Home Medications Medication Instructions Recorded Confirmed Type Insulin Aspart (For Pump) [NovoLOG 0.01 unit SQ-PUMP CONTINUOUS 01/09/21 08/27/24 History (For Pump)] Atorvastatin [Lipitor] 40 mg PO HS 02/17/21 08/27/24 History Furosemide [Lasix] 40 mg PO DAILY 02/17/21 08/27/24 History Omeprazole 40 mg PO HS 02/17/21 08/27/24 History calcitrioL 0.5 mcg PO Q2D 02/17/21 08/27/24 History Secukinumab [Cosentyx Sensoready 150 mg SQ Q30D 06/23/24 08/27/24 History Pen] Suvorexant [Belsomra] 20 mg PO HS 06/23/24 08/27/24 History Vortioxetine Hydrobromide 20 mg PO DAILY 06/23/24 08/27/24 History [Trintellix] Clobetasol Propionate [Temovate 1 applic TOPICAL BID PRN 08/27/24 08/27/24 History 0.05% Cream] Glucagon [Gvoke Pfs 1-Pack Syringe] 1 mg IM ONCE PRN 08/27/24 08/27/24 History Metoprolol Succinate (ER) [Toprol 25 mg PO HS 08/27/24 08/27/24 History XL] Nystatin 100,000 Unit/gm Powd 1 applic TOPICAL BID 08/27/24 08/27/24 History [Mycostatin Powder] Semaglutide [Ozempic] 2 mg SQ TH 08/27/24 08/27/24 History Tacrolimus [Protoptic 0.1%] 1 applic TOPICAL BID 08/27/24 08/27/24 History busPIRone HCL 15 mg PO BID 08/27/24 08/27/24 History lisinopriL [Zestril] 2.5 mg PO Q2D 08/27/24 08/27/24 History Allergies Allergy/AdvReac Type Severity Reaction Status Date / Time adhesive Allergy Intermediate Rash/Hives Verified 08/27/24 11:18 latex Allergy Intermediate Rash/Hives Verified 08/27/24 11:18 Surgical - Exam Vital Signs Temp Pulse Resp BP Pulse Ox 97.3 F L 74 18 98/63 99 08/26/24 17:47 08/26/24 17:47 08/26/24 17:47 08/26/24 17:47 08/26/24 17:47 Results - Labs 08/27/24 07:18 08/27/24 07:18 Abnormal Lab Results - Last 24 Hours (Table) 08/26/24 08/26/24 08/26/24 Range/Units 19:04 19:55 20:35 Plt Count (150-450) k/uL Eosinophils # (0-0.7) k/uL Sodium 136 L (137-145) mmol/L Potassium 5.5 H (3.5-5.1) mmol/L Chloride (98-107) mmol/L BUN 49 H (7-17) mg/dL Creatinine 2.28 H (0.52-1.04) mg/dL Glucose 60 L (74-99) mg/dL POC Glucose (mg/dL) 114 H 42 L* (70-110) mg/dL Calcium 10.4 H (8.4-10.2) mg/dL Total Bilirubin 1.4 H (0.2-1.3) mg/dL AST 53 H (14-36) U/L Total Protein (6.3-8.2) g/dL Albumin (3.5-5.0) g/dL 08/26/24 08/26/24 08/26/24 Range/Units 21:02 22:13 23:56 Plt Count (150-450) k/uL Eosinophils # (0-0.7) k/uL Sodium (137-145) mmol/L Potassium (3.5-5.1) mmol/L Chloride (98-107) mmol/L BUN (7-17) mg/dL Creatinine (0.52-1.04) mg/dL Glucose (74-99) mg/dL POC Glucose (mg/dL) 189 H 186 H 189 H (70-110) mg/dL Calcium (8.4-10.2) mg/dL Total Bilirubin (0.2-1.3) mg/dL AST (14-36) U/L Total Protein (6.3-8.2) g/dL Albumin (3.5-5.0) g/dL 08/27/24 08/27/24 08/27/24 Range/Units 00:00 02:07 07:18 Plt Count (150-450) k/uL Eosinophils # (0-0.7) k/uL Sodium 133 L (137-145) mmol/L Potassium (3.5-5.1) mmol/L Chloride 108 H (98-107) mmol/L BUN 44 H 38 H (7-17) mg/dL Creatinine 2.27 H 1.96 H (0.52-1.04) mg/dL Glucose 192 H (74-99) mg/dL POC Glucose (mg/dL) 117 H (70-110) mg/dL Calcium (8.4-10.2) mg/dL Total Bilirubin (0.2-1.3) mg/dL AST (14-36) U/L Total Protein 5.5 L (6.3-8.2) g/dL Albumin 3.1 L (3.5-5.0) g/dL 08/27/24 08/27/24 Range/Units 07:18 08:31 Plt Count 134 L (150-450) k/uL Eosinophils # 0.8 H (0-0.7) k/uL Sodium (137-145) mmol/L Potassium (3.5-5.1) mmol/L Chloride (98-107) mmol/L BUN (7-17) mg/dL Creatinine (0.52-1.04) mg/dL Glucose (74-99) mg/dL POC Glucose (mg/dL) 165 H (70-110) mg/dL Calcium (8.4-10.2) mg/dL Total Bilirubin (0.2-1.3) mg/dL AST (14-36) U/L Total Protein (6.3-8.2) g/dL Albumin (3.5-5.0) g/dL Diabetes panel 08/26/24 08/27/24 08/27/24 Range/Units 19:55 00:00 07:18 Sodium 136 L 133 L 138 (137-145) mmol/L Potassium 5.5 H 4.4 4.1 (3.5-5.1) mmol/L Chloride 103 105 108 H (98-107) mmol/L Carbon Dioxide 29 27 28 (22-30) mmol/L BUN 49 H 44 H 38 H (7-17) mg/dL Creatinine 2.28 H 2.27 H 1.96 H (0.52-1.04) mg/dL Glucose 60 L 192 H 74 (74-99) mg/dL Calcium 10.4 H 10.0 10.0 (8.4-10.2) mg/dL AST 53 H 28 (14-36) U/L ALT 31 23 (4-34) U/L Alkaline Phosphatase 71 89 (38-126) U/L Total Protein 6.9 5.5 L (6.3-8.2) g/dL Albumin 4.3 3.1 L (3.5-5.0) g/dL Calcium panel 08/26/24 08/27/24 08/27/24 Range/Units 19:55 00:00 07:18 Calcium 10.4 H 10.0 10.0 (8.4-10.2) mg/dL Phosphorus 3.5 (2.5-4.5) mg/dL Albumin 4.3 3.1 L (3.5-5.0) g/dL Pituitary panel 08/26/24 08/27/24 08/27/24 Range/Units 19:55 00:00 07:18 Sodium 136 L 133 L 138 (137-145) mmol/L Potassium 5.5 H 4.4 4.1 (3.5-5.1) mmol/L Chloride 103 105 108 H (98-107) mmol/L Carbon Dioxide 29 27 28 (22-30) mmol/L BUN 49 H 44 H 38 H (7-17) mg/dL Creatinine 2.28 H 2.27 H 1.96 H (0.52-1.04) mg/dL Glucose 60 L 192 H 74 (74-99) mg/dL Calcium 10.4 H 10.0 10.0 (8.4-10.2) mg/dL Adrenal panel 08/26/24 08/27/24 08/27/24 Range/Units 19:55 00:00 07:18 Sodium 136 L 133 L 138 (137-145) mmol/L Potassium 5.5 H 4.4 4.1 (3.5-5.1) mmol/L Chloride 103 105 108 H (98-107) mmol/L Carbon Dioxide 29 27 28 (22-30) mmol/L BUN 49 H 44 H 38 H (7-17) mg/dL Creatinine 2.28 H 2.27 H 1.96 H (0.52-1.04) mg/dL Glucose 60 L 192 H 74 (74-99) mg/dL Calcium 10.4 H 10.0 10.0 (8.4-10.2) mg/dL Total Bilirubin 1.4 H 0.8 (0.2-1.3) mg/dL AST 53 H 28 (14-36) U/L ALT 31 23 (4-34) U/L Alkaline Phosphatase 71 89 (38-126) U/L Total Protein 6.9 5.5 L (6.3-8.2) g/dL Albumin 4.3 3.1 L (3.5-5.0) g/dL
[2024-08-27 12:16] LABS: Glucose,Whole Blood 87 mg/dL (70-110)
[2024-08-27] MEDS ORDERED: lisinopriL 5 MG TAB PO SCH (21:00)
[2024-08-27] MEDS ORDERED: METOPROLOL SUCCINATE (ER) 50 MG TAB.ER.24H PO SCH (21:00)
[2024-08-27] MEDS ORDERED: PANTOPRAZOLE 40 MG TABLET PO SCH (21:00)
[2024-08-27] MEDS ORDERED: ATORVASTATIN 40 MG TAB PO SCH (21:00)
[2024-08-28] MEDS ORDERED: ENOXAPARIN 30 MG/0.3 ML SYRINGE SQ SCH (09:00)
== END 2024-08-27 13:54 | disposition home or self-care (01) ==
LOC: EC 17:42 → 5NMEDONC 21:59 → 4SSUR 23:16
PROVIDERS: ADMIT Internal Medicine; ATTEND Internal Medicine
DX: E10.649 Type 1 diabetes mellitus with hypoglycemia without coma (principal); R11.2 Nausea with vomiting, unspecified; E87.1 Hypo-osmolality and hyponatremia; E83.52 Hypercalcemia; E87.5 Hyperkalemia; E10.22 Type 1 diabetes mellitus with diabetic chronic kidney disease; I12.9 Hypertensive chronic kidney disease with stage 1 through stage 4 chronic kidney disease, or unspecified chronic kidney disease; N17.9 Acute kidney failure, unspecified; N18.4 Chronic kidney disease, stage 4 (severe); E78.5 Hyperlipidemia, unspecified; R13.10 Dysphagia, unspecified; G47.30 Sleep apnea, unspecified; I25.2 Old myocardial infarction; K21.9 Gastro-esophageal reflux disease without esophagitis; G89.29 Other chronic pain; M54.9 Dorsalgia, unspecified; Z79.4 Long term (current) use of insulin; Z79.899 Other long term (current) drug therapy; Z95.2 Presence of prosthetic heart valve; Z96.41 Presence of insulin pump (external) (internal); Z98.84 Bariatric surgery status
CPT/HCPCS: 96361; 96374; 99291; 36415; 93005; 80053 ×2; 80048; 82009; 83690; 83735; 84100; 84484; 85025 ×2; 81003; 87636; 74022; G0378 ×3; J2405

== ENCOUNTER → 2024-09-22 | Outpatient (CLI) | payer MEDICARE, OTHER ==
--- NOTE | 2024-09-22 12:06 | NM ---
EXAMINATION TYPE: NM gastric emptying static DATE OF EXAM: 09/22/2024 COMPARISON: NONE CLINICAL INDICATION: Female, 54 years old with history of R11.2 Nausea and vomiting; Following administration of 2 mCi Tc 99m Sulfur Colloid with 4oz egg, 1 piece toast butter/jam, 6 oz water, projection images of the abdomen were obtained 10 minutes post ingestion. Patient Emptying Values 1 Hour 24 % 2 Hours 30 % 3 Hours 66 % 4 Hours 83 % IMPRESSION: Gastric emptying: Some delay in emptying particularly at 2 hours consistent with gastroparesis. Gastric emptying normal percentage values: 30 minutes: <70% of retention (> 30% emptying) suggests abnormally fast emptying. 60 minutes: <90% retention (>10% emptying) is normal; less than 30% retention (>70% emptying) suggest s abnormally rapid emptying. 90 minutes: <65% retention (> 35% emptying) is normal. 120 minutes: <60% retention (> 40% emptying) is normal. 180 minutes: <30% retention (> 70% emptying) is normal. Gastric emptying T-1/2: Solid: The normal range is 60-105 minutes Liquid only: Normal range is 10-45 minutes. Liquid only-children: At 60 minutes, normal range is 44-58 % . Liquid only-infants: At 60 minutes, normal range is 32-64 %. Additional references: Gastric Emptying Scintigraphy [email or web address] [facility], , 09/22/2024 12:04 PM
== END | disposition home or self-care (01) ==
LOC: RADNMMAIN 06:53
PROVIDERS: ATTEND Internal Medicine
DX: K31.84 Gastroparesis (principal)
CPT/HCPCS: 78264; A9541

== ENCOUNTER 2024-11-23 05:59 | Day surgery (SDC) | payer MEDICARE, OTHER ==
[2024-11-23 06:44] VITALS: RESP 16; TEMP 98.9
[2024-11-23 06:44] LABS: Glucose,Whole Blood 122 mg/dL (70-110)
[2024-11-23] MEDS: LACTATED RINGERS 1,000 ML IV SCH (06:44)
[2024-11-23] MEDS ORDERED: PROPOFOL 10 MG/ML 20 ML VIAL IV ONE (06:58)
--- NOTE | 2024-11-23 07:28 | P.PCN ---
Date of Procedure: 11/23/24 Procedure(s) Performed: Brief history: Patient is a pleasant 54-year-old white female scheduled for an elective upper endoscopy as well as colonoscopy as a part of evaluation of intermittent episodes of nausea vomiting for the last several years duration. Recent gastric emptying scan revealed evidence of gastroparesis. She also has history of gastric bypass surgery 5 years ago. Procedure performed: Esophagogastroduodenoscopy with biopsy Colonoscopy Preoperative diagnosis: Intermittent episodes of nausea vomiting and history of poor diabetic gastroparesis Screening for colon cancer Anesthesia: MAC Procedure: After informed consent was obtained from the patient was brought into the endoscopy unit and IV sedation was administered by anesthesia under continuous monitoring. Initially upper endoscopy was done. The Olympus GF 160 video endoscope was inserted inserted into the mouth and esophagus intubated without any difficulty and was gradually advanced into the stomach. There was evidence of gastric bypass surgery with Pako-en-Y anastomosis that appeared normal. The scope was advanced to the afferent and improvement loops that appeared normal. At this time the scope was withdrawn to the gastric pouch and there was evidence of mild gastritis. On retroflexion the cardia appeared normal. The scope was then withdrawn into the esophagus. The GE junction was located at 40 cm to the incisors. It appeared regular with no erythema erosions or ulcerations. Rest of the esophagus appeared normal. Biopsies were done from the distal esophagus. Patient tolerated the procedure well. At this time the patient continued to remain sedation. Initial digital rectal examination was normal. Olympus CF 160 video colonoscope was then inserted into the rectum and gradually advanced to the cecum with moderate difficulty. Careful examination was performed as the scope was gradually being withdrawn. The prep was excellent. The cecum, ascending colon, transverse colon, descending colon, sigmoid colon and rectum appeared normal. Retroflexion was performed in the rectum and no lesions were noted. Patient tolerated the procedure well. Impression: 1. Upper endoscopy revealed mild antral gastritis of the gastric pouch and evidence of Pako-en-Y anastomosis with normal effort of the food loops. 2. Colonoscopy was within normal limits with no evidence of colorectal neoplasia Recommendations: Findings of this examination were discussed with the patient as well as her family. She was advised to follow-up with the biopsy results. Continue current medications. Recommended repeat colonoscopy in 10 years.
[2024-11-23 07:30] VITALS: PULSE 74
[2024-11-23 07:42] LABS: Glucose,Whole Blood 107 mg/dL (70-110)
[2024-11-23 07:45] VITALS: BP 122/72
== END 2024-11-23 08:21 | disposition home or self-care (01) ==
LOC: ORWHC2ENDO 05:59
PROVIDERS: ATTEND Internal Medicine Gastroenterology
DX: Z12.11 Encounter for screening for malignant neoplasm of colon (principal); K29.50 Unspecified chronic gastritis without bleeding; K21.00 Gastro-esophageal reflux disease with esophagitis, without bleeding; K31.84 Gastroparesis; E11.43 Type 2 diabetes mellitus with diabetic autonomic (poly)neuropathy; I25.2 Old myocardial infarction; E78.5 Hyperlipidemia, unspecified; G47.33 Obstructive sleep apnea (adult) (pediatric); I12.9 Hypertensive chronic kidney disease with stage 1 through stage 4 chronic kidney disease, or unspecified chronic kidney disease; E11.22 Type 2 diabetes mellitus with diabetic chronic kidney disease; N18.4 Chronic kidney disease, stage 4 (severe); F41.9 Anxiety disorder, unspecified; F32.A Depression, unspecified; Z79.4 Long term (current) use of insulin; Z79.899 Other long term (current) drug therapy; Z91.040 Latex allergy status; Z98.84 Bariatric surgery status
CPT/HCPCS: 88305; 43239; J2704; G0121

== ENCOUNTER → 2024-11-24 | Outpatient (CLI) | payer MEDICARE, OTHER ==
[2024-11-24 15:32] LABS: ALT 29 U/L (8-44); AST 31 U/L (13-35); Albumin 3.6 g/dL (3.8-4.9); Albumin/Globulin Ratio 1.57 Ratio (1.60-3.17); Alkaline Phosphatase 99 U/L (41-126); BUN/Creat Ratio 12.29 Ratio (12.00-20.00); Blood Urea Nitrogen 17.2 mg/dL (9.0-27.0); Carbon Dioxide 26.1 mmol/L (21.6-31.8); Chloride 107 mmol/L (96-109); Chol/HDL Ratio 2.07 Ratio; Globulin 2.3 g/dL (1.6-3.3); Glucose 95 mg/dL (70-110); LDL Cholesterol,Calculated 53.7 mg/dL (0.0-131.0); Magnesium 1.5 mg/dL (1.5-2.4); Phosphorus 3.1 mg/dL (2.4-5.1); Potassium 4.4 mmol/L (3.5-5.5); Sodium 141 mmol/L (135-145); Total Bilirubin 0.7 mg/dL (0.3-1.2); Total Protein 5.9 g/dL (6.2-8.2); VLDL Calculation 11.54 mg/dL (5.00-40.00)
[2024-11-24 16:02] LABS: HCT 37.3 % (37.2-46.3); HGB 11.4 g/dL (12.0-15.0); MCH 28.5 pg (27.0-32.0); MCHC 30.6 g/dL (32.0-37.0); MCV 93.3 FL (80.0-97.0); Mean Platelet Volume 11.8 FL (9.5-12.2); NRBC Per 100 WBC 0 X 10*3/uL (0.00-0.01); Platelet Count 180 X 10*3/uL (140-440); RDW 13.6 % (11.5-14.5); WBC 4.42 X 10*3/uL (4.50-10.00)
[2024-11-24 16:24] LABS: Appearance,Urine Clear (Clear); Bilirubin,Urine Negative (Negative); Blood,Urine Negative (Negative); Color,Urine Yellow (Yellow); Ketones,Urine Negative (Negative); Nitrite,Urine Negative (Negative)
[2024-11-24 17:40] LABS: Urine Creatinine 72.2 mg/dL (28.0-217.0)
== END | disposition home or self-care (01) ==
LOC: LABWHC1 10:29
PROVIDERS: ATTEND Internal Medicine
DX: E10.65 Type 1 diabetes mellitus with hyperglycemia (principal); N18.4 Chronic kidney disease, stage 4 (severe)
CPT/HCPCS: 36415; 80053; 80061; 81003; 82043; 82570; 83036; 83735; 84100; 85027

== ENCOUNTER 2024-11-26 18:30 | Inpatient (IN) | payer MEDICARE, OTHER ==
--- NOTE | 2024-11-26 19:19 | ED ---
General Adult HPI - General Chief complaint: Abdominal Pain Stated complaint: Abd Pain Time Seen by Provider: 11/26/24 19:05 Source: patient, RN notes reviewed Mode of arrival: EMS Limitations: no limitations - History of Present Illness Initial comments: 54-year-old female presents to the emergency department for evaluation of right upper abdominal pain. Patient states that this started around 2:30 PM today. She notes that the pain started in her back and is radiating to the her upper abdomen. She states that it is a stabbing pain. She reports a prior gastric bypass. She also notes a history of gastroparesis and states that this pain feels similar to when she had an episode before. She admits to nausea with vomiting. Reports normal bowel movements. Last bowel movement was this morning. She was taking Tylenol at home without relief. - Related Data Home Medications Medication Instructions Recorded Confirmed Insulin Aspart (For Pump) [NovoLOG 0.01 unit SQ-PUMP CONTINUOUS 01/09/21 11/19/24 (For Pump)] Atorvastatin [Lipitor] 40 mg PO HS 02/17/21 11/19/24 Furosemide [Lasix] 40 mg PO MOWEFR 02/17/21 11/19/24 Omeprazole 40 mg PO DAILY 02/17/21 11/19/24 calcitrioL 0.5 mcg PO Q2D 02/17/21 11/19/24 Secukinumab [Cosentyx Sensoready 150 mg SQ Q30D 06/23/24 11/19/24 Pen] Suvorexant [Belsomra] 20 mg PO HS 06/23/24 11/19/24 Vortioxetine Hydrobromide 20 mg PO DAILY 06/23/24 11/19/24 [Trintellix] Metoprolol Succinate (ER) [Toprol 25 mg PO HS 08/27/24 11/19/24 XL] Nystatin 100,000 Unit/gm Powd 1 applic TOPICAL BID PRN 08/27/24 11/19/24 [Mycostatin Powder] busPIRone HCL 15 mg PO BID 08/27/24 11/19/24 lisinopriL [Zestril] 2.5 mg PO Q2D 08/27/24 11/19/24 OXcarbazepine 150 mg PO HS 11/19/24 11/19/24 Allergies Allergy/AdvReac Type Severity Reaction Status Date / Time adhesive Allergy Intermediate Rash/Hives Verified 11/26/24 18:58 latex Allergy Intermediate Rash/Hives Verified 11/26/24 18:58 Review of Systems ROS Statement: Those systems with pertinent positive or pertinent negative responses have been documented in the HPI. ROS Other: All systems not noted in ROS Statement are negative. Past Medical History Past Medical History: Diabetes Mellitus, Hyperlipidemia, Hypertension, Renal Disease, Sleep Apnea/CPAP/BIPAP Additional Past Medical History / Comment(s): seasonal allergies, STAGE 4 KIDNEY FAILURE, CHRONIC BACK PAIN, does not use CPAP Last Myocardial Infarction Date:: 2013 History of Any Multi-Drug Resistant Organisms: None Reported Past Surgical History: Bariatric Surgery, Cardiac Valve Replacement, Heart Catheterization Additional Past Surgical History / Comment(s): Aortic valve replacement 2013, gastric bypass 06-07-19 Past Anesthesia/Blood Transfusion Reactions: No Reported Reaction Additional Past Anesthesia/Blood Transfusion Reaction / Comment(s): NO blood transfusion to date Past Psychological History: Anxiety, Depression Smoking Status: Former smoker Past Alcohol Use History: None Reported Past Drug Use History: None Reported - Past Family History Mother Family Medical History: Cancer, Coronary Artery Disease (CAD), Hypertension Additional Family Medical History / Comment(s): vulva cancer Father Family Medical History: Dementia, Hypertension, Neurologic Disorder Additional Family Medical History / Comment(s): at age 69 from dementia/parkinsons Sister(s) Family Medical History: Hypertension General Exam Limitations: no limitations General appearance: alert, in no apparent distress Head exam: Present: atraumatic, normocephalic, normal inspection Eye exam: Present: normal appearance, PERRL, EOMI. Absent: scleral icterus, conjunctival injection, periorbital swelling ENT exam: Present: normal exam, mucous membranes moist Neck exam: Present: normal inspection. Absent: tenderness, meningismus, lymphadenopathy Respiratory exam: Present: normal lung sounds bilaterally. Absent: respiratory distress, wheezes, rales, rhonchi, stridor Cardiovascular Exam: Present: regular rate, normal rhythm, normal heart sounds. Absent: systolic murmur, diastolic murmur, rubs, gallop, clicks GI/Abdominal exam: Present: tenderness (Right upper), organomegaly Extremities exam: Present: normal inspection, full ROM, normal capillary refill. Absent: tenderness, pedal edema, joint swelling, calf tenderness Back exam: Present: normal inspection Neurological exam: Present: alert, oriented X3 Psychiatric exam: Present: agitated Skin exam: Present: warm, dry, intact, normal color. Absent: rash Course Vital Signs 11/26/24 11/26/24 11/26/24 18:55 19:41 20:34 Temperature 97.7 F Pulse Rate 76 81 81 Respiratory 22 22 16 Rate Blood Pressure 165/88 175/91 141/78 O2 Sat by Pulse 100 98 95 Oximetry 11/26/24 11/26/24 21:48 23:15 Temperature Pulse Rate 65 Respiratory 16 Rate Blood Pressure 155/89 148/88 O2 Sat by Pulse 96 96 Oximetry Medical Decision Making - Medical Decision Making Was pt. sent in by a medical professional or institution (, PA, MARKER MACHINE ATTENDANT, urgent care, hospital, or retirement...) When possible be specific @ -No Did you speak to anyone other than the patient for history (EMS, parent, family, police, friend...)? What history was obtained from this source @ -No Did you review nursing and triage notes (agree or disagree)? Why? @ -I reviewed and agree with nursing and triage notes Were old charts reviewed (outside hosp., previous admission, EMS record, old EKG, old radiological studies, urgent care reports/EKG's, retirement records)? Report findings @ -No old charts were reviewed Differential Diagnosis (chest pain, altered mental status, abdominal pain women, abdominal pain men, vaginal bleeding, weakness, fever, dyspnea, syncope, headache, dizziness, GI bleed, back pain, seizure, CVA, palpatations, mental health, musculoskeletal)? @ -Differential Abdominal Pain Women: Appendicitis, Cholecystitis, diverticulosis, ischemic bowel, pancreatitis, hepatitis, UTI, gastroenteritis, AAA, incarcerated hernia, bowel obstruction, constipation, inflammatory bowel, hepatitis, peptic ulcer disease, splenic infarction, perforated viscus, vulvitis, ovarian torsion, PID, kidney stone, placenta abruption, this is not meant to be an all-inclusive list EKG interpreted by me (3pts min.). @ -EKG at X-rays interpreted by me (1pt min.). @ -None done CT interpreted by me (1pt min.). @ -CT abdomen pelvis shows hydropic gallbladderWith cholelithiasis correlate for symptoms of cystic duct obstruction/cholecystitis small bowel feces in the terminal ileus, left nonobstructing renal calculus U/S interpreted by me (1pt. min.). @ -Ultrasound of the gallbladder shows Acute cholecystitis with hydropic gallbladder, positive sonographic Yun sign, cholelithiasis What testing was considered but not performed or refused? (CT, X-rays, U/S, la bs)? Why? @ -None What meds were considered but not given or refused? Why? @ -None Did you discuss the management of the patient with other professionals (professionals i.e. DrSandra, PA, MARKER MACHINE ATTENDANT, lab, RT, psych nurse, social media designer, irrigation pump installer, teacher, public safety officer, medical case worker)? Give summary @ -Case discussed with Dr. Cole who is accepting of the admission n.p.o. after midnight Was smoking cessation discussed for >3mins.? @ -No Was critical care preformed (if so, how long)? @ -No Were there social determinants of health that impacted care today? How? (Homelessness, low income, unemployed, alcoholism, drug addiction, transportation, low edu. Level, literacy, decrease access to med. care, intermediate, rehab)? @ -No Was there de-escalation of care discussed even if they declined (Discuss DNR or withdrawal of care, Hospice)? DNR status @ -No What co-morbidities impacted this encounter? (DM, HTN, Smoking, COPD, CAD, Cancer, CVA, ARF, Chemo, Hep., AIDS, mental health diagnosis, sleep apnea, morbid obesity)? @ -None Was patient admitted / discharged? Hospital course, mention meds given and route, prescriptions, significant lab abnormalities, going to OR and other pertinent info. @ -AdmittedPatient presented to the emergency department for evaluation of right upper abdominal pain. Laboratory studies obtained revealing no significant leukocytosis, hemoglobin 13.0; CMP shows creatinine of 1.47, GFR 40 no significant lactic acidosis. Bilirubin within normal limits at 1.3 liver en zymes are essentially unremarkable, no evidence of pancreatitis. UA shows trace protein, trace ketones. CT of the abdomen pelvis was obtained revealing a hydropic gallbladder with gallstones. Ultrasound of the gallbladder was also obtained which reveals signs of acute cholecystitis. Because of these findings the case was discussed with the surgery, Dr. Cole. The patient will be admitted to the hospital. She was started on IV antibiotics. She is made n.p.o. after midnight. Patient was advised on findings and plan. Case discussed with Dr. Daily. Undiagnosed new problem with uncertain prognosis? @ -No Drug Therapy requiring intensive monitoring for toxicity (Heparin, Nitro, Insulin, Cardizem)? @ -No Were any procedures done? @ -No Diagnosis/symptom? @ -Cholecystitis Acute, or Chronic, or Acute on Chronic? @ -Acute Uncomplicated (without systemic symptoms) or Complicated (systemic symptoms)? @ -uncomplicated Side effects of treatment? @ -No Exacerbation, Progression, or Severe Exacerbation? @ -No Poses a threat to life or bodily function? How? (Chest pain, [place], [place], pneumonia, PE, COPD, DKA, ARF, appy, cholecystitis, CVA, Diverticulitis, Homicidal, Suici lucinda, threat to staff... and all critical care pts) @ -No - Lab Data Result diagrams: 11/26/24 19:32 11/26/24 19:32 Lab Results 11/26/24 11/26/24 11/26/24 Range/Units 19:32 19:32 19:32 WBC 8.6 (3.8-10.6) k/uL RBC 4.60 (3.80-5.40) m/uL Hgb 13.0 (11.4-16.0) gm/dL Hct 40.6 (34.0-46.0) % MCV 88.2 (80.0-100.0) fL MCH 28.3 (25.0-35.0) pg MCHC 32.1 (31.0-37.0) g/dL RDW 13.3 (11.5-15.5) % Plt Count 172 (150-450) k/uL MPV 8.5 Neutrophils % 82 % Lymphocytes % 11 % Monocytes % 4 % Eosinophils % 2 % Basophils % 0 % Neutrophils # 7.1 (1.3-7.7) k/uL Lymphocytes # 0.9 L (1.0-4.8) k/uL Monocytes # 0.3 (0-1.0) k/uL Eosinophils # 0.1 (0-0.7) k/uL Basophils # 0.0 (0-0.2) k/uL Sodium 138 (137-145) mmol/L Potassium 4.1 (3.5-5.1) mmol/L Chloride 103 (98-107) mmol/L Carbon Dioxide 23 (22-30) mmol/L Anion Gap 12 mmol/L BUN 18 H (7-17) mg/dL Creatinine 1.47 H (0.52-1.04) mg/dL Est GFR (CKD-EPI)AfAm 46 (>60 ml/min/1.73 sqM) Est GFR (CKD-EPI)NonAf 40 (>60 ml/min/1.73 sqM) Glucose 124 H (74-99) mg/dL Plasma Lactic Acid Crow 1.8 (0.7-2.0) mmol/L Calcium 10.5 H (8.4-10.2) mg/dL Total Bilirubin 1.3 (0.2-1.3) mg/dL AST 37 H (14-36) U/L ALT 33 (4-34) U/L Alkaline Phosphatase 126 (38-126) U/L Total Protein 7.1 (6.3-8.2) g/dL Albumin 4.5 (3.5-5.0) g/dL Amylase 57 (30-110) U/L Lipase 197 (23-300) U/L Urine Color Urine Appearance (Clear) Urine pH (5.0-8.0) Ur Specific [place] (1.001-1.035) Urine Protein (Negative) Urine Glucose (UA) (Negative) Urine Ketones (Negative) Urine Blood (Negative) Urine Nitrite (Negative) Urine Bilirubin (Negative) Urine Urobilinogen (<2.0) mg/dL Ur Leukocyte Esterase (Negative) 11/26/24 Range/Units 21:39 WBC (3.8-10.6) k/uL RBC (3.80-5.40) m/uL Hgb (11.4-16.0) gm/dL Hct (34.0-46.0) % MCV (80.0-100.0) fL MCH (25.0-35.0) pg MCHC (31.0-37.0) g/dL RDW (11.5-15.5) % Plt Count (150-450) k/uL MPV Neutrophils % % Lymphocytes % % Monocytes % % Eosinophils % % Basophils % % Neutrophils # (1.3-7.7) k/uL Lymphocytes # (1.0-4.8) k/uL Monocytes # (0-1.0) k/uL Eosinophils # (0-0.7) k/uL Basophils # (0-0.2) k/uL Sodium (137-145) mmol/L Potassium (3.5-5.1) mmol/L Chloride (98-107) mmol/L Carbon Dioxide (22-30) mmol/L Anion Gap mmol/L BUN (7-17) mg/dL Creatinine (0.52-1.04) mg/dL Est GFR (CKD-EPI)AfAm (>60 ml/min/1.73 sqM) Est GFR (CKD-EPI)NonAf (>60 ml/min/1.73 sqM) Glucose (74-99) mg/dL Plasma Lactic Acid Crow (0.7-2.0) mmol/L Calcium (8.4-10.2) mg/dL Total Bilirubin (0.2-1.3) mg/dL AST (14-36) U/L ALT (4-34) U/L Alkaline Phosphatase (38-126) U/L Total Protein (6.3-8.2) g/dL Albumin (3.5-5.0) g/dL Amylase (30-110) U/L Lipase (23-300) U/L Urine Color Colorless Urine Appearance Clear (Clear) Urine pH 7.0 (5.0-8.0) Ur Specific [place] 1.009 (1.001-1.035) Urine Protein Trace H (Negative) Urine Glucose (UA) Negative (Negative) Urine Ketones Trace H (Negative) Urine Blood Negative (Negative) Urine Nitrite Negative (Negative) Urine Bilirubin Negative (Negative) Urine Urobilinogen <2.0 (<2.0) mg/dL Ur Leukocyte Esterase Negative (Negative) Disposition Clinical Impression: Acute cholecystitis Disposition: ADMITTED IP TO THIS [facility] Condition: Stable Is patient prescribed a controlled substance at d/c from ED?: No
[2024-11-26] MEDS: ONDANSETRON 4 MG/2 ML VIAL IVP STA (19:35)
[2024-11-26] MEDS: HYDROmorphone 0.5 MG/0.5 ML SYRINGE IM STA (19:36)
[2024-11-26] MEDS: SODIUM CHLORIDE 0.9% 1,000 ML IV ONE (19:40)
[2024-11-26 19:44] LABS: Basophils % (A) 0 %; Eosinophils # (A) 0.1 k/uL (0-0.7); Eosinophils % (A) 2 %; HCT 40.6 % (34.0-46.0); Lymphocytes # (A) 0.9 k/uL (1.0-4.8); Lymphocytes % (A) 11 %; MCH 28.3 pg (25.0-35.0); MCHC 32.1 g/dL (31.0-37.0); MCV 88.2 fL (80.0-100.0); Mean Platelet Volume 8.5; Monocytes # (A) 0.3 k/uL (0-1.0); Monocytes % (A) 4 %; Neutrophils # (A) 7.1 k/uL (1.3-7.7); Neutrophils % (A) 82 %; Platelet Count 172 k/uL (150-450); RDW 13.3 % (11.5-15.5); WBC 8.6 k/uL (3.8-10.6)
[2024-11-26 19:58] LABS: ALT 33 U/L (4-34); AST 37 U/L (14-36); African American GFR (CKD) 46 (>60 ml/min/1.73 sqM); Albumin 4.5 g/dL (3.5-5.0); Alkaline Phosphatase 126 U/L (38-126); Amylase 57 U/L (30-110); Anion Gap 12 mmol/L; Blood Urea Nitrogen 18 mg/dL (7-17); Calcium 10.5 mg/dL (8.4-10.2); Carbon Dioxide 23 mmol/L (22-30); Chloride 103 mmol/L (98-107); Glucose 124 mg/dL (74-99); Lipase 197 U/L (23-300); Non-African American GFR(CKD) 40 (>60 ml/min/1.73 sqM); Potassium 4.1 mmol/L (3.5-5.1); Sodium 138 mmol/L (137-145); Total Bilirubin 1.3 mg/dL (0.2-1.3); Total Protein 7.1 g/dL (6.3-8.2)
--- NOTE | 2024-11-26 20:52 | CT ---
EXAMINATION TYPE: CT abdomen pelvis wo con DATE OF EXAM: 11/26/2024 8:30 PM COMPARISON: 03/03/2018. CLINICAL INDICATION: Female, 54 years old with history of abd pain; RLQ abdominal pain starting aroun d 1500, patient reports history of gastroperisis TECHNIQUE: Axial CT abdomen pelvis wo con;Sagittal and coronal reformats were created on a separate workstation. Contrast used: mL of , (none if empty) Oral contrast used: without Oral Contrast (none if empty) CT DLP: 649.9 mGycm, Automated exposure control for dose reduction was used. FINDINGS: LOWER CHEST: Unremarkable ABDOMEN LIVER: Unremarkable GALLBLADDER AND BILE DUCTS: Hydropic gallbladder with gallstones. Gallbladder measures up tor 13.1 x 5.3 cm PANCREAS: Unremarkable. SPLEEN: Unremarkable. ADRENAL GLANDS: Unremarkable. KIDNEYS AND URETERS: No obstructing calculi bilaterally measuring up to 6 m on the left and 3 mm on t he right may actually be a vascular calcification. PELVIS BLADDER: No evidence for wall thickening or mass given limitations of exam. REPRODUCTIVE: Unremarkable. ABDOMEN & PELVIS STOMACH AND BOWEL: No evidence of bowel obstruction. Postsurgical changes to the bowel. Lungs. No silvana dence for bowel obstruction. The appendix is not definitively visualized. There is small bowel feces in the terminal ileum. PERITONEUM/RETROPERITONEUM: No evidence of pneumoperitoneum or free fluid. VASCULATURE: No evidence of aortic aneurysm. MUSCULOSKELETAL: No acute osseous abnormalities. Mild disc degeneration changes are present throughou t the thoracolumbar spine. Grade 1 anterolisthesis of L3 on L4. LYMPH NODES: No gross evidence for lymphadenopathy. SOFT TISSUE/ABDOMINAL WALL: Unremarkable IMPRESSION: Limited exam without contrast. 1. Hydropic gallbladder with cholelithiasis correlate for signs and symptoms of cystic duct obstruct ion/cholecystitis. No other acute process within the visualized in the right lower quadrant. 2. Small bowel feces in the terminal ileum. Correlate for fecal stasis. 3. The appendix is not definitively visualized. 4. Left nonobstructing calculus. [facility], , 11/26/2024 8:50 PM
--- NOTE | 2024-11-26 21:30 | US ---
EXAMINATION TYPE: US gallbladder DATE OF EXAM: 11/26/2024 COMPARISON: CT: Today CLINICAL INDICATION: Female, 54 years old with history of RUQ pain; RUQ pain x 1 day TECHNIQUE: Grayscale and color Doppler imaging of the right upper quadrant was performed. FINDINGS: EXAM MEASUREMENTS: Liver Length: 15.2 cm Gallbladder Wall: 0.67 cm CBD: 0.39 cm Right Kidney: 10.9 x 5.7 x 4.9 cm [employer] MANAGER NOTES: Pancreas: wnl Liver: wnl Gallbladder: hydropic with gallstones and pericholecystic fluid seen Evidence for sonographic Yun's sign: Yes CBD: wnl Right Kidney: wnl IMPRESSION: Acute cholecystitis with hydropic gallbladder, positive sonographic Yun sign and cholelithiasis. S urgical consultation recommended. [facility], , 11/26/2024 9:28 PM
[2024-11-26] MEDS: HYDROmorphone 1 MG/ML 1 ML SYRINGE IVP STA (21:45)
[2024-11-26] MEDS ORDERED: NALOXONE 0.4 MG/ML 1 ML VIAL IV PRN (21:53)
[2024-11-26 22:17] LABS: Appearance,Urine Clear (Clear); Bilirubin,Urine Negative (Negative); Blood,Urine Negative (Negative); Color,Urine Colorless; Glucose,Urine (UA) Negative (Negative); Ketones,Urine Trace (Negative); Leukocyte Esterase,Urine Negative (Negative); Nitrite,Urine Negative (Negative); Protein,Urine Trace (Negative); Specific Gravity,Urine 1.009 (1.001-1.035); Urobilinogen,Urine <2.0 mg/dL (<2.0)
[2024-11-26] MEDS: PIPERACILLIN-TAZOBACTAM 3.375 GM in SODIUM CHLORIDE 0.9% 100 ML IVPB STA (22:17)
[2024-11-26] MEDS: SODIUM CHLORIDE 0.9% 1,000 ML IV SCH (22:40)
[2024-11-27] MEDS: ONDANSETRON 4 MG/2 ML VIAL IVP PRN (00:01)
[2024-11-27] MEDS: HYDROmorphone 1 MG/ML 1 ML SYRINGE IVP PRN (00:55)
[2024-11-27] MEDS: PIPERACILLIN-TAZOBACTAM 3.375 GM in SODIUM CHLORIDE 0.9% 100 ML IVPB SCH (05:56)
[2024-11-27 06:54] LABS: Glucose,Whole Blood 112 mg/dL (70-110)
[2024-11-27 07:42] LABS: ALT 215 U/L (4-34); AST 342 U/L (14-36); African American GFR (CKD) 45 (>60 ml/min/1.73 sqM); Albumin 3.2 g/dL (3.5-5.0); Albumin/Globulin Ratio 1.4; Alkaline Phosphatase 92 U/L (38-126); Anion Gap 6 mmol/L; Blood Urea Nitrogen 19 mg/dL (7-17); Calcium 9.5 mg/dL (8.4-10.2); Carbon Dioxide 26 mmol/L (22-30); Chloride 105 mmol/L (98-107); Globulin 2.3 g/dL; Glucose 107 mg/dL (74-99); Non-African American GFR(CKD) 39 (>60 ml/min/1.73 sqM); Potassium 3.6 mmol/L (3.5-5.1); Sodium 137 mmol/L (137-145); Total Bilirubin 1.1 mg/dL (0.2-1.3); Total Protein 5.5 g/dL (6.3-8.2)
[2024-11-27] MEDS ORDERED: NYSTATIN 100,000 UNIT/GM POWD 15 GM TOPICAL PRN (07:49)
[2024-11-27] MEDS ORDERED: DEXTROSE 50% SYRINGE 50 ML IVP PRN ×2 (07:51)
[2024-11-27 07:56] LABS: Basophils % (A) 0 %; Eosinophils % (A) 0 %; HCT 37.5 % (34.0-46.0); HGB 12.1 gm/dL (11.4-16.0); Hypochromasia Slight; Lymphocytes # (A) 0.4 k/uL (1.0-4.8); Lymphocytes % (A) 4 %; MCH 29.1 pg (25.0-35.0); MCHC 32.4 g/dL (31.0-37.0); MCV 90.1 fL (80.0-100.0); Mean Platelet Volume 8.6; Monocytes # (A) 0.5 k/uL (0-1.0); Monocytes % (A) 5 %; Neutrophils # (A) 8.3 k/uL (1.3-7.7); Neutrophils % (A) 90 %; Platelet Count 120 k/uL (150-450); RBC 4.17 m/uL (3.80-5.40); RDW 13.4 % (11.5-15.5); WBC 9.3 k/uL (3.8-10.6)
[2024-11-27] MEDS ORDERED: NON FORMULARY DRUG (Insulin Aspart (For Pump) [Novolog (For Pump)] 100 UNIT/ML Vial) MISCELLANE PRN (08:00)
--- NOTE | 2024-11-27 09:44 | P.CONS ---
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 She presented to the emergency department on 11/26/2024 with a chief complaint of right upper quadrant abdominal pain. Upon arrival to our facility, patient underwent evaluation in the emergency department. Vital signs upon arrival show blood pressure 165/88, heart rate 76, respiratory rate 22, temp 97.7 F, and SpO2 of 100% on room air. EKG completed showing normal sinus rhythm at 69 bpm with nonspecific T wave abnormalities in lateral leads V5 and V6.. Gallbladder ultrasound completed showing acute cholecystitis with hydropic gallbladder and cholelithiasis. Labs completed and reviewed. CBC unremarkable. BMP showing elevated BUN of 18, creatinine of 1.47, GFR 40 consistent with known chronic kidney disease with baseline creatinine of 1.9. Blood glucose 124. Liver profile showing elevated AST of 37. Amylase and lipase normal findings. Urinalysis negative for infection. CT abdomen and pelvis without contrast was completed showing hydropic gallbladder with cholelithiasis and small bowel feces in the terminal ileum concerning for fecal stasis, nonvisualized appendix and left nonobstructive renal calculus. Blood culture sent to lab for analysis. Patient was started on IV antibiotics with Zosyn and admitted under general surgery team. We were consulted for medical management and preoperative clearance. Patient seen and fully evaluated in room 475. She currently reports moderate abdominal pain and an episode of nausea this morning but denies any further episodes of vomiting. Reports pain medication and Zofran working full symptoms. Patient denies having any chest pain, palpitations, shortness of breath, or experiencing any numbness/tingling/weakness/swelling in her extremities. Upon physical examination and evaluation of patient's murmur patient reports bovine aortic valve replacement in 2013 and states that she has not followed with a solar photovoltaic designer. Review of systems: Pertinent positives and negatives as discussed in HPI, a complete review of systems was performed and all other systems are negative. Physical exam: Vital signs reviewed and stable. General: Nontoxic, no distress and appears stated age. Derm: Skin warm and dry, normal coloration for ethnicity. Head: Atraumatic, normocephalic and symmetric. Eyes: EOM's intact, no lid lag, and anicteric sclera Mouth: no lip lesions, mucus membranes moist Cardiovascular: regular rate and rhythm with normal S1S2, stage IV systolic murmur, positive posterior tibial pulses bilaterally, and cap refill < 2 seconds. Lungs: Respirations even, regular, and unlabored on room air. Lungs CTA bilaterally, no rhonchi, no rales, no wheezing, and no accessory muscle usage. Abdominal: soft, tenderness upon palpation right upper quadrant, epigastric region, and umbilical region. Ext: ROM intact. No gross muscle atrophy, no edema, no contractures Neuro: Speech clear, face symmetrical and CN II-XII grossly intact with no noted focal neuro deficits Psych: Alert and oriented to person, place, time, and situation. Appropriate and pleasant affect. Assessment and Plan of Care: Presurgical clearance -Cardiac risk score is 1 point placing patient at a 6.0% risk of major cardiac event. -METS score > 4. -NSQIP surgical risk score calculated. Patient is at above average risk at 2.5% with average risk being 1.8% for serious complications, above average risk at 0.2% with average risk being 0.0% for cardiac complications, and an average risk of at 0.0% with average risk being 0.0%. Patient is at an increased risk to undergo surgical procedure secondary to her insulin-dependent diabetes mellitus, hypertension, and history of bovine aortic valve replacement. Discussed with general surgeon and anesthesiologist, will obtain a STAT echocardiogram to evaluate aortic valve prior to patient undergoing anesthesia. Order placed for stat echocardiogram and discussed with solar photovoltaic designer who will read echo once completed. -Pending echocardiogram results, patient is otherwise medically optimized to undergo planned laparoscopic cholecystectomy. Her blood glucose levels are c ontrolled and currently 112, renal function is improved from baseline with BUN of 19, creatinine 1.51 and GFR of 39 with baseline creatinine of 1.9. Patient does have significant murmur, awaiting echocardiogram report and further recommendations from solar photovoltaic designer. Acute cholecystitis Transaminitis, secondary to above -Continue IV antibiotics with Zosyn 0.375 g every 8 hours. -Continue gentle IV fluid hydration with 0.9% normal saline at 100 cc/h. -Continue symptomatic care and pain management. -Hold atorvastatin secondary to transaminitis continue to monitor liver function closely with repeat a.m. labs. History of bovine aortic valve replacement 2013 Hypertension Hyperlipidemia -Echocardiogram ordered to evaluate aortic valve patient has stage IV systolic murmur with history of bovine aortic valve replacement in 2013 -Continue daily medication regimen with metoprolol 25 mg nightly and lisinopril 2.5 mg every other day. -Atorvastatin held secondary to acute transaminitis Insulin-dependent diabetes mellitus -Patient placed on blood glucose checks every 6 hours and to continue personal insulin pump. Currently blood glucose levels are controlled. Data and imaging reviewed: As stated above in HPI. Repeat morning labs completed. CBC showing mild thrombocytopenia with platelet count of 120 otherwise normal findings. BMP stable with patient's know n CKD with BUN 19, creatinine 1.51, GFR of 39. Blood glucose was 107. Liver profile showing normal total bili of 1.1 but elevated AST of 342 and ALT of 215 with normal alkaline phosphatase of 92. Vital signs reviewed. Blood pressure 102/60, heart rate 106, respiratory rate 18, temp 98.9 F, and SpO2 of 92% on room air Thank you for allowing us to participate in the care of this pleasant patient. Do not hesitate to contact us with questions. Someone can be reached from the [facility] hospitalist group all hours of the day at [phone] or via [employer]. Patient was seen independently by Nurse Practitioner. This document was prepared using [employer] dictation software. Please allow for errors in seo analyst while rare they do occur. Jerman Quiros NP rendered care for this patient independently, reviewed the findings and plan as documented in the note above and agree with plan. I did not physically speak with or examine the patient on this date. Past Medical History Past Medical History: Diabetes Mellitus, Hyperlipidemia, Hypertension, Renal Disease, Sleep Apnea/CPAP/BIPAP Additional Past Medical History / Comment(s): seasonal allergies, STAGE 4 KIDNEY FAILURE, CHRONIC BACK PAIN, does not use CPAP Last Myocardial Infarction Date:: 2013 History of Any Multi-Drug Resistant Organisms: None Reported Past Surgical History: Bariatric Surgery, Cardiac Valve Replacement, Heart Catheterization Additional Past Surgical History / Comment(s): Aortic valve replacement 2013, gastric bypass 10-7-19 Past Anesthesia/Blood Transfusion Reactions: No Reported Reaction Additional Past Anesthesia/Blood Transfusion Reaction / Comm: NO blood transfusion to date Past Psychological History: Anxiety, Depression Smoking Status: Former smoker Past Alcohol Use History: None Reported Past Drug Use History: None Reported - Past Family History Mother Family Medical History: Cancer, Coronary Artery Disease (CAD), Hypertension Additional Family Medical History / Comment(s): vulva cancer Father Family Medical History: Dementia, Hypertension, Neurologic Disorder Additional Family Medical History / Comment(s): at age 69 from dementia/parkinsons Sister(s) Family Medical History: Hypertension Medications and Allergies Home Medications Medication Instructions Recorded Confirmed Type Insulin Aspart (For Pump) [NovoLOG 0.01 unit SQ-PUMP CONTINUOUS 01/09/21 11/19/24 History (For Pump)] Atorvastatin [Lipitor] 40 mg PO HS 02/17/21 11/19/24 History Furosemide [Lasix] 40 mg PO MOWEFR 02/17/21 11/19/24 History Omeprazole 40 mg PO DAILY 02/17/21 11/19/24 History calcitrioL 0.5 mcg PO Q2D 02/17/21 11/19/24 History Secukinumab [Cosentyx Sensoready 150 mg SQ Q30D 06/23/24 11/19/24 History Pen] Suvorexant [Belsomra] 20 mg PO HS 06/23/24 11/19/24 History Vortioxetine Hydrobromide 20 mg PO DAILY 06/23/24 11/19/24 History [Trintellix] Metoprolol Succinate (ER) [Toprol 25 mg PO HS 08/27/24 11/19/24 History XL] Nystatin 100,000 Unit/gm Powd 1 applic TOPICAL BID PRN 08/27/24 11/19/24 History [Mycostatin Powder] busPIRone HCL 15 mg PO BID 08/27/24 11/19/24 History lisinopriL [Zestril] 2.5 mg PO Q2D 08/27/24 11/19/24 History OXcarbazepine 150 mg PO HS 11/19/24 11/19/24 History Allergies Allergy/AdvReac Type Severity Reaction Status Date / Time adhesive Allergy Intermediate Rash/Hives Verified 11/26/24 18:58 latex Allergy Intermediate Rash/Hives Verified 11/26/24 18:58 Physical Exam Vitals: Vital Signs Temp Pulse Pulse Resp BP BP Pulse Ox 11/27/24 00:06 98.7 F 104 H 17 147/81 99 11/26/24 23:15 65 16 148/88 96 11/26/24 21:48 155/89 96 11/26/24 20:34 81 16 141/78 95 11/26/24 19:41 81 22 175/91 98 11/26/24 18:55 97.7 F 76 22 165/88 100 Intake and Output 11/26/24 11/27/24 11/27/24 22:59 06:59 14:59 Other: # Voids 1 Weight 84.822 kg 84.822 kg Results CBC & Chem 7: 11/27/24 06:39 11/27/24 06:39 Labs: Abnormal Lab Results - Last 24 Hours (Table) 11/26/24 11/26/24 11/26/24 Range/Units 19:32 19:32 21:39 Lymphocytes # 0.9 L (1.0-4.8) k/uL BUN 18 H (7-17) mg/dL Creatinine 1.47 H (0.52-1.04) mg/dL Glucose 124 H (74-99) mg/dL POC Glucose (mg/dL) (70-110) mg/dL Calcium 10.5 H (8.4-10.2) mg/dL AST 37 H (14-36) U/L ALT (4-34) U/L Total Protein (6.3-8.2) g/dL Albumin (3.5-5.0) g/dL Urine Protein Trace H (Negative) Urine Ketones Trace H (Negative) 11/27/24 11/27/24 Range/Units 06:39 06:53 Lymphocytes # (1.0-4.8) k/uL BUN 19 H (7-17) mg/dL Creatinine 1.51 H (0.52-1.04) mg/dL Glucose 107 H (74-99) mg/dL POC Glucose (mg/dL) 112 H (70-110) mg/dL Calcium (8.4-10.2) mg/dL AST 342 H (14-36) U/L ALT 215 H (4-34) U/L Total Protein 5.5 L (6.3-8.2) g/dL Albumin 3.2 L (3.5-5.0) g/dL Urine Protein (Negative) Urine Ketones (Negative)
[2024-11-27] MEDS: busPIRone HCl 5 MG TAB PO SCH (09:56)
--- NOTE | 2024-11-27 10:23 | P.GSHP ---
History of Present Illness H&P Date: 11/27/24 DATE OF SERVICE: 11/27/2024 CHIEF COMPLAINT: Abdominal pain HISTORY OF PRESENT ILLNESS: Radha Grande is a 54-year-old female status post gastric bypass, 06/07/2019. She has been lost to follow-up for past 6 years. Patient reports having intractable nausea and vomiting several times a week for 3 months since September 2024. Patient recently had a colonoscopy and upper endoscopy 11/24/[address] Kim which she reports was unremarkable. Patient presented initially with right upper back pain however now complains of diffuse abdominal pain. Patient is admitted due to abnormal findings for cholecystitis. This morning, patient labs reviewed demonstrate moderate elevation of LFTs in less than 24 hours. Additionally, patient has history of aortic valvular replacement and has had no cardiology workup per discussion with medicine team. No recent echo has been performed. At this time, patient complains of thirst. She reports her pain is controlled with pain medications. At height of 5 feet 3.5 inches, her ideal body weight is 140 pounds. Her highest weight was 342 pounds. She comes in 187 pounds. She has lost 155 pounds since her gastric bypass. Her body mass index highest was 59.8. Today her BMI is 32.6. She is 47 pounds overweight. Lifetime percent excess weight loss 77%. PAST MEDICAL HISTORY: 1. Morbid obesity due to excess calories 2. Body mass index of 59.8, initial 3. Hypertensive heart disease. 4. Obstructive sleep apnea 5. Diabetes type I, insulin dependent with gastroparesis 6. Chronic panniculitis 7. Osteoarthritis of the lower back. 8. Depression 9. Anxiety disorder 10. Hyperlipidemia 11. Iron deficiency 12. Congestive heart failure 13. Gastroesophageal reflux disease 14. Diabetic nephropathy, stage 3 PAST SURGICAL HISTORY: 1. Aortic valve replacement 2. Upper endoscopy 3. Gastric bypass, 06/07/2019 HOME MEDICATIONS: Home Medications Medication Instructions Recorded Confirmed Insulin Aspart (For Pump) [NovoLOG 0.01 unit SQ-PUMP CONTINUOUS 01/09/21 11/19/24 (For Pump)] Atorvastatin [Lipitor] 40 mg PO HS 02/17/21 11/19/24 Furosemide [Lasix] 40 mg PO MOWEFR 02/17/21 11/19/24 Omeprazole 40 mg PO DAILY 02/17/21 11/19/24 calcitrioL 0.5 mcg PO Q2D 02/17/21 11/19/24 Secukinumab [Cosentyx Sensoready 150 mg SQ Q30D 06/23/24 11/19/24 Pen] Suvorexant [Belsomra] 20 mg PO HS 06/23/24 11/19/24 Vortioxetine Hydrobromide 20 mg PO DAILY 06/23/24 11/19/24 [Trintellix] Metoprolol Succinate (ER) [Toprol 25 mg PO HS 08/27/24 11/19/24 XL] Nystatin 100,000 Unit/gm Powd 1 applic TOPICAL BID PRN 08/27/24 11/19/24 [Mycostatin Powder] busPIRone HCL 15 mg PO BID 08/27/24 11/19/24 lisinopriL [Zestril] 2.5 mg PO Q2D 08/27/24 11/19/24 OXcarbazepine 150 mg PO HS 11/19/24 11/19/24 ALLERGIES: Allergies Allergy/AdvReac Type Severity Reaction Status Date / Time adhesive Allergy Intermediate Rash/Hives Verified 11/26/24 18:58 latex Allergy Intermediate Rash/Hives Verified 11/26/24 18:58 SOCIAL HISTORY: Past tobacco use. FAMILY HISTORY: No family history of ulcerative colitis disease or Crohn's disease. Family history of morbid obesity. No lupus in the family. No reports of stomach or esophageal cancer. REVIEW OF ORGAN SYSTEMS: CONSTITUTIONAL: At height of 5 feet 3.5 inches, her ideal body weight is 140 pounds. Her highest weight was 342 pounds. Her body mass index highest was 59.8. HEENT: Denies any active troubles with vision or hearing. No troubles with swallowing. ENDOCRINE: Has diabetes. No hypothyroidism. CARDIOVASCULAR: Past reports of palpitations or heart attacks or chest pain. History of cardiac valvular replacement. No recent cardiac workup. RESPIRATORY: Has daytime somnolence. Has sleep apnea. GI: Denies any bright red blood per rectum. No diarrhea. Has GERD. MUSCULOSKELETAL: Has lower back pain and joint pain. History of bilateral lower extremity edema. NEURO: No headaches. No seizure disorders. PSYCH: Has depression. No suicidal ideation. Has anxiety. RHEUMATOLOGIC: No lupus. No rheumatoid arthritis. HEMATOLOGIC: Denies any abnormal bleeding or bruising. No personal history of DVTs. SKIN: Has panniculitis. No skin cancer. : Stage III renal insufficiency. PHYSICAL EXAM: VITAL SIGNS: Height 5 foot 3.5 inches, weight 187 pounds. BMI 32.6 GENERAL: Well-developed in no acute distress. HEENT: No scleral icterus. Extraocular movements grossly intact. Hears conversational speech. No nasal drainage. NECK: Supple without lymphadenopathy. CHEST: Nonlabored respirations with equal bilateral excursions. CARDIOVASCULAR: Regular rate and regular rhythm. Distal 2+ pulses. ABDOMEN: Tender left upper quadrant including right upper quadrant. MUSCULOSKELETAL: No clubbing, cyanosis. NEURO: No focal or lateralizing signs. Cranial nerves 2 through 12 grossly within normal limits. PSYCH: Appropriate affect. Alert and oriented to person, place and time. SKIN: Good skin turgor. Well perfused. Has panniculitis. LABS: Reviewed. LFTs on admission was normal however today moderately elevated by 100 times. AST elevated from 37-342. ALT elevated from 33-215. Creatinine elevated 1.47-1.51. WBC and hemoglobin within normal limits. STUDIES: Ultrasound gallbladder dependently reviewed demonstrate moderately dilated gallbladder. Presence of sludge and gallstones identified. No gallbladder wall thickening identified. This is my independent interpretation. CT of the abdomen pelvis independently reviewed demonstrate dilated gastric remnant including mesenteric swirl left upper quadrant highly suspicious for internal hernia. Gallbladder also moderately dilated multiple gallstones. This is my independent interpretation. REPORT: Ultrasound report reviewed demonstrates hydropic gallbladder with pericholecystic fluid. Common bile duct within normal limits. CT report reviewed demonstrates bilateral kidney stones. Presence of multiple gallstones with hydrops. Presence of small bowel feces. EKG: Abnormal with nonspecific ST and T wave abnormality. EKG is essentially unchanged from August 2024 ASSESSMENT: 1. Intractable right upper quadrant including diffuse abdominal pain with gallstones 2. Morbid obesity due to excess calories, Body mass index of 59.8 to 33.1 3. Hypertensive heart disease. 4. Obstructive sleep apnea 5. 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 Chronic panniculitis 7. Osteoarthritis of the lower back. 8. Depression 9. Anxiety disorder 10. Hyperlipidemia 11. Iron deficiency 12. Congestive heart failure 13. Gastroesophageal reflux disease 14. Diabetic nephropathy, stage 3 15. History of aspiration pneumonia 16. Diabetic gastroparesis 17. Status post gastric bypass 18. Internal hernia 19. Stage III renal disease due to diabetic nephropathy 20. History aortic valvular replacement PLAN: 1. On review of her CT scan and ultrasound, new finding of mesenteric swirl identified highly suspicious for internal hernia which would explain small bowel feces including her abdominal pain. Do recommend inpatient admission for vascular insufficiency due to internal hernia. Emergent surgical intervention described for cholecystectomy including reduction of internal hernia. Robotic assisted approach described. 2. Discussion with medicine team, anesthesia team, performed with patient's history of aortic valvular replacement without any cardiac follow-up. Emergent cardiac echo pending at this time 3. Overall, patient elevated risk for complications due to pre-existing heart disease, comorbidities 4. Inpatient hospitalization advised Past Medical History Past Medical History: Diabetes Mellitus, Hyperlipidemia, Hypertension, Renal Disease, Sleep Apnea/CPAP/BIPAP Additional Past Medical History / Comment(s): seasonal allergies, STAGE 4 KIDNEY FAILURE, CHRONIC BACK PAIN, does not use CPAP Last Myocardial Infarction Date:: 2013 History of Any Multi-Drug Resistant Organisms: None Reported Past Surgical History: Bariatric Surgery, Cardiac Valve Replacement, Heart Catheterization Additional Past Surgical History / Comment(s): Aortic valve replacement 2013, gastric bypass 06-07-19 Past Anesthesia/Blood Transfusion Reactions: No Reported Reaction Additional Past Anesthesia/Blood Transfusion Reaction / Comment(s): NO blood transfusion to date Past Psychological History: Anxiety, Depression Smoking Status: Former smoker Past Alcohol Use History: None Reported Past Drug Use History: None Reported - Past Family History Mother Family Medical History: Cancer, Coronary Artery Disease (CAD), Hypertension Additional Family Medical History / Comment(s): vulva cancer Father Family Medical History: Dementia, Hypertension, Neurologic Disorder Additional Family Medical History / Comment(s): at age 69 from [place]/parkinsons Sister(s) Family Medical History: Hypertension Medications and Allergies Home Medications Medication Instructions Recorded Confirmed Type Insulin Aspart (For Pump) [NovoLOG 0.01 unit SQ-PUMP CONTINUOUS 01/09/21 11/19/24 History (For Pump)] Atorvastatin [Lipitor] 40 mg PO HS 02/17/21 11/19/24 History Furosemide [Lasix] 40 mg PO MOWEFR 02/17/21 11/19/24 History Omeprazole 40 mg PO DAILY 02/17/21 11/19/24 History calcitrioL 0.5 mcg PO Q2D 02/17/21 11/19/24 History Secukinumab [Cosentyx Sensoready 150 mg SQ Q30D 06/23/24 11/19/24 History Pen] Suvorexant [Belsomra] 20 mg PO HS 06/23/24 11/19/24 History Vortioxetine Hydrobromide 20 mg PO DAILY 06/23/24 11/19/24 History [Trintellix] Metoprolol Succinate (ER) [Toprol 25 mg PO HS 08/27/24 11/19/24 History XL] Nystatin 100,000 Unit/gm Powd 1 applic TOPICAL BID PRN 08/27/24 11/19/24 History [Mycostatin Powder] busPIRone HCL 15 mg PO BID 08/27/24 11/19/24 History lisinopriL [Zestril] 2.5 mg PO Q2D 08/27/24 11/19/24 History OXcarbazepine 150 mg PO HS 11/19/24 11/19/24 History Allergies Allergy/AdvReac Type Severity Reaction Status Date / Time adhesive Allergy Intermediate Rash/Hives Verified 11/26/24 18:58 latex Allergy Intermediate Rash/Hives Verified 11/26/24 18:58 Surgical - Exam Vital Signs Temp Pulse Resp BP Pulse Ox 97.7 F 76 22 165/88 100 11/26/24 18:55 11/26/24 18:55 11/26/24 18:55 11/26/24 18:55 11/26/24 18:55 Results - Labs 11/27/24 06:39 11/27/24 06:39 Abnormal Lab Results - Last 24 Hours (Table) 11/26/24 11/26/24 11/26/24 Range/Units 19:32 19:32 21:39 Plt Count (150-450) k/uL Neutrophils # (1.3-7.7) k/uL Lymphocytes # 0.9 L (1.0-4.8) k/uL BUN 18 H (7-17) mg/dL Creatinine 1.47 H (0.52-1.04) mg/dL Glucose 124 H (74-99) mg/dL POC Glucose (mg/dL) (70-110) mg/dL Calcium 10.5 H (8.4-10.2) mg/dL AST 37 H (14-36) U/L ALT (4-34) U/L Total Protein (6.3-8.2) g/dL Albumin (3.5-5.0) g/dL Urine Protein Trace H (Negative) Urine Ketones Trace H (Negative) 11/27/24 11/27/24 11/27/24 Range/Units 06:39 06:39 06:53 Plt Count 120 L (150-450) k/uL Neutrophils # 8.3 H (1.3-7.7) k/uL Lymphocytes # 0.4 L (1.0-4.8) k/uL BUN 19 H (7-17) mg/dL Creatinine 1.51 H (0.52-1.04) mg/dL Glucose 107 H (74-99) mg/dL POC Glucose (mg/dL) 112 H (70-110) mg/dL Calcium (8.4-10.2) mg/dL AST 342 H (14-36) U/L ALT 215 H (4-34) U/L Total Protein 5.5 L (6.3-8.2) g/dL Albumin 3.2 L (3.5-5.0) g/dL Urine Protein (Negative) Urine Ketones (Negative) Diabetes panel 11/26/24 11/27/24 Range/Units 19:32 06:39 Sodium 138 137 (137-145) mmol/L Potassium 4.1 3.6 (3.5-5.1) mmol/L Chloride 103 105 (98-107) mmol/L Carbon Dioxide 23 26 (22-30) mmol/L BUN 18 H 19 H (7-17) mg/dL Creatinine 1.47 H 1.51 H (0.52-1.04) mg/dL Glucose 124 H 107 H (74-99) mg/dL Calcium 10.5 H 9.5 (8.4-10.2) mg/dL AST 37 H 342 H (14-36) U/L ALT 33 215 H (4-34) U/L Alkaline Phosphatase 126 92 (38-126) U/L Total Protein 7.1 5.5 L (6.3-8.2) g/dL Albumin 4.5 3.2 L (3.5-5.0) g/dL Calcium panel 11/26/24 11/27/24 Range/Units 19:32 06:39 Calcium 10.5 H 9.5 (8.4-10.2) mg/dL Albumin 4.5 3.2 L (3.5-5.0) g/dL Pituitary panel 11/26/24 11/27/24 Range/Units 19:32 06:39 Sodium 138 137 (137-145) mmol/L Potassium 4.1 3.6 (3.5-5.1) mmol/L Chloride 103 105 (98-107) mmol/L Carbon Dioxide 23 26 (22-30) mmol/L BUN 18 H 19 H (7-17) mg/dL Creatinine 1.47 H 1.51 H (0.52-1.04) mg/dL Glucose 124 H 107 H (74-99) mg/dL Calcium 10.5 H 9.5 (8.4-10.2) mg/dL Adrenal panel 11/26/24 11/27/24 Range/Units 19:32 06:39 Sodium 138 137 (137-145) mmol/L Potassium 4.1 3.6 (3.5-5.1) mmol/L Chloride 103 105 (98-107) mmol/L Carbon Dioxide 23 26 (22-30) mmol/L BUN 18 H 19 H (7-17) mg/dL Creatinine 1.47 H 1.51 H (0.52-1.04) mg/dL Glucose 124 H 107 H (74-99) mg/dL Calcium 10.5 H 9.5 (8.4-10.2) mg/dL Total Bilirubin 1.3 1.1 (0.2-1.3) mg/dL AST 37 H 342 H (14-36) U/L ALT 33 215 H (4-34) U/L Alkaline Phosphatase 126 92 (38-126) U/L Total Protein 7.1 5.5 L (6.3-8.2) g/dL Albumin 4.5 3.2 L (3.5-5.0) g/dL
--- NOTE | 2024-11-27 10:55 | CA ---
Transthoracic Echo Report Name: Radha Grande Age: 54 Gender: F : 1970 Exam Date: 11/27/2024 10:05 Exam Location: [facility] Ht (in): 63 Wt (lb): 187 Ordering Physician: Jerman Quiros Attending/Referring Phys: Automobile Upholsterer Grecia Aviles RDCS Procedure CPT: Indications: presurgical clearance, hx of aortic valve replacem Cardiac Hx: AOV replaced Technical Quality: Good Contrast 1: Total Dose (mL): Contrast 2: Total Dose (mL): MEASUREMENTS (Male / Female) Normal Values 2D ECHO LV Diastolic Diameter PLAX 4.9 cm 4.2 - 5.9 / 3.9 - 5.3 cm LV Systolic Diameter PLAX 3.8 cm IVS Diastolic Thickness 1.1 cm 0.6 - 1.0 / 0.6 - 0.9 cm LVPW Diastolic Thickness 1.1 cm 0.6 - 1.0 / 0.6 - 0.9 cm LV Relative Wall Thickness 0.4 RV Internal Dim ED PLAX 2.8 cm LVOT Diameter 2.3 cm LA Systolic Diameter LX 4.3 cm 3.0 - 4.0 / 2.7 - 3.8 cm LV Diastolic Volume MOD 4C 79.3 cm??? LV Systolic Volume MOD 4C 28.0 cm??? LV Ejection Fraction MOD 4C 64.7 % LV Cardiac Index MOD 4C 2618.6 cm???/min???m??? LV Diastolic Length 4C 8.0 cm LV Systolic Length 4C 6.6 cm LV Diastolic Volume MOD 2C 106.6 cm??? LV Systolic Volume MOD 2C 39.2 cm??? LV Ejection Fraction MOD 2C 63.2 % LV Cardiac Index MOD 2C 3443.4 cm???/min???m??? LV Diastolic Length 2C 8.2 cm LV Systolic Length 2C 6.7 cm LA Volume 79.1 cm??? 18 - 58 / 22 - 52 cm??? LA Volume Index 40.0 cm???/m??? 16 - 28 cm???/m??? M-MODE Aortic Root Diameter MM 3.0 cm DOPPLER AV Peak Velocity 522.0 cm/s AV Peak Gradient 109.0 mmHg AV Mean Velocity 386.4 cm/s AV Mean Gradient 66.2 mmHg AV Velocity Time Integral 120.1 cm LVOT Peak Velocity 190.4 cm/s LVOT Peak Gradient 14.5 mmHg LVOT Velocity Time Integral 40.4 cm LVOT Stroke Volume 168.6 cm??? LVOT Stroke Volume Index 89.7 ml/m??? LVOT Cardiac Index 8617.0 cm???/min???m??? AV Area Cont Eq vti 1.4 cm??? AV Area Cont Eq pk 1.5 cm??? MV Peak Velocity 234.2 cm/s MV Peak Gradient 21.9 mmHg MV Mean Velocity 148.7 cm/s MV Mean Gradient 10.5 mmHg MV Velocity Time Integral 47.7 cm MV Area PHT 3.3 cm??? Mitral E Point Velocity 197.3 cm/s Mitral A Point Velocity 166.6 cm/s Mitral E to A Ratio 1.2 MV Deceleration Time 230.8 ms TR Peak Velocity 334.6 cm/s TR Peak Gradient 44.8 mmHg Right Ventricular Systolic Press 48.5 mmHg FINDINGS Left Ventricle Left ventricular ejection fraction is estimated at 60-65 %. Left ventricular cavity size normal. Mildly increased septal wall thickness. Mildly increased posterior wall thickness. Right Ventricle Normal right ventricular size and function. Moderate pulmonary hypertension. Right ventricular systolic pressure estimated at 49 mm hg. Right Atrium Mild right atrial dilatation. No right atrial thrombus or mass seen. Left Atrium Moderately increased left atrial diameter. Severely increased left atrial volume. Mildly increased left atrial area. No left atrial thrombus or mass present. Mitral Valve Moderate thickening/calcification of the anterior mitral valve leaflet. Moderate thickening/calcification of the posterior mitral valve leaflet. Rcnftpfl-yr-penmcn mitral stenosis with mean gradient of 11 mmHg Mild to moderate mitral regurgitation. . Aortic Valve Bioprosthetic aortic valve witH stenosis with a peak velocity of 5,2 m/s, peak gradient 109 mmHg, mean gradient 66 mmHg, and estimated aortic valve area of 1.4-1.5 cm???. Tricuspid Valve Structurally normal tricuspid valve. Mild tricuspid regurgitation. Pulmonic Valve Structurally normal pulmonic valve. No pulmonic regurgitation. Pericardium No pericardial effusion. Aorta Normal size aortic root and proximal ascending aorta. 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 Jose Márquez MD (Electronically Signed) Final Date: 27 November 2024 10:54
--- NOTE | 2024-11-27 11:05 | P.HPADDEND ---
H&P Addendum H&P Addendum Date: 11/27/24 Immediately notified by medicine team with results of echo in chart. Patient has high-grade stenosis of her aortic valvular replacement. As a result, recommendation of avoiding hypotension and maintaining appropriate volume status described. Overall, patient very high risk for surgery. Surgery is emergent due to intra-abdominal pathology with internal hernia and acute clinical change.
--- NOTE | 2024-11-27 11:11 | P.HPADDEND ---
H&P Addendum H&P Addendum Date: 11/27/24 Notified by medicine team regarding results of echocardiogram. Findings include severe aortic stenosis from prior aortic replacement 2013. Caution of dehydration and hypotension described during surgery. Due to patient's acute clinical change including internal hernia and acute cholecystitis, patient surgery is deemed high risk.
[2024-11-27] MEDS ORDERED: NALOXONE 0.4 MG/ML 1 ML VIAL IV PRN (11:26)
[2024-11-27] MEDS: MIDAZOLAM 2 MG/2 ML VIAL IV ONE (11:48)
[2024-11-27] MEDS: fentaNYL (PF) 50 MCG/ML 2 ML AMP IVP STA (11:48)
[2024-11-27 12:12] LABS: INR 1.1 (<1.2); Prothrombin Time 12.2 sec (10.0-12.5)
[2024-11-27] MEDS ORDERED: SUGAMMADEX SODIUM 100 MG/ML SYR IV ONE (12:26)
[2024-11-27] MEDS: SODIUM CHLORIDE 0.9% 1,000 ML IV ONE ×2 (12:26)
[2024-11-27] MEDS ORDERED: METOPROLOL TARTRATE 5 MG/5 ML VIAL IVP ONE (12:26)
[2024-11-27] MEDS ORDERED: fentaNYL (PF) 50 MCG/ML 2 ML AMP ONE (12:26)
[2024-11-27] MEDS ORDERED: ALBUMIN HUMAN 5% (25gm) 500 ML VIAL IVPB ONE (12:26)
[2024-11-27] MEDS ORDERED: VASOPRESSIN 20 UNIT/ML 1 ML VIAL ONE (12:26)
[2024-11-27] MEDS ORDERED: PHENYLEPHRINE 10 MG/ML VIAL ONE (12:26)
[2024-11-27] MEDS: SODIUM CHLORIDE 0.9% 50 ML with ceFAZolin 2,000 MG IV ONE (12:26)
[2024-11-27] MEDS ORDERED: ETOMIDATE 2 MG/ML 10 ML VIAL ONE (12:26)
[2024-11-27] MEDS ORDERED: ROCURONIUM 10 MG/ML (5 ML VIAL) IV ONE (12:26)
[2024-11-27] MEDS: LIDOCAINE 1%-EPI 1:100,000 20 ML VIAL SQ ONE ×2 (13:20)
[2024-11-27] MEDS: LACTATED RINGERS 1,000 ML IV ONE ×2 (13:40→15:12)
--- NOTE | 2024-11-27 15:28 | P.OP ---
Date of Procedure: 11/27/24 Description of Procedure: SURGEON: NYASIA PARK MD PREOPERATIVE DIAGNOSES: 1. Acute cholecystitis with hydrops due to gallstones 2. Aortic stenosis, severe 3. Hypertensive heart disease 4. Abnormal EKG 5. Depressive disorder 6. History of gastric bypass 7. Abnormal CT scan for internal hernia POSTOPERATIVE DIAGNOSES: 1. Acute hemorrhagic hydropic cholecystitis with cystic duct obstruction due to gallstones 2. Aortic stenosis, severe 3. Hypertensive heart disease 4. Abnormal EKG 5. Depressive disorder 6. History of gastric bypass 7. Abnormal CT scan for internal hernia OPERATION: 1. Robotic-assisted da Rabia Xi laparoscopic lysis of adhesions over 2.5 hours 2. Robotic-assisted da Rabia Xi laparoscopic cholecystectomy, multiport with FIREFLY ESTIMATED BLOOD LOSS: 100 mL. SPECIMENS REMOVED: Gallbladder. COMPLICATIONS: None. OPERATIVE FINDINGS: 1. Acute hemorrhagic cholecystitis with hydrops and distended gallbladder, over 15 cm 2. Indocyanine green confirms acute cholecystitis with lack of contrast in gallbladder 3. Common bile duct within normal limits, without dilation 4. No obvious bowel obstruction or small bowel ischemia 5. Postoperative management in intensive care unit described due to severe aortic stenosis, prolonged surgery and arterial line placed per anesthesia INDICATIONS: The patient is a 54 year-old female who presents with epigastric right upper quadrant pain, symptomatic gallstones, and clinical features of acute cholecystitis. Patient pre-existing history of aortic stenosis whereby emergent cardiac risk assessment and echo was performed. Patient was deemed extremely high surgical risk and emergent surgery was discussed for her cholecystitis including possible internal hernia from a gastric bypass. Cardiac risk assessment was performed prior to surgery. Surgical intervention with cholecystectomy was described. Robotic assisted laparoscopic approach was described. Benefits and risks of the procedure including but not limited to bleeding, infection, injury to the biliary tree was reviewed. Informed consent was obtained. DESCRIPTION OF PROCEDURE: Patient was brought to the operating room, placed in supine position. After general induction, the abdomen had been prepped and draped in standard sterile fashion. The robotic da Rabia XI system was primed. After a timeout protocol was performed, the patient had been prepped and draped in standard sterile fashion. The patient was injected with indocyanine green. A 5 mm 0 degrees laparoscopic trocar entry was performed along the left upper quadrant. The abdomen insufflated to 15 mmHg pressure which was tolerated well. Diagnostic laparoscopy demonstrated no injury to bowel viscera or mesentery. The liver surface was unremarkable. A moderately distended gallbladder was identified adding complexity to the case. Next, two 8 mm robotic ports were placed along the right upper abdomen. The camera 8-mm port was maintained along the epigastrium. Another 8 mm port was placed along the left upper abdominal wall after exchanging the 5 mm port. Please note that the ports were placed at least 10 to 15 cm away from the target anatomy of the gallbladder. The robot was docked along the left lateral abdomen. The patient was repositioned in reverse Trendelenburg position at 21 with the right side up 7. Using a grasper for arm 3, a grasper for arm 4, including hook cautery for arm 1, the robotic system was docked and primed as described. Instruments were interchanged by the diversional therapist's assistant including hook cautery, Bovie cautery and clip appliers. Additional instruments including vessel sealer, robotic suction project economist, robotic stapler were made available. I had sat at the console. The gallbladder was encased in surrounding tissue including the proximal transverse colon, omentum adding complexity to the case and requiring extensive lysis of adhesions using blunt and sharp dissection using vessel sealer including hook artery for over one hour. The gallbladder was reflected towards the dome of the liver. The gallbladder was moderately distended adding complexity to the case. Edema was found along the cystic triangle including infundibulum. Initial dissection was performed on the gallbladder infundibulum using indocyanine green to illuminate the cystic duct and common bile duct. Due to moderate distention of the infundibulum, dome down technique was performed removing the gallbladder from the hepatic fossa starting from the fundus towards the infundibulum. Using a sponge, the liver was reflected towards the diaphragm and starting at the gallbladder fundus, hook cautery was used between the liver and the gallb ladder. The patient pre-existing easy bleeding from her skin incisions and from the liver bed requiring hemostatic agents such as fibular. As the gallbladder was dissected from the hepatic fossa, hemostasis was checked using vessel sealer along the posterior gallbladder. Next, indocyanine green was used to confirm the common bile duct as well as cystic duct. The entire gallbladder was without contrast consistent with acute cholecystitis. The infundibulum was retracted laterally away from the common bile duct. The left upper quadrant trocar was exchanged for a 12 mm robotic trocar. FIREFLY was used to identify the common bile duct. Robotic 45 mm green staple loads were fired across the infundibulum as the cystic duct and cystic structures were moderately edematous. Additionally, gallstone was impacted along the neck of the gallbladder. Bleeding along the liver bed was controlled and hemostatic agents. The abdomen was irrigated with normal saline solution of 1 L. Indocyanine green was used to confirm no bile leak from the staple line. Sponges were removed from the abdomen. The robot was undocked. I re-scrubbed into the case. A 10 mm Endo Catch bag was used to remove the gallbladder in total via the left upper quadrant incision after widening the incision. The specimen was removed from the abdominal cavity. Soren Mock and 0 Vicryl was used to close the fascial defect of the left upper quadrant. All pneumoperitoneum instruments were evacuated from the abdominal cavity. The incisions were cleansed using dilute hydrogen peroxide. The incisions were karen pproximated using 4-0 Monocryl in an interrupted subcuticular fashion. Please note along the trocar sites, local anesthetic was placed as a field block prior to insertion of all instruments. Liquid glue was applied to the skin. Optifoam was placed along the KATLYN site for the left upper quadrant. At the end of the procedure needle, sponge, and instrument count had been verified correct by the surgical specialist. The patient was transferred to postanesthesia care unit in stable condition. Intraoperative films were shared with the patient's family who were pleased with the level of care.
[2024-11-27 15:38] LABS: Glucose,Whole Blood 99 mg/dL (70-110)
[2024-11-27 16:33] LABS: Glucose,Whole Blood 154 mg/dL (70-110)
[2024-11-27] MEDS: HYDROmorphone 0.5 MG/0.5 ML SYRINGE IVP PRN (16:52)
[2024-11-27] MEDS: LACTATED RINGERS 1,000 ML IV SCH (17:02)
[2024-11-27] MEDS: INDOCYANINE GREEN 25 MG VIAL IV STA (17:30)
[2024-11-27] MEDS: VORTIOXETINE HYDROBROMIDE 20 MG TABLET PO SCH (17:30)
[2024-11-27] MEDS: ONDANSETRON 4 MG/2 ML VIAL IVP ONE (17:31)
[2024-11-27] MEDS: HEPARIN SODIUM,PORCINE 5,000 UNIT/ML 1 ML VIAL SQ SCH (20:19)
[2024-11-27] MEDS: NON FORMULARY DRUG (Suvorexant [Belsomra] 20 MG Tablet) PO SCH (20:30)
[2024-11-27] MEDS: METOPROLOL SUCCINATE (ER) 25 MG TAB.ER.24H PO SCH (20:49)
[2024-11-27] MEDS: OXcarbazepine 150 MG TAB PO SCH (20:51)
[2024-11-28 00:16] LABS: Glucose,Whole Blood 81 mg/dL (70-110)
[2024-11-28 04:06] LABS: ALT 138 U/L (4-34); AST 154 U/L (14-36); African American GFR (CKD) 29 (>60 ml/min/1.73 sqM); Albumin 2.6 g/dL (3.5-5.0); Alkaline Phosphatase 60 U/L (38-126); Anion Gap 5 mmol/L; Blood Urea Nitrogen 28 mg/dL (7-17); Calcium 8.9 mg/dL (8.4-10.2); Carbon Dioxide 25 mmol/L (22-30); Chloride 104 mmol/L (98-107); Glucose 66 mg/dL (74-99); Magnesium 1.2 mg/dL (1.6-2.3); Non-African American GFR(CKD) 25 (>60 ml/min/1.73 sqM); Sodium 134 mmol/L (137-145); Total Bilirubin 0.7 mg/dL (0.2-1.3); Total Protein 4.7 g/dL (6.3-8.2)
[2024-11-28 04:32] LABS: Basophils % (A) 0 %; Eosinophils % (A) 0 %; HCT 30.3 % (34.0-46.0); Lymphocytes # (A) 0.6 k/uL (1.0-4.8); Lymphocytes % (A) 8 %; MCH 29.2 pg (25.0-35.0); MCHC 31.5 g/dL (31.0-37.0); MCV 92.7 fL (80.0-100.0); Mean Platelet Volume 9.6; Monocytes # (A) 0.3 k/uL (0-1.0); Monocytes % (A) 4 %; Neutrophils # (A) 7.4 k/uL (1.3-7.7); Neutrophils % (A) 87 %; Platelet Count 102 k/uL (150-450); RBC 3.26 m/uL (3.80-5.40); WBC 8.5 k/uL (3.8-10.6)
[2024-11-28 04:35] LABS: HGB 9.5 gm/dL (11.4-16.0)
[2024-11-28 04:50] LABS: Glucose,Whole Blood 83 mg/dL (70-110)
[2024-11-28] MEDS ORDERED: HYDROmorphone 0.5 MG/0.5 ML SYRINGE IVP PRN (07:00)
--- NOTE | 2024-11-28 07:58 | P.PN ---
Subjective Progress Note Date: 11/28/24 CHIEF COMPLAINT: Acute cholecystitis HISTORY OF PRESENT ILLNESS: Radha Grande is a 54-year-old female status post robotic cholecystectomy, subtotal 11/27/2024 for acute hydropic hemorrhagic cholecystitis. Patient has severe arctic stenosis and postoperative management in the ICU with arterial line was placed. Patient had remained hypotensive. This morning, she reports her pre-existing right-sided abdominal pain is now resolved. She complains of appropriate surgical pain however tolerable. REVIEW OF ORGAN SYSTEMS: No new chest pain. No new shortness of breath. PHYSICAL EXAM: VITAL SIGNS: Reviewed GENERAL: Well-developed in no acute distress. HEENT: No scleral icterus. Extraocular movements grossly intact. Hears conversational speech. No nasal drainage. CHEST: Nonlabored respirations with equal bilateral excursions. CARDIOVASCULAR: Regular rate and regular rhythm. Distal 2+ pulses. ABDOMEN: Incisions clean dry and intact. Abdominal binder present. MUSCULOSKELETAL: No clubbing, cyanosis. NEURO: No focal or lateralizing signs. Cranial nerves 2 through 12 grossly within normal limits. PSYCH: Appropriate affect. Alert and oriented to person, place and time. SKIN: Good skin turgor. Well perfused. Has panniculitis. LABS: Reviewed. LFTs on admission AST elevated from 37-342. ALT elevated from 33-215. Creatinine elevated 1.47-1.51. Creatinine elevated over 2.5. ALT AST trending downward. WBC normal. Hemoglobin down 13.0-9.5. ASSESSMENT: 1. Acute hemorrhagic hydropic cholecystitis due to cystic duct obstruction 2. Morbid obesity due to excess calories, Body mass index of 59.8 to 33.1 3. Hypertensive heart disease. 4. Obstructive sleep apnea 5. 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 Chronic panniculitis 7. Osteoarthritis of the lower back. 8. Depression 9. Anxiety disorder 10. Hyperlipidemia 11. Iron deficiency 12. Congestive heart failure 13. Gastroesophageal reflux disease 14. Diabetic nephropathy, stage 3 15. History of aspiration pneumonia 16. Diabetic gastroparesis 17. Status post gastric bypass 18. Internal hernia 19. Stage III renal disease due to diabetic nephropathy 20. History aortic valvular replacement 21. Severe aortic stenosis 22. Acute blood loss anemia due to hemorrhagic hydropic cholecystitis PLAN: 1. Overall, continue ICU care due to labile hypotension in the presence of severe aortic stenosis. 2. Continue with clear liquid diet 3. Full inpatient admission for acute hemorrhagic hydropic cholecystitis including severe arctic stenosis and acute blood loss anemia 4. Monitor hemoglobin 5. Consultation nephrology for acute on chronic renal disease Objective - Vital Signs Vital signs: Vital Signs Temp 98.4 F 11/28/24 04:00 Pulse 82 11/28/24 07:45 Resp 11 L 11/28/24 07:45 BP 98/70 11/28/24 07:45 Pulse Ox 96 11/28/24 07:45 FiO2 Intake & Output 11/27/24 11/28/24 11/28/24 18:59 06:59 18:59 Intake Total 2800 1400 100 Output Total 100 250 0 Balance 2700 1150 100 Weight 89 kg Intake: IV 2500 100 Sodium Chloride 0.9% 1, 100 000 ml @ 100 mls/hr IV . Q10H [facility] Rx#:[id number] Intake, IV Titration 300 1400 Amount Lactated Ringers 1,000 ml 100 400 @ 0 mls/hr IV .[facility] Rx#:[id number] Piperacillin-Tazobactam 3 100 200 .375 gm In Sodium Chloride 0.9% 100 ml @ 25 mls/hr IVPB Q8H [facility] Rx#: [id number] Sodium Chloride 0.9% 1, 100 800 000 ml @ 100 mls/hr IV . Q10H [facility] Rx#:[id number] Output: Urine 0 250 0 Estimated Blood Loss 100 Other: Voiding Method Toilet Bedside Commode # Voids 1 ABP, PAP, CO, CI - Last Documented Arterial Blood Pressure 97/45 - Labs CBC & Chem 7: 11/28/24 03:41 11/28/24 03:41 Labs: Abnormal Lab Results - Last 24 Hours (Table) 11/27/24 11/27/24 11/28/24 Range/Units 06:39 16:30 03:41 RBC 3.26 L (3.80-5.40) m/uL Hgb 9.5 L D (11.4-16.0) gm/dL Hct 30.3 L (34.0-46.0) % Plt Count 120 L 102 L (150-450) k/uL Neutrophils # 8.3 H (1.3-7.7) k/uL Lymphocytes # 0.4 L 0.6 L (1.0-4.8) k/uL Sodium (137-145) mmol/L BUN (7-17) mg/dL Creatinine (0.52-1.04) mg/dL Glucose (74-99) mg/dL POC Glucose (mg/dL) 154 H (70-110) mg/dL Magnesium (1.6-2.3) mg/dL AST (14-36) U/L ALT (4-34) U/L Total Protein (6.3-8.2) g/dL Albumin (3.5-5.0) g/dL 11/28/24 Range/Units 03:41 RBC (3.80-5.40) m/uL Hgb (11.4-16.0) gm/dL Hct (34.0-46.0) % Plt Count (150-450) k/uL Neutrophils # (1.3-7.7) k/uL Lymphocytes # (1.0-4.8) k/uL Sodium 134 L (137-145) mmol/L BUN 28 H (7-17) mg/dL Creatinine 2.16 H (0.52-1.04) mg/dL Glucose 66 L (74-99) mg/dL POC Glucose (mg/dL) (70-110) mg/dL Magnesium 1.2 L (1.6-2.3) mg/dL AST 154 H (14-36) U/L ALT 138 H (4-34) U/L Total Protein 4.7 L (6.3-8.2) g/dL Albumin 2.6 L (3.5-5.0) g/dL Microbiology - Last 24 Hours (Table) 11/26/24 22:05 Blood Culture Gram Stain - Preliminary Blood Blood Culture - Preliminary Molecular ID
[2024-11-28] MEDS: MAGNESIUM SULFATE-D5W PMX 1 GM in DEXTROSE/WATER 1 100ML.BAG IVPB SCH (08:42)
--- NOTE | 2024-11-28 09:08 | P.ANPRN ---
Procedure Note - Anesthesia - Invasive Line Left Arterial Line Time Out Performed: Yes Date of Procedure: 11/27/24 Time of Procedure: 11:45 Location of Patient: PreOp Preparation: Sterile Prep, Sterile Dressing Arterial Line Location: Radial Ultrasound Used: Yes Needle Guage: 20-gauge Arrow catheter 5 cm long Image Stored and Saved: Yes Narrative: Invasive line placement per sterile protocol utilized. Biopatch used, sutured and secured with Tegaderm
--- NOTE | 2024-11-28 10:51 | P.CNPUL ---
History of Present Illness Consult date: 11/28/24 Requesting physician: Mallorie Patterson Reason for consult: other Chief complaint: ICU management. History of present illness: Pulmonary consult dated November 28, 2024. 54-year-old female postoperative day #1, status post robotically assisted lysis of adhesions, and cholecystectomy. The patient was brought back to the intensive care unit for further monitoring and management. The patient has a history of aortic stenosis, and had aortic valve replacement back in 2013. 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 Currently, she is on 2 L of oxygen. She is on Zosyn. She is getting saline at 100 cc an hour. Clinically, other than pain, she is doing well. In addition to aortic stenosis, status post AVR, the patient has a history of diabetes, hyp erlipidemia, hypertension, sleep apnea syndrome, and chronic renal disease. White blood cell count 8.5, hemoglobin 9.5, hematocrit 30.3, and platelet count 102,000. Sodium 134, potassium 4, chlorides 104, CO2 25, BUN 28, and creatinine 2.16. Glucose 83. AST 154. ALT 138. Albumin was 2.6. Blood cultures were positive for gram-positive cocci in clusters, likely Staph epidermidis. Review of Systems REVIEW OF SYSTEMS: CONSTITUTIONAL: [Negative.] NEUROLOGIC: [ Negative.] HEENT: [ Negative.] CARDIAC: [Negative.] PULMONARY: [Negative.] GI: Abdominal pain. : [Negative.] RHEUMATOLOGIC: [ Negative.] IMMUNOLOGIC: [ Negative.] ENDOCRINE: [Negative. ] DERMATOLOGIC: [Negative.] Past Medical History Past Medical History: Diabetes Mellitus, Hyperlipidemia, Hypertension, Renal Disease, Sleep Apnea/CPAP/BIPAP Additional Past Medical History / Comment(s): seasonal allergies, STAGE 4 KIDNEY FAILURE, CHRONIC BACK PAIN, does not use CPAP Last Myocardial Infarction Date:: 2013 History of Any Multi-Drug Resistant Organisms: None Reported Past Surgical History: Bariatric Surgery, Cardiac Valve Replacement, Heart Catheterization Additional Past Surgical History / Comment(s): Aortic valve replacement 2013, gastric bypass 06-07-19 Past Anesthesia/Blood Transfusion Reactions: No Reported Reaction Additional Past Anesthesia/Blood Transfusion Reaction / Comment(s): NO blood transfusion to date Past Psychological History: Anxiety, Depression Smoking Status: Former smoker Past Alcohol Use History: None Reported Past Drug Use History: None Reported - Past Family History Mother Family Medical History: Cancer, Coronary Artery Disease (CAD), Hypertension Additional Family Medical History / Comment(s): vulva cancer Father Family Medical History: Dementia, Hypertension, Neurologic Disorder Additional Family Medical History / Comment(s): at age 69 from dementia/parkinsons Sister(s) Family Medical History: Hypertension Medications and Allergies Home Medications Medication Instructions Recorded Confirmed Type Insulin Aspart (For Pump) [NovoLOG 0.01 unit SQ-PUMP CONTINUOUS 01/09/21 11/27/24 History (For Pump)] Atorvastatin [Lipitor] 40 mg PO HS 02/17/21 11/27/24 History Furosemide [Lasix] 40 mg PO MOWEFR 02/17/21 11/27/24 History Omeprazole 40 mg PO DAILY 02/17/21 11/27/24 History calcitrioL 0.5 mcg PO Q2D 02/17/21 11/27/24 History Secukinumab [Cosentyx Sensoready 150 mg SQ Q30D 06/23/24 11/27/24 History Pen] Suvorexant [Belsomra] 20 mg PO HS 06/23/24 11/27/24 History Vortioxetine Hydrobromide 20 mg PO DAILY 06/23/24 11/27/24 History [Trintellix] Metoprolol Succinate (ER) [Toprol 25 mg PO HS 08/27/24 11/27/24 History XL] Nystatin 100,000 Unit/gm Powd 1 applic TOPICAL BID PRN 08/27/24 11/27/24 History [Mycostatin Powder] busPIRone HCL 15 mg PO BID 08/27/24 11/27/24 History lisinopriL [Zestril] 2.5 mg PO Q2D 08/27/24 11/27/24 History OXcarbazepine 150 mg PO HS 11/19/24 11/27/24 History Allergies Allergy/AdvReac Type Severity Reaction Status Date / Time adhesive Allergy Intermediate Rash/Hives Verified 11/27/24 14:06 latex Allergy Intermediate Rash/Hives Verified 11/27/24 14:06 Physical Exam Osteopathic Statement: *. No significant issues noted on an osteopathic structu ral exam other than those noted in the History and Physical/Consult. Vitals: Vital Signs Temp Pulse Pulse Resp BP BP BP 11/28/24 10:15 85 10 L 89/58 11/28/24 10:00 82 10 L 87/61 11/28/24 09:45 88 16 90/64 11/28/24 09:30 88 11 L 88/54 11/28/24 09:15 93 27 H 88/63 11/28/24 09:00 90 14 114/62 11/28/24 08:45 84 22 104/81 11/28/24 08:30 84 18 117/74 11/28/24 08:15 85 18 103/61 11/28/24 08:00 98.2 F 84 16 103/67 11/28/24 07:45 82 11 L 98/70 11/28/24 07:30 80 11 L 103/62 11/28/24 07:15 80 11 L 91/62 11/28/24 07:00 84 11 L 96/58 11/28/24 06:45 81 10 L 94/62 11/28/24 06:30 79 10 L 91/69 11/28/24 06:15 81 9 L 88/62 11/28/24 06:00 82 12 92/57 11/28/24 05:45 84 12 84/57 11/28/24 05:30 86 12 92/55 11/28/24 05:15 85 12 86/55 11/28/24 05:00 81 12 86/56 11/28/24 04:45 86 11 L 78/60 11/28/24 04:30 86 12 88/58 11/28/24 04:15 87 13 88/61 11/28/24 04:00 98.4 F 90 16 83/56 11/28/24 03:45 86 12 81/49 11/28/24 03:30 90 12 80/46 11/28/24 03:15 89 12 85/51 11/28/24 03:00 85 12 101/67 11/28/24 02:45 80 14 99/56 11/28/24 02:30 81 12 95/53 11/28/24 02:15 81 12 88/58 11/28/24 02:00 81 12 85/56 11/28/24 01:45 79 12 86/50 11/28/24 01:30 84 12 90/50 11/28/24 01:15 84 12 92/55 03/30/25 01:00 85 12 88/58 11/28/24 00:45 85 12 89/60 11/28/24 00:30 86 13 90/64 11/28/24 00:15 92 20 87/59 11/28/24 00:00 98.3 F 89 12 82/52 11/27/24 23:45 89 12 85/58 11/27/24 23:32 89 12 85/58 11/27/24 23:30 89 12 94/61 11/27/24 23:15 83 15 92/59 11/27/24 23:00 89 14 97/60 11/27/24 22:45 86 12 86/55 11/27/24 22:30 90 12 83/55 11/27/24 22:15 92 12 84/51 11/27/24 22:00 93 12 86/54 11/27/24 21:45 93 12 85/52 11/27/24 21:30 88 12 84/52 11/27/24 21:15 94 12 81/55 11/27/24 21:00 93 13 90/49 11/27/24 20:45 91 12 101/66 11/27/24 20:30 92 12 11/27/24 20:15 87 17 11/27/24 20:00 99.0 F 93 12 11/27/24 19:45 92 12 11/27/24 19:30 89 15 11/27/24 19:15 92 14 11/27/24 19:00 93 16 11/27/24 18:45 95 16 11/27/24 18:30 98 16 11/27/24 18:15 98 16 92/60 11/27/24 18:00 98 16 11/27/24 17:45 98 16 11/27/24 17:30 96 14 11/27/24 17:15 98 16 94/54 11/27/24 17:00 96 15 11/27/24 16:45 101.3 F H 96 15 93/54 11/27/24 16:32 100 22 11/27/24 16:10 97 16 93/46 11/27/24 15:55 97 16 105/55 11/27/24 15:40 96 18 115/59 11/27/24 15:25 99.1 F 98 20 108/62 11/27/24 12:15 90 16 99/58 11/27/24 11:47 97 16 Pulse Ox 11/28/24 10:15 91 L 11/28/24 10:00 92 L 11/28/24 09:45 96 11/28/24 09:30 96 11/28/24 09:15 95 11/28/24 09:00 95 11/28/24 08:45 99 11/28/24 08:30 96 11/28/24 08:15 98 11/28/24 08:00 96 11/28/24 07:45 96 11/28/24 07:30 97 11/28/24 07:15 97 11/28/24 07:00 96 11/28/24 06:45 96 11/28/24 06:30 96 11/28/24 06:15 96 11/28/24 06:00 95 11/28/24 05:45 94 L 11/28/24 05:30 94 L 11/28/24 05:15 95 11/28/24 05:00 94 L 11/28/24 04:45 94 L 11/28/24 04:30 95 11/28/24 04:15 94 L 11/28/24 04:00 95 11/28/24 03:45 95 11/28/24 03:30 94 L 11/28/24 03:15 94 L 11/28/24 03:00 94 L 11/28/24 02:45 97 11/28/24 02:30 96 11/28/24 02:15 96 11/28/24 02:00 95 11/28/24 01:45 95 11/28/24 01:30 95 11/28/24 01:15 95 11/28/24 01:00 95 11/28/24 00:45 95 11/28/24 00:30 93 L 11/28/24 00:15 94 L 11/28/24 00:00 94 L 11/27/24 23:45 94 L 11/27/24 23:32 94 L 11/27/24 23:30 94 L 11/27/24 23:15 95 11/27/24 23:00 95 11/27/24 22:45 95 11/27/24 22:30 94 L 11/27/24 22:15 94 L 11/27/24 22:00 94 L 11/27/24 21:45 94 L 11/27/24 21:30 94 L 11/27/24 21:15 94 L 11/27/24 21:00 94 L 11/27/24 20:45 94 L 11/27/24 20:30 94 L 11/27/24 20:15 97 11/27/24 20:00 96 11/27/24 19:45 96 11/27/24 19:30 97 11/27/24 19:15 97 11/27/24 19:00 97 11/27/24 18:45 99 11/27/24 18:30 96 11/27/24 18:15 97 11/27/24 18:00 97 11/27/24 17:45 97 11/27/24 17:30 98 11/27/24 17:15 100 11/27/24 17:00 95 11/27/24 16:45 96 11/27/24 16:32 11/27/24 16:10 99 11/27/24 15:55 99 11/27/24 15:40 100 11/27/24 15:25 96 11/27/24 12:15 100 11/27/24 11:47 100 Intake and Output 11/27/24 11/28/24 11/28/24 22:59 06:59 14:59 Intake Total 1950 900 809 Output Total 0 250 0 Balance 1950 650 809 Intake: IV 1150 609 Magnesium Sulfate-D5w Pmx 200 1 gm In Dextrose/Water 1 100ml.bag @ 100 mls/hr IVPB Q1H [facility] Rx#: [id number] Sodium Chloride 0.9% 1, 400 000 ml @ 100 mls/hr IV . Q10H [facility] Rx#:[id number] pressure bag 9 Intake, IV Titration 800 900 Amount Lactated Ringers 1,000 ml 400 100 @ 0 mls/hr IV .[facility] Rx#:[id number] Piperacillin-Tazobactam 3 200 100 .375 gm In Sodium Chloride 0.9% 100 ml @ 25 mls/hr IVPB Q8H [facility] Rx#: [id number] Sodium Chloride 0.9% 1, 200 700 000 ml @ 100 mls/hr IV . Q10H [facility] Rx#:[id number] Oral 200 Output: Urine 0 250 0 Other: Voiding Method Bedside Commode Toilet # Voids 1 Weight 89 kg ABP, PAP, CO, CI - Last 8 Hours Arterial Blood Pressure 105/48 Arterial Blood Pressure 110/56 Arterial Blood Pressure 118/56 Arterial Blood Pressure 94/44 Arterial Blood Pressure 97/45 Arterial Blood Pressure 98/46 Arterial Blood Pressure 94/44 Arterial Blood Pressure 91/43 Arterial Blood Pressure 92/44 Arterial Blood Pressure 88/41 Arterial Blood Pressure 84/40 No acute distress, oriented 3. Currently on 2 L of oxygen. No respiratory distress. No conversational dyspnea. No use of accessory muscles. HEENT examination is grossly unremarkable. Mucous membranes are moist. No oral lesions. Neck supple. Full range of motion. No adenopathy thyromegaly or neck vein distention. Cardiovascular examination reveals regular rhythm rate. S1-S2 normal. No S3 or S4. A soft systolic murmur is noted. Lungs reveal clear breath sounds. Breath sounds are equal bilaterally. No adventitious lung sounds including wheezes rhonchi or crackles. Abdomen soft bowel sounds are heard. No masses or tenderness. Extremities are intact. No cyanosis clubbing or edema. Skin is without rash or lesion. Neurologic examination is brief but nonfocal. Results - Laboratory Findings CBC and BMP: 11/28/24 03:41 11/28/24 03:41 PT/INR, D-dimer PT 12.2 sec (10.0-12.5) 11/27/24 11:24 INR 1.1 (<1.2) 11/27/24 11:24 Abnormal lab findings: Abnormal Labs 11/26/24 11/26/24 11/26/24 19:32 19:32 21:39 RBC Hgb Hct Plt Count Neutrophils # Lymphocytes # 0.9 L Sodium BUN 18 H Creatinine 1.47 H Glucose 124 H POC Glucose (mg/dL) Calcium 10.5 H Magnesium AST 37 H ALT Total Protein Albumin Urine Protein Trace H Urine Ketones Trace H 11/27/24 11/27/24 11/27/24 06:39 06:39 06:53 RBC Hgb Hct Plt Count 120 L Neutrophils # 8.3 H Lymphocytes # 0.4 L Sodium BUN 19 H Creatinine 1.51 H Glucose 107 H POC Glucose (mg/dL) 112 H Calcium Magnesium AST 342 H ALT 215 H Total Protein 5.5 L Albumin 3.2 L Urine Protein Urine Ketones 11/27/24 11/28/24 11/28/24 16:30 03:41 03:41 RBC 3.26 L Hgb 9.5 L D Hct 30.3 L Plt Count 102 L Neutrophils # Lymphocytes # 0.6 L Sodium 134 L BUN 28 H Creatinine 2.16 H Glucose 66 L POC Glucose (mg/dL) 154 H Calcium Magnesium 1.2 L AST 154 H ALT 138 H Total Protein 4.7 L Albumin 2.6 L Urine Protein Urine Ketones - Diagnostic Findings Chest x-ray: image reviewed Assessment and Plan Assessment: Postoperative day #1, status post robotically assisted cholecystectomy, and lysis of adhesions. History of aortic stenosis, status post AVR, 2013. History of diabetes mellitus. History of chronic kidney disease. History of hyperlipidemia. History of hypertension. History of sleep apnea syndrome. History of gastric bypass. History of anxiety/depression. Prior history of tobacco use. Plan: Plan dated November 28, 2024. The patient is seen today in room 258. The patient was brought back to the intensive care unit after surgery yesterday, for closer monitoring and management. The patient has a history of multiple medical problems, and has a history of severe aortic stenosis, with previous history of aortic valve replacement. The patient was successfully extubated in recovery yesterday. She is currently on 2 L. The patient is on Zosyn. Blood cultures were positive for Staph epidermidis. The patient is getting saline at 100 cc an hour. We will continue to follow make recommendations. Prognosis is guarded. We recommend hourly use of the incentive spirometer, as well as deep breathing, coughing, clearing of secretions. Prognosis is thought to be generally good. Dictation was produced using [employer] software. Please excuse any grammatical, word or spelling errors. Time with Patient: Greater than 30
--- NOTE | 2024-11-28 10:53 | P.PN ---
Subjective Progress Note Date: 11/28/24 Hospital course: Patient is a very pleasant 54-year-old female with a past medical history of bovine aortic valve replacement in 2014 does not follow with pneumatic jacketer, insulin-dependent diabetes mellitus with personal insulin pump, hypertension, lipidemia, obesity with previous gastric bypass in 2019, CKD stage IIIb with baseline creatinine of 1.9, and obstructive sleep apnea does not use CPAP.. She presented to the emergency department on 11/26/2024 with a chief complaint of right upper quadrant abdominal pain. Upon arrival to our facility, patient underwent evaluation in the emergency department. Vital signs upon arrival show blood pressure 165/88, heart rate 76, respiratory rate 22, temp 97.7 F, and SpO2 of 100% on room air. EKG completed showing normal sinus rhythm at 69 bpm with nonspecific T wave abnormalities in lateral leads V5 and V6.. Gallbladder ultrasound completed showing acute cholecystitis with hydropic gallbladder and cholelithiasis. Labs completed and reviewed. CBC unremarkable. BMP showing elevated BUN of 18, creatinine of 1.47, GFR 40 consistent with known chronic kidney disease with baseline creatinine of 1.9. Blood glucose 124. Liver profile showing elevated AST of 37. Amylase and lipase normal findings. Urina lysis negative for infection. CT abdomen and pelvis without contrast was completed showing hydropic gallbladder with cholelithiasis and small bowel feces in the terminal ileum concerning for fecal stasis, nonvisualized appendix and left nonobstructive renal calculus. Blood culture sent to lab for analysis. Patient was started on IV antibiotics with Zosyn and admitted under general surgery team. We were consulted for medical management and preoperative clearance. Echocardiogram was completed, received notification from pneumatic jacketer, Dr. Márquez that patient has severe aortic stenosis with a mean gradient of 66 mmHg and moderate to severe mitral stenosis with mild to moderate mitral regurgitation. Discussed these findings in detail with pneumatic jacketer stating if surgical intervention is urgent/emergent would not delay procedure but does recommend keeping patient hydrated and avoiding hypotension. Called and discussed findings and recommendations with general surgeon, Dr. Patterson. 11/27/2024 patient underwent robotic assisted laparoscopic cholecystectomy by Dr. Patterson. Patient had postoperative hypotension and was transferred to ICU overnight for close monitoring of blood pressures. Blood pressures currently stable at this time with plans to transfer to [facility] unit with telemetry. Physical exam: Patient seen and fully evaluated at bedside this morning. She appears to be doing well. Patient denies any episodes of nausea or vomiting. She does report moderate postoperative diffuse abdominal pain and reported feeling of fullness and uncomfortable. She denies having any chest pain, palpitations, shortness of breath, or any other complaints at this time. She reports urinating without difficulties. Blood pressure is better controlled, patient updated on plan to transfer to [facility]. All questions answered at this time. Vital signs reviewed and stable. General: Nontoxic, no distress and appears stated age. Derm: Skin warm and dry, normal coloration for ethnicity. Head: Atraumatic, normocephalic and symmetric. Eyes: EOM's intact, no lid lag, and anicteric sclera Mouth: no lip lesions, mucus membranes moist Cardiovascular: regular rate and rhythm with normal S1S2, stage IV systolic murmur, positive posterior tibial pulses bilaterally, and cap refill < 2 seconds. Lungs: Respirations even, regular, and unlabored on room air. Lungs CTA bilaterally, no rhonchi, no rales, no wheezing, and no accessory muscle usage. Abdominal: soft, diffuse postoperative tenderness. Laparoscopic incisions intact and small dressing/bandage in place left upper quadrant. Abdominal binder in place. Ext: ROM intact. No gross muscle atrophy, no edema, no contractures Neuro: Speech clear, face symmetrical and CN II-XII grossly intact with no noted focal neuro deficits Psych: Alert and oriented to person, place, time, and situation. Appropriate and pleasant affect. Assessment and Plan of Care: Acute hemorrhagic hydropic cholecystitis with cystic duct obstruction, status post robotic assisted cholecystectomy Transaminitis, secondary to above Thrombocytopenia, likely secondary to above -Continue IV antibiotics with Zosyn 0.375 g every 8 hours. -Continue gentle IV fluid hydration with 0.9% normal saline at 125 cc/h. -Clear liquid diet, diet to be advanced per primary admitting general surgeon's recommendations. -Continue symptomatic care and pain management. -Hold atorvastatin secondary to transaminitis. Transaminitis is improving, we will continue to monitor liver function closely with repeat a.m. labs. Severe Aortic stenosis Hypotension Moderate to Severe Mitral regurgitation History of bovine aortic valve replacement 2013 Hypertension Hyperlipidemia -Echocardiogram completed showing a preserved EF of 60 to 65% with severe aortic stenosis with a mean gradient of 66 mmHg and moderate to severe mitral stenosis with mild to moderate mitral regurgitation. -Continue daily medication regimen with metoprolol 25 mg nightly. -Atorvastatin held secondary to acute transaminitis. Lisinopril held secondary to hypotension and RITESH. Acute kidney injury on stage IIIb chronic kidney disease -BUN 28, creatinine 2.16, GFR of 25 with preoperative renal function showing BUN of 19, creatinine of 1.51, GFR of 39. Baseline creatinine 1.9. -Continue IV fluid hydration with 0.9% normal saline at 125 cc/h. Order placed for bladder scan to monitor for postvoid residual/retention. -Patient placed on strict I's and O's. -Urinalysis was negative for infection. -Lisinopril held at this time. Hypomagnesemia -Magnesium 1.2. Order placed for magnesium sulfate 4 g IVPB x 1 dose. We will continue to monitor for improvement/resolution with repeat a.m. labs and replace abnormal electrolyte values as indicated based upon these findings. Acute Postoperative blood loss anemia -Acute postoperative blood loss anemia with preoperative hemoglobin of 12.1 and postoperative hemoglobin of 9.5. This is a stable and expected finding. No active bleeding noted. No need for transfusion or further intervention at this time. We will continue to monitor for improvement with repeat a.m. labs and transfuse as indicated for hemoglobin less than 7 or symptomatic anemia. Insulin-dependent diabetes mellitus -Continue [id number] blood glucose checks every 6 hours and patient's personal insulin pump. 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 Data and imaging reviewed: -Morning labs completed and reviewed. CBC showing bicytopenia with hemoglobin of 9.5 and platelet count of 102. BMP showing mild hyponatremia with sodium of 134 and acute kidney injury with BUN of 28, creatinine of 2.16, and GFR of 25. Morning glucose was low at 66 with repeat [id number] glucose of 83 and patient is on clear liquid diet at this time and tolerating well. Magnesium was low at 1.2. Liver profile showing continued transaminitis but improving with AST of 154, ALT of 138, and alkaline phosphatase of 60 with a low total protein of 4.7 and albumin of 2.6. -Vital signs reviewed. Blood pressure 103/61, heart rate 85, respiratory rate 18, temp 98.2 F, and SpO2 of 98% on room air. [facility]. Thank you for allowing us to participate in the care of this pleasant patient. Do not hesitate to contact us with questions. Someone can be reached from the [facility] hospitalist group all hours of the day at [phone] or via [employer]. Patient was seen independently by Nurse Practitioner. This document was prepared using [employer] dictation software. Please allow for errors in rn supplemental while rare they do occur. Jerman Quiros NP rendered care for this patient independently, reviewed the findings and plan as documented in the note above and agree with plan. I did not physically speak with or examine the patient on this date. . Objective - Vital Signs Vital signs: Vital Signs Temp 98.4 F 11/28/24 04:00 Pulse 82 11/28/24 07:45 Resp 11 L 11/28/24 07:45 BP 98/70 11/28/24 07:45 Pulse Ox 96 11/28/24 07:45 FiO2 Intake & Output 11/27/24 11/28/24 11/28/24 18:59 06:59 18:59 Intake Total 2800 1400 100 Output Total 100 250 0 Balance 2700 1150 100 Weight 89 kg Intake: IV 2500 100 Sodium Chloride 0.9% 1, 100 000 ml @ 100 mls/hr IV . Q10H [facility] Rx#:[id number] Intake, IV Titration 300 1400 Amount Lactated Ringers 1,000 ml 100 400 @ 0 mls/hr IV .[facility] Rx#:[id number] Piperacillin-Tazobactam 3 100 200 .375 gm In Sodium Chloride 0.9% 100 ml @ 25 mls/hr IVPB Q8H [facility] Rx#: [id number] Sodium Chloride 0.9% 1, 100 800 000 ml @ 100 mls/hr IV . Q10H [facility] Rx#:[id number] Output: Urine 0 250 0 Estimated Blood Loss 100 Other: Voiding Method Toilet Bedside Commode # Voids 1 ABP, PAP, CO, CI - Last Documented Arterial Blood Pressure 97/45 - Labs CBC & Chem 7: 11/28/24 03:41 11/28/24 03:41 Labs: Abnormal Lab Results - Last 24 Hours (Table) 03/29/25 03/30/25 03/30/25 Range/Units 16:30 03:41 03:41 RBC 3.26 L (3.80-5.40) m/uL Hgb 9.5 L D (11.4-16.0) gm/dL Hct 30.3 L (34.0-46.0) % Plt Count 102 L (150-450) k/uL Lymphocytes # 0.6 L (1.0-4.8) k/uL Sodium 134 L (137-145) mmol/L BUN 28 H (7-17) mg/dL Creatinine 2.16 H (0.52-1.04) mg/dL Glucose 66 L (74-99) mg/dL POC Glucose (mg/dL) 154 H (70-110) mg/dL Magnesium 1.2 L (1.6-2.3) mg/dL AST 154 H (14-36) U/L ALT 138 H (4-34) U/L Total Protein 4.7 L (6.3-8.2) g/dL Albumin 2.6 L (3.5-5.0) g/dL Microbiology - Last 24 Hours (Table) 11/26/24 22:05 Blood Culture Gram Stain - Preliminary Blood Blood Culture - Preliminary Molecular ID
[2024-11-28 13:17] LABS: Glucose,Whole Blood 167 mg/dL (70-110)
[2024-11-28 16:46] LABS: Glucose,Whole Blood 290 mg/dL (70-110)
--- NOTE | 2024-11-28 19:10 | P.NPCON ---
History of Present Illness - Reason for Consult Consult date: 11/28/24 acute renal failure, chronic renal failure - Chief Complaint abdominal pain - History of Present Illness 54 yo female with PMHx of bovine aortic valve replacement in 2013 does not follow with director of program management, insulin-dependent diabetes mellitus with personal insulin pump, hypertension, lipidemia, obesity with previous gastric bypass in 2018, CKD stage IIIb, and obstructive sleep apnea does not use CPAP.. She presented to the emergency department on 11/26/2024 with a chief complaint of right upper quadrant abdominal pain. she was found to have acute cholecystitis, she underwent subtotal robotic cholecystectomy on 11/27. nephrolgoy is consulted for RITESH on CKD. Past Medical History Past Medical History: Diabetes Mellitus, Hyperlipidemia, Hypertension, Renal Disease, Sleep Apnea/CPAP/BIPAP Additional Past Medical History / Comment(s): seasonal allergies, STAGE 4 KIDNEY FAILURE, CHRONIC BACK PAIN, does not use CPAP Last Myocardial Infarction Date:: 2013 History of Any Multi-Drug Resistant Organisms: None Reported Past Surgical History: Bariatric Surgery, Cardiac Valve Replacement, Heart Catheterization Additional Past Surgical History / Comment(s): Aortic valve replacement 2013, gastric bypass 06-07-19 Past Anesthesia/Blood Transfusion Reactions: No Reported Reaction Additional Past Anesthesia/Blood Transfusion Reaction / Comment(s): NO blood transfusion to date Past Psychological History: Anxiety, Depression Smoking Status: Former smoker Past Alcohol Use History: None Reported Past Drug Use History: None Reported - Past Family History Mother Family Medical History: Cancer, Coronary Artery Disease (CAD), Hypertension Additional Family Medical History / Comment(s): vulva cancer Father Family Medical History: Dementia, Hypertension, Neurologic Disorder Additional Family Medical History / Comment(s): at age 69 from dementia/parkinsons Sister(s) Family Medical History: Hypertension Medications and Allergies Home Medications Medication Instructions Recorded Confirmed Type Insulin Aspart (For Pump) [NovoLOG 0.01 unit SQ-PUMP CONTINUOUS 01/09/21 11/27/24 History (For Pump)] Atorvastatin [Lipitor] 40 mg PO HS 02/17/21 11/27/24 History Furosemide [Lasix] 40 mg PO MOWEFR 02/17/21 11/27/24 History Omeprazole 40 mg PO DAILY 02/17/21 11/27/24 History calcitrioL 0.5 mcg PO Q2D 02/17/21 11/27/24 History Secukinumab [Cosentyx Sensoready 150 mg SQ Q30D 06/23/24 11/27/24 History Pen] Suvorexant [Belsomra] 20 mg PO HS 06/23/24 11/27/24 History Vortioxetine Hydrobromide 20 mg PO DAILY 06/23/24 11/27/24 History [Trintellix] Metoprolol Succinate (ER) [Toprol 25 mg PO HS 08/27/24 11/27/24 History XL] Nystatin 100,000 Unit/gm Powd 1 applic TOPICAL BID PRN 08/27/24 11/27/24 History [Mycostatin Powder] busPIRone HCL 15 mg PO BID 08/27/24 11/27/24 History lisinopriL [Zestril] 2.5 mg PO Q2D 08/27/24 11/27/24 History OXcarbazepine 150 mg PO HS 11/19/24 11/27/24 History Allergies Allergy/AdvReac Type Severity Reaction Status Date / Time adhesive Allergy Intermediate Rash/Hives Verified 11/27/24 14:06 latex Allergy Intermediate Rash/Hives Verified 11/27/24 14:06 Physical Exam Vitals: Vital Signs Temp Pulse Pulse Resp BP BP BP 11/28/24 09:00 90 14 114/62 11/28/24 08:45 84 22 104/81 11/28/24 08:30 84 18 117/74 11/28/24 08:15 85 18 103/61 11/28/24 08:00 98.2 F 84 16 103/67 11/28/24 07:45 82 11 L 98/70 11/28/24 07:30 80 11 L 103/62 11/28/24 07:15 80 11 L 91/62 11/28/24 07:00 84 11 L 96/58 11/28/24 06:45 81 10 L 94/62 11/28/24 06:30 79 10 L 91/69 11/28/24 06:15 81 9 L 88/62 11/28/24 06:00 82 12 92/57 11/28/24 05:45 84 12 84/57 11/28/24 05:30 86 12 92/55 11/28/24 05:15 85 12 86/55 11/28/24 05:00 81 12 86/56 11/28/24 04:45 86 11 L 78/60 11/28/24 04:30 86 12 88/58 11/28/24 04:15 87 13 88/61 11/28/24 04:00 98.4 F 90 16 83/56 11/28/24 03:45 86 12 81/49 11/28/24 03:30 90 12 80/46 11/28/24 03:15 89 12 85/51 11/28/24 03:00 85 12 101/67 11/28/24 02:45 80 14 99/56 11/28/24 02:30 81 12 95/53 11/28/24 02:15 81 12 88/58 11/28/24 02:00 81 12 85/56 11/28/24 01:45 79 12 86/50 11/28/24 01:30 84 12 90/50 11/28/24 01:15 84 12 92/55 11/28/24 01:00 85 12 88/58 11/28/24 00:45 85 12 89/60 11/28/24 00:30 86 13 90/64 11/28/24 00:15 92 20 87/59 11/28/24 00:00 98.3 F 89 12 82/52 11/27/24 23:45 89 12 85/58 11/27/24 23:32 89 12 85/58 11/27/24 23:30 89 12 94/61 11/27/24 23:15 83 15 92/59 11/27/24 23:00 89 14 97/60 11/27/24 22:45 86 12 86/55 11/27/24 22:30 90 12 83/55 11/27/24 22:15 92 12 84/51 11/27/24 22:00 93 12 86/54 11/27/24 21:45 93 12 85/52 11/27/24 21:30 88 12 84/52 11/27/24 21:15 94 12 81/55 11/27/24 21:00 93 13 90/49 11/27/24 20:45 91 12 101/66 11/27/24 20:30 92 12 11/27/24 20:15 87 17 11/27/24 20:00 99.0 F 93 12 11/27/24 19:45 92 12 11/27/24 19:30 89 15 03/29/25 19:15 92 14 11/27/24 19:00 93 16 11/27/24 18:45 95 16 11/27/24 18:30 98 16 11/27/24 18:15 98 16 92/60 11/27/24 18:00 98 16 11/27/24 17:45 98 16 11/27/24 17:30 96 14 11/27/24 17:15 98 16 94/54 11/27/24 17:00 96 15 11/27/24 16:45 101.3 F H 96 15 93/54 11/27/24 16:32 100 22 11/27/24 16:10 97 16 93/46 11/27/24 15:55 97 16 105/55 11/27/24 15:40 96 18 115/59 11/27/24 15:25 99.1 F 98 20 108/62 11/27/24 12:15 90 16 99/58 11/27/24 11:47 97 16 Pulse Ox 11/28/24 09:00 95 11/28/24 08:45 99 11/28/24 08:30 96 11/28/24 08:15 98 11/28/24 08:00 96 11/28/24 07:45 96 11/28/24 07:30 97 11/28/24 07:15 97 11/28/24 07:00 96 11/28/24 06:45 96 11/28/24 06:30 96 11/28/24 06:15 96 11/28/24 06:00 95 11/28/24 05:45 94 L 11/28/24 05:30 94 L 11/28/24 05:15 95 11/28/24 05:00 94 L 11/28/24 04:45 94 L 11/28/24 04:30 95 11/28/24 04:15 94 L 11/28/24 04:00 95 11/28/24 03:45 95 11/28/24 03:30 94 L 11/28/24 03:15 94 L 11/28/24 03:00 94 L 11/28/24 02:45 97 11/28/24 02:30 96 11/28/24 02:15 96 11/28/24 02:00 95 11/28/24 01:45 95 11/28/24 01:30 95 11/28/24 01:15 95 11/28/24 01:00 95 11/28/24 00:45 95 11/28/24 00:30 93 L 11/28/24 00:15 94 L 11/28/24 00:00 94 L 11/27/24 23:45 94 L 11/27/24 23:32 94 L 11/27/24 23:30 94 L 11/27/24 23:15 95 11/27/24 23:00 95 11/27/24 22:45 95 11/27/24 22:30 94 L 11/27/24 22:15 94 L 11/27/24 22:00 94 L 11/27/24 21:45 94 L 11/27/24 21:30 94 L 11/27/24 21:15 94 L 11/27/24 21:00 94 L 11/27/24 20:45 94 L 11/27/24 20:30 94 L 11/27/24 20:15 97 11/27/24 20:00 96 11/27/24 19:45 96 11/27/24 19:30 97 11/27/24 19:15 97 11/27/24 19:00 97 11/27/24 18:45 99 11/27/24 18:30 96 11/27/24 18:15 97 11/27/24 18:00 97 11/27/24 17:45 97 11/27/24 17:30 98 11/27/24 17:15 100 11/27/24 17:00 95 11/27/24 16:45 96 11/27/24 16:32 11/27/24 16:10 99 11/27/24 15:55 99 11/27/24 15:40 100 11/27/24 15:25 96 11/27/24 12:15 100 11/27/24 11:47 100 Intake and Output 11/27/24 11/28/24 11/28/24 22:59 06:59 14:59 Intake Total 1950 900 606 Output Total 0 250 0 Balance 1950 650 606 Intake: IV 1150 406 Magnesium Sulfate-D5w Pmx 100 1 gm In Dextrose/Water 1 100ml.bag @ 100 mls/hr IVPB Q1H [facility] Rx#: [id number] Sodium Chloride 0.9% 1, 300 000 ml @ 100 mls/hr IV . Q10H [facility] Rx#:[id number] pressure bag 6 Intake, IV Titration 800 900 Amount Lactated Ringers 1,000 ml 400 100 @ 0 mls/hr IV .[facility] Rx#:[id number] Piperacillin-Tazobactam 3 200 100 .375 gm In Sodium Chloride 0.9% 100 ml @ 25 mls/hr IVPB Q8H [facility] Rx#: [id number] Sodium Chloride 0.9% 1, 200 700 000 ml @ 100 mls/hr IV . Q10H [facility] Rx#:[id number] Oral 200 Output: Urine 0 250 0 Other: Voiding Method Bedside Commode # Voids 1 Weight 89 kg ABP, PAP, CO, CI - Last 8 Hours Arterial Blood Pressure 86/47 Arterial Blood Pressure 105/48 Arterial Blood Pressure 110/56 Arterial Blood Pressure 118/56 Arterial Blood Pressure 94/44 Arterial Blood Pressure 97/45 Arterial Blood Pressure 98/46 Arterial Blood Pressure 94/44 Arterial Blood Pressure 91/43 Arterial Blood Pressure 92/44 Arterial Blood Pressure 88/41 Arterial Blood Pressure 84/40 GENERAL: Well-developed in no acute distress. HEENT: No scleral icterus. Extraocular movements grossly intact. Hears conversational speech. No nasal drainage. CHEST: Nonlabored respirations with equal bilateral excursions. CARDIOVASCULAR: Regular rate and regular rhythm. Distal 2+ pulses. ABDOMEN: Incisions clean dry and intact. Abdominal binder present. MUSCULOSKELETAL: No clubbing, cyanosis. NEURO: No focal or lateralizing signs. Cranial nerves 2 through 12 grossly within normal limits. PSYCH: Appropriate affect. Alert and oriented to person, place and time. SKIN: Good skin turgor. Well perfused. Results - Lab Results Most recent lab results Calcium 8.9 mg/dL (8.4-10.2) 11/28/24 03:41 Magnesium 1.2 mg/dL (1.6-2.3) L 11/28/24 03:41 11/28/24 03:41 11/28/24 03:41 Assessment and Plan Assessment: 1. RITESH , likely prerenal vs ATN, due to hemodynamic changes in OR. she is currently on N/S @ 100 ml/hr, BP low but improving, UA, trace proteins and ketones, CT showed non obstructing stone. cr. on admission ~1.5, now trend to 2.1 2. Acute hemorrhagic hydropic cholecystitis due to cystic duct obstruction s/p subtotal robotic cholecystectomy on 11/27 3. acute blood loss anemia. rule out iron deficiency 4. severe Aortic stenosis. cardiology following 5. Hypomagnesemia Plan: continue gentle IVF @ 100 ml/hr Hold Lisinopril for now added holding parameters to Toprol XL check iron panel magnesium supplementation ordered avoid nephrotoxins supportive care Thank you for consulting nephrology service, will continue to follow
[2024-11-28 20:57] LABS: Glucose,Whole Blood 380 mg/dL (70-110)
[2024-11-29 00:08] LABS: Glucose,Whole Blood 422 mg/dL (70-110)
[2024-11-29] MEDS ORDERED: DEXTROSE 50% SYRINGE 50 ML IVP PRN ×2 (00:14)
[2024-11-29] MEDS: INSULIN LISPRO (HumaLOG) 100 UNIT/ML 10 mL VL SQ SCH (00:26)
[2024-11-29 01:01] LABS: Glucose,Whole Blood 418 mg/dL (70-110)
[2024-11-29 02:45] LABS: Glucose,Whole Blood 371 mg/dL (70-110)
[2024-11-29 06:11] LABS: Glucose,Whole Blood 272 mg/dL (70-110)
[2024-11-29 09:16] LABS: Magnesium 2.2 mg/dL (1.5-2.4)
[2024-11-29 09:29] LABS: ALT 92 U/L (8-44); AST 63 U/L (13-35); Albumin 2.9 g/dL (3.8-4.9); Albumin/Globulin Ratio 1.53 Ratio (1.60-3.17); Alkaline Phosphatase 77 U/L (41-126); BUN/Creat Ratio 14.68 Ratio (12.00-20.00); Blood Urea Nitrogen 41.1 mg/dL (9.0-27.0); Calcium 8.9 mg/dL (8.7-10.3); Carbon Dioxide 16.4 mmol/L (21.6-31.8); Chloride 101 mmol/L (96-109); Globulin 1.9 g/dL (1.6-3.3); Glucose 357 mg/dL (70-110); Potassium 3.9 mmol/L (3.5-5.5); Sodium 133 mmol/L (135-145); Total Bilirubin 0.5 mg/dL (0.3-1.2); Total Protein 4.8 g/dL (6.2-8.2)
[2024-11-29 10:21] LABS: HCT 32.3 % (37.2-46.3); HGB 9.7 g/dL (12.0-15.0); MCH 28.9 pg (27.0-32.0); MCV 96.1 FL (80.0-97.0); NRBC Per 100 WBC 0 X 10*3/uL (0.00-0.01); Platelet Count 122 X 10*3/uL (140-440); RBC 3.36 X 10*6/uL (4.10-5.20); WBC 9.02 X 10*3/uL (4.50-10.00)
[2024-11-29 12:35] LABS: Glucose,Whole Blood 280 mg/dL (70-110)
--- NOTE | 2024-11-29 12:52 | P.GSCN ---
History of Present Illness Consult date: 11/29/24 History of present illness: CHIEF COMPLAINT: Acute cholecystitis HISTORY OF PRESENT ILLNESS: Radha Grande is a 54-year-old female is postop day #2 status post robotic lysis of adhesions and subtotal cholecystectomy for acute hydropic hemorrhagic cholecystitis. Patient has severe arctic stenosis and postoperative management in the ICU. Patient is currently on regular medical floor. She reports her pain is controlled. She did complain of nausea and reflux symptoms this morning. She denies any vomiting. Denies any flatus. Has been urinating. Afebrile. BP 96/60. WBC is 9.02 Hgb 9.7 platelets 122 creatinine 2.8 total bilirubin 0.5 LFTs trending down. Patient seen evaluated by pulmonary service and nephrology service. Cardiology consult pending. PHYSICAL EXAM: VITAL SIGNS: Reviewed GENERAL: Well-developed in no acute distress. HEENT: No sclera icterus. Extraocular movements grossly intact. Moist buccal mucosa. Head is atraumatic, normocephalic. Hears conversational speech. No nasal drainage. NECK: Supple without lymphadenopathy. CHEST: Non-labored respirations and equal bilateral excursions. CARDIOVASCULAR: Palpable 2+ radial pulses. ABDOMEN: Soft. Nondistended. Incision sites clean dry and intact. MUSCULOSKELETAL: No clubbing or cyanosis. NEUROLOGIC: No focal or lateralizing signs. Cranial nerves II through XII grossly intact. PSYCH: Appropriate affect. Alert and oriented to person, place and time. SKIN: Well perfused. Good skin turgor. ASSESSMENT: 1. Acute hemorrhagic hydropic cholecystitis due to cystic duct obstruction 2. Morbid obesity due to excess calories, Body mass index of 59.8 to 33.1 3. Hypertensive heart disease. 4. Obstructive sleep apnea 5. 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 Chronic panniculitis 7. Osteoarthritis of the lower back. 8. Depression 9. Anxiety disorder 10. Hyperlipidemia 11. Iron deficiency 12. Congestive heart failure 13. Gastroesophageal reflux disease 14. Diabetic nephropathy, stage 3 15. History of aspiration pneumonia 16. Diabetic gastroparesis 17. Status post gastric bypass 18. Internal hernia 19. Stage III renal disease due to diabetic nephropathy 20. History aortic valvular replacement 21. Severe aortic stenosis 22. Acute blood loss anemia due to hemorrhagic hydropic cholecystitis PLAN: -Continue antibiotics -Continue clear liquid diet -IV Pepcid added for heartburn -Continue antiemetics -Encourage patient to increase activity level -Continue pain management -DVT prophylaxis subcu heparin Physician Furniture Removalist'S Assistant note has been reviewed by physician. Signing provider agrees with the documented findings, assessment, and plan of care. Past Medical History Past Medical History: Diabetes Mellitus, Hyperlipidemia, Hypertension, Renal Disease, Sleep Apnea/CPAP/BIPAP Additional Past Medical History / Comment(s): seasonal allergies, STAGE 4 KIDNEY FAILURE, CHRONIC BACK PAIN, does not use CPAP Last Myocardial Infarction Date:: 2013 History of Any Multi-Drug Resistant Organisms: None Reported Past Surgical History: Bariatric Surgery, Cardiac Valve Replacement, Heart Catheterization Additional Past Surgical History / Comment(s): Aortic valve replacement 2013, gastric bypass 06-07-19 Past Anesthesia/Blood Transfusion Reactions: No Reported Reaction Additional Past Anesthesia/Blood Transfusion Reaction / Comm: NO blood transfusion to date Past Psychological History: Anxiety, Depression Smoking Status: Former smoker Past Alcohol Use History: None Reported Past Drug Use History: None Reported - Past Family History Mother Family Medical History: Cancer, Coronary Artery Disease (CAD), Hypertension Additional Family Medical History / Comment(s): vulva cancer Father Family Medical History: Dementia, Hypertension, Neurologic Disorder Additional Family Medical History / Comment(s): at age 69 from dementia/parkinsons Sister(s) Family Medical History: Hypertension Medications and Allergies Home Medications Medication Instructions Recorded Confirmed Type Insulin Aspart (For Pump) [NovoLOG 0.01 unit SQ-PUMP CONTINUOUS 01/09/21 11/27/24 History (For Pump)] Atorvastatin [Lipitor] 40 mg PO HS 02/17/21 11/27/24 History Furosemide [Lasix] 40 mg PO MOWEFR 02/17/21 11/27/24 History Omeprazole 40 mg PO DAILY 02/17/21 11/27/24 History calcitrioL 0.5 mcg PO Q2D 02/17/21 11/27/24 History Secukinumab [Cosentyx Sensoready 150 mg SQ Q30D 06/23/24 11/27/24 History Pen] Suvorexant [Belsomra] 20 mg PO HS 06/23/24 11/27/24 History Vortioxetine Hydrobromide 20 mg PO DAILY 06/23/24 11/27/24 History [Trintellix] Metoprolol Succinate (ER) [Toprol 25 mg PO HS 08/27/24 11/27/24 History XL] Nystatin 100,000 Unit/gm Powd 1 applic TOPICAL BID PRN 08/27/24 11/27/24 History [Mycostatin Powder] busPIRone HCL 15 mg PO BID 08/27/24 11/27/24 History lisinopriL [Zestril] 2.5 mg PO Q2D 08/27/24 11/27/24 History OXcarbazepine 150 mg PO HS 11/19/24 11/27/24 History Allergies Allergy/AdvReac Type Severity Reaction Status Date / Time adhesive Allergy Intermediate Rash/Hives Verified 11/27/24 14:06 latex Allergy Intermediate Rash/Hives Verified 11/27/24 14:06 Surgical - Exam Vital Signs Temp Pulse Resp BP Pulse Ox 97.7 F 76 22 165/88 100 11/26/24 18:55 11/26/24 18:55 11/26/24 18:55 11/26/24 18:55 11/26/24 18:55 Results - Labs 11/29/24 02:49 11/29/24 02:49 Abnormal Lab Results - Last 24 Hours (Table) 11/28/24 11/28/24 11/28/24 Range/Units 13:15 16:44 20:55 RBC (4.10-5.20) X 10*6/uL Hgb (12.0-15.0) g/dL Hct (37.2-46.3) % MCHC (32.0-37.0) g/dL Plt Count (140-440) X 10*3/uL Sodium (135-145) mmol/L Carbon Dioxide (21.6-31.8) mmol/L Anion Gap (4.00-12.00) mmol/L BUN (9.0-27.0) mg/dL Creatinine (0.6-1.5) mg/dL Est GFR (CKD-EPI) (>=60) Glucose (70-110) mg/dL POC Glucose (mg/dL) 167 H 290 H 380 H (70-110) mg/dL AST (13-35) U/L ALT (8-44) U/L Total Protein (6.2-8.2) g/dL Albumin (3.8-4.9) g/dL Albumin/Globulin Ratio (1.60-3.17) Ratio 11/29/24 11/29/24 11/29/24 Range/Units 00:05 00:58 02:44 RBC (4.10-5.20) X 10*6/uL Hgb (12.0-15.0) g/dL Hct (37.2-46.3) % MCHC (32.0-37.0) g/dL Plt Count (140-440) X 10*3/uL Sodium (135-145) mmol/L Carbon Dioxide (21.6-31.8) mmol/L Anion Gap (4.00-12.00) mmol/L BUN (9.0-27.0) mg/dL Creatinine (0.6-1.5) mg/dL Est GFR (CKD-EPI) (>=60) Glucose (70-110) mg/dL POC Glucose (mg/dL) 422 H 418 H 371 H (70-110) mg/dL AST (13-35) U/L ALT (8-44) U/L Total Protein (6.2-8.2) g/dL Albumin (3.8-4.9) g/dL Albumin/Globulin Ratio (1.60-3.17) Ratio 11/29/24 11/29/24 11/29/24 Range/Units 02:49 02:49 06:08 RBC 3.36 L (4.10-5.20) X 10*6/uL Hgb 9.7 L (12.0-15.0) g/dL Hct 32.3 L (37.2-46.3) % MCHC 30.0 L (32.0-37.0) g/dL Plt Count 122 L (140-440) X 10*3/uL Sodium 133 L (135-145) mmol/L Carbon Dioxide 16.4 L (21.6-31.8) mmol/L Anion Gap 15.60 H (4.00-12.00) mmol/L BUN 41.1 H (9.0-27.0) mg/dL Creatinine 2.8 H (0.6-1.5) mg/dL Est GFR (CKD-EPI) 19 L (>=60) Glucose 357 H (70-110) mg/dL POC Glucose (mg/dL) 272 H (70-110) mg/dL AST 63 H (13-35) U/L ALT 92 H (8-44) U/L Total Protein 4.8 L (6.2-8.2) g/dL Albumin 2.9 L (3.8-4.9) g/dL Albumin/Globulin Ratio 1.53 L (1.60-3.17) Ratio 11/29/24 Range/Units 12:34 RBC (4.10-5.20) X 10*6/uL Hgb (12.0-15.0) g/dL Hct (37.2-46.3) % MCHC (32.0-37.0) g/dL Plt Count (140-440) X 10*3/uL Sodium (135-145) mmol/L Carbon Dioxide (21.6-31.8) mmol/L Anion Gap (4.00-12.00) mmol/L BUN (9.0-27.0) mg/dL Creatinine (0.6-1.5) mg/dL Est GFR (CKD-EPI) (>=60) Glucose (70-110) mg/dL POC Glucose (mg/dL) 280 H (70-110) mg/dL AST (13-35) U/L ALT (8-44) U/L Total Protein (6.2-8.2) g/dL Albumin (3.8-4.9) g/dL Albumin/Globulin Ratio (1.60-3.17) Ratio Microbiology - Last 24 Hours (Table) 11/26/24 22:05 Blood Culture Gram Stain - Preliminary Blood Blood Culture - Preliminary Molecular ID Diabetes panel 11/28/24 11/29/24 Range/Units 03:41 02:49 Sodium 133 L (135-145) mmol/L Potassium 3.9 (3.5-5.5) mmol/L Chloride 101 (96-109) mmol/L Carbon Dioxide 16.4 L (21.6-31.8) mmol/L BUN 41.1 H (9.0-27.0) mg/dL Creatinine 2.8 H (0.6-1.5) mg/dL Glucose 357 H (70-110) mg/dL Hemoglobin A1c 5.5 (<=6.0) % Calcium 8.9 (8.7-10.3) mg/dL AST 63 H (13-35) U/L ALT 92 H (8-44) U/L Alkaline Phosphatase 77 (41-126) U/L Total Protein 4.8 L (6.2-8.2) g/dL Albumin 2.9 L (3.8-4.9) g/dL Calcium panel 11/29/24 Range/Units 02:49 Calcium 8.9 (8.7-10.3) mg/dL Albumin 2.9 L (3.8-4.9) g/dL Pituitary panel 11/29/24 Range/Units 02:49 Sodium 133 L (135-145) mmol/L Potassium 3.9 (3.5-5.5) mmol/L Chloride 101 (96-109) mmol/L Carbon Dioxide 16.4 L (21.6-31.8) mmol/L BUN 41.1 H (9.0-27.0) mg/dL Creatinine 2.8 H (0.6-1.5) mg/dL Glucose 357 H (70-110) mg/dL Calcium 8.9 (8.7-10.3) mg/dL Adrenal panel 11/29/24 Range/Units 02:49 Sodium 133 L (135-145) mmol/L Potassium 3.9 (3.5-5.5) mmol/L Chloride 101 (96-109) mmol/L Carbon Dioxide 16.4 L (21.6-31.8) mmol/L BUN 41.1 H (9.0-27.0) mg/dL Creatinine 2.8 H (0.6-1.5) mg/dL Glucose 357 H (70-110) mg/dL Calcium 8.9 (8.7-10.3) mg/dL Total Bilirubin 0.5 (0.3-1.2) mg/dL AST 63 H (13-35) U/L ALT 92 H (8-44) U/L Alkaline Phosphatase 77 (41-126) U/L Total Protein 4.8 L (6.2-8.2) g/dL Albumin 2.9 L (3.8-4.9) g/dL
[2024-11-29] MEDS: FAMOTIDINE 20 MG/2 ML VIAL IV SCH (13:23)
--- NOTE | 2024-11-29 13:33 | P.PN ---
Subjective Progress Note Date: 11/29/24 CHIEF COMPLAINT: Acute cholecystitis HISTORY OF PRESENT ILLNESS: Radha Grande is a 54-year-old female is postop day #2 status post robotic lysis of adhesions and subtotal cholecystectomy for acute hydropic hemorrhagic cholecystitis. Patient has severe arctic stenosis and postoperative management in the ICU. Patient is currently on regular medical floor. She reports her pain is controlled. She did complain of nausea and reflux symptoms this morning. She denies any vomiting. Denies any flatus. Has been urinating. Afebrile. BP 96/60. WBC is 9.02 Hgb 9.7 platelets 122 creatinine 2.8 total bilirubin 0.5 LFTs trending down. Patient seen evaluated by pulmonary service and nephrology service. Cardiology consult pending. PHYSICAL EXAM: VITAL SIGNS: Reviewed GENERAL: Well-developed in no acute distress. HEENT: No sclera icterus. Extraocular movements grossly intact. Moist buccal mucosa. Head is atraumatic, normocephalic. Hears conversational speech. No nasal drainage. NECK: Supple without lymphadenopathy. CHEST: Non-labored respirations and equal bilateral excursions. CARDIOVASCULAR: Palpable 2+ radial pulses. ABDOMEN: Soft. Nondistended. Incision sites clean dry and intact. MUSCULOSKELETAL: No clubbing or cyanosis. NEUROLOGIC: No focal or lateralizing signs. Cranial nerves II through XII grossly intact. PSYCH: Appropriate affect. Alert and oriented to person, place and time. SKIN: Well perfused. Good skin turgor. ASSESSMENT: 1. Acute hemorrhagic hydropic cholecystitis due to cystic duct obstruction 2. Morbid obesity due to excess calories, Body mass index of 59.8 to 33.1 3. Hypertensive heart disease. 4. Obstructive sleep apnea 5. 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 Chronic panniculitis 7. Osteoarthritis of the lower back. 8. Depression 9. Anxiety disorder 10. Hyperlipidemia 11. Iron deficiency 12. Congestive heart failure 13. Gastroesophageal reflux disease 14. Diabetic nephropathy, stage 3 15. History of aspiration pneumonia 16. Diabetic gastroparesis 17. Status post gastric bypass 18. Internal hernia 19. Stage III renal disease due to diabetic nephropathy 20. History aortic valvular replacement 21. Severe aortic stenosis 22. Acute blood loss anemia due to hemorrhagic hydropic cholecystitis PLAN: -Continue antibiotics -Continue clear liquid diet -IV Pepcid added for heartburn -Continue antiemetics -Encourage patient to increase activity level -Continue pain management -DVT prophylaxis subcu heparin Physician Spiral Runner note has been reviewed by physician. Signing provider agrees with the documented findings, assessment, and plan of care. Objective - Vital Signs Vital signs: Vital Signs Temp 99.0 F 11/29/24 08:00 Pulse 81 11/29/24 08:00 Resp 17 11/29/24 08:00 BP 96/60 11/29/24 08:00 Pulse Ox 96 11/29/24 08:00 FiO2 Intake & Output 11/28/24 11/29/24 11/29/24 18:59 06:59 18:59 Intake Total 909 Output Total 400 Balance 509 Intake: IV 709 Magnesium Sulfate-D5w Pmx 200 1 gm In Dextrose/Water 1 100ml.bag @ 100 mls/hr IVPB Q1H [facility] Rx#: [id number] Sodium Chloride 0.9% 1, 500 000 ml @ 125 mls/hr IV . Q8H [facility] Rx#:[id number] pressure bag 9 Oral 200 Output: Urine 400 Other: Voiding Method Toilet Toilet # Voids 1 ABP, PAP, CO, CI - Last Documented Arterial Blood Pressure 105/48 - Labs CBC & Chem 7: 11/29/24 02:49 11/29/24 02:49 Labs: Abnormal Lab Results - Last 24 Hours (Table) 11/28/24 11/28/24 11/29/24 Range/Units 16:44 20:55 00:05 RBC (4.10-5.20) X 10*6/uL Hgb (12.0-15.0) g/dL Hct (37.2-46.3) % MCHC (32.0-37.0) g/dL Plt Count (140-440) X 10*3/uL Sodium (135-145) mmol/L Carbon Dioxide (21.6-31.8) mmol/L Anion Gap (4.00-12.00) mmol/L BUN (9.0-27.0) mg/dL Creatinine (0.6-1.5) mg/dL Est GFR (CKD-EPI) (>=60) Glucose (70-110) mg/dL POC Glucose (mg/dL) 290 H 380 H 422 H (70-110) mg/dL AST (13-35) U/L ALT (8-44) U/L Total Protein (6.2-8.2) g/dL Albumin (3.8-4.9) g/dL Albumin/Globulin Ratio (1.60-3.17) Ratio 11/29/24 11/29/24 11/29/24 Range/Units 00:58 02:44 02:49 RBC 3.36 L (4.10-5.20) X 10*6/uL Hgb 9.7 L (12.0-15.0) g/dL Hct 32.3 L (37.2-46.3) % MCHC 30.0 L (32.0-37.0) g/dL Plt Count 122 L (140-440) X 10*3/uL Sodium (135-145) mmol/L Carbon Dioxide (21.6-31.8) mmol/L Anion Gap (4.00-12.00) mmol/L BUN (9.0-27.0) mg/dL Creatinine (0.6-1.5) mg/dL Est GFR (CKD-EPI) (>=60) Glucose (70-110) mg/dL POC Glucose (mg/dL) 418 H 371 H (70-110) mg/dL AST (13-35) U/L ALT (8-44) U/L Total Protein (6.2-8.2) g/dL Albumin (3.8-4.9) g/dL Albumin/Globulin Ratio (1.60-3.17) Ratio 11/29/24 11/29/24 11/29/24 Range/Units 02:49 06:08 12:34 RBC (4.10-5.20) X 10*6/uL Hgb (12.0-15.0) g/dL Hct (37.2-46.3) % MCHC (32.0-37.0) g/dL Plt Count (140-440) X 10*3/uL Sodium 133 L (135-145) mmol/L Carbon Dioxide 16.4 L (21.6-31.8) mmol/L Anion Gap 15.60 H (4.00-12.00) mmol/L BUN 41.1 H (9.0-27.0) mg/dL Creatinine 2.8 H (0.6-1.5) mg/dL Est GFR (CKD-EPI) 19 L (>=60) Glucose 357 H (70-110) mg/dL POC Glucose (mg/dL) 272 H 280 H (70-110) mg/dL AST 63 H (13-35) U/L ALT 92 H (8-44) U/L Total Protein 4.8 L (6.2-8.2) g/dL Albumin 2.9 L (3.8-4.9) g/dL Albumin/Globulin Ratio 1.53 L (1.60-3.17) Ratio Microbiology - Last 24 Hours (Table) 11/26/24 22:05 Blood Culture Gram Stain - Preliminary Blood Blood Culture - Preliminary Molecular ID
--- NOTE | 2024-11-29 13:59 | P.PN ---
Subjective Patient is seen for follow-up for acute kidney injury. Renal function has worsened with serum creatinine at 2.8 today. Blood pressure remains on the lower side with systolic in the 80s today. Blood cultures are growing gram-positive cocci Patient is voiding on her own. Objective - Vital Signs Vital signs: Vital Signs Temp 99.0 F 11/29/24 08:00 Pulse 81 11/29/24 08:00 Resp 17 11/29/24 08:00 BP 96/60 11/29/24 08:00 Pulse Ox 96 11/29/24 08:00 FiO2 Intake & Output 11/28/24 11/29/24 11/29/24 18:59 06:59 18:59 Intake Total 909 Output Total 400 Balance 509 Intake: IV 709 Magnesium Sulfate-D5w Pmx 200 1 gm In Dextrose/Water 1 100ml.bag @ 100 mls/hr IVPB Q1H [facility] Rx#: [id number] Sodium Chloride 0.9% 1, 500 000 ml @ 125 mls/hr IV . Q8H [facility] Rx#:[id number] pressure bag 9 Oral 200 Output: Urine 400 Other: Voiding Method Toilet Toilet # Voids 1 ABP, PAP, CO, CI - Last Documented Arterial Blood Pressure 105/48 - Exam Patient is awake, comfortable, no acute distress Examination of the heart S1 and S2 Examination of the lungs bilateral breath sounds are heard Abdomen is soft, abdominal binder in place Examination of lower extremities shows no significant edema CLOTH BALE HEADER exam grossly intact - Labs CBC & Chem 7: 11/29/24 02:49 11/29/24 02:49 Labs: Abnormal Lab Results - Last 24 Hours (Table) 11/28/24 11/28/24 11/29/24 Range/Units 16:44 20:55 00:05 RBC (4.10-5.20) X 10*6/uL Hgb (12.0-15.0) g/dL Hct (37.2-46.3) % MCHC (32.0-37.0) g/dL Plt Count (140-440) X 10*3/uL Sodium (135-145) mmol/L Carbon Dioxide (21.6-31.8) mmol/L Anion Gap (4.00-12.00) mmol/L BUN (9.0-27.0) mg/dL Creatinine (0.6-1.5) mg/dL Est GFR (CKD-EPI) (>=60) Glucose (70-110) mg/dL POC Glucose (mg/dL) 290 H 380 H 422 H (70-110) mg/dL AST (13-35) U/L ALT (8-44) U/L Total Protein (6.2-8.2) g/dL Albumin (3.8-4.9) g/dL Albumin/Globulin Ratio (1.60-3.17) Ratio 11/29/24 11/29/24 11/29/24 Range/Units 00:58 02:44 02:49 RBC 3.36 L (4.10-5.20) X 10*6/uL Hgb 9.7 L (12.0-15.0) g/dL Hct 32.3 L (37.2-46.3) % MCHC 30.0 L (32.0-37.0) g/dL Plt Count 122 L (140-440) X 10*3/uL Sodium (135-145) mmol/L Carbon Dioxide (21.6-31.8) mmol/L Anion Gap (4.00-12.00) mmol/L BUN (9.0-27.0) mg/dL Creatinine (0.6-1.5) mg/dL Est GFR (CKD-EPI) (>=60) Glucose (70-110) mg/dL POC Glucose (mg/dL) 418 H 371 H (70-110) mg/dL AST (13-35) U/L ALT (8-44) U/L Total Protein (6.2-8.2) g/dL Albumin (3.8-4.9) g/dL Albumin/Globulin Ratio (1.60-3.17) Ratio 11/29/24 11/29/24 11/29/24 Range/Units 02:49 06:08 12:34 RBC (4.10-5.20) X 10*6/uL Hgb (12.0-15.0) g/dL Hct (37.2-46.3) % MCHC (32.0-37.0) g/dL Plt Count (140-440) X 10*3/uL Sodium 133 L (135-145) mmol/L Carbon Dioxide 16.4 L (21.6-31.8) mmol/L Anion Gap 15.60 H (4.00-12.00) mmol/L BUN 41.1 H (9.0-27.0) mg/dL Creatinine 2.8 H (0.6-1.5) mg/dL Est GFR (CKD-EPI) 19 L (>=60) Glucose 357 H (70-110) mg/dL POC Glucose (mg/dL) 272 H 280 H (70-110) mg/dL AST 63 H (13-35) U/L ALT 92 H (8-44) U/L Total Protein 4.8 L (6.2-8.2) g/dL Albumin 2.9 L (3.8-4.9) g/dL Albumin/Globulin Ratio 1.53 L (1.60-3.17) Ratio Microbiology - Last 24 Hours (Table) 11/26/24 22:05 Blood Culture Gram Stain - Preliminary Blood Blood Culture - Preliminary Molecular ID Assessment and Plan Assessment: 1. Acute kidney injury, ATN, nonoliguric secondary to hypotension and sepsis. UA shows trace protein and ketones. CT of the abdomen showed nonobstructive stone. 2. Acute hemorrhagic hydropic cholecystitis due to cystic duct obstruction status post subtotal robotic cholecystectomy on 11/27/2024 3. Gram-positive bacteremia 4. Severe aortic stenosis being followed by cardiology 5. Hypomagnesemia status post replacement Plan: Continue with IV fluids Consider adjustment of antibiotics Decrease metoprolol Add midodrine Repeat labs in a.m.
--- NOTE | 2024-11-29 15:53 | P.PN ---
Subjective Progress Note Date: 11/29/24 Hospital course: Patient is a very pleasant 54-year-old female with a past medical history of bovine aortic valve replacement in 2014 does not follow with linux network engineer, insulin-dependent diabetes mellitus with personal insulin pump, hypertension, lipidemia, obesity with previous gastric bypass in 2019, CKD stage IIIb with baseline creatinine of 1.9, and obstructive sleep apnea does not use CPAP.. She presented to the emergency department on 11/26/2024 with a chief complaint of right upper quadrant abdominal pain. Upon arrival to our facility, patient underwent evaluation in the emergency department. Vital signs upon arrival show blood pressure 165/88, heart rate 76, respiratory rate 22, temp 97.7 F, and SpO2 of 100% on room air. EKG completed showing normal sinus rhythm at 69 bpm with nonspecific T wave abnormalities in lateral leads V5 and V6.. Gallbladder ultrasound completed showing acute cholecystitis with hydropic gallbladder and cholelithiasis. Labs completed and reviewed. CBC unremarkable. BMP showing elevated BUN of 18, creatinine of 1.47, GFR 40 consistent with known chronic kidney disease with baseline creatinine of 1.9. Blood glucose 124. Liver profile showing elevated AST of 37. Amylase and lipase normal findings. Urina lysis negative for infection. CT abdomen and pelvis without contrast was completed showing hydropic gallbladder with cholelithiasis and small bowel feces in the terminal ileum concerning for fecal stasis, nonvisualized appendix and left nonobstructive renal calculus. Blood culture sent to lab for analysis. Patient was started on IV antibiotics with Zosyn and admitted under general surgery team. We were consulted for medical management and preoperative clearance. Echocardiogram was completed, received notification from linux network engineer, Dr. Márquez that patient has severe aortic stenosis with a mean gradient of 66 mmHg and moderate to severe mitral stenosis with mild to moderate mitral regurgitation. Discussed these findings in detail with linux network engineer stating if surgical intervention is urgent/emergent would not delay procedure but does recommend keeping patient hydrated and avoiding hypotension. Called and discussed findings and recommendations with general surgeon, Dr. Patterson. 11/27/2024 patient underwent robotic assisted laparoscopic cholecystectomy by Dr. Patterson. Patient had postoperative hypotension and was transferred to ICU overnight for close monitoring of blood pressures. Blood pressures been stabilized and patient was transferred to [facility] unit with telemetry on 11/28/2024. Physical exam: Patient seen and fully evaluated at bedside this morning. She is postoperative day 2 and appears to be doing well. Her blood pressures remain on the soft side but stable and currently 96/68 with heart rate of 81. Patient reports postoperative pain is better controlled today compared to yesterday and states that pain medication regimen is controlling. She reports feeling mild nausea but denies any vomiting and has been tolerating a clear liquid diet. Patient denies having any headache, lightheadedness, dizziness, chest pain, palpitations, or shortness of breath. She denies any episodes of vomiting . Vital signs reviewed and stable. General: Nontoxic, no distress and appears stated age. Derm: Skin warm and dry, normal coloration for ethnicity. Head: Atraumatic, normocephalic and symmetric. Eyes: EOM's intact, no lid lag, and anicteric sclera Mouth: no lip lesions, mucus membranes moist Cardiovascular: regular rate and rhythm with normal S1S2, stage IV systolic murmur, positive posterior tibial pulses bilaterally, and cap refill < 2 seconds. Lungs: Respirations even, regular, and unlabored on room air. Lungs CTA bilaterally, no rhonchi, no rales, no wheezing, and no accessory muscle usage. Abdominal: soft, diffuse postoperative tenderness. Laparoscopic incisions intact and small dressing/bandage in place left upper quadrant. Abdominal binder in place. Ext: ROM intact. No gross muscle atrophy, no edema, no contractures Neuro: Speech clear, face symmetrical and CN II-XII grossly intact with no noted focal neuro deficits Psych: Alert and oriented to person, place, time, and situation. Appropriate and pleasant affect. Assessment and Plan of Care: Acute hemorrhagic hydropic cholecystitis with cystic duct obstruction, status post robotic assisted cholecystectomy Transaminitis, secondary to above Thrombocytopenia, likely secondary to above -Continue IV antibiotics per general surgery team with Zosyn 0.375 g every 12 hours. -Continue gentle IV fluid hydration with 0.9% normal saline at 125 cc/h. -Clear liquid diet, diet to be advanced per primary admitting general surgeon's recommendations. -Continue symptomatic care and pain management. -Hold atorvastatin secondary to transaminitis. Transaminitis is improving, we will continue to monitor liver function closely with repeat a.m. labs. Severe Aortic stenosis Hypotension Moderate to Severe Mitral regurgitation History of bovine aortic valve replacement 2013 Hypertension Hyperlipidemia -Echocardiogram completed showing a preserved EF of 60 to 65% with severe aortic stenosis with a mean gradient of 66 mmHg and moderate to severe mitral stenosis with mild to moderate mitral regurgitation. -Continue daily medication regimen with metoprolol 12.5 mg nightly. -Atorvastatin held secondary to acute transaminitis. Lisinopril held secondary to hypotension and RITESH. Acute kidney injury on stage IIIb chronic kidney disease, possibly secondary to hypotension/hypovolemia -Renal function worsening with BUN 41.1, creatinine 2.8, and GFR of 19. -Nephrology following, started patient on midodrine 5 mg twice daily. -Continue IV fluid hydration with 0.9% normal saline at 125 cc/h. Continue bladder scan as needed to monitor for postvoid residual/retention. -Continue strict I's and O's. -Urinalysis was negative for infection. -Lisinopril held at this time. Hypomagnesemia -Resolved with repeat morning w magnesium of 2.2 after replacement. We will continue to monitor for improvement/resolution with repeat a.m. labs and replace abnormal electrolyte values as indicated based upon these findings. Acute Postoperative blood loss anemia -Acute postoperative blood loss anemia with preoperative hemoglobin of 12.1 and postoperative hemoglobin currently 9.7. This is a stable and expected finding. No active bleeding noted. No need for transfusion or further intervention at this time. We will continue to monitor for improvement with repeat a.m. labs and transfuse as indicated for hemoglobin less than 7 or symptomatic anemia. Insulin-dependent diabetes mellitus -Continue [id number] blood glucose checks every 6 hours and patient's personal insulin pump stopped working/ran out and she was became hyperglycemic and was placed on Humalog sliding scale. Data and imaging reviewed: -Morning labs completed and reviewed. CBC showing bicytopenia with hemoglobin of 9.7 and platelet count of 122. BMP showing mild hyponatremia with sodium of 133 and worsening renal function with BUN of 41.1, creatinine 2.8, GFR of 19.. Blood glucose elevated this morning at 272. Magnesium 2.2. Liver profile showing continued improvement of transaminitis with AST of 62, ALT of 92, and alkaline phosphatase of 77 -Vital signs reviewed. Blood pressure 96/60, heart rate 81, respiratory rate 17, temp 99.0 F, and SpO2 of 96% on room air. Thank you for allowing us to participate in the care of this pleasant patient. Do not hesitate to contact us with questions. Someone can be reached from the [facility] hospitalist group all hours of the day at [phone] or via [employer]. Patient was seen independently by Nurse Practitioner. This document was prepared using [employer] dictation software. Please allow for errors in personnel security assistant while rare they do occur. Jerman Quiros NP rendered care for this patient independently, reviewed the findings and plan as documented in the note above and agree with plan. I did not physically speak with or examine the patient on this date. . Objective - Vital Signs Vital signs: Vital Signs Temp 98.8 F 11/29/24 02:33 Pulse 87 11/29/24 02:33 Resp 17 11/29/24 01:11 BP 92/58 11/29/24 02:33 Pulse Ox 97 11/29/24 02:33 FiO2 Intake & Output 11/28/24 11/29/24 11/29/24 18:59 06:59 18:59 Intake Total 909 Output Total 400 Balance 509 Intake: IV 709 Magnesium Sulfate-D5w Pmx 200 1 gm In Dextrose/Water 1 100ml.bag @ 100 mls/hr IVPB Q1H [facility] Rx#: [id number] Sodium Chloride 0.9% 1, 500 000 ml @ 125 mls/hr IV . Q8H [facility] Rx#:[id number] pressure bag 9 Oral 200 Output: Urine 400 Other: Voiding Method Toilet Toilet # Voids 1 ABP, PAP, CO, CI - Last Documented Arterial Blood Pressure 105/48 - Labs CBC & Chem 7: 11/29/24 02:49 11/29/24 02:49 Labs: Abnormal Lab Results - Last 24 Hours (Table) 11/28/24 11/28/24 11/28/24 Range/Units 13:15 16:44 20:55 POC Glucose (mg/dL) 167 H 290 H 380 H (70-110) mg/dL 11/29/24 11/29/24 11/29/24 Range/Units 00:05 00:58 02:44 POC Glucose (mg/dL) 422 H 418 H 371 H (70-110) mg/dL 11/29/24 Range/Units 06:08 POC Glucose (mg/dL) 272 H (70-110) mg/dL Microbiology - Last 24 Hours (Table) 11/26/24 22:05 Blood Culture Gram Stain - Preliminary Blood Blood Culture - Preliminary Molecular ID
[2024-11-29 17:06] LABS: Glucose,Whole Blood 298 mg/dL (70-110)
[2024-11-29] MEDS: PIPERACILLIN-TAZOBACTAM 3.375 GM in SODIUM CHLORIDE 0.9% 100 ML IVPB SCH (17:58)
[2024-11-29] MEDS: MIDODRINE 5 MG TAB PO SCH (17:58)
--- NOTE | 2024-11-29 19:09 | P.PN ---
Subjective Progress Note Date: 11/29/24 54-year-old female postoperative day #1, status post robotically assisted lysis of adhesions, and cholecystectomy. The patient was brought back to the intensive care unit for further monitoring and management. The patient has a history of aortic stenosis, and had aortic valve replacement back in 2013. The patient sees a family doctor, junior systems analyst, belt glass sander, and folder machine adjuster. Currently, she is on 2 L of oxygen. She is on Zosyn. She is getting saline at 100 cc an hour. Clinically, other than pain, she is doing well. In addition to aortic stenosis, status post AVR, the patient has a history of diabetes, hyperlipidemia, hypertension, sleep apnea syndrome, and chronic renal disease. White blood cell count 8.5, hemoglobin 9.5, hematocrit 30.3, and platelet count 102,000. Sodium 134, potassium 4, chlorides 104, CO2 25, BUN 28, and creatinine 2.16. Glucose 83. AST 154. ALT 138. Albumin was 2.6. Blood cultures were positive for gram-positive cocci in clusters, likely Staph epidermidis. On 11/29/2024, patient is being seen for a follow-up. The patient is postop day #2 following a robotic assisted cholecystectomy with lysis of adhesions. The patient is also noted multiple comorbidities including previous history of aortic valve replacement for aortic stenosis back in 2013, diabetes mellitus type 2, hypertension hyperlipidemia and chronic kidney disease. She has underg one previous gastric bypass surgery and she carries a body mass index of 34.8. The patient denies passing any flatus yet. Oral intake is limited. She denies having any nausea or emesis. Her blood work from today shows a white cell count of 9 with a hemoglobin 9.7 and a platelet count of 122. Sodium is at 133, serum bicarb is at 16, potassium is at 3.9, BUN is 41 with a creatinine of 2.8 and t here is an obvious ongoing rise in the creatinine with drop in urine output. LFTs show improvement in the AST and ALT and AST is down to 63 with an ALT of 92 and alkaline phosphatase of 77. The patient is afebrile. The patient is hemodynamically stable. She is on IV Zosyn. She is also on normal saline at rate of 125 cc an hour. Receiving Dilaudid for pain control. Remains on IV Pepcid. She is currently postop day #2. Blood cultures showing Staph epidermidis, likely a contaminant. Nephrology is also on the case regarding her acute kidney injury. She is able to void on her own. Objective - Vital Signs Vital signs: Vital Signs Temp 99.0 F 11/29/24 08:00 Pulse 81 11/29/24 08:00 Resp 17 11/29/24 08:00 BP 96/60 11/29/24 08:00 Pulse Ox 96 11/29/24 08:00 FiO2 Intake & Output 11/28/24 11/29/24 11/29/24 18:59 06:59 18:59 Intake Total 909 Output Total 400 Balance 509 Intake: IV 709 Magnesium Sulfate-D5w Pmx 200 1 gm In Dextrose/Water 1 100ml.bag @ 100 mls/hr IVPB Q1H [facility] Rx#: [id number] Sodium Chloride 0.9% 1, 500 000 ml @ 125 mls/hr IV . Q8H [facility] Rx#:[id number] pressure bag 9 Oral 200 Output: Urine 400 Other: Voiding Method Toilet Toilet # Voids 1 ABP, PAP, CO, CI - Last Documented Arterial Blood Pressure 105/48 - Exam No acute distress, oriented 3. Currently on 2 L of oxygen. No respiratory distress. No conversational dyspnea. No use of accessory muscles. HEENT examination is grossly unremarkable. Mucous membranes are moist. No oral lesions. Neck supple. Full range of motion. No adenopathy thyromegaly or neck vein distention. Cardiovascular examination reveals regular rhythm rate. S1-S2 normal. No S3 or S4. A soft systolic murmur is noted. Lungs reveal clear breath sounds. Breath sounds are equal bilaterally. No adventitious lung sounds including wheezes rhonchi or crackles. Abdomen soft bowel sounds are heard. No masses or tenderness. Extremities are intact. No cyanosis clubbing or edema. Skin is without rash or lesion. Neurologic examination is brief but nonfocal. - Labs CBC & Chem 7: 11/29/24 02:49 11/29/24 02:49 Labs: Abnormal Lab Results - Last 24 Hours (Table) 11/28/24 11/28/24 11/29/24 Range/Units 16:44 20:55 00:05 RBC (4.10-5.20) X 10*6/uL Hgb (12.0-15.0) g/dL Hct (37.2-46.3) % MCHC (32.0-37.0) g/dL Plt Count (140-440) X 10*3/uL Sodium (135-145) mmol/L Carbon Dioxide (21.6-31.8) mmol/L Anion Gap (4.00-12.00) mmol/L BUN (9.0-27.0) mg/dL Creatinine (0.6-1.5) mg/dL Est GFR (CKD-EPI) (>=60) Glucose (70-110) mg/dL POC Glucose (mg/dL) 290 H 380 H 422 H (70-110) mg/dL AST (13-35) U/L ALT (8-44) U/L Total Protein (6.2-8.2) g/dL Albumin (3.8-4.9) g/dL Albumin/Globulin Ratio (1.60-3.17) Ratio 11/29/24 11/29/24 11/29/24 Range/Units 00:58 02:44 02:49 RBC 3.36 L (4.10-5.20) X 10*6/uL Hgb 9.7 L (12.0-15.0) g/dL Hct 32.3 L (37.2-46.3) % MCHC 30.0 L (32.0-37.0) g/dL Plt Count 122 L (140-440) X 10*3/uL Sodium (135-145) mmol/L Carbon Dioxide (21.6-31.8) mmol/L Anion Gap (4.00-12.00) mmol/L BUN (9.0-27.0) mg/dL Creatinine (0.6-1.5) mg/dL Est GFR (CKD-EPI) (>=60) Glucose (70-110) mg/dL POC Glucose (mg/dL) 418 H 371 H (70-110) mg/dL AST (13-35) U/L ALT (8-44) U/L Total Protein (6.2-8.2) g/dL Albumin (3.8-4.9) g/dL Albumin/Globulin Ratio (1.60-3.17) Ratio 11/29/24 11/29/24 11/29/24 Range/Units 02:49 06:08 12:34 RBC (4.10-5.20) X 10*6/uL Hgb (12.0-15.0) g/dL Hct (37.2-46.3) % MCHC (32.0-37.0) g/dL Plt Count (140-440) X 10*3/uL Sodium 133 L (135-145) mmol/L Carbon Dioxide 16.4 L (21.6-31.8) mmol/L Anion Gap 15.60 H (4.00-12.00) mmol/L BUN 41.1 H (9.0-27.0) mg/dL Creatinine 2.8 H (0.6-1.5) mg/dL Est GFR (CKD-EPI) 19 L (>=60) Glucose 357 H (70-110) mg/dL POC Glucose (mg/dL) 272 H 280 H (70-110) mg/dL AST 63 H (13-35) U/L ALT 92 H (8-44) U/L Total Protein 4.8 L (6.2-8.2) g/dL Albumin 2.9 L (3.8-4.9) g/dL Albumin/Globulin Ratio 1.53 L (1.60-3.17) Ratio Microbiology - Last 24 Hours (Table) 11/26/24 22:05 Blood Culture Gram Stain - Preliminary Blood Blood Culture - Preliminary Molecular ID Assessment and Plan Plan: Postoperative day #2 status post robotically assisted cholecystectomy, and lysis of adhesions. Acute on chronic kidney injury. The creatinine is on the rise and the patient is currently on normal saline at rate of 125 cc an hour. Nephrology on the case. History of aortic stenosis, status post AVR, 2013. The patient continues to have valvular heart disease. The echocardiogram from this current admission shows normal biventricular systolic function. Severe stenosis of the bio prosthetic aortic valve with a mean gradient of 66 and moderate to severe mitral stenosis with mild to moderate mitral regurgitation. Diabetes mellitus type 2. History of hyperlipidemia. History of hypertension. History of sleep apnea syndrome. History of gastric bypass. History of anxiety/depression. Prior history of tobacco use. Gram-positive cocci in the blood, consistent of Staph epidermidis. Plan Wean FiO2 as tolerated to maintain saturation above 90%, currently on room air oxygen. Continue IV Zosyn Gradual rise diet as tolerated General Surgery is on the case liner renal function CAT scan of the abdomen showed no evidence of any hydronephrosis Normal saline at rate of 125 cc an hour Repeat blood work in a.m. Midodrine was added by nephrology Dilaudid for pain control Will continue to follow Time with Patient: Greater than 30
[2024-11-29] MEDS: METOPROLOL SUCCINATE (ER) 25 MG TAB.ER.24H PO SCH (20:23)
[2024-11-29 20:54] LABS: Glucose,Whole Blood 304 mg/dL (70-110)
[2024-11-30 00:19] LABS: Glucose,Whole Blood 332 mg/dL (70-110)
[2024-11-30 06:28] LABS: Glucose,Whole Blood 239 mg/dL (70-110)
[2024-11-30 08:10] LABS: HCT 28.2 % (37.2-46.3); HGB 8.8 g/dL (12.0-15.0); MCH 28.8 pg (27.0-32.0); MCHC 31.2 g/dL (32.0-37.0); MCV 92.2 FL (80.0-97.0); Mean Platelet Volume 11.7 FL (9.5-12.2); NRBC Per 100 WBC 0 X 10*3/uL (0.00-0.01); Platelet Count 131 X 10*3/uL (140-440); RBC 3.06 X 10*6/uL (4.10-5.20); RDW 13.8 % (11.5-14.5); WBC 7.31 X 10*3/uL (4.50-10.00)
[2024-11-30 08:47] LABS: ALT 68 U/L (8-44); AST 31 U/L (13-35); Albumin 2.9 g/dL (3.8-4.9); Albumin/Globulin Ratio 1.61 Ratio (1.60-3.17); Alkaline Phosphatase 75 U/L (41-126); BUN/Creat Ratio 15.31 Ratio (12.00-20.00); Blood Urea Nitrogen 39.8 mg/dL (9.0-27.0); Calcium 9.2 mg/dL (8.7-10.3); Carbon Dioxide 20.2 mmol/L (21.6-31.8); Chloride 108 mmol/L (96-109); Globulin 1.8 g/dL (1.6-3.3); Glucose 236 mg/dL (70-110); Potassium 3.9 mmol/L (3.5-5.5); Sodium 138 mmol/L (135-145); Total Bilirubin 0.5 mg/dL (0.3-1.2); Total Protein 4.7 g/dL (6.2-8.2)
[2024-11-30] MEDS ORDERED: FAMOTIDINE 20 MG/2 ML VIAL IV SCH (09:00)
[2024-11-30] MEDS: ONDANSETRON 4 MG/2 ML VIAL IVP PRN (11:03)
[2024-11-30 11:39] LABS: Glucose,Whole Blood 283 mg/dL (70-110)
--- NOTE | 2024-11-30 11:44 | P.CRDCN ---
History of Present Illness Consult date: 11/30/24 Reason for Consult (text): Severe aortic stenosis status post bovine AV replacement 2013 History of present illness: This is a 54-year-old female patient of Dr. Márquez last seen in the office in December 2020, with past medical history of aortic valve replacement, hypertension, diabetes type 1, family history of coronary artery disease. We have been asked to evaluate the patient for severe aortic stenosis status post bovine aortic valve replacement in 2013. Patient presented to the hospital due to abdominal pain on 11/26. Patient was diagnosed with acute hemorrhagic hydropic cholecystitis due to cystic duct obstruction and underwent robotic lysis of adhesions and subtotal cholecystectomy. Patient states she is currently on soft diet and tolerating. She denies chest pain, shortness of breath, lightheadedness or dizziness. No lower extremity edema. Blood pressure 106/67, heart rate 79, pulse ox 96% on room air. -EKG: Sinus rhythm with no acute ST or T wave changes. -Echocardiogram performed 11/27/2024 revealed normal biventricular systolic function. Severe stenosis in the bioprosthetic aortic valve with mean gradient of 66. Moderate to severe mitral stenosis and mild to moderate mitral regurgitation -Laboratory studies: WBC 7.3, hemoglobin initially 13 now 8.8, platelet count 131, BUN 39 creatinine 2.6 -Home cardiac medications: Atorvastatin 40 mg at bedtime, Lasix 40 mg Friday, lisinopril 2.5 mg every 2 days, Toprol XL 25 mg at bedtime. -Cardiac catheterization performed 02/13/2014: Normal coronaries. -CV surgery with tissue AVR 02/25/2014. -Previous echocardiogram performed in the office on 12/22/2020 revealed EF 55%. Biologic AV prosthesis with no regurgitation. Peak gradient of 48 mmHg and mean gradient of 30 mmHg. Review Of Systems: At the time of my exam: CONSTITUTIONAL: Denies fever or chills. HEENT: Denies blurred vision, vision changes, or eye pain. Denies hemoptysis CARDIOVASCULAR: Denies chest pain. Denies orthopnea. Denies PND. Denies palpitations RESPIRATORY: Denies shortness of breath. GASTROINTESTINAL: Denies abdominal pain. Denies nausea or vomiting. HEMATOLOGIC: Denies bleeding disorders. GENITOURINARY: Denies any blood in urine. SKIN: Denies puritis. Denies rash. Physical examination: Gen: This is a 54-year-old female in no acute distress VS: reviewed HEENT: Head is atraumatic, normocephalic. Pupils equal, round. Sclerae is anicteric. NECK: Supple. No JVD. LUNGS: Clear to auscultation. No wheezes or rhonchi. No intercostal retractions. HEART: Regular rate and rhythm. Systolic murmur at the right sternal border and systolic left sternal border. ABDOMEN: Soft. EXTREMITIES: No pedal edema. No calf tenderness. NEUROLOGICAL: Patient is awake, alert and oriented x3. Assessment: History of aortic valve replacement Acute hemorrhagic hydropic cholecystitis status post robotic lysis of adhesions and subtotal cholecystectomy 11/27 Acute blood loss anemia Acute kidney injury Hypertension Diabetes mellitus type 1 Family history of premature coronary artery disease Moderate to severe mitral stenosis and mild to moderate mitral regurgitation Plan: Continue patient's home cardiac medications No further cardiac workup at this time Patient encouraged to follow-up in the office with Dr. Márquez in 2 weeks following discharge from the hospital Cardiology will sign off this case and follow on an as-needed basis. Please reconsult for any new concerns. Thank you kindly for this consultation. Nurse practitioner note has been reviewed, I agree with documented findings and plan of care. Patient was seen and examined. Past Medical History Past Medical History: Diabetes Mellitus, Hyperlipidemia, Hypertension, Renal Disease, Sleep Apnea/CPAP/BIPAP Additional Past Medical History / Comment(s): seasonal allergies, STAGE 4 KIDNEY FAILURE, CHRONIC BACK PAIN, does not use CPAP Last Myocardial Infarction Date:: 2013 History of Any Multi-Drug Resistant Organisms: None Reported Past Surgical History: Bariatric Surgery, Cardiac Valve Replacement, Heart Catheterization Additional Past Surgical History / Comment(s): Aortic valve replacement 2013, gastric bypass 06-07-19 Past Anesthesia/Blood Transfusion Reactions: No Reported Reaction Additional Past Anesthesia/Blood Transfusion Reaction / Comment(s): NO blood transfusion to date Past Psychological History: Anxiety, Depression Smoking Status: Former smoker Past Alcohol Use History: None Reported Past Drug Use History: None Reported - Past Family History Mother Family Medical History: Cancer, Coronary Artery Disease (CAD), Hypertension Additional Family Medical History / Comment(s): vulva cancer Father Family Medical History: Dementia, Hypertension, Neurologic Disorder Additional Family Medical History / Comment(s): at age 69 from demen tia/parkinsons Sister(s) Family Medical History: Hypertension Medications and Allergies Home Medications Medication Instructions Recorded Confirmed Type Insulin Aspart (For Pump) [NovoLOG 0.01 unit SQ-PUMP CONTINUOUS 01/09/21 11/27/24 History (For Pump)] Atorvastatin [Lipitor] 40 mg PO HS 02/17/21 11/27/24 History Furosemide [Lasix] 40 mg PO MOWEFR 02/17/21 11/27/24 History Omeprazole 40 mg PO DAILY 02/17/21 11/27/24 History calcitrioL 0.5 mcg PO Q2D 02/17/21 11/27/24 History Secukinumab [Cosentyx Sensoready 150 mg SQ Q30D 06/23/24 11/27/24 History Pen] Suvorexant [Belsomra] 20 mg PO HS 06/23/24 11/27/24 History Vortioxetine Hydrobromide 20 mg PO DAILY 06/23/24 11/27/24 History [Trintellix] Metoprolol Succinate (ER) [Toprol 25 mg PO HS 08/27/24 11/27/24 History XL] Nystatin 100,000 Unit/gm Powd 1 applic TOPICAL BID PRN 08/27/24 11/27/24 History [Mycostatin Powder] busPIRone HCL 15 mg PO BID 08/27/24 11/27/24 History lisinopriL [Zestril] 2.5 mg PO Q2D 08/27/24 11/27/24 History OXcarbazepine 150 mg PO HS 11/19/24 11/27/24 History Allergies Allergy/AdvReac Type Severity Reaction Status Date / Time adhesive Allergy Intermediate Rash/Hives Verified 11/27/24 14:06 latex Allergy Intermediate Rash/Hives Verified 11/27/24 14:06 Physical Exam Vitals: Vital Signs Temp Pulse Resp BP BP Pulse Ox 11/30/24 07:25 98.1 F 79 17 106/67 96 11/30/24 01:17 98.1 F 85 16 95/62 97 11/29/24 19:27 97.9 F 90 16 96/61 96 11/29/24 14:00 98.0 F 84 17 108/72 99 Intake and Output 11/29/24 11/30/24 11/30/24 22:59 06:59 14:59 Intake Total 330 Balance 330 Intake: Oral 330 Other: Voiding Method Toilet # Voids 2 1 # Bowel Movements 1 Results 11/30/24 03:24 11/30/24 03:24 Cardiac Enzymes 11/30/24 Range/Units 03:24 AST 31 (13-35) U/L CBC 11/30/24 Range/Units 03:24 WBC 7.31 (4.50-10.00) X 10*3/uL RBC 3.06 L (4.10-5.20) X 10*6/uL Hgb 8.8 L (12.0-15.0) g/dL Hct 28.2 L (37.2-46.3) % Plt Count 131 L (140-440) X 10*3/uL Comprehensive Metabolic Panel 11/30/24 Range/Units 03:24 Sodium 138 (135-145) mmol/L Potassium 3.9 (3.5-5.5) mmol/L Chloride 108 (96-109) mmol/L Carbon Dioxide 20.2 L (21.6-31.8) mmol/L BUN 39.8 H (9.0-27.0) mg/dL Creatinine 2.6 H (0.6-1.5) mg/dL Glucose 236 H (70-110) mg/dL Calcium 9.2 (8.7-10.3) mg/dL AST 31 (13-35) U/L ALT 68 H (8-44) U/L Alkaline Phosphatase 75 (41-126) U/L Total Protein 4.7 L (6.2-8.2) g/dL Albumin 2.9 L (3.8-4.9) g/dL Current Medications Generic Name Dose Route Start Last Admin Trade Name Freq PRN Reason Stop Dose Admin Buspirone HCl 15 mg 11/27/24 09:00 11/30/24 10:36 Buspirone Hcl 5 Mg Tab PO 15 mg BID MARTÍN Administration Dextrose/Water 25 ml 11/29/24 00:14 Dextrose 50% Syringe 50 Ml IVP PER PROTOCOL PRN Hypoglycemia Protocol Dextrose/Water 50 ml 11/29/24 00:14 Dextrose 50% Syringe 50 Ml IVP PER PROTOCOL PRN Hypoglycemia Protocol Famotidine 20 mg 11/29/24 10:45 11/30/24 10:42 Famotidine 20 Mg/2 Ml Vial IV 20 mg Q12HR MARTÍN Administration Heparin Sodium (Porcine) 5,000 unit 11/27/24 21:00 11/30/24 10:38 Heparin Sodium,Porcine 5,000 Unit/Ml 1 Ml Vial SQ 5,000 unit Q12HR MARTÍN Administration Hydromorphone HCl 0.5 mg 11/26/24 22:08 11/30/24 10:50 Hydromorphone 0.5 Mg/0.5 Ml Syringe IVP 0.5 mg Q3HR PRN Administration Moderate Pain (Scale 4 to 6) Hydromorphone HCl 1 mg 11/26/24 22:08 11/27/24 05:57 Hydromorphone 1 Mg/Ml 1 Ml Syringe IVP 1 mg Q3HR PRN Administration Severe Pain (Scale 7 to 10) Sodium Chloride 1,000 mls @ 125 mls/hr 11/26/24 22:15 11/30/24 06:41 Saline 0.9% IV 125 mls/hr .Q8H MARTÍN Administration Piperacillin Sod/Tazobactam 100 mls @ 25 mls/hr 11/29/24 18:00 11/30/24 06:37 Sod 3.375 gm/ Sodium Chloride IVPB 25 mls/hr Q12H MARTÍN Administration Protocol Insulin Human Lispro 0 unit 11/29/24 00:15 11/30/24 06:38 Insulin Lispro (Humalog) 100 Unit/Ml 10 Ml Vl SQ 6 unit Q6HR MARTÍN Administration Protocol Metoprolol Succinate 12.5 mg 11/29/24 21:00 11/29/24 20:23 Metoprolol Succinate (Er) 25 Mg Tab.Er.24h PO 12.5 mg HS MARTÍN Administration Midodrine 5 mg 11/29/24 17:30 11/30/24 06:38 Midodrine 5 Mg Tab PO 5 mg AC-BID MARTÍN Administration Naloxone HCl 0.2 mg 11/27/24 11:26 Naloxone 0.4 Mg/Ml 1 Ml Vial IV Q2M PRN Opioid Reversal Non-Formulary Medication 0.01 unit 11/27/24 08:00 Insulin Aspart (For Pump) [Novolog (For Pump)] MISCELLANE CONTINUOUS PRN See comments Non-Formulary Medication 20 mg 11/27/24 21:00 11/29/24 20:38 Suvorexant [Belsomra] PO Not Given HS MARTÍN Nystatin 1 applic 11/27/24 07:49 Nystatin 100,000 Unit/Gm Powd 15 Gm TOPICAL BID PRN Rash Protocol Ondansetron HCl 4 mg 11/29/24 10:34 11/30/24 11:03 Ondansetron 4 Mg/2 Ml Vial IVP 4 mg Q6HR PRN Administration Nausea And Vomiting Oxcarbazepine 150 mg 11/27/24 21:00 11/29/24 20:23 Oxcarbazepine 150 Mg Tab PO 150 mg HS MARTÍN Administration Vortioxetine 20 mg 11/27/24 09:00 11/30/24 10:36 Vortioxetine Hydrobromide 20 Mg Tablet PO 20 mg DAILY MARTÍN Administration Intake and Output 11/29/24 11/30/24 11/30/24 22:59 06:59 14:59 Intake Total 330 Balance 330 Intake: Oral 330 Other: Voiding Method Toilet # Voids 2 1 # Bowel Movements 1 11/30/24 03:24 11/30/24 03:24
--- NOTE | 2024-11-30 12:44 | P.PN ---
Subjective Patient is seen for follow-up for acute kidney injury. Renal function improved slightly with creatinine down to 2.6 Blood pressure remains on the lower side. Blood cultures are growing Staph epidermidis. Maintained on IV fluids and midodrine. Patient is voiding on her own. Objective - Vital Signs Vital signs: Vital Signs Temp 98.1 F 11/30/24 07:25 Pulse 79 11/30/24 07:25 Resp 17 11/30/24 07:25 BP 106/67 11/30/24 07:25 Pulse Ox 96 11/30/24 07:25 FiO2 Intake & Output 11/29/24 11/30/24 11/30/24 18:59 06:59 18:59 Intake Total 330 Balance 330 Intake: Oral 330 Other: Voiding Method Toilet # Voids 2 1 # Bowel Movements 1 ABP, PAP, CO, CI - Last Documented Arterial Blood Pressure 105/48 - Exam Patient is awake, comfortable, no acute distress Examination of the heart S1 and S2 Examination of the lungs bilateral breath sounds are heard Abdomen is soft, abdominal binder in place Examination of lower extremities shows no significant edema 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 intact - Labs CBC & Chem 7: 11/30/24 03:24 11/30/24 03:24 Labs: Abnormal Lab Results - Last 24 Hours (Table) 11/29/24 11/29/24 11/30/24 Range/Units 17:04 20:52 00:17 RBC (4.10-5.20) X 10*6/uL Hgb (12.0-15.0) g/dL Hct (37.2-46.3) % MCHC (32.0-37.0) g/dL Plt Count (140-440) X 10*3/uL Carbon Dioxide (21.6-31.8) mmol/L BUN (9.0-27.0) mg/dL Creatinine (0.6-1.5) mg/dL Est GFR (CKD-EPI) (>=60) Glucose (70-110) mg/dL POC Glucose (mg/dL) 298 H 304 H 332 H (70-110) mg/dL ALT (8-44) U/L Total Protein (6.2-8.2) g/dL Albumin (3.8-4.9) g/dL 11/30/24 11/30/24 11/30/24 Range/Units 03:24 03:24 06:26 RBC 3.06 L (4.10-5.20) X 10*6/uL Hgb 8.8 L (12.0-15.0) g/dL Hct 28.2 L (37.2-46.3) % MCHC 31.2 L (32.0-37.0) g/dL Plt Count 131 L (140-440) X 10*3/uL Carbon Dioxide 20.2 L (21.6-31.8) mmol/L BUN 39.8 H (9.0-27.0) mg/dL Creatinine 2.6 H (0.6-1.5) mg/dL Est GFR (CKD-EPI) 21 L (>=60) Glucose 236 H (70-110) mg/dL POC Glucose (mg/dL) 239 H (70-110) mg/dL ALT 68 H (8-44) U/L Total Protein 4.7 L (6.2-8.2) g/dL Albumin 2.9 L (3.8-4.9) g/dL 11/30/24 Range/Units 11:38 RBC (4.10-5.20) X 10*6/uL Hgb (12.0-15.0) g/dL Hct (37.2-46.3) % MCHC (32.0-37.0) g/dL Plt Count (140-440) X 10*3/uL Carbon Dioxide (21.6-31.8) mmol/L BUN (9.0-27.0) mg/dL Creatinine (0.6-1.5) mg/dL Est GFR (CKD-EPI) (>=60) Glucose (70-110) mg/dL POC Glucose (mg/dL) 283 H (70-110) mg/dL ALT (8-44) U/L Total Protein (6.2-8.2) g/dL Albumin (3.8-4.9) g/dL Microbiology - Last 24 Hours (Table) 11/28/24 10:56 Blood Culture - Preliminary Blood 11/26/24 22:05 Blood Culture Gram Stain - Preliminary Blood Blood Culture - Preliminary Staphylococcus epidermidis Molecular ID Assessment and Plan Assessment: 1. Acute kidney injury, ATN, nonoliguric secondary to hypotension and sepsis. UA shows trace protein and ketones. CT of the abdomen showed nonobstructive stone. 2. Acute hemorrhagic hydropic cholecystitis due to cystic duct obstruction status post subtotal robotic cholecystectomy on 11/27/2024 3. Gram-positive bacteremia 4. Severe aortic stenosis being followed by cardiology 5. Hypomagnesemia status post replacement Plan: Continue with IV fluids Decrease metoprolol Continue midodrine Repeat labs in a.m.
--- NOTE | 2024-11-30 13:54 | P.PN ---
Subjective Progress Note Date: 11/30/24 CHIEF COMPLAINT: Acute cholecystitis HISTORY OF PRESENT ILLNESS: Radha Grande is a 54-year-old female is postop day #3 status post robotic lysis of adhesions and subtotal cholecystectomy for acute hydropic hemorrhagic cholecystitis. Patient sitting up in bedside chair. She has had no further nausea or vomiting. She did have a bowel movement this morning. She did get into the shower. She was seen by cardiology service. Afebrile. WBC 7.31 Hgb 8.8 platelets 131 creatinine 2.6 LFTs improving ALT is down from 92-68. Midodrine added by nephrology yesterday. PHYSICAL EXAM: VITAL SIGNS: Reviewed GENERAL: Well-developed in no acute distress. HEENT: No sclera icterus. Extraocular movements grossly intact. Moist buccal mucosa. Head is atraumatic, normocephalic. Hears conversational speech. No nasal drainage. NECK: Supple without lymphadenopathy. CHEST: Non-labored respirations and equal bilateral excursions. CARDIOVASCULAR: Palpable 2+ radial pulses. ABDOMEN: Soft. Nondistended. Incision sites clean dry and intact. MUSCULOSKELETAL: No clubbing or cyanosis. NEUROLOGIC: No focal or lateralizing signs. Cranial nerves II through XII grossly intact. PSYCH: Appropriate affect. Alert and oriented to person, place and time. SKIN: Well perfused. Good skin turgor. ASSESSMENT: 1. Acute hemorrhagic hydropic cholecystitis due to cystic duct obstruction 2. Morbid obesity due to excess calories, Body mass index of 59.8 to 33.1 3. Hypertensive heart disease. 4. Obstructive sleep apnea 5. 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 Chronic panniculitis 7. Osteoarthritis of the lower back. 8. Depression 9. Anxiety disorder 10. Hyperlipidemia 11. Iron deficiency 12. Congestive heart failure 13. Gastroesophageal reflux disease 14. Diabetic nephropathy, stage 3 15. History of aspiration pneumonia 16. Diabetic gastroparesis 17. Status post gastric bypass 18. Internal hernia 19. Stage III renal disease due to diabetic nephropathy 20. History aortic valvular replacement 21. history Severe aortic stenosis with aortic valve replacement 22. Acute blood loss anemia due to hemorrhagic hydropic cholecystitis PLAN: -IV fluids per nephrology for the acute kidney injury -Encourage patient to increase activity level -Advance diet to low-fat -Continue antibiotics -Continue pain management -Anticipate discharge once cleared by all consulting physicians -DVT prophylaxis subcu heparin Physician [place] [facility] note has been reviewed by physician. Signing provider agrees with the documented findings, assessment, and plan of care. Objective - Vital Signs Vital signs: Vital Signs Temp 98.1 F 11/30/24 07:25 Pulse 79 11/30/24 07:25 Resp 17 11/30/24 07:25 BP 106/67 11/30/24 07:25 Pulse Ox 96 11/30/24 07:25 FiO2 Intake & Output 11/29/24 11/30/24 11/30/24 18:59 06:59 18:59 Intake Total 330 Balance 330 Intake: Oral 330 Other: Voiding Method Toilet # Voids 2 1 # Bowel Movements 1 ABP, PAP, CO, CI - Last Documented Arterial Blood Pressure 105/48 - Labs CBC & Chem 7: 11/30/24 03:24 11/30/24 03:24 Labs: Abnormal Lab Results - Last 24 Hours (Table) 11/29/24 11/29/24 11/30/24 Range/Units 17:04 20:52 00:17 RBC (4.10-5.20) X 10*6/uL Hgb (12.0-15.0) g/dL Hct (37.2-46.3) % MCHC (32.0-37.0) g/dL Plt Count (140-440) X 10*3/uL Carbon Dioxide (21.6-31.8) mmol/L BUN (9.0-27.0) mg/dL Creatinine (0.6-1.5) mg/dL Est GFR (CKD-EPI) (>=60) Glucose (70-110) mg/dL POC Glucose (mg/dL) 298 H 304 H 332 H (70-110) mg/dL ALT (8-44) U/L Total Protein (6.2-8.2) g/dL Albumin (3.8-4.9) g/dL 11/30/24 11/30/24 11/30/24 Range/Units 03:24 03:24 06:26 RBC 3.06 L (4.10-5.20) X 10*6/uL Hgb 8.8 L (12.0-15.0) g/dL Hct 28.2 L (37.2-46.3) % MCHC 31.2 L (32.0-37.0) g/dL Plt Count 131 L (140-440) X 10*3/uL Carbon Dioxide 20.2 L (21.6-31.8) mmol/L BUN 39.8 H (9.0-27.0) mg/dL Creatinine 2.6 H (0.6-1.5) mg/dL Est GFR (CKD-EPI) 21 L (>=60) Glucose 236 H (70-110) mg/dL POC Glucose (mg/dL) 239 H (70-110) mg/dL ALT 68 H (8-44) U/L Total Protein 4.7 L (6.2-8.2) g/dL Albumin 2.9 L (3.8-4.9) g/dL 11/30/24 Range/Units 11:38 RBC (4.10-5.20) X 10*6/uL Hgb (12.0-15.0) g/dL Hct (37.2-46.3) % MCHC (32.0-37.0) g/dL Plt Count (140-440) X 10*3/uL Carbon Dioxide (21.6-31.8) mmol/L BUN (9.0-27.0) mg/dL Creatinine (0.6-1.5) mg/dL Est GFR (CKD-EPI) (>=60) Glucose (70-110) mg/dL POC Glucose (mg/dL) 283 H (70-110) mg/dL ALT (8-44) U/L Total Protein (6.2-8.2) g/dL Albumin (3.8-4.9) g/dL Microbiology - Last 24 Hours (Table) 11/28/24 10:56 Blood Culture - Preliminary Blood 11/26/24 22:05 Blood Culture Gram Stain - Preliminary Blood Blood Culture - Preliminary Staphylococcus epidermidis Molecular ID
--- NOTE | 2024-11-30 16:18 | P.PN ---
Subjective Progress Note Date: 11/30/24 54-year-old female postoperative day #1, status post robotically assisted lysis of adhesions, and cholecystectomy. The patient was brought back to the intensive care unit for further monitoring and management. The patient has a history of aortic stenosis, and had aortic valve replacement back in 2013. 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 Currently, she is on 2 L of oxygen. She is on Zosyn. She is getting saline at 100 cc an hour. Clinically, other than pain, she is doing well. In addition to aortic stenosis, status post AVR, the patient has a history of diabetes, hyperlipidemia, hypertension, sleep apnea syndrome, and chronic renal disease. White blood cell count 8.5, hemoglobin 9.5, hematocrit 30.3, and platelet count 102,000. Sodium 134, potassium 4, chlorides 104, CO2 25, BUN 28, and creatinine 2.16. Glucose 83. AST 154. ALT 138. Albumin was 2.6. Blood cultures were positive for gram-positive cocci in clusters, likely Staph epidermidis. On 11/29/2024, patient is being seen for a follow-up. The patient is postop day #2 following a robotic assisted cholecystectomy with lysis of adhesions. The patient is also noted multiple comorbidities including previous history of aortic valve replacement for aortic stenosis back in 2013, diabetes mellitus type 2, hypertension hyperlipidemia and chronic kidney disease. She has underg one previous gastric bypass surgery and she carries a body mass index of 34.8. The patient denies passing any flatus yet. Oral intake is limited. She denies having any nausea or emesis. Her blood work from today shows a white cell count of 9 with a hemoglobin 9.7 and a platelet count of 122. Sodium is at 133, serum bicarb is at 16, potassium is at 3.9, BUN is 41 with a creatinine of 2.8 and t here is an obvious ongoing rise in the creatinine with drop in urine output. LFTs show improvement in the AST and ALT and AST is down to 63 with an ALT of 92 and alkaline phosphatase of 77. The patient is afebrile. The patient is hemodynamically stable. She is on IV Zosyn. She is also on normal saline at rate of 125 cc an hour. Receiving Dilaudid for pain control. Remains on IV Pepcid. She is currently postop day #2. Blood cultures showing Staph epidermidis, likely a contaminant. Nephrology is also on the case regarding her acute kidney injury. She is able to void on her own. 11/30/2024, the patient is being seen for a follow-up. Doing better. Abdominal pain is subsided compared to yesterday. The patient is postop day #3. She underwent a robotic lysis of adhesions and cholecystectomy. Denies having any nausea or emesis. Tolerating diet. She did have a bowel movement yesterday. Unfortunately, the patient has developed an acute kidney injury. The patient does have a chronic kidney disease and creatinine is on the rise. Noted the creatinine at time of admission was 1.4 and is currently up to 2.6. She is producing urine output. She remains on empiric antibiotic coverage with IV Zosyn. She remains on normal saline at rate of 125 cc an hour. Blood cultures positive for Staph epidermidis on 11/26/2024 and repeat blood culture on 11/28/2024 was negative. Afebrile. Hemodynamically stable. Room air oxygen with a pulse ox of 96%. Objective - Vital Signs Vital signs: Vital Signs Temp 98.1 F 11/30/24 07:25 Pulse 79 11/30/24 07:25 Resp 17 11/30/24 07:25 BP 106/67 11/30/24 07:25 Pulse Ox 96 11/30/24 07:25 FiO2 Intake & Output 11/29/24 11/30/24 11/30/24 18:59 06:59 18:59 Intake Total 330 Balance 330 Intake: Oral 330 Other: Voiding Method Toilet # Voids 2 1 # Bowel Movements 1 ABP, PAP, CO, CI - Last Documented Arterial Blood Pressure 105/48 - Exam No acute distress, oriented 3. Calm and comfortable on room air oxygen. HEENT examination is grossly unremarkable. Mucous membranes are moist. No oral lesions. Neck supple. Full range of motion. No adenopathy thyromegaly or neck vein di stention. Cardiovascular examination reveals regular rhythm rate. S1-S2 normal. No S3 or S4. A soft systolic murmur is noted. Lungs reveal clear breath sounds. Breath sounds are equal bilaterally. No adventitious lung sounds including wheezes rhonchi or crackles. Abdomen soft bowel sounds are heard. No masses or tenderness. Surgical wound site is dry clean and intact. Abdomen is nondistended the patient has a positive bowel sounds Extremities are intact. No cyanosis clubbing or edema. Skin is without rash or lesion. Neurologic examination is brief but nonfocal. - Labs CBC & Chem 7: 11/30/24 03:24 11/30/24 03:24 Labs: Abnormal Lab Results - Last 24 Hours (Table) 11/29/24 11/29/24 11/29/24 Range/Units 12:34 17:04 20:52 RBC (4.10-5.20) X 10*6/uL Hgb (12.0-15.0) g/dL Hct (37.2-46.3) % MCHC (32.0-37.0) g/dL Plt Count (140-440) X 10*3/uL Carbon Dioxide (21.6-31.8) mmol/L BUN (9.0-27.0) mg/dL Creatinine (0.6-1.5) mg/dL Est GFR (CKD-EPI) (>=60) Glucose (70-110) mg/dL POC Glucose (mg/dL) 280 H 298 H 304 H (70-110) mg/dL ALT (8-44) U/L Total Protein (6.2-8.2) g/dL Albumin (3.8-4.9) g/dL 11/30/24 11/30/24 11/30/24 Range/Units 00:17 03:24 03:24 RBC 3.06 L (4.10-5.20) X 10*6/uL Hgb 8.8 L (12.0-15.0) g/dL Hct 28.2 L (37.2-46.3) % MCHC 31.2 L (32.0-37.0) g/dL Plt Count 131 L (140-440) X 10*3/uL Carbon Dioxide 20.2 L (21.6-31.8) mmol/L BUN 39.8 H (9.0-27.0) mg/dL Creatinine 2.6 H (0.6-1.5) mg/dL Est GFR (CKD-EPI) 21 L (>=60) Glucose 236 H (70-110) mg/dL POC Glucose (mg/dL) 332 H (70-110) mg/dL ALT 68 H (8-44) U/L Total Protein 4.7 L (6.2-8.2) g/dL Albumin 2.9 L (3.8-4.9) g/dL 11/30/24 11/30/24 Range/Units 06:26 11:38 RBC (4.10-5.20) X 10*6/uL Hgb (12.0-15.0) g/dL Hct (37.2-46.3) % MCHC (32.0-37.0) g/dL Plt Count (140-440) X 10*3/uL Carbon Dioxide (21.6-31.8) mmol/L BUN (9.0-27.0) mg/dL Creatinine (0.6-1.5) mg/dL Est GFR (CKD-EPI) (>=60) Glucose (70-110) mg/dL POC Glucose (mg/dL) 239 H 283 H (70-110) mg/dL ALT (8-44) U/L Total Protein (6.2-8.2) g/dL Albumin (3.8-4.9) g/dL Microbiology - Last 24 Hours (Table) 11/28/24 10:56 Blood Culture - Preliminary Blood 11/26/24 22:05 Blood Culture Gram Stain - Preliminary Blood Blood Culture - Preliminary Staphylococcus epidermidis Molecular ID Assessment and Plan Plan: Postoperative day # 3 rule out status post robotically assisted cholecystectomy, and lysis of adhesions. Acute on chronic kidney injury. The creatinine is on the rise and the patient is currently on normal saline at rate of 125 cc an hour. Nephrology on the case. Rule out postsurgical ATN secondary to hypotension/sepsis. Patient is nonoliguric. History of aortic stenosis, status post AVR, 2013. The patient continues to have valvular heart disease. The echocardiogram from this current admission shows normal biventricular systolic function. Severe stenosis of the bioprosthetic aortic valve with a mean gradient of 66 and moderate to severe mitral stenosis with mild to moderate mitral regurgitation. Diabetes mellitus type 2. History of hyperlipidemia. History of hypertension. History of sleep apnea syndrome. History of gastric bypass. History of anxiety/depression. Prior history of tobacco use. Gram-positive cocci in the blood, consistent of Staph epidermidis. Repeat cultures are negative. Likely contaminant. Plan Wean FiO2 as tolerated to maintain saturation above 90%, currently on room air oxygen. Continue IV Zosyn Advance diet as tolerated General Surgery is on the correctional counselor/case manager renal function, creatinine is on the rise CAT scan of the abdomen showed no evidence of any hydronephrosis Normal saline at rate of 125 cc an hour Repeat blood work in a.m. Midodrine was added by nephrology Metoprolol's been discontinued Dilaudid for pain control Will continue to follow
--- NOTE | 2024-11-30 16:47 | P.PN ---
Subjective Progress Note Date: 11/30/24 Patient was seen and examined. Reports abdominal pain at the site of incision. No nausea or vomiting. CBC and CMP significant for RBC 3.06, Hg 8.8, Hct 28.2, Plt 131, bicarb 20.2, BUN 39.8, Cr 2.6, glu 236, ALT 68, alb 2.9. Most recent BP 101/65, HR 80. General: non toxic, no distress, appears at stated age Derm: warm, dry Head: atraumatic, normocephalic, symmetric Mouth: no lip lesion, mucus membranes moist Cardiovascular: S1S2 reg, no murmur Lungs: Decreased BS bilaterally, no rales , no accessory muscle use Ext: no gross muscle atrophy, no edema, no contractures Neuro: no focal neuro deficits Psych: Alert and oriented. Based on my assessment of this patient, this patient meets a high complexity level of care. Acute hemorrhagic hydropic cholecystitis with cystic duct obstruction, status post robotic assisted cholecystectomy Transaminitis, secondary to above Thrombocytopenia, likely secondary to above -Continue IV antibiotics per general surgery team with Zosyn 0.375 g every 12 hours. -Continue gentle IV fluid hydration with 0.9% normal saline at 125 cc/h. -Low fiber diet, diet to be advanced per primary admitting general surgeon's recommendations. -Continue symptomatic care and pain management. -Hold atorvastatin secondary to transaminitis. Transaminitis is improving, we will continue to monitor liver function closely with repeat a.m. labs. Severe Aortic stenosis Hypotension Moderate to Severe Mitral regurgitation History of bovine aortic valve replacement 2013 Hypertension Hyperlipidemia -Echocardiogram completed showing a preserved EF of 60 to 65% with severe aortic stenosis with a mean gradient of 66 mmHg and moderate to severe mitral stenosis with mild to moderate mitral regurgitation. -Continue daily medication regimen with metoprolol 12.5 mg nightly. -Atorvastatin held secondary to acute transaminitis. Lisinopril held secondary to hypotension and RITESH. -Cardiology consulted. Acute kidney injury on stage IIIb chronic kidney disease, possibly secondary to hypotension/hypovolemia -Renal function worsening with BUN 39.8, creatinine 2.6, and GFR of 21. -Nephrology following, started patient on midodrine 5 mg twice daily, decreased Metoprolol dose. -Continue IV fluid hydration with 0.9% normal saline at 125 cc/h. Continue bladder scan as needed to monitor for postvoid residual/retention. -Continue strict I's and O's. -Urinalysis was negative for infection. -Lisinopril held at this time. Acute Postoperative blood loss anemia -Acute postoperative blood loss anemia with preoperative hemoglobin of 12.1 and postoperative hemoglobin currently 8.8. This is a stable and expected finding. No active bleeding noted. No need for transfusion or further intervention at this time. We will continue to monitor for improvement with repeat a.m. labs and transfuse as indicated for hemoglobin less than 7 or symptomatic anemia. Insulin-dependent diabetes mellitus -Continue [id number] blood glucose checks every 6 hours and patient's personal insulin pump stopped working/ran out and she was became hyperglycemic and was placed on Humalog sliding scale. CODE STATUS: FULL CODE. DVT Prophylaxis: SCD GI Prophylaxis: Pepcid IV Designated medical POA if patient is not able to make medical decisions for themselves: I have reviewed the following taxation consultant notes: Surgery, Pulmonary, Nephrology note. I have reviewed the results of the following tests: CBC, CMP. I have ordered the following tests: I have discussed the care of this patient with the following independent historian: I have independently interpreted the following test below: I have discussed the management of this patient with the following physician: Objective - Vital Signs Vital signs: Vital Signs Temp 98.0 F 11/30/24 16:26 Pulse 80 11/30/24 16:26 Resp 18 11/30/24 16:26 BP 101/65 11/30/24 16:26 Pulse Ox 99 11/30/24 16:26 FiO2 Intake & Output 11/29/24 11/30/24 11/30/24 18:59 06:59 18:59 Intake Total 330 Balance 330 Intake: Oral 330 Other: Voiding Method Toilet # Voids 2 1 # Bowel Movements 1 ABP, PAP, CO, CI - Last Documented Arterial Blood Pressure 105/48 - Labs CBC & Chem 7: 11/30/24 03:24 11/30/24 03:24 Labs: Abnormal Lab Results - Last 24 Hours (Table) 11/29/24 11/29/24 11/30/24 Range/Units 17:04 20:52 00:17 RBC (4.10-5.20) X 10*6/uL Hgb (12.0-15.0) g/dL Hct (37.2-46.3) % MCHC (32.0-37.0) g/dL Plt Count (140-440) X 10*3/uL Carbon Dioxide (21.6-31.8) mmol/L BUN (9.0-27.0) mg/dL Creatinine (0.6-1.5) mg/dL Est GFR (CKD-EPI) (>=60) Glucose (70-110) mg/dL POC Glucose (mg/dL) 298 H 304 H 332 H (70-110) mg/dL ALT (8-44) U/L Total Protein (6.2-8.2) g/dL Albumin (3.8-4.9) g/dL 11/30/24 11/30/24 11/30/24 Range/Units 03:24 03:24 06:26 RBC 3.06 L (4.10-5.20) X 10*6/uL Hgb 8.8 L (12.0-15.0) g/dL Hct 28.2 L (37.2-46.3) % MCHC 31.2 L (32.0-37.0) g/dL Plt Count 131 L (140-440) X 10*3/uL Carbon Dioxide 20.2 L (21.6-31.8) mmol/L BUN 39.8 H (9.0-27.0) mg/dL Creatinine 2.6 H (0.6-1.5) mg/dL Est GFR (CKD-EPI) 21 L (>=60) Glucose 236 H (70-110) mg/dL POC Glucose (mg/dL) 239 H (70-110) mg/dL ALT 68 H (8-44) U/L Total Protein 4.7 L (6.2-8.2) g/dL Albumin 2.9 L (3.8-4.9) g/dL 11/30/24 Range/Units 11:38 RBC (4.10-5.20) X 10*6/uL Hgb (12.0-15.0) g/dL Hct (37.2-46.3) % MCHC (32.0-37.0) g/dL Plt Count (140-440) X 10*3/uL Carbon Dioxide (21.6-31.8) mmol/L BUN (9.0-27.0) mg/dL Creatinine (0.6-1.5) mg/dL Est GFR (CKD-EPI) (>=60) Glucose (70-110) mg/dL POC Glucose (mg/dL) 283 H (70-110) mg/dL ALT (8-44) U/L Total Protein (6.2-8.2) g/dL Albumin (3.8-4.9) g/dL Microbiology - Last 24 Hours (Table) 11/26/24 22:05 Blood Culture Gram Stain - Final Blood Blood Culture - Final Staphylococcus epidermidis Molecular ID 11/28/24 10:56 Blood Culture - Preliminary Blood
[2024-11-30 17:04] LABS: Glucose,Whole Blood 255 mg/dL (70-110)
[2024-11-30 21:04] LABS: Glucose,Whole Blood 269 mg/dL (70-110)
[2024-12-01 01:10] LABS: Glucose,Whole Blood 239 mg/dL (70-110)
[2024-12-01 06:23] LABS: Glucose,Whole Blood 143 mg/dL (70-110)
[2024-12-01 08:44] LABS: Basophils % (A) 0 %; Eosinophils # (A) 0.3 k/uL (0-0.7); Eosinophils % (A) 5 %; HCT 33.8 % (34.0-46.0); HGB 10.2 gm/dL (11.4-16.0); Hypochromasia Marked; Lymphocytes # (A) 0.7 k/uL (1.0-4.8); Lymphocytes % (A) 9 %; MCH 28.7 pg (25.0-35.0); MCHC 30.3 g/dL (31.0-37.0); MCV 94.8 fL (80.0-100.0); Mean Platelet Volume 8.9; Monocytes # (A) 0.4 k/uL (0-1.0); Monocytes % (A) 6 %; Neutrophils # (A) 5.6 k/uL (1.3-7.7); Neutrophils % (A) 78 %; Platelet Count 130 k/uL (150-450); RBC 3.56 m/uL (3.80-5.40); RDW 13.3 % (11.5-15.5); WBC 7.2 k/uL (3.8-10.6)
[2024-12-01 09:00] LABS: African American GFR (CKD) 37 (>60 ml/min/1.73 sqM); Anion Gap 6 mmol/L; Blood Urea Nitrogen 34 mg/dL (7-17); Calcium 9.6 mg/dL (8.4-10.2); Carbon Dioxide 21 mmol/L (22-30); Chloride 108 mmol/L (98-107); Glucose 221 mg/dL (74-99); Non-African American GFR(CKD) 32 (>60 ml/min/1.73 sqM); Potassium 4.3 mmol/L (3.5-5.1); Sodium 135 mmol/L (137-145)
[2024-12-01] MEDS: ACETAMINOPHEN TAB 500 MG TAB PO SCH (10:51)
--- NOTE | 2024-12-01 11:50 | P.PN ---
Subjective Progress Note Date: 12/01/24 Patient was seen and examined. Reports abdominal pain at the site of incision. No nausea or vomiting. CBC and BMP significant for RBC 3.56, Hg 10.2, Hct 33.8, Plt 130, Na 135, Cl 108, bicarb 21, BUN 34, Cr 1.79, glu 221. Most recent BP 126/79, HR 71. General: non toxic, no distress, appears at stated age Derm: warm, dry Head: atraumatic, normocephalic, symmetric Mouth: no lip lesion, mucus membranes moist Cardiovascular: S1S2 reg, systolic murmur Lungs: Decreased BS bilaterally, no rales , no accessory muscle use Ext: no gross muscle atrophy, no edema, no contractures Neuro: no focal neuro deficits Psych: Alert and oriented. Based on my assessment of this patient, this patient meets a high complexity level of care. Acute hemorrhagic hydropic cholecystitis with cystic duct obstruction, status post robotic assisted cholecystectomy Transaminitis, secondary to above Thrombocytopenia, likely secondary to above -Continue IV antibiotics per general surgery team with Zosyn 0.375 g every 12 ho urs. -Continue gentle IV fluid hydration with 0.9% normal saline at 125 cc/h. -Low fiber diet, diet to be advanced per primary admitting general surgeon's recommendations. -Continue symptomatic care and pain management. -Hold atorvastatin secondary to transaminitis. Transaminitis is improving, rest art statin on discharge. Severe Aortic stenosis Hypotension Moderate to Severe Mitral regurgitation History of bovine aortic valve replacement 2013 Hypertension Hyperlipidemia -Echocardiogram completed showing a preserved EF of 60 to 65% with severe aortic stenosis with a mean gradient of 66 mmHg and moderate to severe mitral stenosis with mild to moderate mitral regurgitation. -Continue daily medication regimen with metoprolol 12.5 mg nightly. -Atorvastatin held secondary to acute transaminitis. Lisinopril held secondary to hypotension and RITESH. -Cardiology consulted, recommends no further workup. Acute kidney injury on stage IIIb chronic kidney disease, possibly secondary to hypotension/hypovolemia -Renal function stable. -Nephrology following, started patient on midodrine 5 mg twice daily, decreased Metoprolol dose. -Continue IV fluid hydration with 0.9% normal saline at 125 cc/h. Continue bladder scan as needed to monitor for postvoid residual/retention. -Continue strict I's and O's. -Urinalysis was negative for infection. -Lisinopril held at this time. Acute Postoperative blood loss anemia -Acute postoperative blood loss anemia with preoperative hemoglobin of 12.1 and postoperative hemoglobin currently 10.2. This is a stable and expected finding. No active bleeding noted. No need for transfusion or further intervention at this time. We will continue to monitor for improvement with repeat a.m. labs and transfuse as indicated for hemoglobin less than 7 or symptomatic anemia. Insulin-dependent diabetes mellitus -Continue [id number] blood glucose checks every 6 hours and patient's personal insulin pump stopped working/ran out and she was became hyperglycemic and was placed on Humalog sliding scale. CODE STATUS: FULL CODE. DVT Prophylaxis: SCD GI Prophylaxis: Pepcid IV Designated medical POA if patient is not able to make medical decisions for themselves: I have reviewed the following reimbursement consultant notes: I have reviewed the results of the following tests: CBC, BMP. I have ordered the following tests: I have discussed the care of this patient with the following independent historian: JUAN. I have independently interpreted the following test below: I have discussed the management of this patient with the following physician: Objective - Vital Signs Vital signs: Vital Signs Temp 97.8 F 12/01/24 07:22 Pulse 71 12/01/24 07:22 Resp 16 12/01/24 07:22 BP 126/79 12/01/24 07:22 Pulse Ox 93 L 12/01/24 07:22 FiO2 Intake & Output 11/30/24 12/01/24 12/01/24 18:59 06:59 18:59 Intake Total 330 540 Balance 330 540 Intake: Oral 330 540 Other: Voiding Method Toilet # Voids 2 2 1 # Bowel Movements 1 1 ABP, PAP, CO, CI - Last Documented Arterial Blood Pressure 105/48 - Labs CBC & Chem 7: 12/01/24 08:31 12/01/24 08:31 Labs: Abnormal Lab Results - Last 24 Hours (Table) 11/30/24 11/30/24 12/01/24 Range/Units 17:03 21:00 01:08 RBC (3.80-5.40) m/uL Hgb (11.4-16.0) gm/dL Hct (34.0-46.0) % MCHC (31.0-37.0) g/dL Plt Count (150-450) k/uL Lymphocytes # (1.0-4.8) k/uL Sodium (137-145) mmol/L Chloride (98-107) mmol/L Carbon Dioxide (22-30) mmol/L BUN (7-17) mg/dL Creatinine (0.52-1.04) mg/dL Glucose (74-99) mg/dL POC Glucose (mg/dL) 255 H 269 H 239 H (70-110) mg/dL 12/01/24 12/01/24 12/01/24 Range/Units 06:21 08:31 08:31 RBC 3.56 L (3.80-5.40) m/uL Hgb 10.2 L (11.4-16.0) gm/dL Hct 33.8 L (34.0-46.0) % MCHC 30.3 L (31.0-37.0) g/dL Plt Count 130 L (150-450) k/uL Lymphocytes # 0.7 L (1.0-4.8) k/uL Sodium 135 L (137-145) mmol/L Chloride 108 H (98-107) mmol/L Carbon Dioxide 21 L (22-30) mmol/L BUN 34 H (7-17) mg/dL Creatinine 1.79 H (0.52-1.04) mg/dL Glucose 221 H (74-99) mg/dL POC Glucose (mg/dL) 143 H (70-110) mg/dL Microbiology - Last 24 Hours (Table) 11/28/24 10:56 Blood Culture - Preliminary Blood 11/26/24 22:05 Blood Culture Gram Stain - Final Blood Blood Culture - Final Staphylococcus epidermidis Molecular ID
[2024-12-01 12:04] LABS: Glucose,Whole Blood 339 mg/dL (70-110)
[2024-12-01] MEDS: oxyCODONE-APAP 7.5-325MG 1 EACH TAB PO SCH (13:03)
--- NOTE | 2024-12-01 13:15 | P.PN ---
Subjective Progress Note Date: 12/01/24 CHIEF COMPLAINT: Acute cholecystitis HISTORY OF PRESENT ILLNESS: Radha Grande is a 54-year-old female status post robotic cholecystectomy, subtotal 11/27/2024 for acute hydropic hemorrhagic cholecystitis. She was extremely high risk due to severe arctic stenosis including mitral valve regurgitation and pre-existing stage III chronic kidney disease. Patient went to acute renal failure after surgery now resolving. No further abdominal pain. She had a bowel movement. She is tolerating diet. REVIEW OF ORGAN SYSTEMS: No new chest pain. No new shortness of breath. PHYSICAL EXAM: VITAL SIGNS: Reviewed GENERAL: Well-developed in no acute distress. HEENT: No scleral icterus. Extraocular movements grossly intact. Hears conversational speech. No nasal drainage. CHEST: Nonlabored respirations with equal bilateral excursions. CARDIOVASCULAR: Regular rate and regular rhythm. Distal 2+ pulses. ABDOMEN: Incisions clean dry and intact. Abdominal binder present. MUSCULOSKELETAL: No clubbing, cyanosis. NEURO: No focal or lateralizing signs. Cranial nerves 2 through 12 grossly within normal limits. PSYCH: Appropriate affect. Alert and oriented to person, place and time. SKIN: Good skin turgor. Well perfused. Has panniculitis. LABS: Reviewed. WBC is normal. LFTs resolved. ASSESSMENT: 1. Acute hemorrhagic hydropic cholecystitis due to cystic duct obstruction 2. Morbid obesity due to excess calories, Body mass index of 59.8 to 33.1 3. Hypertensive heart disease. 4. Obstructive sleep apnea 5. 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 Chronic panniculitis 7. Osteoarthritis of the lower back. 8. Depression 9. Anxiety disorder 10. Hyperlipidemia 11. Iron deficiency 12. Congestive heart failure 13. Gastroesophageal reflux disease 14. Diabetic nephropathy, stage 3 15. History of aspiration pneumonia 16. Diabetic gastroparesis 17. Status post gastric bypass 18. Internal hernia 19. Stage III renal disease due to diabetic nephropathy 20. History aortic valvular replacement 21. Severe aortic stenosis 22. Acute blood loss anemia due to hemorrhagic hydropic cholecystitis PLAN: 1. Patient seen evaluated with pulmonary team. Patient clinically improving. 2. Anticipate discharge tomorrow. 3. Close outpatient follow-up with residential mortgage underwriter advised due to severe valvular stenosis including regurgitation. 4. Follow-up at [facility]ariat[facility] center 1 week Objective - Vital Signs Vital signs: Vital Signs Temp 97.8 F 12/01/24 07:22 Pulse 71 12/01/24 07:22 Resp 16 12/01/24 07:22 BP 126/79 12/01/24 07:22 Pulse Ox 93 L 12/01/24 07:22 FiO2 Intake & Output 11/30/24 12/01/24 12/01/24 18:59 06:59 18:59 Intake Total 330 540 Balance 330 540 Intake: Oral 330 540 Other: Voiding Method Toilet # Voids 2 2 1 # Bowel Movements 1 1 ABP, PAP, CO, CI - Last Documented Arterial Blood Pressure 105/48 - Labs CBC & Chem 7: 12/01/24 08:31 12/01/24 08:31 Labs: Abnormal Lab Results - Last 24 Hours (Table) 11/30/24 11/30/24 12/01/24 Range/Units 17:03 21:00 01:08 RBC (3.80-5.40) m/uL Hgb (11.4-16.0) gm/dL Hct (34.0-46.0) % MCHC (31.0-37.0) g/dL Plt Count (150-450) k/uL Lymphocytes # (1.0-4.8) k/uL Sodium (137-145) mmol/L Chloride (98-107) mmol/L Carbon Dioxide (22-30) mmol/L BUN (7-17) mg/dL Creatinine (0.52-1.04) mg/dL Glucose (74-99) mg/dL POC Glucose (mg/dL) 255 H 269 H 239 H (70-110) mg/dL 12/01/24 12/01/24 12/01/24 Range/Units 06:21 08:31 08:31 RBC 3.56 L (3.80-5.40) m/uL Hgb 10.2 L (11.4-16.0) gm/dL Hct 33.8 L (34.0-46.0) % MCHC 30.3 L (31.0-37.0) g/dL Plt Count 130 L (150-450) k/uL Lymphocytes # 0.7 L (1.0-4.8) k/uL Sodium 135 L (137-145) mmol/L Chloride 108 H (98-107) mmol/L Carbon Dioxide 21 L (22-30) mmol/L BUN 34 H (7-17) mg/dL Creatinine 1.79 H (0.52-1.04) mg/dL Glucose 221 H (74-99) mg/dL POC Glucose (mg/dL) 143 H (70-110) mg/dL 12/01/24 Range/Units 12:03 RBC (3.80-5.40) m/uL Hgb (11.4-16.0) gm/dL Hct (34.0-46.0) % MCHC (31.0-37.0) g/dL Plt Count (150-450) k/uL Lymphocytes # (1.0-4.8) k/uL Sodium (137-145) mmol/L Chloride (98-107) mmol/L Carbon Dioxide (22-30) mmol/L BUN (7-17) mg/dL Creatinine (0.52-1.04) mg/dL Glucose (74-99) mg/dL POC Glucose (mg/dL) 339 H (70-110) mg/dL Microbiology - Last 24 Hours (Table) 11/28/24 10:56 Blood Culture - Preliminary Blood 11/26/24 22:05 Blood Culture Gram Stain - Final Blood Blood Culture - Final Staphylococcus epidermidis Molecular ID
--- NOTE | 2024-12-01 13:37 | P.PN ---
Subjective Patient is seen for follow-up for acute kidney injury. Renal function improved with creatinine down to 1.7 Blood pressure remains on the lower side. Blood cultures are growing Staph epidermidis. Maintained on IV fluids and midodrine. Patient is voiding on her own. Objective - Vital Signs Vital signs: Vital Signs Temp 97.8 F 12/01/24 07:22 Pulse 71 12/01/24 07:22 Resp 16 12/01/24 07:22 BP 126/79 12/01/24 07:22 Pulse Ox 93 L 12/01/24 07:22 FiO2 Intake & Output 11/30/24 12/01/24 12/01/24 18:59 06:59 18:59 Intake Total 330 540 Balance 330 540 Intake: Oral 330 540 Other: Voiding Method Toilet # Voids 2 2 1 # Bowel Movements 1 1 ABP, PAP, CO, CI - Last Documented Arterial Blood Pressure 105/48 - Exam Patient is awake, comfortable, no acute distress Examination of the heart S1 and S2 Examination of the lungs bilateral breath sounds are heard Examination of lower extremities shows no significant edema 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 - Labs CBC & Chem 7: 12/01/24 08:31 12/01/24 08:31 Labs: Abnormal Lab Results - Last 24 Hours (Table) 11/30/24 11/30/24 12/01/24 Range/Units 17:03 21:00 01:08 RBC (3.80-5.40) m/uL Hgb (11.4-16.0) gm/dL Hct (34.0-46.0) % MCHC (31.0-37.0) g/dL Plt Count (150-450) k/uL Lymphocytes # (1.0-4.8) k/uL Sodium (137-145) mmol/L Chloride (98-107) mmol/L Carbon Dioxide (22-30) mmol/L BUN (7-17) mg/dL Creatinine (0.52-1.04) mg/dL Glucose (74-99) mg/dL POC Glucose (mg/dL) 255 H 269 H 239 H (70-110) mg/dL 12/01/24 12/01/24 12/01/24 Range/Units 06:21 08:31 08:31 RBC 3.56 L (3.80-5.40) m/uL Hgb 10.2 L (11.4-16.0) gm/dL Hct 33.8 L (34.0-46.0) % MCHC 30.3 L (31.0-37.0) g/dL Plt Count 130 L (150-450) k/uL Lymphocytes # 0.7 L (1.0-4.8) k/uL Sodium 135 L (137-145) mmol/L Chloride 108 H (98-107) mmol/L Carbon Dioxide 21 L (22-30) mmol/L BUN 34 H (7-17) mg/dL Creatinine 1.79 H (0.52-1.04) mg/dL Glucose 221 H (74-99) mg/dL POC Glucose (mg/dL) 143 H (70-110) mg/dL 12/01/24 Range/Units 12:03 RBC (3.80-5.40) m/uL Hgb (11.4-16.0) gm/dL Hct (34.0-46.0) % MCHC (31.0-37.0) g/dL Plt Count (150-450) k/uL Lymphocytes # (1.0-4.8) k/uL Sodium (137-145) mmol/L Chloride (98-107) mmol/L Carbon Dioxide (22-30) mmol/L BUN (7-17) mg/dL Creatinine (0.52-1.04) mg/dL Glucose (74-99) mg/dL POC Glucose (mg/dL) 339 H (70-110) mg/dL Microbiology - Last 24 Hours (Table) 11/28/24 10:56 Blood Culture - Preliminary Blood 11/26/24 22:05 Blood Culture Gram Stain - Final Blood Blood Culture - Final Staphylococcus epidermidis Molecular ID Assessment and Plan Assessment: 1. Acute kidney injury, ATN, nonoliguric secondary to hypotension and sepsis. UA shows trace protein and ketones. CT of the abdomen showed nonobstructive stone. 2. Acute hemorrhagic hydropic cholecystitis due to cystic duct obstruction status post subtotal robotic cholecystectomy on 11/27/2024 3. Gram-positive bacteremia 4. Severe aortic stenosis being followed by cardiology 5. Hypomagnesemia status post replacement Plan: Continue with IV fluids, rate has been decreased. Encourage increase oral intake Decrease metoprolol. Continue midodrine Repeat labs in a.m.
[2024-12-01] MEDS: PIPERACILLIN-TAZOBACTAM 3.375 GM in SODIUM CHLORIDE 0.9% 100 ML IVPB SCH (16:09)
--- NOTE | 2024-12-01 16:12 | P.PN ---
Subjective Progress Note Date: 12/01/24 54-year-old female postoperative day #1, status post robotically assisted lysis of adhesions, and cholecystectomy. The patient was brought back to the intensive care unit for further monitoring and management. The patient has a history of aortic stenosis, and had aortic valve replacement back in 2013. 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 Currently, she is on 2 L of oxygen. She is on Zosyn. She is getting saline at 100 cc an hour. Clinically, other than pain, she is doing well. In addition to aortic stenosis, status post AVR, the patient has a history of diabetes, hyperlipidemia, hypertension, sleep apnea syndrome, and chronic renal disease. White blood cell count 8.5, hemoglobin 9.5, hematocrit 30.3, and platelet count 102,000. Sodium 134, potassium 4, chlorides 104, CO2 25, BUN 28, and creatinine 2.16. Glucose 83. AST 154. ALT 138. Albumin was 2.6. Blood cultures were positive for gram-positive cocci in clusters, likely Staph epidermidis. On 11/29/2024, patient is being seen for a follow-up. The patient is postop day #2 following a robotic assisted cholecystectomy with lysis of adhesions. The patient is also noted multiple comorbidities including previous history of aortic valve replacement for aortic stenosis back in 2013, diabetes mellitus type 2, hypertension hyperlipidemia and chronic kidney disease. She has underg one previous gastric bypass surgery and she carries a body mass index of 34.8. The patient denies passing any flatus yet. Oral intake is limited. She denies having any nausea or emesis. Her blood work from today shows a white cell count of 9 with a hemoglobin 9.7 and a platelet count of 122. Sodium is at 133, serum bicarb is at 16, potassium is at 3.9, BUN is 41 with a creatinine of 2.8 and t here is an obvious ongoing rise in the creatinine with drop in urine output. LFTs show improvement in the AST and ALT and AST is down to 63 with an ALT of 92 and alkaline phosphatase of 77. The patient is afebrile. The patient is hemodynamically stable. She is on IV Zosyn. She is also on normal saline at rate of 125 cc an hour. Receiving Dilaudid for pain control. Remains on IV Pepcid. She is currently postop day #2. Blood cultures showing Staph epidermidis, likely a contaminant. Nephrology is also on the case regarding her acute kidney injury. She is able to void on her own. 11/30/2024, the patient is being seen for a follow-up. Doing better. Abdominal pain is subsided compared to yesterday. The patient is postop day #3. She underwent a robotic lysis of adhesions and cholecystectomy. Denies having any nausea or emesis. Tolerating diet. She did have a bowel movement yesterday. Unfortunately, the patient has developed an acute kidney injury. The patient does have a chronic kidney disease and creatinine is on the rise. Noted the creatinine at time of admission was 1.4 and is currently up to 2.6. She is producing urine output. She remains on empiric antibiotic coverage with IV Zosyn. She remains on normal saline at rate of 125 cc an hour. Blood cultures positive for Staph epidermidis on 11/26/2024 and repeat blood culture on 11/28/2024 was negative. Afebrile. Hemodynamically stable. Room air oxygen with a pulse ox of 96%. On 12/01/2024, the patient is being seen for a follow-up. The patient is doing well. No specific complaints. She is stooling. Surgical wound site is dry clean and intact. No nausea or emesis. Meanwhile, she has demonstrated imp roved renal function and creatinine is down to 1.7 with a BUN of 34. Sodium was 135. Potassium level is at 4.3. White cell count is 7.2 with a hemoglobin 10.2. General surgery is on the case. She remains on IV Zosyn. She is on room air oxygen. No respiratory distress. Using incentive spirometer. She has noted valvular heart disease. No signs of decompensated heart failure. IV fluids are running at rate of 125 cc an hour. The patient is postop day #4. Blood culture was positive for Staph epidermidis. Objective - Vital Signs Vital signs: Vital Signs Temp 97.8 F 12/01/24 07:22 Pulse 71 12/01/24 07:22 Resp 16 12/01/24 07:22 BP 126/79 12/01/24 07:22 Pulse Ox 93 L 12/01/24 07:22 FiO2 Intake & Output 11/30/24 12/01/24 12/01/24 18:59 06:59 18:59 Intake Total 330 540 Balance 330 540 Intake: Oral 330 540 Other: Voiding Method Toilet # Voids 2 2 1 # Bowel Movements 1 1 ABP, PAP, CO, CI - Last Documented Arterial Blood Pressure 105/48 - Exam No acute distress, oriented 3. Calm and comfortable on room air oxygen. HEENT examination is grossly unremarkable. Mucous membranes are moist. No oral lesions. Neck supple. Full range of motion. No adenopathy thyromegaly or neck vein distention. Cardiovascular examination reveals regular rhythm rate. S1-S2 normal. No S3 or S4. A soft systolic murmur is noted. Lungs reveal clear breath sounds. Breath sounds are equal bilaterally. No adventitious lung sounds including wheezes rhonchi or crackles. Abdomen soft bowel sounds are heard. No masses or tenderness. Surgical wound site is dry clean and intact. Abdomen is nondistended the patient has a positive bowel sounds Extremities are intact. No cyanosis clubbing or edema. Skin is without rash or lesion. Neurologic examination is brief but nonfocal. - Labs CBC & Chem 7: 12/01/24 08:31 12/01/24 08:31 Labs: Abnormal Lab Results - Last 24 Hours (Table) 11/30/24 11/30/24 12/01/24 Range/Units 17:03 21:00 01:08 RBC (3.80-5.40) m/uL Hgb (11.4-16.0) gm/dL Hct (34.0-46.0) % MCHC (31.0-37.0) g/dL Plt Count (150-450) k/uL Lymphocytes # (1.0-4.8) k/uL Sodium (137-145) mmol/L Chloride (98-107) mmol/L Carbon Dioxide (22-30) mmol/L BUN (7-17) mg/dL Creatinine (0.52-1.04) mg/dL Glucose (74-99) mg/dL POC Glucose (mg/dL) 255 H 269 H 239 H (70-110) mg/dL 12/01/24 12/01/24 12/01/24 Range/Units 06:21 08:31 08:31 RBC 3.56 L (3.80-5.40) m/uL Hgb 10.2 L (11.4-16.0) gm/dL Hct 33.8 L (34.0-46.0) % MCHC 30.3 L (31.0-37.0) g/dL Plt Count 130 L (150-450) k/uL Lymphocytes # 0.7 L (1.0-4.8) k/uL Sodium 135 L (137-145) mmol/L Chloride 108 H (98-107) mmol/L Carbon Dioxide 21 L (22-30) mmol/L BUN 34 H (7-17) mg/dL Creatinine 1.79 H (0.52-1.04) mg/dL Glucose 221 H (74-99) mg/dL POC Glucose (mg/dL) 143 H (70-110) mg/dL 12/01/24 Range/Units 12:03 RBC (3.80-5.40) m/uL Hgb (11.4-16.0) gm/dL Hct (34.0-46.0) % MCHC (31.0-37.0) g/dL Plt Count (150-450) k/uL Lymphocytes # (1.0-4.8) k/uL Sodium (137-145) mmol/L Chloride (98-107) mmol/L Carbon Dioxide (22-30) mmol/L BUN (7-17) mg/dL Creatinine (0.52-1.04) mg/dL Glucose (74-99) mg/dL POC Glucose (mg/dL) 339 H (70-110) mg/dL Microbiology - Last 24 Hours (Table) 11/28/24 10:56 Blood Culture - Preliminary Blood 11/26/24 22:05 Blood Culture Gram Stain - Final Blood Blood Culture - Final Staphylococcus epidermidis Molecular ID Assessment and Plan Plan: Postoperative day # 4 status post robotically assisted cholecystectomy, and [place] is of adhesions. Acute on chronic kidney injury. The creatinine is improving and the patient is currently on normal saline at rate of 125 cc an hour. Nephrology on the case. Rule out postsurgical ATN secondary to hypotension/sepsis. Patient is nonoliguric. History of aortic stenosis, status post AVR, 2013. The patient continues to have valvular heart disease. The echocardiogram from this current admission shows normal biventricular systolic function. Severe stenosis of the bioprosthe tic aortic valve with a mean gradient of 66 and moderate to severe mitral stenosis with mild to moderate mitral regurgitation. Diabetes mellitus type 2. History of hyperlipidemia. History of hypertension. History of sleep apnea syndrome. History of gastric bypass. History of anxiety/depression. Prior history of tobacco use. Gram-positive cocci in the blood, consistent of Staph epidermidis. Repeat cultures are negative. Likely contaminant. Plan Wean FiO2 as tolerated to maintain saturation above 90%, currently on room air oxygen. Continue IV Zosyn Advance diet as tolerated General Surgery is on the case Renal function is improving and nephrology on the case and the patient will be kept on IV fluids CAT scan of the abdomen showed no evidence of any hydronephrosis Normal saline at rate of 125 cc an hour Repeat blood work in a.m. Midodrine was added by nephrology Metoprolol's been discontinued Dilaudid for pain control Will continue to follow
[2024-12-01 16:54] LABS: Glucose,Whole Blood 279 mg/dL (70-110)
--- NOTE | 2024-12-01 19:20 | CDI ---
Documentation Clarification Form Date: 12/01/2024 06:45:24 PM From: Linda Bearden RN, CCDS Phone: [phone] Admit Date: 11/26/2024 10:14:00 PM Patient Name: Radha Grande Visit Number: [id number] Discharge Date: ATTENTION: The Clinical Documentation Specialists (CDI) and [facility] Coding Staff appreciate your assistance in clarifying documentation. Please respond to the clarification below the line at the bottom and electronically sign. The CDI & [facility] Coding staff will review the response and follow-up if needed. Please note: Queries are made part of the Legal Health Record. If you have any questions, please contact the author of this message via ITS. Doctor. Mallorie Patterson The patient has sepsis documented in the Nephrology consult and subsequent progress notes starting on 11/29/24. Based on this information and the findings below, is there an additional diagnosis that is clinically appropriate for this patient? History/Risk Factors: Diabetes Mellitus, Hyperlipidemia, Hypertension, gastric bypass 06-07-19, Aortic valve replacement 2013, Clinical Indicators: 54-year-old female presented to the emergency department c/o right upper quadrant abdominal pain 11/26 WBC 8.6 11/26 Blood cultures: Staphylococcus epidemidis BUN of 18, creatinine of 1.47, GFR 40 Vitals signs: 165/88 76 22 97.7 100% RA Gallbladder ultrasound: showing acute cholecystitis with hydropic gallbladder and cholelithiasis. 11/29 Nephrology progress note: Acute kidney injury, ATN, nonoliguric secondary to hypotension and sepsis. VS 11/27 87/44 98 16, (16:45) 93/54 96 15 101.3 VS 11/28 (06:15) 88/62 81 9, (07:00 96/58 84 11 Labs: 11/27 HGB 12.1 HCT Treatment: Zosyn 3.375 GM IVPB Q 12 Hrs. 12/01 change to Q 8 HRS Is there an additional diagnosis that is clinically appropriate for this patient? [ ] Sepsis ruled out [ ] Sepsis present on admission [ ] Sepsis, developed during stay, not present on admission [ ] No additional diagnosis/not clinically significant [ X] Other, please specify ___NOT SEPSIS, HYPOTENSION DUE TO SEVERE AORTIC STENOSIS AND MITRAL VALVULAR REGURGITATION, present on admission [ ] Unable to determine SIRS Criteria: 2 or more of the following may indicate SIRS Temperature < 96.8F (36C) or > 101.0F (38.3C) Heart Rate > 90 bpm Respiratory Rate > 20 breaths/min or PaCO2 < 32 mmHg White Blood Cell Count > 12,000 or < 4,000 cells/mm3 or > 10% bands (Template Last Reviewed: September 2022) MTDD
--- NOTE | 2024-12-01 20:09 | CDI ---
Documentation Clarification Form Date: 12/01/2024 08:08:29 PM From: Linda Bearden RN, CCDS Phone: [phone] Admit Date: 11/26/2024 10:14:00 PM Patient Name: Radha Grande Visit Number: [id number] Discharge Date: ATTENTION: The Clinical Documentation Specialists (CDI) and [facility] Coding Staff appreciate your assistance in clarifying documentation. Please respond to the clarification below the line at the bottom and electronically sign. The CDI & [facility] Coding staff will review the response and follow-up if needed. Please note: Queries are made part of the Legal Health Record. If you have any questions, please contact the author of this message via ITS. Doctor. Mallorie Patterson Postoperative hypotension is documented in the progress notes on 11/27/24 and the patient had Robotic-assisted da Rabia Xi laparoscopic cholecystectomy, 11/27/24 Additional clarification is requested regarding the relationship, if any, that exists between the diagnosis and the procedure. History/Risk Factors: Diabetes Mellitus, Hyperlipidemia, Hypertension, gastric bypass 06-07-19, Aortic valve replacement 2013, Patients Admitting Diagnosis: Acute cholecystitis with hydrops due to gallstones Post-Operative Diagnosis: Acute hemorrhagic hydropic cholecystitis with cystic duct obstruction due to gallstones Procedure performed: Robotic-assisted da Rabia Xi laparoscopic lysis of adhesions over 2.5 hours Robotic-assisted da Rabia Xi laparoscopic cholecystectomy, multiport with FIREFLY Clinical Indicators: 54-year-old female who presents with epigastric right upper quadrant pain, symptomatic gallstones, and clinical features of acute cholecystitis. VS 11/27 87/44 98 16, (16:45) 93/54 96 15 101.3 VS 11/28 (06:15) 88/62 81 9, (07:00 96/58 84 11 Labs: 11/27 HGB 12.1 HCT 11/28 HGB 9.5, HCT30.3 11/29 HGB 9.7, HCT 32.3 11/30 HGB 8.8, HCT 28.2 Treatment Cardiac Monitoring/ICU .9NS@125 ML/HR Renal function monitoring Midodrine 5 MG PO BID Lisinopril held What relationship, if any, exists between the diagnosis of postoperative hypotension and the procedure: [ ] Hypotension is not clinically significant and not a complication [ X] Hypotension is clinically significant and not a complication, ONLY RELATED TO PATIENT'S EXISTING CONDITION OF SEVERE AORTIC STENOSIS, AN EXPECTED OUTCOME [ ] Other please specify ____ [ ] Unable to determine (Template Last Revised: September 2024) MTDD
[2024-12-01 21:07] LABS: Glucose,Whole Blood 246 mg/dL (70-110)
[2024-12-01] MEDS: INSULIN LISPRO (HumaLOG) 100 UNIT/ML 10 mL VL SQ SCH (21:46)
[2024-12-02 05:19] LABS: African American GFR (CKD) 40 (>60 ml/min/1.73 sqM); Anion Gap 7 mmol/L; Blood Urea Nitrogen 28 mg/dL (7-17); Calcium 9.5 mg/dL (8.4-10.2); Carbon Dioxide 19 mmol/L (22-30); Chloride 106 mmol/L (98-107); Glucose 260 mg/dL (74-99); Non-African American GFR(CKD) 35 (>60 ml/min/1.73 sqM); Potassium 4.2 mmol/L (3.5-5.1); Sodium 132 mmol/L (137-145)
[2024-12-02 05:26] LABS: HCT 29.2 % (34.0-46.0); HGB 8.8 gm/dL (11.4-16.0); Hypochromasia Moderate; MCH 28.7 pg (25.0-35.0); MCHC 30.2 g/dL (31.0-37.0); Mean Platelet Volume 9.4; Platelet Count 110 k/uL (150-450); RBC 3.07 m/uL (3.80-5.40); RDW 13.5 % (11.5-15.5); WBC 5.1 k/uL (3.8-10.6)
[2024-12-02 07:26] LABS: Glucose,Whole Blood 355 mg/dL (70-110)
[2024-12-02 07:59] VITALS: BP 98/65; PULSE 69; RESP 18; TEMP 97.4
--- NOTE | 2024-12-02 11:26 | P.PN ---
Subjective Progress Note Date: 12/02/24 Patient was seen and examined. Reports abdominal pain at the site of incision. One episode of vomiting today after IV pain medication. Awaiting sister to arrive. Plans for discharge home today. CBC and BMP significant for RBC 3.07, Hg 8.8, Hct 29.2, Plt 110, Na 132, bicarb 19, BUN 28, Cr 1.66, glu 260. Most recent BP 98/65, HR 69. General: non toxic, no distress, appears at stated age Derm: warm, dry Head: atraumatic, normocephalic, symmetric Mouth: no lip lesion, mucus membranes moist Cardiovascular: S1S2 reg, systolic murmur Lungs: Decreased BS bilaterally, no rales , no accessory muscle use Ext: no gross muscle atrophy, no edema, no contractures Neuro: no focal neuro deficits Psych: Alert and oriented. Based on my assessment of this patient, this patient meets a high complexity level of care. Acute hemorrhagic hydropic cholecystitis with cystic duct obstruction, status post robotic assisted cholecystectomy Transaminitis, secondary to above Thrombocytopenia, likely secondary to above -Continue IV antibiotics per general surgery team with Zosyn 0.375 g every 12 hours. -Continue gentle IV fluid hydration with 0.9% normal saline at 125 cc/h. -Low fiber diet, diet to be advanced per primary admitting general surgeon's recommendations. -Continue symptomatic care and pain management. -Hold atorvastatin secondary to transaminitis. Transaminitis is improving, restart statin on discharge. Severe Aortic stenosis Hypotension Moderate to Severe Mitral regurgitation History of bovine aortic valve replacement 2013 Hypertension Hyperlipidemia -Echocardiogram completed showing a preserved EF of 60 to 65% with severe aortic stenosis with a mean gradient of 66 mmHg and moderate to severe mitral stenosis with mild to moderate mitral regurgitation. -Continue daily medication regimen with metoprolol 12.5 mg nightly. -Atorvastatin held secondary to acute transaminitis. Lisinopril held secondary to hypotension and RITESH. -Cardiology consulted, recommends no further workup. Acute kidney injury on stage IIIb chronic kidney disease, possibly secondary to hypotension/hypovolemia -Renal function stable. -Nephrology following, started patient on midodrine 5 mg twice daily, decreased Metoprolol dose. -Continue IV fluid hydration with 0.9% normal saline at 125 cc/h. Continue bladder scan as needed to monitor for postvoid residual/retention. -Continue strict I's and O's. -Urinalysis was negative for infection. -Lisinopril held at this time. Acute Postoperative blood loss anemia -Acute postoperative blood loss anemia with preoperative hemoglobin of 12.1 and postoperative hemoglobin currently 8.8. This is a stable and expected finding. No active bleeding noted. No need for transfusion or further intervention at this time. We will continue to monitor for improvement with repeat a.m. labs and transfuse as indicated for hemoglobin less than 7 or symptomatic anemia. Insulin-dependent diabetes mellitus -Continue [id number] blood glucose checks every 6 hours and patient's personal insulin pump stopped working/ran out and she was became hyperglycemic and was placed on Humalog sliding scale. Medically stable for discharge. CODE STATUS: FULL CODE. DVT Prophylaxis: SCD GI Prophylaxis: Pepcid IV Designated medical POA if patient is not able to make medical decisions for themselves: I have reviewed the following review consultant notes: Surgery note. I have reviewed the results of the following tests: CBC, BMP. I have ordered the following tests: I have discussed the care of this patient with the following independent historian: JUAN. I have independently interpreted the following test below: I have discussed the management of this patient with the following physician: Objective - Vital Signs Vital signs: Vital Signs Temp 97.4 F L 12/02/24 07:38 Pulse 69 12/02/24 07:38 Resp 18 12/02/24 07:38 BP 98/65 12/02/24 07:38 Pulse Ox 95 12/02/24 07:38 FiO2 Intake & Output 12/01/24 12/02/24 12/02/24 18:59 06:59 18:59 Intake Total 1200 540 Output Total 1 Balance 1199 540 Intake: IV 1200 Sodium Chloride 0.9% 1, 1200 000 ml @ 125 mls/hr IV . Q8H MARTÍN Rx#:[id number] Oral 540 Output: Urine 1 Other: Voiding Method Toilet # Voids 1 1 2 # Bowel Movements 1 ABP, PAP, CO, CI - Last Documented Arterial Blood Pressure 105/48 - Labs CBC & Chem 7: 12/02/24 04:42 12/02/24 04:42 Labs: Abnormal Lab Results - Last 24 Hours (Table) 12/01/24 12/01/24 12/01/24 Range/Units 12:03 16:53 21:04 RBC (3.80-5.40) m/uL Hgb (11.4-16.0) gm/dL Hct (34.0-46.0) % MCHC (31.0-37.0) g/dL Plt Count (150-450) k/uL Sodium (137-145) mmol/L Carbon Dioxide (22-30) mmol/L BUN (7-17) mg/dL Creatinine (0.52-1.04) mg/dL Glucose (74-99) mg/dL POC Glucose (mg/dL) 339 H 279 H 246 H (70-110) mg/dL 12/02/24 12/02/24 12/02/24 Range/Units 04:42 04:42 07:25 RBC 3.07 L (3.80-5.40) m/uL Hgb 8.8 L (11.4-16.0) gm/dL Hct 29.2 L (34.0-46.0) % MCHC 30.2 L (31.0-37.0) g/dL Plt Count 110 L (150-450) k/uL Sodium 132 L (137-145) mmol/L Carbon Dioxide 19 L (22-30) mmol/L BUN 28 H (7-17) mg/dL Creatinine 1.66 H (0.52-1.04) mg/dL Glucose 260 H (74-99) mg/dL POC Glucose (mg/dL) 355 H (70-110) mg/dL Microbiology - Last 24 Hours (Table) 11/28/24 10:56 Blood Culture - Preliminary Blood
--- NOTE | 2024-12-02 12:07 | P.PN ---
Subjective Patient is seen for follow-up for acute kidney injury. Renal function improved with creatinine down to 1.6 Blood pressure remains on the lower side. Maintained on IV fluids and midodrine. Patient is voiding on her own. Objective - Vital Signs Vital signs: Vital Signs Temp 97.4 F L 12/02/24 07:38 Pulse 69 12/02/24 07:38 Resp 18 12/02/24 07:38 BP 98/65 12/02/24 07:38 Pulse Ox 95 12/02/24 07:38 FiO2 Intake & Output 12/01/24 12/02/24 12/02/24 18:59 06:59 18:59 Intake Total 1200 540 Output Total 1 Balance 1199 540 Intake: IV 1200 Sodium Chloride 0.9% 1, 1200 000 ml @ 125 mls/hr IV . Q8H [facility] Rx#:[id number] Oral 540 Output: Urine 1 Other: Voiding Method Toilet # Voids 1 1 2 # Bowel Movements 1 ABP, PAP, CO, CI - Last Documented Arterial Blood Pressure 105/48 - Exam Patient is awake, comfortable, no acute distress Examination of the heart S1 and S2 Examination of the lungs bilateral breath sounds are heard Examination of lower extremities shows no significant edema REGIONAL MEDICAL DIRECTOR exam grossly intact - Labs CBC & Chem 7: 12/02/24 04:42 12/02/24 04:42 Labs: Abnormal Lab Results - Last 24 Hours (Table) 12/01/24 12/01/24 12/02/24 Range/Units 16:53 21:04 04:42 RBC 3.07 L (3.80-5.40) m/uL Hgb 8.8 L (11.4-16.0) gm/dL Hct 29.2 L (34.0-46.0) % MCHC 30.2 L (31.0-37.0) g/dL Plt Count 110 L (150-450) k/uL Sodium (137-145) mmol/L Carbon Dioxide (22-30) mmol/L BUN (7-17) mg/dL Creatinine (0.52-1.04) mg/dL Glucose (74-99) mg/dL POC Glucose (mg/dL) 279 H 246 H (70-110) mg/dL 12/02/24 12/02/24 Range/Units 04:42 07:25 RBC (3.80-5.40) m/uL Hgb (11.4-16.0) gm/dL Hct (34.0-46.0) % MCHC (31.0-37.0) g/dL Plt Count (150-450) k/uL Sodium 132 L (137-145) mmol/L Carbon Dioxide 19 L (22-30) mmol/L BUN 28 H (7-17) mg/dL Creatinine 1.66 H (0.52-1.04) mg/dL Glucose 260 H (74-99) mg/dL POC Glucose (mg/dL) 355 H (70-110) mg/dL Microbiology - Last 24 Hours (Table) 11/28/24 10:56 Blood Culture - Preliminary Blood Assessment and Plan Assessment: 1. Acute kidney injury, ATN, nonoliguric secondary to hypotension and sepsis. UA shows trace protein and ketones. CT of the abdomen showed nonobstructive stone. 2. Acute hemorrhagic hydropic cholecystitis due to cystic duct obstruction status post subtotal robotic cholecystectomy on 11/27/2024 3. Gram-positive bacteremia 4. Severe aortic stenosis being followed by cardiology 5. Hypomagnesemia status post replacement Plan: Encourage increase oral intake Continue midodrine Repeat labs in a.m.
--- NOTE | 2024-12-02 15:02 | P.DS ---
Providers Date of admission: 11/26/24 22:14 Expected date of discharge: 12/02/24 Attending physician: Mallorie Patterson Consults: 11/26/24 21:53 Consult Physician Routine Consulting Provider: Kathy Blevins Consult Reason/Comments: med management, preop Do you want consulting provider notified?: Yes 11/27/24 10:56 Consult Physician Routine Consulting Provider: Jose Márquez Consult Reason/Comments: severe aortic stenosis s/p bovine aortic valve replac 2013 Do you want consulting provider notified?: Yes 11/27/24 11:25 Consult Physician Urgent Consulting Provider: Ke Uriostegui Consult Reason/Comments: ICU management, aortic stenosis severe Do you want consulting provider notified?: Already Contacted 11/28/24 07:45 Consult Physician Urgent Consulting Provider: Jose Markham Consult Reason/Comments: CKD Do you want consulting provider notified?: Yes Primary care physician: Jack Plata Hospital Course: Discharge diagnosis 1. Acute hemorrhagic hydropic cholecystitis due to cystic duct obstruction 2. Morbid obesity due to excess calories, Body mass index of 59.8 to 33.1 3. Hypertensive heart disease. 4. Obstructive sleep apnea 5. 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 Chronic panniculitis 7. Osteoarthritis of the lower back. 8. Depression 9. Anxiety disorder 10. Hyperlipidemia 11. Iron deficiency 12. Congestive heart failure 13. Gastroesophageal reflux disease 14. Diabetic nephropathy, stage 3 15. History of aspiration pneumonia 16. Diabetic gastroparesis 17. Status post gastric bypass 18. Internal hernia 19. Stage III renal disease due to diabetic nephropathy 20. History aortic valvular replacement 21. Severe aortic stenosis 22. Acute blood loss anemia due to hemorrhagic hydropic cholecystitis Hospital course This is a 54-year-old female who presented with epigastric right upper quadrant pain, symptomatic gallstones, and clinical features of acute cholecystitis. Patient is status post robotic assisted laparoscopic lysis of adhesions and cholecystectomy. Patient tolerated surgery well. Her pain is controlled. She is tolerating diet. She has been up and ambulating. She is having bowel movements. She is afebrile. She denies any difficulty urinating. She was evaluated by cardiology service, pulmonary service and nephrology during this admission. Her kidney function is improving. Patient is stable for discharge. Physician Equity Research Analyst note has been reviewed by physician. Signing provider agrees with the documented findings, assessment, and plan of care. Patient Condition at Discharge: Stable Plan - Discharge Summary Discharge Rx Participant: Yes New Discharge Prescriptions: New Simethicone [Gas-X] 125 mg PO AC-TID PRN #20 capsule PRN Reason: Pain Acetaminophen Tab [Tylenol Tab] 1,000 mg PO Q6HR PRN #30 tablet PRN Reason: Pain oxyCODONE HCL/ACETAMINOPHEN [Percocet 7.5-325 mg] 1 tab PO Q4HR PRN 3 Days #18 tab PRN Reason: Breakthrough Pain Continue Omeprazole 40 mg PO DAILY Atorvastatin [Lipitor] 40 mg PO HS Furosemide [Lasix] 40 mg PO MOWEFR Suvorexant [Belsomra] 20 mg PO HS busPIRone HCL 15 mg PO BID Insulin Aspart (For Pump) [NovoLOG (For Pump)] 0.01 unit SQ-PUMP CONTINUOUS calcitrioL 0.5 mcg PO Q2D Vortioxetine Hydrobromide [Trintellix] 20 mg PO DAILY Secukinumab [Cosentyx Sensoready Pen] 150 mg SQ Q30D Nystatin 100,000 Unit/gm Powd [Mycostatin Powder] 1 applic TOPICAL BID PRN PRN Reason: Rash OXcarbazepine 150 mg PO HS Discontinued lisinopriL [Zestril] 2.5 mg PO Q2D Metoprolol Succinate (ER) [Toprol XL] 25 mg PO HS Discharge Medication List Insulin Aspart (For Pump) [NovoLOG (For Pump)] 0.01 unit SQ-PUMP CONTINUOUS 01/09/21 [History] Atorvastatin [Lipitor] 40 mg PO HS 02/17/21 [History] Furosemide [Lasix] 40 mg PO MOWEFR 02/17/21 [History] Omeprazole 40 mg PO DAILY 02/17/21 [History] calcitrioL 0.5 mcg PO Q2D 02/17/21 [History] Secukinumab [Cosentyx Sensoready Pen] 150 mg SQ Q30D 06/23/24 [History] Suvorexant [Belsomra] 20 mg PO HS 06/23/24 [History] Vortioxetine Hydrobromide [Trintellix] 20 mg PO DAILY 06/23/24 [History] Nystatin 100,000 Unit/gm Powd [Mycostatin Powder] 1 applic TOPICAL BID PRN 08/27/24 [History] busPIRone HCL 15 mg PO BID 08/27/24 [History] OXcarbazepine 150 mg PO HS 11/19/24 [History] Acetaminophen Tab [Tylenol Tab] 1,000 mg PO Q6HR PRN #30 tablet 12/02/24 [Rx] Simethicone [Gas-X] 125 mg PO AC-TID PRN #20 capsule 12/02/24 [Rx] oxyCODONE HCL/ACETAMINOPHEN [Percocet 7.5-325 mg] 1 tab PO Q4HR PRN 3 Days #18 tab 12/02/24 [Rx] Follow up Appointment(s)/Referral(s): Jose Márquez MD [STAFF PHYSICIAN] - 2 Weeks Jack Plata DO [Primary Care Provider] - 1-2 days Bariatric [place], [place] [NON-STAFF] - 12/08/24 4:00 pm Patient Instructions/Handouts: Laparoscopic Cholecystectomy (DC) Activity/Diet/Wound Care/Special Instructions: NO LONG DRIVES OR AIRPLANE RIDES OVER 60 MINUTES FOR THE NEXT 2 WEEKS, 12/11/24, DUE TO HIGH RISK OF PULMONARY EMBOLISM/DVTs May drive in 72 hrs, 06/07/24 No lifting over 10 pounds in 2 weeks until 12/11/24 May shower. No bath tub soaks for two weeks until 12/11/24 Diet as tolerated. Use Tylenol, simethicone scheduled for the next 24-48 hours for best pain relief. Use ice along incisions for today to prevent swelling. Discharge Disposition: HOME SELF-CARE
--- NOTE | 2024-12-02 23:25 | P.PN ---
Subjective Progress Note Date: 12/02/24 54-year-old female postoperative day #1, status post robotically assisted lysis of adhesions, and cholecystectomy. The patient was brought back to the intensive care unit for further monitoring and management. The patient has a history of aortic stenosis, and had aortic valve replacement back in 2013. The patient sees a family doctor, timber killer, superintendent car construction, and dental resident. Currently, she is on 2 L of oxygen. She is on Zosyn. She is getting saline at 100 cc an hour. Clinically, other than pain, she is doing well. In addition to aortic stenosis, status post AVR, the patient has a history of diabetes, hyperlipidemia, hypertension, sleep apnea syndrome, and chronic renal disease. White blood cell count 8.5, hemoglobin 9.5, hematocrit 30.3, and platelet count 102,000. Sodium 134, potassium 4, chlorides 104, CO2 25, BUN 28, and creatinine 2.16. Glucose 83. AST 154. ALT 138. Albumin was 2.6. Blood cultures were positive for gram-positive cocci in clusters, likely Staph epidermidis. On 11/29/2024, patient is being seen for a follow-up. The patient is postop day #2 following a robotic assisted cholecystectomy with lysis of adhesions. The patient is also noted multiple comorbidities including previous history of aortic valve replacement for aortic stenosis back in 2013, diabetes mellitus type 2, hypertension hyperlipidemia and chronic kidney disease. She has underg one previous gastric bypass surgery and she carries a body mass index of 34.8. The patient denies passing any flatus yet. Oral intake is limited. She denies having any nausea or emesis. Her blood work from today shows a white cell count of 9 with a hemoglobin 9.7 and a platelet count of 122. Sodium is at 133, serum bicarb is at 16, potassium is at 3.9, BUN is 41 with a creatinine of 2.8 and t here is an obvious ongoing rise in the creatinine with drop in urine output. LFTs show improvement in the AST and ALT and AST is down to 63 with an ALT of 92 and alkaline phosphatase of 77. The patient is afebrile. The patient is hemodynamically stable. She is on IV Zosyn. She is also on normal saline at rate of 125 cc an hour. Receiving Dilaudid for pain control. Remains on IV Pepcid. She is currently postop day #2. Blood cultures showing Staph epidermidis, likely a contaminant. Nephrology is also on the case regarding her acute kidney injury. She is able to void on her own. 11/30/2024, the patient is being seen for a follow-up. Doing better. Abdominal pain is subsided compared to yesterday. The patient is postop day #3. She underwent a robotic lysis of adhesions and cholecystectomy. Denies having any nausea or emesis. Tolerating diet. She did have a bowel movement yesterday. Unfortunately, the patient has developed an acute kidney injury. The patient does have a chronic kidney disease and creatinine is on the rise. Noted the creatinine at time of admission was 1.4 and is currently up to 2.6. She is producing urine output. She remains on empiric antibiotic coverage with IV Zosyn. She remains on normal saline at rate of 125 cc an hour. Blood cultures positive for Staph epidermidis on 11/26/2024 and repeat blood culture on 11/28/2024 was negative. Afebrile. Hemodynamically stable. Room air oxygen with a pulse ox of 96%. On 12/01/2024, the patient is being seen for a follow-up. The patient is doing well. No specific complaints. She is stooling. Surgical wound site is dry clean and intact. No nausea or emesis. Meanwhile, she has demonstrated imp roved renal function and creatinine is down to 1.7 with a BUN of 34. Sodium was 135. Potassium level is at 4.3. White cell count is 7.2 with a hemoglobin 10.2. General surgery is on the case. She remains on IV Zosyn. She is on room air oxygen. No respiratory distress. Using incentive spirometer. She has noted valvular heart disease. No signs of decompensated heart failure. IV fluids are running at rate of 125 cc an hour. The patient is postop day #4. Blood culture was positive for Staph epidermidis. On today's evaluation of 12/02/2024, the patient denies having any specific complaints. Doing well. No cough or sputum production. No nausea or emesis. She is stooling. She is ambulating. She is also making adequate amount of urine output. Creatinine is down to 1.6 as the patient is recovering from acute kidney injury. Sodium is at 132. Bicarb is at 19. The white cell count is at 5.1 with a hemoglobin of 8.8. Oxygenation is also stable and the patient is currently on room air oxygen with a pulse ox of 95%. No other new complaints otherwise for now. The patient will likely be discharged home today. Awaiting final recommendations from general surgery. Nephrology was on the case. She is known to have a type 1 diabetes mellitus with diabetic neuropathy and neph ropathy. She is also known to have hypertension, hyperlipidemia, chronic stage III kidney disease, previous history of aortic valve replacement with ongoing issues with aortic stenosis and mitral regurgitation. She is post robotic laparoscopic lysis of adhesions and cholecystectomy. She is postop day #5. Objective - Vital Signs Vital signs: Vital Signs Temp 97.4 F L 12/02/24 07:38 Pulse 69 12/02/24 07:38 Resp 18 12/02/24 07:38 BP 98/65 12/02/24 07:38 Pulse Ox 95 12/02/24 07:38 FiO2 Intake & Output 12/01/24 12/02/24 12/02/24 18:59 06:59 18:59 Intake Total 1200 540 Output Total 1 Balance 1199 540 Intake: IV 1200 Sodium Chloride 0.9% 1, 1200 000 ml @ 125 mls/hr IV . Q8H [facility] Rx#:[id number] Oral 540 Output: Urine 1 Other: Voiding Method Toilet # Voids 1 1 2 # Bowel Movements 1 ABP, PAP, CO, CI - Last Documented Arterial Blood Pressure 105/48 - Exam No acute distress, oriented 3. Calm and comfortable on room air oxygen. HEENT examination is grossly unremarkable. Mucous membranes are moist. No oral lesions. Neck supple. Full range of motion. No adenopathy thyromegaly or neck vein distention. Cardiovascular examination reveals regular rhythm rate. S1-S2 normal. No S3 or S4. A soft systolic murmur is noted. Lungs reveal clear breath sounds. Breath sounds are equal bilaterally. No adventitious lung sounds including wheezes rhonchi or crackles. Abdomen soft bowel sounds are heard. No masses or tenderness. Surgical wound site is dry clean and intact. Abdomen is nondistended the patient has a positive bowel sounds Extremities are intact. No cyanosis clubbing or edema. Skin is without rash or lesion. Neurologic examination is brief but nonfocal. - Labs CBC & Chem 7: 12/02/24 04:42 12/02/24 04:42 Labs: Abnormal Lab Results - Last 24 Hours (Table) 12/01/24 12/01/24 12/01/24 Range/Units 12:03 16:53 21:04 RBC (3.80-5.40) m/uL Hgb (11.4-16.0) gm/dL Hct (34.0-46.0) % MCHC (31.0-37.0) g/dL Plt Count (150-450) k/uL Sodium (137-145) mmol/L Carbon Dioxide (22-30) mmol/L BUN (7-17) mg/dL Creatinine (0.52-1.04) mg/dL Glucose (74-99) mg/dL POC Glucose (mg/dL) 339 H 279 H 246 H (70-110) mg/dL 12/02/24 12/02/24 12/02/24 Range/Units 04:42 04:42 07:25 RBC 3.07 L (3.80-5.40) m/uL Hgb 8.8 L (11.4-16.0) gm/dL Hct 29.2 L (34.0-46.0) % MCHC 30.2 L (31.0-37.0) g/dL Plt Count 110 L (150-450) k/uL Sodium 132 L (137-145) mmol/L Carbon Dioxide 19 L (22-30) mmol/L BUN 28 H (7-17) mg/dL Creatinine 1.66 H (0.52-1.04) mg/dL Glucose 260 H (74-99) mg/dL POC Glucose (mg/dL) 355 H (70-110) mg/dL Microbiology - Last 24 Hours (Table) 11/28/24 10:56 Blood Culture - Preliminary Blood Assessment and Plan Plan: Postoperative day # 5 status post robotically assisted cholecystectomy, and lysis of adhesions. Acute on chronic kidney injury. The creatinine is improving and the patient is currently on normal saline at rate of 125 cc an hour. Nephrology on the case. Rule out postsurgical ATN secondary to hypotension/sepsis. Patient is nonoligur ic. Renal function continues to improve and the creatinine is down to 1.6 History of aortic stenosis, status post AVR, 2013. The patient continues to have valvular heart disease. The echocardiogram from this current admission shows normal biventricular systolic function. Severe stenosis of the bioprosthetic aortic valve with a mean gradient of 66 and moderate to severe mitral stenosis with mild to moderate mitral regurgitation. Diabetes mellitus type 2. History of hyperlipidemia. History of hypertension. History of sleep apnea syndrome. History of gastric bypass. History of anxiety/depression. Prior history of tobacco use. Gram-positive cocci in the blood, consistent of Staph epidermidis. Repeat cultures are negative. Likely contaminant. Plan Wean FiO2 as tolerated to maintain saturation above 90%, currently on room air oxygen. Advance diet as tolerated No nausea emesis and the patient is stooling General Surgery is on the case Renal function is improving and the creatinine is down to 1.5 CAT scan of the abdomen showed no evidence of any hydronephrosis Normal saline at rate of 125 cc an hour Insulin pump Metoprolol lisinopril has been discontinued Possible discharge home today to be followed by cardiology and general surgery on outpatient basis
== END 2024-12-02 11:47 | disposition home or self-care (01) | DRG 417 ==
LOC: EC 18:30 → OBSVTOIN 22:14 → 4SSUR 22:14 → 2SICU 11-27 15:46 → 4SSUR 11-28 13:31
PROVIDERS: ADMIT Surgery Plastic and Reconstructive Surgery; ATTEND Surgery Plastic and Reconstructive Surgery
PROC: 8E0W4CZ Robotic Assisted Procedure of Trunk Region, Percutaneous Endoscopic Approach (ICD-10-PCS; 2024-11-27)
PROC: 0FT44ZZ Resection of Gallbladder, Percutaneous Endoscopic Approach (ICD-10-PCS; principal; 2024-11-27 11:30)
PROC: 4A133B1 Monitoring of Arterial Pressure, Peripheral, Percutaneous Approach (ICD-10-PCS; 2024-11-28)
PROC: 4A133J1 Monitoring of Arterial Pulse, Peripheral, Percutaneous Approach (ICD-10-PCS; 2024-11-28)
PROC: 03HY32Z Insertion of Monitoring Device into Upper Artery, Percutaneous Approach (ICD-10-PCS; 2024-11-28)
DX: K80.10 Calculus of gallbladder with chronic cholecystitis without obstruction (principal); N17.0 Acute kidney failure with tubular necrosis; D62 Acute posthemorrhagic anemia; I13.0 Hypertensive heart and chronic kidney disease with heart failure and stage 1 through stage 4 chronic kidney disease, or unspecified chronic kidney disease; K82.1 Hydrops of gallbladder; Z68.43 Body mass index [BMI] 50.0-59.9, adult; R78.81 Bacteremia; D69.59 Other secondary thrombocytopenia; E10.43 Type 1 diabetes mellitus with diabetic autonomic (poly)neuropathy; N18.32 Chronic kidney disease, stage 3b; F32.A Depression, unspecified; Z95.3 Presence of xenogenic heart valve; I50.9 Heart failure, unspecified; E66.01 Morbid (severe) obesity due to excess calories; E10.319 Type 1 diabetes mellitus with unspecified diabetic retinopathy without macular edema; E10.22 Type 1 diabetes mellitus with diabetic chronic kidney disease; E10.65 Type 1 diabetes mellitus with hyperglycemia; Z79.4 Long term (current) use of insulin; K46.9 Unspecified abdominal hernia without obstruction or gangrene; I95.9 Hypotension, unspecified; K21.9 Gastro-esophageal reflux disease without esophagitis; E78.5 Hyperlipidemia, unspecified; E83.42 Hypomagnesemia; E86.0 Dehydration; F41.9 Anxiety disorder, unspecified; G47.33 Obstructive sleep apnea (adult) (pediatric); I08.0 Rheumatic disorders of both mitral and aortic valves; I25.2 Old myocardial infarction; K31.84 Gastroparesis; E61.1 Iron deficiency; M19.09 Primary osteoarthritis, other specified site; J30.2 Other seasonal allergic rhinitis; M19.90 Unspecified osteoarthritis, unspecified site; Z79.899 Other long term (current) drug therapy; Z82.49 Family history of ischemic heart disease and other diseases of the circulatory system; Z87.01 Personal history of pneumonia (recurrent); Z87.891 Personal history of nicotine dependence; Z96.41 Presence of insulin pump (external) (internal); Z98.84 Bariatric surgery status; Z91.040 Latex allergy status; Z91.048 Other nonmedicinal substance allergy status
CPT/HCPCS: 36415; 74176; 76705; 80048; 80053; 80183; 81003; 82150; 83036; 83605; 83690; 83735; 85025; 85027; 85610; 87040; 87077; 87186; 88304; 93005; 93306; 96361; 96365; 96372; 96375; 99285

== ENCOUNTER 2024-12-10 18:26 | Inpatient (IN) | payer MEDICARE, OTHER ==
[2024-12-10 20:38] LABS: Basophils # (A) 0.03 10*3/uL (0.00-0.10); Basophils % (A) 0.3 %; Eosinophils # (A) 0.24 10*3/uL (0.04-0.35); Eosinophils % (A) 2.6 %; HCT 30.1 % (37.2-46.3); HGB 9.7 g/dL (12.0-15.0); Lymphocytes # (A) 1.27 10*3/uL (0.90-5.00); Lymphocytes % (A) 13.6 %; MCH 29.1 pg (27.0-32.0); MCHC 32.2 g/dL (32.0-37.0); MCV 90.4 fL (80.0-97.0); Mean Platelet Volume 9.9 fL (9.5-12.2); Monocytes # (A) 0.75 10*3/uL (0.20-1.00); Monocytes % (A) 8.1 %; Neutrophils # (A) 6.98 10*3/uL (1.80-7.70); Platelet Count 327 10*3/uL (140-440); RBC 3.33 10*6/uL (4.10-5.20); RDW 13.8 % (11.5-14.5); WBC 9.31 10*3/uL (4.50-10.00)
--- NOTE | 2024-12-10 20:41 | ED ---
General Adult HPI - General Chief complaint: Shortness of Breath Stated complaint: SOB Time Seen by Provider: 12/10/24 20:11 Source: patient, RN notes reviewed Mode of arrival: ambulatory Limitations: no limitations - History of Present Illness Initial comments: 54-year-old female presents to the emergency department for evaluation of shortness of breath. Patient reports that this has been going on for a few days but got significantly worse last night. She notes that it is bothersome for her all the time even while she is lying flat. She notes that it is worse when she is walking around. She denies any chest pain. She recently underwent a cho lecystectomy on 11-26-[address] Patterson. She states that she has been healing well from the surgery she followed up with Dr. Patterson outpatient recently. She denies any known fever at home although she is febrile in the emergency department. She denies reports past medical history of diabetes, aortic valve disease. She is not on any blood thinners. - Related Data Home Medications Medication Instructions Recorded Confirmed Insulin Aspart (For Pump) [NovoLOG 0.01 unit SQ-PUMP CONTINUOUS 01/09/21 12/11/24 (For Pump)] Atorvastatin [Lipitor] 40 mg PO HS 02/17/21 12/11/24 Furosemide [Lasix] 40 mg PO DAILY 02/17/21 12/11/24 Omeprazole 40 mg PO DAILY 02/17/21 12/11/24 calcitrioL 0.5 mcg PO Q2D 02/17/21 12/11/24 Secukinumab [Cosentyx Sensoready 300 mg SQ Q30D 06/23/24 12/11/24 Pen] Suvorexant [Belsomra] 20 mg PO HS 06/23/24 12/11/24 Vortioxetine Hydrobromide 20 mg PO DAILY 06/23/24 12/11/24 [Trintellix] Nystatin 100,000 Unit/gm Powd 1 applic TOPICAL BID PRN 08/27/24 12/11/24 [Mycostatin Powder] busPIRone HCL 15 mg PO BID 08/27/24 12/11/24 OXcarbazepine 150 mg PO HS 11/19/24 12/11/24 Metoprolol Succinate [Metoprolol 25 mg PO DAILY 04/12/25 04/12/25 Succinate ER] Ondansetron Odt [Zofran Odt] 4 mg PO TID PRN 12/11/24 12/11/24 Previous Rx's Medication Instructions Recorded Acetaminophen Tab [Tylenol Tab] 1,000 mg PO Q6HR PRN #30 tablet 12/02/24 Simethicone [Gas-X] 125 mg PO AC-TID PRN #20 capsule 12/02/24 oxyCODONE HCL/ACETAMINOPHEN 1 tab PO Q4HR PRN 3 Days #18 tab 12/02/24 [Percocet 7.5-325 mg] Allergies Allergy/AdvReac Type Severity Reaction Status Date / Time adhesive Allergy Intermediate Rash/Hives Verified 12/11/24 09:06 latex Allergy Intermediate Rash/Hives Verified 12/11/24 09:06 Review of Systems ROS Statement: Those systems with pertinent positive or pertinent negative responses have been documented in the HPI. ROS Other: All systems not noted in ROS Statement are negative. Past Medical History Past Medical History: Diabetes Mellitus, Hyperlipidemia, Hypertension, Renal Disease, Sleep Apnea/CPAP/BIPAP Additional Past Medical History / Comment(s): seasonal allergies, STAGE 4 KIDNEY FAILURE, CHRONIC BACK PAIN, does not use CPAP Last Myocardial Infarction Date:: 2013 History of Any Multi-Drug Resistant Organisms: None Reported Past Surgical History: Bariatric Surgery, Cardiac Valve Replacement, Cholecystectomy, Heart Catheterization Additional Past Surgical History / Comment(s): Aortic valve replacement 2013, gastric bypass 06-07-19 Past Anesthesia/Blood Transfusion Reactions: No Reported Reaction Additional Past Anesthesia/Blood Transfusion Reaction / Comment(s): NO blood transfusion to date Past Psychological History: Anxiety, Depression Smoking Status: Former smoker Past Alcohol Use History: None Reported Past Drug Use History: None Reported - Past Family History Mother Family Medical History: Cancer, Coronary Artery Disease (CAD), Hypertension Additional Family Medical History / Comment(s): vulva cancer Father Family Medical History: Dementia, Hypertension, Neurologic Disorder Additional Family Medical History / Comment(s): at age 69 from dementia /parkinsons Sister(s) Family Medical History: Hypertension General Exam Limitations: no limitations General appearance: alert, in no apparent distress Head exam: Present: atraumatic, normocephalic, normal inspection Eye exam: Present: normal appearance, PERRL, EOMI. Absent: scleral icterus, conjunctival injection, periorbital swelling ENT exam: Present: normal exam, mucous membranes moist Respiratory exam: Present: normal lung sounds bilaterally. Absent: respiratory distress, wheezes, rales, rhonchi, stridor Cardiovascular Exam: Present: regular rate, normal rhythm, other (murmur). Absent: systolic murmur, diastolic murmur, rubs, gallop, clicks GI/Abdominal exam: Present: soft, normal bowel sounds. Absent: distended, tenderness, guarding, rebound, rigid Extremities exam: Present: full ROM, normal capillary refill, pedal edema. Absent: tenderness, joint swelling, calf tenderness Neurological exam: Present: alert, oriented X3 Psychiatric exam: Present: normal affect, normal mood Skin exam: Present: warm, dry, intact, normal color. Absent: rash Course Vital Signs 12/10/24 12/10/24 12/11/24 18:50 20:50 00:20 Temperature 100.8 F H 98.6 F Pulse Rate 89 97 104 H Respiratory 17 20 20 Rate Blood Pressure 112/72 129/80 138/97 O2 Sat by Pulse 98 97 93 L Oximetry 12/11/24 12/11/24 12/11/24 01:07 03:07 04:01 Temperature Pulse Rate 87 98 97 Respiratory 18 20 Rate Blood Pressure 126/80 110/59 O2 Sat by Pulse 94 L 96 Oximetry 12/11/24 12/11/24 12/11/24 06:17 09:58 16:02 Temperature Pulse Rate 94 90 85 Respiratory 17 16 16 Rate Blood Pressure 122/75 120/73 139/84 O2 Sat by Pulse 94 L 98 97 Oximetry 12/11/24 20:18 Temperature 99 F Pulse Rate 89 Respiratory 18 Rate Blood Pressure 131/85 O2 Sat by Pulse 93 L Oximetry Medical Decision Making - Medical Decision Making Was pt. sent in by a medical professional or institution (, PA, HADOOP ARCHITECT, urgent care, hospital, or retirement...) When possible be specific @ -No Did you speak to anyone other than the patient for history (EMS, parent, family, police, friend...)? What history was obtained from this source @ -No Did you review nursing and triage notes (agree or disagree)? Why? @ -I reviewed and agree with nursing and triage notes Were old charts reviewed (outside hosp., previous admission, EMS record, old EKG, old radiological studies, urgent care reports/EKG's, retirement records)? Report findings @ -No old charts were reviewed Differential Diagnosis (chest pain, altered mental status, abdominal pain women, abdominal pain men, vaginal bleeding, weakness, fever, dyspnea, syncope, headache, dizziness, GI bleed, back pain, seizure, CVA, palpatations, mental health, musculoskeletal)? @ -Differential Dyspnea: Coronary syndrome, arrhythmia, tamponade, asthma, COPD, pulmonary embolism, pneumonia, pneumothorax, pulmonary effusion, anaphylaxis, diabetic ketoacidosis, flailed chest, pulmonary contusion, diaphragmatic rupture, anemia, neuromuscular, this is not meant to be an all-inclusive list. EKG interpreted by me (3pts min.). @ -EKG at 2020 shows sinus rhythm rate 97, PA 178, QRS 81, QTQTc [id number] X-rays interpreted by me (1pt min.). @ -Chest x-ray reveals a small right-sided pleural effusion CT interpreted by me (1pt min.). @ -Chest CTAReveals no evidence of pulmonary embolus although limited evaluation of the peripheral branches, dilatation of the ascending thoracic aorta, atherosclerotic disease U/S interpreted by me (1pt. min.). @ -None done What testing was considered but not performed or refused? (CT, X-rays, U/S, labs)? Why? @ -None What meds were considered but not given or refused? Why? @ -None Did you discuss the management of the patient with other professionals (professionals i.e. , PA, HADOOP ARCHITECT, lab, RT, psych nurse, perinatal social worker, entertainment lawyer, teacher, geospatial program management officer, case management director)? Give summary @ -Management discussed with [facility] who is accepting of the admission Was smoking cessation discussed for >3mins.? @ -No Was critical care preformed (if so, how long)? @ -No Were there social determinants of health that impacted care today? How? (Homelessness, low income, unemployed, alcoholism, drug addiction, transportation, low edu. Level, literacy, decrease access to med. care, residential, rehab)? @ -No Was there de-escalation of care discussed even if they declined (Discuss DNR or withdrawal of care, Hospice)? DNR status @ -No What co-morbidities impacted this encounter? (DM, HTN, Smoking, COPD, CAD, Cancer, CVA, ARF, Chemo, Hep., AIDS, mental health diagnosis, sleep apnea, morbid obesity)? @ -None Was patient admitted / discharged? Hospital course, mention meds given and route, prescriptions, significant lab abnormalities, going to OR and other pert inent info. @ -Admitted. Patient presented to the emergency department for evaluation of shortness of breath. Patient underwent cholecystectomy about 10 days prior. Laboratory studies reveal no significant leukocytosis, hemoglobin 9.7; elevated D-dimer at 3.72; CMP reveals sodium 138, testing 4.7, creatinine 1.25 with a GFR of 49 patient did have elevated troponin at 0.067 and elevated BNP at 8110. Negative for COVID, influenza, RSV. Chest x-ray reveals a small right-sided pleural effusion. CT of the chest reveals no evidence of pulmonary emboli. Patient will be admitted with serial troponins and cardiology consultation. Patient was started on heparin as this is likely related to CHF Case was discussed with Dr. Jones with [facility] who was accepting of the admission. Case discussed with Dr. Khalil. Undiagnosed new problem with uncertain prognosis? @ -No Drug Therapy requiring intensive monitoring for toxicity (Heparin, Nitro, Insulin, Cardizem)? @ -No Were any procedures done? @ -No Diagnosis/symptom? @ -Pleural effusion, severe aortic stenosis Acute, or Chronic, or Acute on Chronic? @ -Acute Uncomplicated (without systemic symptoms) or Complicated (systemic symptoms)? @ -Complicated Side effects of treatment? @ -No Exacerbation, Progression, or Severe Exacerbation? @ -Exacerbation Poses a threat to life or bodily function? How? (Chest pain, USA, DE, pneumonia, PE, COPD, DKA, ARF, appy, cholecystitis, CVA, Diverticulitis, Homicidal, Suicid al, threat to staff... and all critical care pts) @ -possible - Lab Data Result diagrams: 12/15/24 05:45 12/15/24 05:45 Lab Results 12/10/24 12/10/24 12/10/24 Range/Units 20:32 20:32 20:32 WBC 9.31 (4.50-10.00) 10*3/uL RBC 3.33 L (4.10-5.20) 10*6/uL Hgb 9.7 L (12.0-15.0) g/dL Hct 30.1 L (37.2-46.3) % MCV 90.4 (80.0-97.0) fL MCH 29.1 (27.0-32.0) pg MCHC 32.2 (32.0-37.0) g/dL Plt Count 327 (140-440) 10*3/uL MPV 9.9 (9.5-12.2) fL Immature Gran % (Auto) 0.4 % Neutrophils % 75.0 % Lymphocytes % 13.6 % Monocytes % 8.1 % Eosinophils % 2.6 % Basophils % 0.3 % Immature Gran # 0.04 (0.00-0.04) 10*3/uL Neutrophils # 6.98 (1.80-7.70) 10*3/uL Lymphocytes # 1.27 (0.90-5.00) 10*3/uL Monocytes # 0.75 (0.20-1.00) 10*3/uL Eosinophils # 0.24 (0.04-0.35) 10*3/uL Basophils # 0.03 (0.00-0.10) 10*3/uL PT 11.5 (10.0-12.5) sec INR 1.0 (<1.2) APTT 25.4 (22.0-30.0) sec D-Dimer (<0.60) mg/L FEU Sodium 138 (137-145) mmol/L Potassium 4.7 (3.5-5.1) mmol/L Chloride 103 (98-107) mmol/L Carbon Dioxide 32 H (22-30) mmol/L Anion Gap 3 mmol/L BUN 15 (7-17) mg/dL Creatinine 1.25 H (0.52-1.04) mg/dL Est GFR (CKD-EPI)AfAm 57 (>60 ml/min/1.73 sqM) Est GFR (CKD-EPI)NonAf 49 (>60 ml/min/1.73 sqM) Glucose 86 (74-99) mg/dL Plasma Lactic Acid Crow (0.7-2.0) mmol/L Calcium 9.6 (8.4-10.2) mg/dL Total Bilirubin 0.5 (0.2-1.3) mg/dL AST 29 (14-36) U/L ALT 23 (4-34) U/L Alkaline Phosphatase 102 (38-126) U/L Troponin I (0.000-0.034) ng/mL NT-Pro-B Natriuret Pep 8110 pg/mL Total Protein 5.8 L (6.3-8.2) g/dL Albumin 3.1 L (3.5-5.0) g/dL Influenza Type A (PCR) (Not Detectd) Influenza Type B (PCR) (Not Detectd) RSV (PCR) (Not Detectd) SARS-CoV-2 (PCR) (Not Detectd) 12/10/24 12/10/24 12/10/24 Range/Units 20:32 20:32 20:32 WBC (4.50-10.00) 10*3/uL RBC (4.10-5.20) 10*6/uL Hgb (12.0-15.0) g/dL Hct (37.2-46.3) % MCV (80.0-97.0) fL MCH (27.0-32.0) pg MCHC (32.0-37.0) g/dL Plt Count (140-440) 10*3/uL MPV (9.5-12.2) fL Immature Gran % (Auto) % Neutrophils % % Lymphocytes % % Monocytes % % Eosinophils % % Basophils % % Immature Gran # (0.00-0.04) 10*3/uL Neutrophils # (1.80-7.70) 10*3/uL Lymphocytes # (0.90-5.00) 10*3/uL Monocytes # (0.20-1.00) 10*3/uL Eosinophils # (0.04-0.35) 10*3/uL Basophils # (0.00-0.10) 10*3/uL PT (10.0-12.5) sec INR (<1.2) APTT (22.0-30.0) sec D-Dimer 3.72 H (<0.60) mg/L FEU Sodium (137-145) mmol/L Potassium (3.5-5.1) mmol/L Chloride (98-107) mmol/L Carbon Dioxide (22-30) mmol/L Anion Gap mmol/L BUN (7-17) mg/dL Creatinine (0.52-1.04) mg/dL Est GFR (CKD-EPI)AfAm (>60 ml/min/1.73 sqM) Est GFR (CKD-EPI)NonAf (>60 ml/min/1.73 sqM) Glucose (74-99) mg/dL Plasma Lactic Acid Crow 1.3 (0.7-2.0) mmol/L Calcium (8.4-10.2) mg/dL Total Bilirubin (0.2-1.3) mg/dL AST (14-36) U/L ALT (4-34) U/L Alkaline Phosphatase (38-126) U/L Troponin I 0.067 H* (0.000-0.034) ng/mL NT-Pro-B Natriuret Pep pg/mL Total Protein (6.3-8.2) g/dL Albumin (3.5-5.0) g/dL Influenza Type A (PCR) (Not Detectd) Influenza Type B (PCR) (Not Detectd) RSV (PCR) (Not Detectd) SARS-CoV-2 (PCR) (Not Detectd) 12/10/24 12/11/24 Range/Units 20:48 00:57 WBC (4.50-10.00) 10*3/uL RBC (4.10-5.20) 10*6/uL Hgb (12.0-15.0) g/dL Hct (37.2-46.3) % MCV (80.0-97.0) fL MCH (27.0-32.0) pg MCHC (32.0-37.0) g/dL Plt Count (140-440) 10*3/uL MPV (9.5-12.2) fL Immature Gran % (Auto) % Neutrophils % % Lymphocytes % % Monocytes % % Eosinophils % % Basophils % % Immature Gran # (0.00-0.04) 10*3/uL Neutrophils # (1.80-7.70) 10*3/uL Lymphocytes # (0.90-5.00) 10*3/uL Monocytes # (0.20-1.00) 10*3/uL Eosinophils # (0.04-0.35) 10*3/uL Basophils # (0.00-0.10) 10*3/uL PT (10.0-12.5) sec INR (<1.2) APTT (22.0-30.0) sec D-Dimer (<0.60) mg/L FEU Sodium (137-145) mmol/L Potassium (3.5-5.1) mmol/L Chloride (98-107) mmol/L Carbon Dioxide (22-30) mmol/L Anion Gap mmol/L BUN (7-17) mg/dL Creatinine (0.52-1.04) mg/dL Est GFR (CKD-EPI)AfAm (>60 ml/min/1.73 sqM) Est GFR (CKD-EPI)NonAf (>60 ml/min/1.73 sqM) Glucose (74-99) mg/dL Plasma Lactic Acid Crow (0.7-2.0) mmol/L Calcium (8.4-10.2) mg/dL Total Bilirubin (0.2-1.3) mg/dL AST (14-36) U/L ALT (4-34) U/L Alkaline Phosphatase (38-126) U/L Troponin I 0.073 H* (0.000-0.034) ng/mL NT-Pro-B Natriuret Pep pg/mL Total Protein (6.3-8.2) g/dL Albumin (3.5-5.0) g/dL Influenza Type A (PCR) Not Detected (Not Detectd) Influenza Type B (PCR) Not Detected (Not Detectd) RSV (PCR) Not Detected (Not Detectd) SARS-CoV-2 (PCR) Not Detected (Not Detectd) Disposition Clinical Impression: Aortic stenosis, Dyspnea, Pleural effusion Disposition: ADMITTED IP TO THIS HOSP Condition: Stable Is patient prescribed a controlled substance at d/c from ED?: No
[2024-12-10 20:48] LABS: Partial Thromboplastin Time 25.4 sec (22.0-30.0); Prothrombin Time 11.5 sec (10.0-12.5)
[2024-12-10 20:50] LABS: ALT 23 U/L (4-34); AST 29 U/L (14-36); African American GFR (CKD) 57 (>60 ml/min/1.73 sqM); Albumin 3.1 g/dL (3.5-5.0); Alkaline Phosphatase 102 U/L (38-126); Anion Gap 3 mmol/L; Blood Urea Nitrogen 15 mg/dL (7-17); Calcium 9.6 mg/dL (8.4-10.2); Carbon Dioxide 32 mmol/L (22-30); Chloride 103 mmol/L (98-107); Glucose 86 mg/dL (74-99); Non-African American GFR(CKD) 49 (>60 ml/min/1.73 sqM); Potassium 4.7 mmol/L (3.5-5.1); Sodium 138 mmol/L (137-145); Total Bilirubin 0.5 mg/dL (0.2-1.3); Total Protein 5.8 g/dL (6.3-8.2)
--- NOTE | 2024-12-10 21:17 | XR ---
EXAMINATION TYPE: XR chest 2V DATE OF EXAM: 12/10/2024 8:57 PM COMPARISON: 02/17/2021 CLINICAL INDICATION: Female, 54 years old with history of difficulty breathing, TECHNIQUE: XR chest 2V view(s) obtained. FINDINGS: The heart size is normal. The pulmonary vasculature is prominent. Small right pleural effusion is present costophrenic angle. IMPRESSION: 1. Small right pleural effusion [facility], , 12/10/2024 9:14 PM
[2024-12-10 21:32] LABS: Influenza A Not Detected (Not Detectd); Influenza B Not Detected (Not Detectd); RSV Not Detected (Not Detectd)
[2024-12-10 21:39] LABS: NT-Pro-B-Type Natriuretic Pept 8110 pg/mL
[2024-12-10] MEDS: SODIUM CHLORIDE 0.9% 500 ML 500 ML IV ONE (22:22)
--- NOTE | 2024-12-11 | CT ---
EXAM: CT Angiography Chest With Intravenous Contrast CLINICAL HISTORY: ITS.REASON CT Reason: dyspnea, elevated dimer TECHNIQUE: Axial computed tomographic angiography images of the chest with intravenous contrast. CTDI is 15.47 mGy and DLP is 308.9 mGy-cm. This CT exam was performed using one or more of the following dose reduction techniques: automated exposure control, adjustment of the mA and/or kV according to patient size, and/or use of iterative reconstruction technique. MIP reconstructed images were created and reviewed. COMPARISON: Chest x-ray of 12/10/2024. FINDINGS: Pulmonary arteries: Limited evaluation of the peripheral branches the pulmonary arteries which are grossly unremarkable markedly limited at the periphery. Aorta: Ascending thoracic aorta measures 4.2 cm and is dilated. Is there a history of etiology such as hypertension? Central pulmonary arteries are unremarkable. Atherosclerotic disease of the thoracic aorta. Other arteries: A parent origin of the right subclavian artery. Other veins: Prominent azygos vein of uncertain etiology and significant. Lungs: Airway is normal. Scarring and subsegmental atelectasis in the mid lower lung zones. No mass. Pleural space: Small to moderate bilateral pleural effusions. Consider congestive heart failure. No pneumothorax. Heart: There is cardiomegaly. No significant pericardial effusion. No evidence of RV dysfunction. Thyroid: Indeterminate thyroid nodules. Bones/joints: No acute fracture. No dislocation. Soft tissues: Mild to moderate anasarca. Lymph nodes: Unremarkable. No enlarged lymph nodes. Liver: Fatty liver. Gallbladder and bile ducts: Cholelithiasis. Other findings: Hypoaeration. IMPRESSION: 1. No central pulmonary emboli. 2. Limited evaluation of the peripheral branches the pulmonary arteries which are grossly unremarkable. 3. Dilatation of the ascending thoracic aorta. Is there a history of etiology such as hyperdense?. Cardiomegaly. 4. Atherosclerotic disease and ASCVD. 5. Cholelithiasis. 6. Fatty liver.
[2024-12-11] MEDS ORDERED: ONDANSETRON 4 MG/2 ML VIAL IVP PRN (02:31)
[2024-12-11] MEDS ORDERED: NALOXONE 0.4 MG/ML 1 ML VIAL IV PRN ×2 (02:31→02:50)
[2024-12-11] MEDS ORDERED: MELATONIN 3 MG TABLET PO PRN (02:50)
[2024-12-11] MEDS: FUROSEMIDE 10 MG/ML 4 ML VIAL IV STA (03:05)
--- NOTE | 2024-12-11 03:07 | P.HPIM ---
History of Present Illness H&P Date: 12/11/24 Chief Complaint: julieth Garcia is a 54 Yo F with a pmhx of prior savr in 2013 and dm1 on insulin pump. Of note the patient was admitted to the hospital on November 26, 2024 and was discharged on December 02, 2024. During the hospital course the patient presented with right upper quadrant pain. She had a robotic assisted laparoscopic lysis of adhesions and cholecystectomy. She was noted to have acute kidney injury was seen by nephrology. In addition she had an echocardiogram which showed an LVEF of 60-65% there is severe stenosis in the bioprosthetic aortic valve with a mean gradient of 66 mmHg. There is moderate to severe mitral stenosis and mild to moderate mitral regurgitation. She was seen by cardiology who recommended outpatient follow-up She presents to hospital complaining of a 1 day history of shortness of breath. The patient reports that when she gets up and ambulates she feels very short of breath. She denies any fever or chills. She then presented to the hospital for further evaluation When she had presented to the hospital she had a temperature of 100.8 which was later 98.6 she was hemodynamically stable afebrile and was 93 to 98% room air. CBC is generally blood cell count 9.31 hemoglobin is 9.7 platelet count was 327 D-dimer 3.72 INR is 1.0 CMP had revealed a BUN of 15 creatinine 1.25 initial troponin was 0.067 with subsequent 0.73 flu a flu B RSV COVID were negative. Chest x-ray revealed small right pleural effusion. CT angio chest had revealed no PE dilatation of ascending thoracic aorta. Atherosclerotic disease and ASCVD. Fatty liver. CT scan per my interpretation showing small bilateral pleural effusions Review of Systems Pertinent positives and negatives as discussed in HPI, a complete review of systems was performed and all other systems are negative. Past Medical History Past Medical History: Diabetes Mellitus, Hyperlipidemia, Hypertension, Renal Disease, Sleep Apnea/CPAP/BIPAP Additional Past Medical History / Comment(s): seasonal allergies, STAGE 4 KIDNEY FAILURE, CHRONIC BACK PAIN, does not use CPAP Last Myocardial Infarction Date:: 2013 History of Any Multi-Drug Resistant Organisms: None Reported Past Surgical History: Bariatric Surgery, Cardiac Valve Replacement, Cholecystectomy, Heart Catheterization Additional Past Surgical History / Comment(s): Aortic valve replacement 2013, gastric bypass 06-07-19 Past Anesthesia/Blood Transfusion Reactions: No Reported Reaction Additional Past Anesthesia/Blood Transfusion Reaction / Comment(s): NO blood transfusion to date Past Psychological History: Anxiety, Depression Smoking Status: Former smoker Past Alcohol Use History: None Reported Past Drug Use History: None Reported - Past Family History Mother Family Medical History: Cancer, Coronary Artery Disease (CAD), Hypertension Additional Family Medical History / Comment(s): vulva cancer Father Family Medical History: Dementia, Hypertension, Neurologic Disorder Additional Family Medical History / Comment(s): at age 69 from dementia/parkinsons Sister(s) Family Medical History: Hypertension Medications and Allergies Home Medications Medication Instructions Recorded Confirmed Type Insulin Aspart (For Pump) [NovoLOG 0.01 unit SQ-PUMP CONTINUOUS 01/09/21 12/08/24 History (For Pump)] Atorvastatin [Lipitor] 40 mg PO HS 02/17/21 12/08/24 History Furosemide [Lasix] 40 mg PO MOWEFR 02/17/21 12/08/24 History Omeprazole 40 mg PO DAILY 02/17/21 12/08/24 History calcitrioL 0.5 mcg PO Q2D 02/17/21 12/08/24 History Secukinumab [Cosentyx Sensoready 150 mg SQ Q30D 06/23/24 12/08/24 History Pen] Suvorexant [Belsomra] 20 mg PO HS 06/23/24 12/08/24 History Vortioxetine Hydrobromide 20 mg PO DAILY 06/23/24 12/08/24 History [Trintellix] Nystatin 100,000 Unit/gm Powd 1 applic TOPICAL BID PRN 08/27/24 12/08/24 History [Mycostatin Powder] busPIRone HCL 15 mg PO BID 08/27/24 12/08/24 History OXcarbazepine 150 mg PO HS 11/19/24 12/08/24 History Acetaminophen Tab [Tylenol Tab] 1,000 mg PO Q6HR PRN #30 tablet 12/02/24 12/08/24 Rx Simethicone [Gas-X] 125 mg PO AC-TID PRN #20 capsule 12/02/24 12/08/24 Rx oxyCODONE HCL/ACETAMINOPHEN 1 tab PO Q4HR PRN 3 Days #18 tab 12/02/24 12/08/24 Rx [Percocet 7.5-325 mg] Allergies Allergy/AdvReac Type Severity Reaction Status Date / Time adhesive Allergy Intermediate Rash/Hives Verified 12/10/24 18:54 latex Allergy Intermediate Rash/Hives Verified 12/10/24 18:54 Physical Exam Vitals: Vital Signs Temp Pulse Resp BP Pulse Ox 12/11/24 01:07 87 18 126/80 94 L 12/11/24 00:20 104 H 20 138/97 93 L 12/10/24 20:50 98.6 F 97 20 129/80 97 12/10/24 18:50 100.8 F H 89 17 112/72 98 Intake and Output 12/10/24 12/10/24 12/11/24 14:59 22:59 06:59 Other: Weight 90.718 kg General: non toxic, no distress, appears stated age, female, obese Derm: warm, dry Head: atraumatic, normocephalic, symmetric Eyes: EOMI, no lid lag, anicteric sclera, ENT: Nose and ears atraumatic, no thrush, no pharyngeal erythema Neck: trachea midline, supple Mouth: no lip lesion, mucus membranes moist Cardiovascular: S1S2 reg, no murmur Lungs: clear to ascultation bilatera Abdominal: soft, nontender to palpation, prior lapscropic scars seen Ext: no gross muscle atrophy, no significant ble edema Neuro: moving all extremeties spontanously Psych: calm and coopeartive Results CBC & Chem 7: 12/10/24 20:32 12/10/24 20:32 Labs: Abnormal Lab Results - Last 24 Hours (Table) 12/10/24 12/10/24 12/10/24 Range/Units 20:32 20:32 20:32 RBC 3.33 L (4.10-5.20) 10*6/uL Hgb 9.7 L (12.0-15.0) g/dL Hct 30.1 L (37.2-46.3) % D-Dimer (<0.60) mg/L FEU Carbon Dioxide 32 H (22-30) mmol/L Creatinine 1.25 H (0.52-1.04) mg/dL Troponin I 0.067 H* (0.000-0.034) ng/mL Total Protein 5.8 L (6.3-8.2) g/dL Albumin 3.1 L (3.5-5.0) g/dL 12/10/24 12/11/24 Range/Units 20:32 00:57 RBC (4.10-5.20) 10*6/uL Hgb (12.0-15.0) g/dL Hct (37.2-46.3) % D-Dimer 3.72 H (<0.60) mg/L FEU Carbon Dioxide (22-30) mmol/L Creatinine (0.52-1.04) mg/dL Troponin I 0.073 H* (0.000-0.034) ng/mL Total Protein (6.3-8.2) g/dL Albumin (3.5-5.0) g/dL Assessment and Plan Assessment: #) Acute HFpEF, probably in relation to her severe aortic valve stenosis. CTa chest showing b/l small pleural effusions. provide iv lasix 40 mg x1. appreciate cardiology input. Recent echo on 11/27/2024 showing lvef of 60-65%, severe stenosis in bioprsthetic aortic valve. Would caution on over diuresis given concern she is pre-load depdendent from her aortic stenosis #) Moderate to severe mitral valve stenosis with mild to moderate mitral reurgitation, appreciate cardiology input #) History of SAVR in 2013 with bovine valve #) Hyperlipidemia continue home atorvastatin 40 mg hs #) Dm1 continue poc glucose checks q6hr. continue home insulin pump #) s/p recent cholecystomy #) Hepatic steatosis #) Hx of prior gastric bypass #) Anxiety/depression dispo: med/surge Time with Patient: Greater than 30
[2024-12-11] MEDS: Insulin Aspart (For Pump) 100 UNIT/ML VIAL SQ-PUMP SCH (03:26)
[2024-12-11 04:26] LABS: Basophils # (A) 0.04 10*3/uL (0.00-0.10); Basophils % (A) 0.6 %; Eosinophils # (A) 0.28 10*3/uL (0.04-0.35); HCT 28.6 % (37.2-46.3); HGB 9.2 g/dL (12.0-15.0); Lymphocytes % (A) 17.2 %; MCH 28.8 pg (27.0-32.0); MCHC 32.2 g/dL (32.0-37.0); MCV 89.4 fL (80.0-97.0); Mean Platelet Volume 10.2 fL (9.5-12.2); Monocytes # (A) 0.73 10*3/uL (0.20-1.00); Monocytes % (A) 10.5 %; Neutrophils # (A) 4.67 10*3/uL (1.80-7.70); Neutrophils % (A) 67.1 %; Platelet Count 325 10*3/uL (140-440); RDW 13.6 % (11.5-14.5); WBC 6.96 10*3/uL (4.50-10.00)
[2024-12-11 04:49] LABS: African American GFR (CKD) 55 (>60 ml/min/1.73 sqM); Anion Gap 4 mmol/L; Blood Urea Nitrogen 14 mg/dL (7-17); Calcium 9.4 mg/dL (8.4-10.2); Carbon Dioxide 29 mmol/L (22-30); Chloride 105 mmol/L (98-107); Glucose 79 mg/dL (74-99); Non-African American GFR(CKD) 48 (>60 ml/min/1.73 sqM); Potassium 4.4 mmol/L (3.5-5.1); Sodium 138 mmol/L (137-145)
--- NOTE | 2024-12-11 09:49 | P.CRDCN ---
History of Present Illness History of present illness: HISTORY OF PRESENT ILLNESS: This is a 54-year-old female with a past medical history significant for hypertension, hyperlipidemia, diabetes, normal coronary arteries, and aortic valve replacement in January 2014 at [facility] with a cow valve. Patient is scheduled to establish with a public health advisor next Friday, Dr. Bella. We have been asked to see the patient in consultation for aortic stenosis. Patient examined at the bedside in the emergency room. Patient was recently [facility] at the end of October 2024 for abdominal pain. She was found to have acute cholecystitis and underwent robotic assisted laparoscopic lysis of adhesions and cholecystectomy. Patient returned to the emergency room with a chief complaint of shortness of breath. She states that she has been feeling short of breath over the past few days. She denies any chest pain or pressure. Patient was found to be in acute congestive heart failure. Patient was given a one-time dose of IV Lasix in the emergency room. DIAGNOSTICS: - EKG reveals sinus mechanism with nonspecific ST-T wave changes. No signs of acute ischemia. - Chest xray small right pleural effusion -Chest CTA negative for pulmonary embolism - Laboratory data: WBC 6.96. Hemoglobin 9.2. Platelet count 325. Sodium 138. Potassium 4.4. BUN 14. Creatinine 1.28. Troponin 0.067. 0.073. 0.070. proBNP 8110. - Current home cardiac medications include Lipitor 40 mg at night, Lasix 40 mg daily, metoprolol succinate 25 mg daily. - Most recent echocardiogram obtained in October 2024 revealed ejection fraction 60 to 65%, moderate pulmonary hypertension, moderate to severe mitral stenosis with mean gradient of 11 mmHg, mild to moderate mitral regurgitation, bioprosthetic aortic valve with peak gradient 109 mmHg and mean gradient 66 mmHg, mild tricuspid regurgitation - Cardiac catheterization history: January 2014 revealing normal coronary arteries REVIEW OF SYSTEMS: At the time of my exam: CONSTITUTIONAL: Denies fever or chills. HEENT: Denies blurred vision, vision changes, or eye pain. Denies hemoptysis CARDIOVASCULAR: Denies chest pain. Denies orthopnea. Denies PND. Denies palpitations RESPIRATORY: Reports shortness of breath. GASTROINTESTINAL: Denies abdominal pain. Denies nausea or vomiting. HEMATOLOGIC: Denies bleeding disorders. GENITOURINARY: Denies any blood in urine. SKIN: Denies pruitis. Denies rash. PHYSICAL EXAM: VITAL SIGNS: Reviewed. GENERAL: Well-developed in no acute distress. HEENT: Head is normocephalic. Pupils are equal, round. Sclerae anicteric. Mucous membranes of the mouth are moist. Neck supple. No JVD or thyromegaly LUNGS: Respirations even and unlabored. Lungs with bibasilar crackles, right greater than left HEART: Regular rate and rhythm. S1 and S2 heard. Systolic ejection murmur noted at the base and holosystolic murmur noted at the apex ABDOMEN: Soft. Nondistended. Nontender. EXTREMITIES: Normal range of motion. No clubbing or cyanosis. Peripheral pulses intact. 1+ bilateral lower extremity edema noted. NEUROLOGIC: Awake and alert. Oriented x 3. ASSESSMENT: Shortness of breath Acute on chronic heart failure with preserved EF Elevated troponins, type II AL, secondary to oxygen supply and demand mismatch Severe aortic stenosis History of bioprosthetic aortic valve replacement, January 2014, at [facility] Moderate to severe mitral stenosis Status post cholecystectomy, October 2024 Moderate pulmonary hypertension Hypertension Hyperlipidemia Diabetes Normal coronary arteries, per cath 2013 Obesity: BMI 35.4 PLAN: No need to repeat echocardiogram as this was performed in October 2024 Begin IV Lasix 40 mg every 12 hours Add Farxiga 10 mg daily Daily weights, accurate intake and output, and monitoring of kidney function Resume home cardiac medications including Lipitor and metoprolol succinate Patient has an appointment scheduled on Friday12/17/[address] Márquez Patient will be scheduled for UMANG and R/L cath on Friday with Dr. Márquez due to her symptomatic severe aortic stenosis and moderate to severe mitral stenosis Further recommendations pending patient course Nurse practitioner note has been reviewed by physician. Signing provider agrees with the documented findings, assessment, and plan of care documented by METAL CHECKER as a scribe. Past Medical History Past Medical History: Diabetes Mellitus, Hyperlipidemia, Hypertension, Renal Disease, Sleep Apnea/CPAP/BIPAP Additional Past Medical History / Comment(s): seasonal allergies, STAGE 4 KIDNEY FAILURE, CHRONIC BACK PAIN, does not use CPAP Last Myocardial Infarction Date:: 2013 History of Any Multi-Drug Resistant Organisms: None Reported Past Surgical History: Bariatric Surgery, Cardiac Valve Replacement, Cholecystectomy, Heart Catheterization Additional Past Surgical History / Comment(s): Aortic valve replacement 2013, gastric bypass 10-7-19 Past Anesthesia/Blood Transfusion Reactions: No Reported Reaction Additional Past Anesthesia/Blood Transfusion Reaction / Comment(s): NO blood transfusion to date Smoking Status: Former smoker - Past Family History Mother Family Medical History: Cancer, Coronary Artery Disease (CAD), Hypertension Additional Family Medical History / Comment(s): vulva cancer Father Family Medical History: Dementia, Hypertension, Neurologic Disorder Additional Family Medical History / Comment(s): at age 69 from dementia/parkinsons Sister(s) Family Medical History: Hypertension Medications and Allergies Home Medications Medication Instructions Recorded Confirmed Type Insulin Aspart (For Pump) [NovoLOG 0.01 unit SQ-PUMP CONTINUOUS 01/09/21 12/11/24 History (For Pump)] Atorvastatin [Lipitor] 40 mg PO HS 02/17/21 12/11/24 History Furosemide [Lasix] 40 mg PO DAILY 02/17/21 12/11/24 History Omeprazole 40 mg PO DAILY 02/17/21 12/11/24 History calcitrioL 0.5 mcg PO Q2D 02/17/21 12/11/24 History Secukinumab [Cosentyx Sensoready 300 mg SQ Q30D 06/23/24 12/11/24 History Pen] Suvorexant [Belsomra] 20 mg PO HS 06/23/24 12/11/24 History Vortioxetine Hydrobromide 20 mg PO DAILY 06/23/24 12/11/24 History [Trintellix] Nystatin 100,000 Unit/gm Powd 1 applic TOPICAL BID PRN 08/27/24 12/11/24 History [Mycostatin Powder] busPIRone HCL 15 mg PO BID 08/27/24 12/11/24 History OXcarbazepine 150 mg PO HS 11/19/24 12/11/24 History Acetaminophen Tab [Tylenol Tab] 1,000 mg PO Q6HR PRN #30 tablet 12/02/24 12/11/24 Rx Simethicone [Gas-X] 125 mg PO AC-TID PRN #20 capsule 12/02/24 12/11/24 Rx oxyCODONE HCL/ACETAMINOPHEN 1 tab PO Q4HR PRN 3 Days #18 tab 12/02/24 12/11/24 Rx [Percocet 7.5-325 mg] Metoprolol Succinate [Metoprolol 25 mg PO DAILY 12/11/24 12/11/24 History Succinate ER] Ondansetron Odt [Zofran Odt] 4 mg PO TID PRN 12/11/24 12/11/24 History Allergies Allergy/AdvReac Type Severity Reaction Status Date / Time adhesive Allergy Intermediate Rash/Hives Verified 12/11/24 09:06 latex Allergy Intermediate Rash/Hives Verified 12/11/24 09:06 Physical Exam Vitals: Vital Signs Temp Pulse Resp BP Pulse Ox 12/11/24 06:17 94 17 122/75 94 L 12/11/24 04:01 97 12/11/24 03:07 98 20 110/59 96 12/11/24 01:07 87 18 126/80 94 L 12/11/24 00:20 104 H 20 138/97 93 L 12/10/24 20:50 98.6 F 97 20 129/80 97 12/10/24 18:50 100.8 F H 89 17 112/72 98 Intake and Output 12/10/24 12/11/24 12/11/24 22:59 06:59 14:59 Output Total 1200 Balance -1200 Output: Urine 1200 Other: Weight 90.718 kg 90.718 kg Results 12/11/24 03:54 12/11/24 03:54 Cardiac Enzymes 12/10/24 12/10/24 12/11/24 Range/Units 20:32 20:32 00:57 AST 29 (14-36) U/L Troponin I 0.067 H* 0.073 H* (0.000-0.034) ng/mL 12/11/24 Range/Units 03:54 AST (14-36) U/L Troponin I 0.070 H* (0.000-0.034) ng/mL Coagulation 12/10/24 Range/Units 20:32 PT 11.5 (10.0-12.5) sec APTT 25.4 (22.0-30.0) sec CBC 12/10/24 12/11/24 Range/Units 20:32 03:54 WBC 9.31 6.96 (4.50-10.00) 10*3/uL RBC 3.33 L 3.20 L (4.10-5.20) 10*6/uL Hgb 9.7 L 9.2 L (12.0-15.0) g/dL Hct 30.1 L 28.6 L (37.2-46.3) % Plt Count 327 325 (140-440) 10*3/uL Comprehensive Metabolic Panel 12/10/24 12/11/24 Range/Units 20:32 03:54 Sodium 138 138 (137-145) mmol/L Potassium 4.7 4.4 (3.5-5.1) mmol/L Chloride 103 105 (98-107) mmol/L Carbon Dioxide 32 H 29 (22-30) mmol/L BUN 15 14 (7-17) mg/dL Creatinine 1.25 H 1.28 H (0.52-1.04) mg/dL Glucose 86 79 (74-99) mg/dL Calcium 9.6 9.4 (8.4-10.2) mg/dL AST 29 (14-36) U/L ALT 23 (4-34) U/L Alkaline Phosphatase 102 (38-126) U/L Total Protein 5.8 L (6.3-8.2) g/dL Albumin 3.1 L (3.5-5.0) g/dL Current Medications Generic Name Dose Route Start Last Admin Trade Name Freq PRN Reason Stop Dose Admin Acetaminophen 650 mg 12/11/24 02:31 Acetaminophen Tab 325 Mg Tab PO Q6HR PRN Mild Pain or Fever > 100.5 Atorvastatin Calcium 40 mg 12/11/24 21:00 Atorvastatin 40 Mg Tab PO HS MARTÍN Buspirone HCl 15 mg 12/11/24 09:00 Buspirone Hcl 5 Mg Tab PO BID MARTÍN Calcitriol 0.5 mcg 12/11/24 09:00 Calcitriol 0.25 Mcg Cap PO Q2D MARTÍN Insulin Aspart 0.01 unit 12/11/24 03:00 12/11/24 03:26 Insulin Aspart (For Pump) 100 Unit/Ml Vial SQ-PUMP 0.01 unit CONTINUOUS MARTÍN Administration Melatonin 3 mg 12/11/24 02:50 Melatonin 3 Mg Tablet PO HS PRN Insomnia Morphine Sulfate 4 mg 12/11/24 02:31 Morphine Sulfate 4 Mg/Ml Syringe IV Q4HR PRN Severe Pain (Scale 7 to 10) Naloxone HCl 0.2 mg 12/11/24 02:50 Naloxone 0.4 Mg/Ml 1 Ml Vial IV Q2M PRN Opioid Reversal Ondansetron HCl 4 mg 12/11/24 02:31 Ondansetron 4 Mg/2 Ml Vial IVP Q8HR PRN Nausea And Vomiting Oxcarbazepine 150 mg 12/11/24 21:00 Oxcarbazepine 150 Mg Tab PO HS MARTÍN Pantoprazole Sodium 40 mg 12/11/24 09:00 Pantoprazole 40 Mg Tablet PO DAILY MARTÍN Vortioxetine 20 mg 12/11/24 09:00 Vortioxetine Hydrobromide 20 Mg Tablet PO DAILY MARTÍN Intake and Output 12/10/24 12/11/24 12/11/24 22:59 06:59 14:59 Output Total 1200 Balance -1200 Output: Urine 1200 Other: Weight 90.718 kg 90.718 kg Patient Weight 12/12/24 06:59 Weight 90.718 kg 12/11/24 03:54 12/11/24 03:54
[2024-12-11] MEDS: busPIRone HCl 5 MG TAB PO SCH (09:51)
[2024-12-11] MEDS: VORTIOXETINE HYDROBROMIDE 20 MG TABLET PO SCH (09:52)
[2024-12-11] MEDS: FUROSEMIDE 10 MG/ML 4 ML VIAL IV SCH (09:52)
[2024-12-11] MEDS: PANTOPRAZOLE 40 MG TABLET PO SCH (09:52)
[2024-12-11] MEDS: DAPAGLIFLOZIN PROPANEDIOL 10 MG TABLET PO SCH (09:52)
[2024-12-11] MEDS: METOPROLOL SUCCINATE (ER) 25 MG TAB.ER.24H PO SCH (12:17)
[2024-12-11] MEDS ORDERED: MIDAZOLAM 2 MG/2 ML VIAL IV PRN (13:13)
[2024-12-11] MEDS ORDERED: fentaNYL (PF) 50 MCG/ML 5 ML AMP IVP PRN (13:13)
[2024-12-11] MEDS ORDERED: ALPRAZolam 0.5 MG TAB PO PRN (13:18)
[2024-12-11] MEDS ORDERED: NITROGLYCERIN SL TABS 0.4 MG TAB SUBLINGUAL PRN (13:18)
[2024-12-11] MEDS ORDERED: ALPRAZolam 0.25 MG TAB PO PRN (13:18)
--- NOTE | 2024-12-11 13:36 | P.PN ---
Subjective Progress Note Date: 12/11/24 Hospital Course: Radha is a 54 Yo F with a pmhx of prior savr in 2013 and dm1 on insulin pump. Of note the patient was admitted to the hospital on November 26, 2024 and was discharged on December 02, 2024. During the hospital course the patient presented with right upper quadrant pain. She had a robotic assisted laparoscopic lysis of adhesions and cholecystectomy. She was noted to have acute kidney injury was seen by nephrology. In addition she had an echocardiogram which showed an LVEF of 60-65% there is severe stenosis in the bioprosthetic aortic valve with a mean gradient of 66 mmHg. There is moderate to severe mitral stenosis and mild to moderate mitral regurgitation. She was seen by cardiology who recommended outpatient follow-up She presents to hospital complaining of a 1 day history of shortness of breath. The patient reports that when she gets up and ambulates she feels very short of breath. She denies any fever or chills. She then presented to the hospital for further evaluation When she had presented to the hospital she had a temperature of 100.8 which was later 98.6 she was hemodynamically stable afebrile and was 93 to 98% room air. CBC is generally blood cell count 9.31 hemoglobin is 9.7 platelet count was 327 D-dimer 3.72 INR is 1.0 CMP had revealed a BUN of 15 creatinine 1.25 initial troponin was 0.067 with subsequent 0.73 flu a flu B RSV COVID were negative. Chest x-ray revealed small right pleural effusion. CT angio chest had revealed no PE dilatation of ascending thoracic aorta. Atherosclerotic disease and ASCVD. Fatty liver. CT scan per my interpretation showing small bilateral pleural effusions Admitted for further management of acute on chronic HFpEF exacerbation, started on IV Lasix, cardiology consulted, plan for UMANG, scheduled for follow-up appointment with Dr. Márquez on 12/17/2024 to establish care. Started on Farxiga 10 mg daily Patient will be switched to inpatient, she needs to undergo UMANG, needs to continue IV diuresis, she has HFpEF exacerbation with severe aortic valve stenosis Pertinent Imaging: No new imaging Subjective: Feels significantly better, still somewhat short of breath Pertinent positives and negatives as discussed above, a complete review of systems was performed and all other systems are negative. Vitals Signs Reviewed. General: [nontoxic], [no distress], [appears at stated age], obese Derm: [warm], [dry] Head: [atraumatic], [normocephalic], [symmetric] Eyes: [EOMI], [no lid lag], [anicteric sclera] Mouth: [no lip lesion], [mucus membranes moist] Cardiovascular: [S1S2 reg], [systolic murmur] Lungs: [CTA bilateral], [no rhonchi, no rales] , [no accessory muscle use] Abdominal: [soft], [ nontender to palpation], [no guarding], [no appreciable organomegaly], laparoscopic scars Ext: [no gross muscle atrophy], [no edema], [no contractures] Neuro: [ CN II-XI grossly intact], [no focal neuro deficits] Psych: [Alert], [oriented], [appropriate affect] Data Reviewed Today: Pertinent Labs: Normal WBC, hemoglobin stable 9.2, platelet count normal, sodium, potassium, bicarb normal, creatinine stable 1.28, troponin 0.0 70 Assessment and Plan: Acute HFpEF exacerbation Severe aortic stenosis Small bilateral pleural effusion Moderate to severe mitral valve stenosis with mild to moderate mitral regurg 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 Hyperlipidemia -Cardiology following, appreciate recommendations -UMANG ordered, scheduled for heart cath -Started on IV Lasix 40 twice daily -Farxiga 10 mg daily added -Continue daily weights, strict I's and O's, monitor kidney function -Resume home Lipitor 40 mg nightly, Toprol-XL 25 daily CKD 3B -Kidney function at baseline, will monitor BMP daily while on IV diuretics -Will monitor strict I's and O's Type I DM -Continue Accu-Cheks, hypoglycemia precautions, continue home insulin pump Hepatic steatosis Status post recent cholecystectomy History of prior gastric bypass Obesity BMI 35.4 Data/depression Code status: Full code Anticipated discharge place: TBD Anticipated discharge time: TBD Objective - Vital Signs Vital signs: Vital Signs Temp 98.6 F 12/10/24 20:50 Pulse 90 12/11/24 09:58 Resp 16 12/11/24 09:58 BP 120/73 12/11/24 09:58 Pulse Ox 98 12/11/24 09:58 FiO2 Intake & Output 12/10/24 12/11/24 12/11/24 18:59 06:59 18:59 Output Total 1200 1000 Balance -1200 -1000 Weight 90.718 kg 90.718 kg Output: Urine 1200 1000 - Labs CBC & Chem 7: 12/11/24 03:54 12/11/24 03:54 Labs: Abnormal Lab Results - Last 24 Hours (Table) 12/10/24 12/10/24 12/10/24 Range/Units 20:32 20:32 20:32 RBC 3.33 L (4.10-5.20) 10*6/uL Hgb 9.7 L (12.0-15.0) g/dL Hct 30.1 L (37.2-46.3) % D-Dimer (<0.60) mg/L FEU Carbon Dioxide 32 H (22-30) mmol/L Creatinine 1.25 H (0.52-1.04) mg/dL Troponin I 0.067 H* (0.000-0.034) ng/mL Total Protein 5.8 L (6.3-8.2) g/dL Albumin 3.1 L (3.5-5.0) g/dL 12/10/24 12/11/24 12/11/24 Range/Units 20:32 00:57 03:54 RBC (4.10-5.20) 10*6/uL Hgb (12.0-15.0) g/dL Hct (37.2-46.3) % D-Dimer 3.72 H (<0.60) mg/L FEU Carbon Dioxide (22-30) mmol/L Creatinine (0.52-1.04) mg/dL Troponin I 0.073 H* 0.070 H* (0.000-0.034) ng/mL Total Protein (6.3-8.2) g/dL Albumin (3.5-5.0) g/dL 12/11/24 12/11/24 Range/Units 03:54 03:54 RBC 3.20 L (4.10-5.20) 10*6/uL Hgb 9.2 L (12.0-15.0) g/dL Hct 28.6 L (37.2-46.3) % D-Dimer (<0.60) mg/L FEU Carbon Dioxide (22-30) mmol/L Creatinine 1.28 H (0.52-1.04) mg/dL Troponin I (0.000-0.034) ng/mL Total Protein (6.3-8.2) g/dL Albumin (3.5-5.0) g/dL
[2024-12-11] MEDS ORDERED: BENZOCAINE SPRAY 1 EACH MM SCH (16:00)
[2024-12-11 20:51] LABS: Glucose,Whole Blood 130 mg/dL (70-110)
[2024-12-11] MEDS: ATORVASTATIN 40 MG TAB PO SCH (21:31)
[2024-12-11] MEDS: SIMETHICONE 80 MG CHEWABLE PO STA (21:31)
[2024-12-11] MEDS: OXcarbazepine 150 MG TAB PO SCH (21:31)
[2024-12-12 02:08] LABS: Glucose,Whole Blood 122 mg/dL (70-110)
[2024-12-12 06:21] LABS: African American GFR (CKD) 40 (>60 ml/min/1.73 sqM); Anion Gap 4 mmol/L; Blood Urea Nitrogen 16 mg/dL (7-17); Calcium 9.9 mg/dL (8.4-10.2); Carbon Dioxide 36 mmol/L (22-30); Chloride 98 mmol/L (98-107); Glucose 105 mg/dL (74-99); Non-African American GFR(CKD) 35 (>60 ml/min/1.73 sqM); Potassium 4.3 mmol/L (3.5-5.1); Sodium 138 mmol/L (137-145)
[2024-12-12 06:24] LABS: Glucose,Whole Blood 131 mg/dL (70-110)
[2024-12-12] MEDS ORDERED: HEPARIN SODIUM,PORCINE (1 ML) 2,500 UNIT in SODIUM CHLORIDE 0.9% 250 ML IRRIGATION PRN (07:00)
[2024-12-12] MEDS ORDERED: HEPARIN SODIUM,PORCINE 10,000 UNIT in SODIUM CHLORIDE 0.9% 1,000 ML IRRIGATION PRN (07:00)
--- NOTE | 2024-12-12 10:18 | P.PN ---
Subjective Progress Note Date: 12/12/24 Hospital Course: Radha is a 54 Yo F with a pmhx of prior savr in 2013 and dm1 on insulin pump. Of note the patient was admitted to the hospital on November 26, 2024 and was discharged on December 02, 2024. During the hospital course the patient presented with right upper quadrant pain. She had a robotic assisted laparoscopic lysis of adhesions and cholecystectomy. She was noted to have acute kidney injury was seen by nephrology. In addition she had an echocardiogram which showed an LVEF of 60-65% there is severe stenosis in the bioprosthetic aortic valve with a mean gradient of 66 mmHg. There is moderate to severe mitral stenosis and mild to moderate mitral regurgitation. She was seen by cardiology who recommended outpatient follow-up She presents to hospital complaining of a 1 day history of shortness of breath. The patient reports that when she gets up and ambulates she feels very short of breath. She denies any fever or chills. She then presented to the hospital for further evaluation When she had presented to the hospital she had a temperature of 100.8 which was later 98.6 she was hemodynamically stable afebrile and was 93 to 98% room air. CBC is generally blood cell count 9.31 hemoglobin is 9.7 platelet count was 327 D-dimer 3.72 INR is 1.0 CMP had revealed a BUN of 15 creatinine 1.25 initial troponin was 0.067 with subsequent 0.73 flu a flu B RSV COVID were negative. Chest x-ray revealed small right pleural effusion. CT angio chest had revealed no PE dilatation of ascending thoracic aorta. Atherosclerotic disease and ASCVD. Fatty liver. CT scan per my interpretation showing small bilateral pleural effusions Admitted for further management of acute on chronic HFpEF exacerbation, started on IV Lasix, cardiology consulted, plan for UMANG, scheduled for follow-up appointment with Dr. Márquez on 12/17/2024 to establish care. Started on Farxiga 10 mg daily Patient will be switched to inpatient, she needs to undergo UMANG likely on Friday, needs to continue IV diuresis, she has HFpEF exacerbation with severe aortic valve stenosis 12/12: Contraction alkalosis with worsening creatinine, IV Lasix on hold for now Pertinent Imaging: No new imaging Subjective: Shortness of breath improved, denies chest pain, had a restful night of sleep Pertinent positives and negatives as discussed above, a complete review of systems was performed and all other systems are negative. Vitals Signs Reviewed. General: [nontoxic], [no distress], [appears at stated age], obese Derm: [warm], [dry] Head: [atraumatic], [normocephalic], [symmetric] Eyes: [EOMI], [no lid lag], [anicteric sclera] Mouth: [no lip lesion], [mucus membranes moist] Cardiovascular: [S1S2 reg], [systolic murmur] Lungs: [CTA bilateral], [no rhonchi, no rales] , [no accessory muscle use] Abdominal: [soft], [ nontender to palpation], [no guarding], [no appreciable organomegaly], laparoscopic scars Ext: [no gross muscle atrophy], [no edema], [no contractures] Neuro: [ CN II-XI grossly intact], [no focal neuro deficits] Psych: [Alert], [oriented], [appropriate affect] Data Reviewed Today: Pertinent Labs: Sodium and potassium normal, bicarb 36, creatinine 1.66, BUN 16, glucose 105 Assessment and Plan: Acute HFpEF exacerbation Contraction alkalosis Severe aortic stenosis Small bilateral pleural effusion Moderate to severe mitral valve stenosis with mild to moderate mitral regurg 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 Hyperlipidemia -Cardiology following, appreciate recommendations -UMANG ordered, scheduled for heart cath -Started on IV Lasix 40 twice daily -Farxiga 10 mg daily added -Continue daily weights, strict I's and O's, monitor kidney function -Resume home Lipitor 40 mg nightly, Toprol-XL 25 daily RITESH CKD 3B -Kidney function at baseline, will monitor BMP daily -IV Lasix on hold -Will monitor strict I's and O's Type I DM -Continue Accu-Cheks, hypoglycemia precautions, continue home insulin pump Hepatic steatosis Status post recent cholecystectomy History of prior gastric bypass Obesity BMI 35.4 Data/depression Code status: Full code Anticipated discharge place: TBD Anticipated discharge time: TBD Objective - Vital Signs Vital signs: Vital Signs Temp 98 F 12/12/24 04:00 Pulse 83 12/12/24 04:00 Resp 16 12/12/24 04:00 BP 120/76 12/12/24 04:00 Pulse Ox 95 12/12/24 04:00 FiO2 Intake & Output 12/11/24 12/12/2425 18:59 06:59 18:59 Intake Total 222 Output Total 215 1200 Balance -2149 -1199 222 Weight 90.718 kg 81.6 kg Intake: Oral 222 Output: Urine 2149 1199 Other: # Voids 3 - Labs CBC & Chem 7: 12/11/24 03:54 12/12/24 05:30 Labs: Abnormal Lab Results - Last 24 Hours (Table) 12/11/24 12/12/24 12/12/24 Range/Units 20:50 02:03 05:30 Carbon Dioxide 36 H (22-30) mmol/L Creatinine 1.66 H (0.52-1.04) mg/dL Glucose 105 H (74-99) mg/dL POC Glucose (mg/dL) 130 H 122 H (70-110) mg/dL 12/12/24 Range/Units 06:23 Carbon Dioxide (22-30) mmol/L Creatinine (0.52-1.04) mg/dL Glucose (74-99) mg/dL POC Glucose (mg/dL) 131 H (70-110) mg/dL
[2024-12-12 11:20] LABS: Glucose,Whole Blood 244 mg/dL (70-110)
--- NOTE | 2024-12-12 12:13 | P.PN ---
Subjective HISTORY OF PRESENT ILLNESS: This is a 54-year-old female with a past medical history significant for hypertension, hyperlipidemia, diabetes, normal coronary arteries, and aortic valve replacement in January 2014 at [facility] with a cow valve. Patient is scheduled to establish with a change lead next Friday, Dr. Bella. We have been asked to see the patient in consultation for aortic stenosis. Patient examined at the bedside in the emergency room. Patient was recently hospitalized at the end of October 2024 for abdominal pain. She was found to have acute cholecystitis and underwent robotic assisted laparoscopic lysis of adhesions and cholecystectomy. Patient returned to the emergency room with a chief complaint of shortness of breath. She states that she has been feeling short of breath over the past few days. She denies any chest pain or pressure. Patient was found to be in acute congestive heart failure. Patient was given a one-time dose of IV Lasix in the emergency room. DIAGNOSTICS: - EKG reveals sinus mechanism with nonspecific ST-T wave changes. No signs of acute ischemia. - Chest xray small right pleural effusion -Chest CTA negative for pulmonary embolism - Laboratory data: WBC 6.96. Hemoglobin 9.2. Platelet count 325. Sodium 138. Potassium 4.4. BUN 14. Creatinine 1.28. Troponin 0.067. 0.073. 0.070. proBNP 8110. - Current home cardiac medications include Lipitor 40 mg at night, Lasix 40 mg daily, metoprolol succinate 25 mg daily. - Most recent echocardiogram obtained in October 2024 revealed ejection fraction 60 to 65%, moderate pulmonary hypertension, moderate to severe mitral stenosis with mean gradient of 11 mmHg, mild to moderate mitral regurgitation, bioprosthetic aortic valve with peak gradient 109 mmHg and mean gradient 66 mmHg, mild tricuspid regurgitation - Cardiac catheterization history: January 2014 revealing normal coronary arteries 12/12/2024 Patient examined this morning the bedside. Patient reports significant improvement in her shortness of breath. She also reports improvement in her lower extremity edema. She remains on IV Lasix 40 mg every 12 hours. Creatinine today increased to 1.66. PHYSICAL EXAM: VITAL SIGNS: Reviewed. GENERAL: Well-developed in no acute distress. HEENT: Head is normocephalic. Pupils are equal, round. Sclerae anicteric. Mucous membranes of the mouth are moist. Neck supple. No JVD or thyromegaly LUNGS: Respirations even and unlabored. Lungs with bibasilar crackles, right greater than left HEART: Regular rate and rhythm. S1 and S2 heard. Systolic ejection murmur noted at the base and holosystolic murmur noted at the apex ABDOMEN: Soft. Nondistended. Nontender. EXTREMITIES: Normal range of motion. No clubbing or cyanosis. Peripheral pulses intact. 1+ bilateral lower extremity edema noted. NEUROLOGIC: Awake and alert. Oriented x 3. ASSESSMENT: Shortness of breath Acute on chronic heart failure with preserved EF Elevated troponins, type II [place], secondary to oxygen supply and demand mismatch Severe aortic stenosis History of bioprosthetic aortic valve replacement, January 2014, at [facility] Moderate to severe mitral stenosis Status post cholecystectomy, October 2024 Moderate pulmonary hypertension Hypertension Hyperlipidemia Diabetes Normal coronary arteries, per cath 2013 Obesity: BMI 35.4 PLAN: No need to repeat echocardiogram as this was performed in October 2024 Discontinue IV Lasix Daily weights, accurate intake and output, and monitoring of kidney function Patient will be scheduled for UMANG and R/L cath on Friday with Dr. Márquez due to her symptomatic severe aortic stenosis and moderate to severe mitral stenosis if her kidney function remains stable Further recommendations pending patient course Nurse practitioner note has been reviewed by physician. Signing provider agrees with the documented findings, assessment, and plan of care documented by ROLLING MACHINE OPERATOR as a scribe. Objective - Vital Signs Vital signs: Vital Signs Temp 98 F 12/12/24 04:00 Pulse 82 12/12/24 12:00 Resp 18 12/12/24 12:00 BP 100/65 12/12/24 12:00 Pulse Ox 95 12/12/24 12:00 FiO2 Intake & Output 12/11/24 12/12/24 12/12/24 18:59 06:59 18:59 Intake Total 222 Output Total 2150 1200 1800 Balance -2149 1200 5 Weight 90.718 kg 81.6 kg Intake: Oral 222 Output: Urine 2150 1200 1800 Other: # Voids 3 - Labs CBC & Chem 7: 12/11/24 03:54 12/12/24 05:30 Labs: Abnormal Lab Results - Last 24 Hours (Table) 12/11/24 12/12/24 12/12/24 Range/Units 20:50 02:03 05:30 Carbon Dioxide 36 H (22-30) mmol/L Creatinine 1.66 H (0.52-1.04) mg/dL Glucose 105 H (74-99) mg/dL POC Glucose (mg/dL) 130 H 122 H (70-110) mg/dL 12/12/24 12/12/24 Range/Units 06:23 11:18 Carbon Dioxide (22-30) mmol/L Creatinine (0.52-1.04) mg/dL Glucose (74-99) mg/dL POC Glucose (mg/dL) 131 H 244 H (70-110) mg/dL
[2024-12-12] MEDS ORDERED: ALPRAZolam 0.25 MG TAB PO PRN (12:14)
[2024-12-12] MEDS ORDERED: NITROGLYCERIN SL TABS 0.4 MG TAB SUBLINGUAL PRN (12:14)
[2024-12-12] MEDS ORDERED: ALPRAZolam 0.5 MG TAB PO PRN (12:14)
[2024-12-12 16:13] LABS: Glucose,Whole Blood 118 mg/dL (70-110)
[2024-12-12 20:05] LABS: Glucose,Whole Blood 140 mg/dL (70-110)
[2024-12-13] MEDS ORDERED: SODIUM CHLORIDE 0.9% 1,000 ML in EMPTY BAG 1 BAG IV SCH (01:00)
[2024-12-13 02:00] LABS: Glucose,Whole Blood 112 mg/dL (70-110)
[2024-12-13] MEDS ORDERED: ASPIRIN 325 MG TAB PO ONE (05:00)
[2024-12-13] MEDS ORDERED: ATORVASTATIN 80 MG TAB PO ONE (05:00)
[2024-12-13 05:20] LABS: African American GFR (CKD) 41 (>60 ml/min/1.73 sqM); Anion Gap 3 mmol/L; Blood Urea Nitrogen 16 mg/dL (7-17); Calcium 9.6 mg/dL (8.4-10.2); Carbon Dioxide 35 mmol/L (22-30); Chloride 99 mmol/L (98-107); Glucose 99 mg/dL (74-99); Non-African American GFR(CKD) 36 (>60 ml/min/1.73 sqM); Potassium 3.7 mmol/L (3.5-5.1); Sodium 137 mmol/L (137-145)
[2024-12-13] MEDS ORDERED: MIDAZOLAM 2 MG/2 ML VIAL IV PRN (06:00)
[2024-12-13] MEDS ORDERED: fentaNYL (PF) 50 MCG/ML 5 ML AMP IVP PRN (06:00)
[2024-12-13 06:14] LABS: Glucose,Whole Blood 121 mg/dL (70-110)
[2024-12-13] MEDS ORDERED: HEPARIN SODIUM,PORCINE 10,000 UNIT in SODIUM CHLORIDE 0.9% 1,000 ML IRRIGATION PRN (07:00)
[2024-12-13] MEDS ORDERED: HEPARIN SODIUM,PORCINE (1 ML) 2,500 UNIT in SODIUM CHLORIDE 0.9% 250 ML IRRIGATION PRN (07:00)
--- NOTE | 2024-12-13 10:11 | P.PN ---
Subjective HISTORY OF PRESENT ILLNESS: This is a 54-year-old female with a past medical history significant for hypertension, hyperlipidemia, diabetes, normal coronary arteries, and aortic valve replacement in January 2014 at [facility] with a cow valve. Patient is scheduled to establish with a counter professional next Friday, Dr. Bella. We have been asked to see the patient in consultation for aortic stenosis. Patient examined at the bedside in the emergency room. Patient was recently hospitalized at the end of October 2024 for abdominal pain. She was found to have acute cholecystitis and underwent robotic assisted laparoscopic lysis of adhesions and cholecystectomy. Patient returned to the emergency room with a chief complaint of shortness of breath. She states that she has been feeling short of breath over the past few days. She denies any chest pain or pressure. Patient was found to be in acute congestive heart failure. Patient was given a one-time dose of IV Lasix in the emergency room. DIAGNOSTICS: - EKG reveals sinus mechanism with nonspecific ST-T wave changes. No signs of acute ischemia. - Chest xray small right pleural effusion -Chest CTA negative for pulmonary embolism - Laboratory data: WBC 6.96. Hemoglobin 9.2. Platelet count 325. Sodium 138. Potassium 4.4. BUN 14. Creatinine 1.28. Troponin 0.067. 0.073. 0.070. proBNP 8110. - Current home cardiac medications include Lipitor 40 mg at night, Lasix 40 mg daily, metoprolol succinate 25 mg daily. - Most recent echocardiogram obtained in October 2024 revealed ejection fraction 60 to 65%, moderate pulmonary hypertension, moderate to severe mitral stenosis with mean gradient of 11 mmHg, mild to moderate mitral regurgitation, bioprosthetic aortic valve with peak gradient 109 mmHg and mean gradient 66 mmHg, mild tricuspid regurgitation - Cardiac catheterization history: January 2014 revealing normal coronary arteries 12/12/2024 Patient examined this morning the bedside. Patient reports significant improvement in her shortness of breath. She also reports improvement in her lower extremity edema. She remains on IV Lasix 40 mg every 12 hours. Creatinine today increased to 1.66. 12/13/2024 Patient examined this morning at bedside. Patient currently denies chest pain or pressure. She denies shortness of breath. Lasix was discontinued yesterday secondary to worsening kidney function. Creatinine today 1.61. Vital signs are stable. PHYSICAL EXAM: VITAL SIGNS: Reviewed. GENERAL: Well-developed in no acute distress. HEENT: Head is normocephalic. Pupils are equal, round. Sclerae anicteric. Mucous membranes of the mouth are moist. Neck supple. No JVD or thyromegaly LUNGS: Respirations even and unlabored. Lungs with bibasilar crackles, right gr eater than left HEART: Regular rate and rhythm. S1 and S2 heard. Systolic ejection murmur noted at the base and holosystolic murmur noted at the apex ABDOMEN: Soft. Nondistended. Nontender. EXTREMITIES: Normal range of motion. No clubbing or cyanosis. Peripheral pulses intact. 1+ bilateral lower extremity edema noted. NEUROLOGIC: Awake and alert. Oriented x 3. ASSESSMENT: Shortness of breath Acute on chronic heart failure with preserved EF Acute on chronic kidney disease Elevated troponins, type II [place], secondary to oxygen supply and demand mismatch Severe aortic stenosis History of bioprosthetic aortic valve replacement, January 2014, at [facility] Moderate to severe mitral stenosis Status post cholecystectomy, October 2024 Moderate pulmonary hypertension Hypertension Hyperlipidemia Diabetes Normal coronary arteries, per cath 2013 Obesity: BMI 35.4 PLAN: No need to repeat echocardiogram as this was performed in October 2024 IV Lasix discontinued 12/12/2024 due to worsening creatinine Daily weights, accurate intake and output, and monitoring of kidney function Begin 0.9 normal saline at 50 cc an hour Patient will be scheduled for UMANG and R/L cath on Friday with Dr. Márquez due to her symptomatic severe aortic stenosis and moderate to severe mitral stenosis if her kidney function remains stable Further recommendations pending patient course Nurse practitioner note has been reviewed by physician. Signing provider agrees with the documented findings, assessment, and plan of care documented by SODA COLUMN OPERATOR as a scribe. Objective - Vital Signs Vital signs: Vital Signs Temp 98.1 F 12/13/24 08:00 Pulse 85 12/13/24 08:00 Resp 16 12/13/24 08:00 BP 110/64 12/13/24 08:00 Pulse Ox 95 12/13/24 08:00 FiO2 Intake & Output 12/12/24 12/13/24 12/13/24 18:59 06:59 18:59 Intake Total 342 540 Output Total 1800 1400 900 Balance -9948 -860 -900 Weight 78.7 kg Intake: Oral 342 540 Output: Urine 1800 1400 900 Other: Voiding Method Toilet Toilet - Labs CBC & Chem 7: 12/11/24 03:54 12/13/24 04:43 Labs: Abnormal Lab Results - Last 24 Hours (Table) 12/12/24 12/12/24 12/12/24 Range/Units 11:18 16:12 20:03 Carbon Dioxide (22-30) mmol/L Creatinine (0.52-1.04) mg/dL POC Glucose (mg/dL) 244 H 118 H 140 H (70-110) mg/dL 12/13/24 12/13/24 12/13/24 Range/Units 01:58 04:43 06:10 Carbon Dioxide 35 H (22-30) mmol/L Creatinine 1.61 H (0.52-1.04) mg/dL POC Glucose (mg/dL) 112 H 121 H (70-110) mg/dL
[2024-12-13] MEDS: SODIUM CHLORIDE 0.9% 1,000 ML IV SCH (10:32)
[2024-12-13 11:04] LABS: Glucose,Whole Blood 141 mg/dL (70-110)
[2024-12-13] MEDS: INSPUCOR MISCELLANE PRN (11:17)
--- NOTE | 2024-12-13 15:25 | P.PN ---
Subjective Progress Note Date: 12/13/24 54 year old F with PMH of aortic stenosis status post SAVR in 2013, DM on insulin pump, HLD, HTN, CKD stage IIIb, sleep apnea, anxiety and depression presents to the ED for dyspnea. Recent admission from 11/26-12/02 where she underwent robotic assisted laparoscopic lysis of adhesions and cholecystectomy complicated by RITESH seen by Nephrology. Also underwent Echo at that time showing a preserved EF of 60 to 65% with severe aortic stenosis with a mean gradient of 66 mmHg and moderate to severe mitral stenosis with mild to moderate mitral regurgitation with Cardiology recommending outpatient follow up. In the ED she underwent extensive evaluation. BP 112/72, T 100.8F, RR 17, HR 89, 98% on RA. CBC, Coag panel, CMP significant for RBC 3.33, Hg 9.7, Hct 30.1, bicarb 32, Cr 1.25, alb 3.1. Lactic acid 1.3. Trop 0.067, 0.070. D-Dimer 3.72. COVID, RSV, Flu neg. CXR small right pleural effusion. CTA chest neg PE but with dilation of the ascending thoracic aorta, CAD and fatty liver. She is admitted for troponin elevation and Cardiology evaluation. Started on Lasix 40 mg IV BID and Farxiga by Cardiology. Plans for UMANG and R/L cath on 12/13 due to symptomatic severe and mod-severe MS. 12/13 Patient was seen and examined. Lasix stopped 12/12 due to worsening renal function. Initally, plans for UMNAG and R/L cath today with Dr. Márquez. Cardiology recommends hydration with NS at 50 cc/hr for 1 day prior to cath and UMANG. BMP shows bicarb 35, Cr 1.61. General: toxic, no distress, appears older than stated age Derm: warm, dry Head: atraumatic, normocephalic, symmetric Mouth: no lip lesion, mucus membranes moist Cardiovascular: S1S2 reg, systolic murmur Lungs: Clear to auscultation bilaterally, no rales , no accessory muscle use Ext: no gross muscle atrophy, no edema, no contractures Neuro: No focal neurologic deficits. Psych: Alert and oriented. Based on my assessment of this patient, this patient meets a high complexity level of care. Dyspnea secondary to HFpEF exacerbation, symptomatic severe and mod-severe MS: Strict intake and outtake. Daily weights. Plans for UMANG 12/14. Troponin elevation: Likely type II NSTEMI. Lipitor 40 mg PO QHS. Metoprolol 25 mg PO QD. Telemetry monitoring. Plans for cardiac cath 12/14. Contraction alkalosis due to forced diuresis: Lasix discontinued 12/12. DM on insulin pump: Continue insulin pump. Farxiga 10 mg PO QD. Accuchecks ACHS. Hypoglycemic precautions. HLD: Lipitor as above. HTN: Metoprolol as above. CKD stage IIIb: At baseline. Calcitriol 0.5 mcg PO Q2D. Sleep apnea: CPAP QHS. Seizure disorder: Trilepta 150 mg PO QHS. Anxiety and depression: Xanax 0.25-0.5mg PO Q6H PRN. Buspar 14 mg PO BID. Trintellix 20 mg PO QD. CODE STATUS: FULL CODE. DVT Prophylaxis: GI Prophylaxis: Protonix PO. Designated medical POA if patient is not able to make medical decisions for themselves: I have reviewed the following assessment consultant notes: Cardiology. I have reviewed the results of the following tests: BMP. I have ordered the following tests: BMP in the AM. I have discussed the care of this patient with the following independent historian: JUAN. I have independently interpreted the following test below: I have discussed the management of this patient with the following physician: Objective - Vital Signs Vital signs: Vital Signs Temp 98.4 F 12/13/24 04:00 Pulse 78 12/13/24 04:00 Resp 18 12/13/24 04:00 BP 106/63 12/13/24 04:00 Pulse Ox 95 12/13/24 04:00 FiO2 Intake & Output 12/12/24 12/12/24 12/13/24 06:59 18:59 06:59 Intake Total 342 540 Output Total 1200 1800 1400 Balance -1200 -1458 -860 Weight 81.6 kg Intake: Oral 342 540 Output: Urine 1200 1800 1400 Other: Voiding Method Toilet - Labs CBC & Chem 7: 12/11/24 03:54 12/13/24 04:43 Labs: Abnormal Lab Results - Last 24 Hours (Table) 12/12/24 12/12/24 12/12/24 Range/Units 05:30 06:23 11:18 Carbon Dioxide 36 H (22-30) mmol/L Creatinine 1.66 H (0.52-1.04) mg/dL Glucose 105 H (74-99) mg/dL POC Glucose (mg/dL) 131 H 244 H (70-110) mg/dL 12/12/24 12/12/24 12/13/24 Range/Units 16:12 20:03 01:58 Carbon Dioxide (22-30) mmol/L Creatinine (0.52-1.04) mg/dL Glucose (74-99) mg/dL POC Glucose (mg/dL) 118 H 140 H 112 H (70-110) mg/dL
[2024-12-13 16:28] LABS: Glucose,Whole Blood 118 mg/dL (70-110)
[2024-12-13 19:57] LABS: Glucose,Whole Blood 87 mg/dL (70-110)
[2024-12-14] MEDS: SODIUM CHLORIDE 0.9% 1,000 ML in EMPTY BAG 1 BAG IV SCH (01:47)
[2024-12-14 02:01] LABS: Glucose,Whole Blood 109 mg/dL (70-110)
[2024-12-14] MEDS: ATORVASTATIN 80 MG TAB PO ONE (05:20)
[2024-12-14] MEDS: ASPIRIN 325 MG TAB PO ONE (05:20)
[2024-12-14 06:10] LABS: Glucose,Whole Blood 163 mg/dL (70-110)
[2024-12-14] MEDS: IV FLUID CONTINUATION 900 ML IV ONE ×3 (07:25→08:19)
[2024-12-14 07:34] LABS: African American GFR (CKD) 40 (>60 ml/min/1.73 sqM); Anion Gap 6 mmol/L; Blood Urea Nitrogen 16 mg/dL (7-17); Calcium 9.7 mg/dL (8.4-10.2); Carbon Dioxide 27 mmol/L (22-30); Chloride 104 mmol/L (98-107); Glucose 144 mg/dL (74-99); Non-African American GFR(CKD) 35 (>60 ml/min/1.73 sqM); Potassium 4.3 mmol/L (3.5-5.1); Sodium 137 mmol/L (137-145)
[2024-12-14] MEDS: BENZOCAINE SPRAY 1 EACH MM ONE (08:02)
[2024-12-14] MEDS: MIDAZOLAM 2 MG/2 ML VIAL IVP ONE ×2 (08:05→08:30)
[2024-12-14] MEDS: fentaNYL (PF) 50 MCG/ML 2 ML AMP IVP ONE (08:05)
[2024-12-14] MEDS: VERAPAMIL SYRINGE (5 MG/10 ML) INTRAARTER ONE ×2 (08:31→08:36)
[2024-12-14] MEDS: LIDOCAINE 1% INJ 10MG/ML (20 ML MDV) SQ ONE ×2 (08:31→08:53)
[2024-12-14] MEDS: HEPARIN SODIUM 1,000 UN/ML (10ML VL) IVP ONE ×3 (08:32→08:36)
[2024-12-14 09:49] LABS: Glucose,Whole Blood 121 mg/dL (70-110)
[2024-12-14] MEDS ORDERED: RX INFO: IV CONTRAST WAS GIVEN 1 EACH MISC MISCELLANE PRN (10:20)
--- NOTE | 2024-12-14 10:22 | P.PCN ---
Date of Procedure: 12/14/24 Operative Findings: TRANSESOPHAGEAL ECHOCARDIOGRAM ELEMENTARY SUPERVISOR: NICCI SULLIVAN MD, RPVI INDICATION: Aortic stenosis SEDATION: Conscious sedation COMPLICATION: None LEVEL OF SEDATION Moderate with sedation length of 20 PROCEDURE DESCRIPTION: After obtaining an informed consent, the patient was brought to transesophageal echocardiogram room. Pulse oximetry and heart monitors were attached to the patient. The patient throat was sprayed using lidocaine. The patient was turned into left lateral position. After that a bite guard was placed. After an appropriate conscious sedation was initiated, the transesophageal echocardiogram was advanced through a bite guard into the mid esophagus. A 2-D echocardiogram images, color Doppler images, continuous wave images, pulse-wave images, of various cardiac structure were performed. After that the transesophageal echocardiogram probe was advanced into the stomach and fixed to obtain transgastric view was. The probe was brought into the mid esophagus. Inter-atrial septum was interrogated using 2D images, color Doppler images, and then contrast study. After that transesophageal echocardiogram was withdrawn out and upon withdrawing the descending thoracic aorta all the way up to the arch was evaluated. CONCLUSION: 1. Severe stenosis of bioprosthetic aortic valve with a mean gradient of 55 mmHg and peak gradient of 75 mmHg and peak systolic velocity exceeding 4 m per 2. Extremely thickened and calcified mitral valve leaflets with evidence of moderate mitral regurgitation and mild mitral stenosis 3. Moderate tricuspid regurgitation 4. Moderate biatrial enlargement 5. Normal LV systolic function 6. No pericardial effusion
--- NOTE | 2024-12-14 10:26 | P.PCN ---
Date of Procedure: 12/14/24 Operative Findings: CARDIAC CATHETERIZATION PERFORMING PHYSICIAN: Jose Márquez MD, RPVI PROCEDURE PERFORMED: 1. Selective right and left coronary angiogram 2. Ultrasound-guided access of the right common femoral artery and right radial artery and right common femoral vein INDICATION: Aortic stenosis COMPLICATION: None APPROACH: Right common femoral artery LEVEL OF SEDATION: Moderate with sedation in length of 100 and minutes PROCEDURE DESCRIPTION: After obtaining an informed consent, the patient was brought to cardiac maintenance shop laborer. The right radial artery was cannulated using micropuncture technique under ultrasound guidance the micropuncture wire passed easily then I placed a 6 [place] 11 cm sheath at the right radial artery with giving the extreme tortuosity I could not engage the coronary from right radial approach and for that reason I cannulated the right common femoral artery. It was cannulated using micropuncture technique under ultrasound guidance a micropuncture wire passed easily then I placed a 6 [place] 11 cm sheath at the right common femoral artery. Selective right and left coronary angiogram performed using JR4 and JL 3.5 catheters. After that the right common femoral vein was cannulated using micropuncture technique under ultrasound guidance the micropuncture wire passed easily then I placed an 8 Nauruan sheath at the right common femoral vein. Attempting engaging the right ventricle using [place] catheter even using JR4 and pigtail catheter to advance into the right ventricle was extremely unsuccessful. At that point we tried to access the right atrium from right arm approach but the vein was not working well. I did across the aortic valve using an AL-1 and straight catheter but the AL-1 will not follow the wire and for that reason I did not push hard to advance the catheter. We know from the UMANG that the aortic valve is severely stenotic. SELECTIVE CORONARY ANGIOGRAM: The right coronary artery: Large-caliber vessel and the dominant vessel appears to be angiographically normal and distally bifurcates into PDA and PLV branches both appear to be normal Left main: Large-caliber vessel seems to be normal The left circumflex: Large-caliber vessel nondominant vessel with no evidence of high-grade stenosis The left anterior descending artery: Large caliber vessel appears to be also angiographically normal with no evidence of high-grade stenosis HEMODYNAMICS: The aortic valve was crossed using a straight wire and AL-1 catheter but the AL- 1 catheter will not follow the wire. CONCLUSION: 1. Normal coronary angiogram 2. Severely stenotic bioprosthetic aortic valve as described by the UMANG report 3. Extremely calcified and thickened mitral valve leaflets with mild mitral stenosis also as described by the UMANG report POSTPROCEDURE MANAGEMENT: Evaluate the patient for aortic valve replacement
[2024-12-14] MEDS: SODIUM CHLORIDE 0.9% 1,000 ML IV SCH (10:59)
[2024-12-14] MEDS: MORPHINE SULFATE 4 MG/ML SYRINGE IV PRN (11:15)
[2024-12-14 11:30] LABS: Glucose,Whole Blood 106 mg/dL (70-110)
--- NOTE | 2024-12-14 13:18 | P.PN ---
Subjective HISTORY OF PRESENT ILLNESS: This is a 54-year-old female with a past medical history significant for hypertension, hyperlipidemia, diabetes, normal coronary arteries, and aortic valve replacement in January 2014 at [facility] with a cow valve. Patient is scheduled to establish with a security auditor next Friday, Dr. Bella. We have been asked to see the patient in consultation for aortic stenosis. Patient examined at the bedside in the emergency room. Patient was recently hospitalized at the end of October 2024 for abdominal pain. She was found to have acute cholecystitis and underwent robotic assisted laparoscopic lysis of adhesions and cholecystectomy. Patient returned to the emergency room with a chief complaint of shortness of breath. She states that she has been feeling short of breath over the past few days. She denies any chest pain or pressure. Patient was found to be in acute congestive heart failure. Patient was given a one-time dose of IV Lasix in the emergency room. DIAGNOSTICS: - EKG reveals sinus mechanism with nonspecific ST-T wave changes. No signs of acute ischemia. - Chest xray small right pleural effusion -Chest CTA negative for pulmonary embolism - Laboratory data: WBC 6.96. Hemoglobin 9.2. Platelet count 325. Sodium 138. Potassium 4.4. BUN 14. Creatinine 1.28. Troponin 0.067. 0.073. 0.070. proBNP 8110. - Current home cardiac medications include Lipitor 40 mg at night, Lasix 40 mg daily, metoprolol succinate 25 mg daily. - Most recent echocardiogram obtained in October 2024 revealed ejection fraction 60 to 65%, moderate pulmonary hypertension, moderate to severe mitral stenosis with mean gradient of 11 mmHg, mild to moderate mitral regurgitation, bioprosthetic aortic valve with peak gradient 109 mmHg and mean gradient 66 mmHg, mild tricuspid regurgitation - Cardiac catheterization history: January 2014 revealing normal coronary arteries 12/12/2024 Patient examined this morning the bedside. Patient reports significant improvement in her shortness of breath. She also reports improvement in her lower extremity edema. She remains on IV Lasix 40 mg every 12 hours. Creatinine today increased to 1.66. 12/13/2024 Patient examined this morning at bedside. Patient currently denies chest pain or pressure. She denies shortness of breath. Lasix was discontinued yesterday secondary to worsening kidney function. Creatinine today 1.61. Vital signs are stable. 12/14/2024 Patient underwent UMANG today revealing severe stenosis of bioprosthetic aortic valve with a mean gradient of 55 mmHg and peak gradient of 75 mmHg and peak systolic velocity exceeding 4 m per, Extremely thickened and calcified mitral valve leaflets with evidence of moderate mitral regurgitation and mild mitral stenosis, moderate tricuspid regurgitation, moderate biatrial enlargement, normal LV systolic function, and no pericardial effusion. Patient also underwent left heart catheterization revealing normal coronary arteries. Patient examined this morning at the bedside. Patient currently denies chest pain or pressure. She denies shortness of breath. Vital signs are stable. Creatinine 1.6 today. PHYSICAL EXAM: VITAL SIGNS: Reviewed. GENERAL: Well-developed in no acute distress. HEENT: Head is normocephalic. Pupils are equal, round. Sclerae anicteric. Mucous membranes of the mouth are moist. Neck supple. No JVD or thyromegaly LUNGS: Respirations even and unlabored. Lungs diminished bilaterally. HEART: Regular rate and rhythm. S1 and S2 heard. Systolic ejection murmur noted at the base and holosystolic murmur noted at the apex ABDOMEN: Soft. Nondistended. Nontender. EXTREMITIES: Normal range of motion. No clubbing or cyanosis. Peripheral pulses intact. 1+ bilateral lower extremity edema noted. NEUROLOGIC: Awake and alert. Oriented x 3. ASSESSMENT: Shortness of breath Acute on chronic heart failure with preserved EF Acute on chronic kidney disease Elevated troponins, type II DC, secondary to oxygen supply and demand mismatch Severe aortic stenosis History of bioprosthetic aortic valve replacement, January 2014, at [facility] Moderate mitral regurgitation and mild mitral stenosis Moderate tricuspid regurgitation Status post cholecystectomy, October 2024 Moderate pulmonary hypertension Hypertension Hyperlipidemia Diabetes Normal coronary arteries, per cath 2024 Obesity: BMI 35.4 PLAN: Continue current cardiac medications including Lipitor and metoprolol IV Lasix discontinued 12/12/2024 due to worsening creatinine Continue IV fluids postcatheterization. Repeat kidney function in a.m. Consult CT surgery for evaluation for valvular heart disease Further recommendations pending patient course Nurse practitioner note has been reviewed by physician. Signing provider agrees with the documented findings, assessment, and plan of care documented by GL ACCOUNTANT as a scribe. Objective - Vital Signs Vital signs: Vital Signs Temp 97.4 F L 12/14/24 08:00 Pulse 79 12/14/24 12:00 Resp 16 12/14/24 12:00 BP 101/56 12/14/24 12:00 Pulse Ox 98 12/14/24 12:00 FiO2 Intake & Output 12/13/24 12/14/24 12/14/24 18:59 06:59 18:59 Intake Total 1440 180 300 Output Total 2150 1400 Balance -710 -1220 300 Weight 78.6 kg Intake: IV 300 Oral 1440 180 Output: Urine 2150 1400 Other: Voiding Method Toilet Toilet Toilet - Labs CBC & Chem 7: 12/11/24 03:54 12/14/24 06:11 Labs: Abnormal Lab Results - Last 24 Hours (Table) 12/13/24 12/14/24 12/14/24 Range/Units 16:26 06:07 06:11 Creatinine 1.65 H (0.52-1.04) mg/dL Glucose 144 H (74-99) mg/dL POC Glucose (mg/dL) 118 H 163 H (70-110) mg/dL 12/14/24 Range/Units 09:47 Creatinine (0.52-1.04) mg/dL Glucose (74-99) mg/dL POC Glucose (mg/dL) 121 H (70-110) mg/dL
--- NOTE | 2024-12-14 14:47 | P.GSCN ---
History of Present Illness Consult date: 12/14/24 Reason for Consult: Aortic stenosis, redo AVR Requesting physician: Diana Patel History of present illness: This is a 54-year-old female who follows outpatient with Dr. Plata for primary care and was about to establish cardiology care with Dr. Bella. She has a previous medical history of aortic valve stenosis with bioprosthetic aortic valve replacement in [address] in [place], hypertension, hyper lipidemia, heart failure with preserved ejection fraction, type 1 diabetes, stage III chronic kidney disease, obstructive sleep apnea without home CPAP use, previous tobacco dependence, cholecystitis with recent cholecystectomy, and family history of coronary artery disease and cancer. Apparently the patient had cholecystectomy in October of this year and was seen by cardiology at that time. During that admission she had a transthoracic echocardiogram revealing normal left ventricular systolic function with EF 60 to 65%, moderate pulmonary hypertension with RVSP 49 mmHg, increased left atrial volume, bioprosthetic aortic valve with max velocity 5.2 m/s, peak/mean gradient 109/66 mmHg, valve area 1.4 to 1.5 cm, moderate to severe mitral stenosis with mean gradient of 11 mmHg along with mild to moderate mitral regurgitation, normal aortic root and proximal ascending aorta. She was discharged to home and was doing well, however over the last few days she has noticed increased shortness of breath with activity. She did have an appointment to see Dr. Bella next week for start of cardiology care in this area, however her dyspnea became so bad that she reported to [facility] emergency room for evaluation and treatment. In the emergency room chest x-ray was unremarkable except a small right pleural effusion. Chest CTA was also completed demonstrating no central pulmonary emboli. EKG showed sinus rhythm with nonspecific T wave abnormalities. Lab work revealed normal WBC at 9.3, hemoglobin 9.7, INR 1.0, D-dimer 3.72, BUN 15, creatinine 1.25, lactic acid 1.3, BNP 8110, troponin was elevated at 0.067, and viral screen was negative. The patient was admitted for evaluation and treatment with consultation placed to cardiology. She was recommended to undergo heart catheterization and transesophageal echocardiogram which were completed today. Heart catheterization revealed normal coronaries. Transesophageal echocardiogram revealed normal left ventricular systolic function, moderate biatrial enlargement, severe stenosis of her bioprosthetic aortic valve with peak/mean gradient 75/55 mmHg, max velocity greater than 4 m/s, moderate mitral regurgitation with mild mitral stenosis. Due to these findings consultation was placed to cardiothoracic surgery for recommendations regarding redo valve surgery. Review of Systems Review of systems was completed and was negative except as noted - Cardiovascular Reports as per HPI, Reports dyspnea on exertion, Reports leg edema, Reports shortness of breath - Respiratory Reports dyspnea Past Medical History Past Medical History: Diabetes Mellitus, Hyperlipidemia, Hypertension, Renal Disease, Sleep Apnea/CPAP/BIPAP Additional Past Medical History / Comment(s): seasonal allergies, STAGE 3 KIDNEY FAILURE, CHRONIC BACK PAIN, does not use CPAP Last Myocardial Infarction Date:: 2013 History of Any Multi-Drug Resistant Organisms: None Reported Past Surgical History: Bariatric Surgery, Cardiac Valve Replacement, Cholecystectomy, Heart Catheterization Additional Past Surgical History / Comment(s): bioprostetic aortic valve replacement 2013, gastric bypass 06-07-19, cholecystectomy 10/2024 Past Anesthesia/Blood Transfusion Reactions: No Reported Reaction Additional Past Anesthesia/Blood Transfusion Reaction / Comm: NO blood transfusion to date Past Psychological History: No Psychological Hx Reported Smoking Status: Former smoker Past Alcohol Use History: None Reported Past Drug Use History: None Reported Additional History: Quit smoking 2006 - Past Family History Mother Family Medical History: Cancer, Coronary Artery Disease (CAD), Hypertension Additional Family Medical History / Comment(s): vulva cancer Father Family Medical History: Dementia, Hypertension, Neurologic Disorder Additional Family Medical History / Comment(s): at age 69 from dementia/parkinsons Sister(s) Family Medical History: Hypertension Medications and Allergies Home Medications Medication Instructions Recorded Confirmed Type Insulin Aspart (For Pump) [NovoLOG 0.01 unit SQ-PUMP CONTINUOUS 01/09/21 12/11/24 History (For Pump)] Atorvastatin [Lipitor] 40 mg PO HS 02/17/21 12/11/24 History Furosemide [Lasix] 40 mg PO DAILY 02/17/21 12/11/24 History Omeprazole 40 mg PO DAILY 02/17/21 12/11/24 History calcitrioL 0.5 mcg PO Q2D 02/17/21 12/11/24 History Secukinumab [Cosentyx Sensoready 300 mg SQ Q30D 06/23/24 12/11/24 History Pen] Suvorexant [Belsomra] 20 mg PO HS 06/23/24 12/11/24 History Vortioxetine Hydrobromide 20 mg PO DAILY 06/23/24 12/11/24 History [Trintellix] Nystatin 100,000 Unit/gm Powd 1 applic TOPICAL BID PRN 08/27/24 12/11/24 History [Mycostatin Powder] busPIRone HCL 15 mg PO BID 08/27/24 12/11/24 History OXcarbazepine 150 mg PO HS 11/19/24 12/11/24 History Acetaminophen Tab [Tylenol Tab] 1,000 mg PO Q6HR PRN #30 tablet 12/02/24 12/11/24 Rx Simethicone [Gas-X] 125 mg PO AC-TID PRN #20 capsule 12/02/24 12/11/24 Rx oxyCODONE HCL/ACETAMINOPHEN 1 tab PO Q4HR PRN 3 Days #18 tab 12/02/24 12/11/24 Rx [Percocet 7.5-325 mg] Metoprolol Succinate [Metoprolol 25 mg PO DAILY 12/11/24 12/11/24 History Succinate ER] Ondansetron Odt [Zofran Odt] 4 mg PO TID PRN 12/11/24 12/11/24 History Allergies Allergy/AdvReac Type Severity Reaction Status Date / Time adhesive Allergy Intermediate Rash/Hives Verified 12/11/24 09:06 latex Allergy Intermediate Rash/Hives Verified 12/11/24 09:06 Surgical - Exam Vital Signs Temp Pulse Resp BP Pulse Ox 100.8 F H 89 17 112/72 98 12/10/24 18:50 12/10/24 18:50 12/10/24 18:50 12/10/24 18:50 12/10/24 18:50 CONSTITUTIONAL: Awake and alert, appears comfortable, cooperative, well- developed, well-nourished, no pain, no acute distress EYES: Pupils equal, round, reactive to light, normal ocular movement ENT: Moist mucous membranes without oral lesions present NECK: No masses, no bruits, trachea midline RESPIRATORY: Lungs sounds clear to auscultation bilaterally. Respirations even, nonlabored. Currently on room air with oxygen saturation 100%. Strong cough. No chest wall deformities. No clubbing or cyanosis present CARDIOVASCULAR: S1, soft S2 present, systolic murmur present. Regular rate and rhythm, sinus rhythm on telemetry. Palpable peripheral pulses bilaterally. Trace lower extremity edema present. No calf pain or tenderness noted. No significant lower extremity varicosities noted GASTROINTESTINAL: Abdomen soft, nontender, nondistended without masses or organomegaly noted. There is no rebound or guarding present. Active bowel sounds present 4 quadrants. GENITOURINARY: Deferred INTEGUMENTARY: Skin is warm and dry NEUROLOGIC: Cranial nerves II through XII intact, normal coordination, no obvious motor or sensory deficits, speech is normal MUSKULOSKELETAL: Able to move all extremities, strength equal bilaterally, normal posture PSYCHIATRIC: Alert and oriented to person place and time, appropriate affect, intact judgment and insight CLINICAL FRAILTY SCORE 3 Results - Labs 12/11/24 03:54 12/14/24 06:11 Abnormal Lab Results - Last 24 Hours (Table) 12/13/24 12/14/24 12/14/24 Range/Units 16:26 06:07 06:11 Creatinine 1.65 H (0.52-1.04) mg/dL Glucose 144 H (74-99) mg/dL POC Glucose (mg/dL) 118 H 163 H (70-110) mg/dL 12/14/24 Range/Units 09:47 Creatinine (0.52-1.04) mg/dL Glucose (74-99) mg/dL POC Glucose (mg/dL) 121 H (70-110) mg/dL Diabetes panel 12/14/24 Range/Units 06:11 Sodium 137 (137-145) mmol/L Potassium 4.3 (3.5-5.1) mmol/L Chloride 104 (98-107) mmol/L Carbon Dioxide 27 (22-30) mmol/L BUN 16 (7-17) mg/dL Creatinine 1.65 H (0.52-1.04) mg/dL Glucose 144 H (74-99) mg/dL Calcium 9.7 (8.4-10.2) mg/dL Calcium panel 12/14/24 Range/Units 06:11 Calcium 9.7 (8.4-10.2) mg/dL Pituitary panel 12/14/24 Range/Units 06:11 Sodium 137 (137-145) mmol/L Potassium 4.3 (3.5-5.1) mmol/L Chloride 104 (98-107) mmol/L Carbon Dioxide 27 (22-30) mmol/L BUN 16 (7-17) mg/dL Creatinine 1.65 H (0.52-1.04) mg/dL Glucose 144 H (74-99) mg/dL Calcium 9.7 (8.4-10.2) mg/dL Adrenal panel 12/14/24 Range/Units 06:11 Sodium 137 (137-145) mmol/L Potassium 4.3 (3.5-5.1) mmol/L Chloride 104 (98-107) mmol/L Carbon Dioxide 27 (22-30) mmol/L BUN 16 (7-17) mg/dL Creatinine 1.65 H (0.52-1.04) mg/dL Glucose 144 H (74-99) mg/dL Calcium 9.7 (8.4-10.2) mg/dL - Imaging Chest x-ray: report reviewed, image reviewed CT scan - chest: report reviewed, image reviewed EKG: image reviewed Additional studies: Heart catheterization, echocardiogram films reviewed Assessment and Plan Assessment: Acute on chronic heart failure Non-STEMI this admission Increased shortness of breath secondary to above Hhistory of aortic valve stenosis with bioprosthetic aortic valve replacement in [address] in [place] Hypertension Hyperlipidemia Heart failure with preserved ejection fraction Type 1 diabetes Stage III chronic kidney disease Obstructive sleep apnea without home CPAP use Previous tobacco dependence Cholecystitis with recent cholecystectomy Family history of coronary artery disease and cancer Plan: The patient was seen and examined laying in bed on the cardiac stepdown unit in no acute distress. States her breathing is better. Heart catheterization, echocardiogram films reviewed. Will discuss the case in detail with Dr. Mishra. The usual perioperative course of redo aortic valve replacement +/- mitral valve repair/replacement was discussed with the patient, risks and benefits reviewed, all questions were answered. At this time the patient would prefer to have surgery in the [place] area as she states she has no family up this way, all of her family is down in [place] and will be available to assist her after surgery. Discussed with Dr. Montiel. Will leave our contact information on her discharge plan in case she changes her mind. Will hold off on preoperative testing at this time, if patient prefers to have surgery in [place] preoperative testing should be done at their facility. Recommend goal-directed care for heart failure. Increase activity as tolerated once patient able to be ambulatory. Medical management of other comorbidities per internal medicine, cardiology. Thank you for this consult, please call us with any further questions. I have personally seen and examined the patient, performed the documentation and the assessment and plan as written. Number of minutes spent on the visit: 30. ELIO OrrC
[2024-12-14 16:05] LABS: % Iron Saturation 17.59 (12.00-45.00)
[2024-12-14 16:26] LABS: Glucose,Whole Blood 86 mg/dL (70-110)
--- NOTE | 2024-12-14 16:54 | P.PN ---
Subjective Progress Note Date: 12/14/24 54 year old F with PMH of aortic stenosis status post SAVR in 2013, DM on insulin pump, HLD, HTN, CKD stage IIIb, sleep apnea, anxiety and depression presents to the ED for dyspnea. Recent admission from 11/26-12/02 where she underwent robotic assisted laparoscopic lysis of adhesions and cholecystectomy complicated by RITESH seen by Nephrology. Also underwent Echo at that time showing a preserved EF of 60 to 65% with severe aortic stenosis with a mean gradient of 66 mmHg and moderate to severe mitral stenosis with mild to moderate mitral regurgitation with Cardiology recommending outpatient follow up. In the ED she underwent extensive evaluation. BP 112/72, T 100.8F, RR 17, HR 89, 98% on RA. CBC, Coag panel, CMP significant for RBC 3.33, Hg 9.7, Hct 30.1, bicarb 32, Cr 1.25, alb 3.1. Lactic acid 1.3. Trop 0.067, 0.070. D-Dimer 3.72. COVID, RSV, Flu neg. CXR small right pleural effusion. CTA chest neg PE but with dilation of the ascending thoracic aorta, CAD and fatty liver. She is admitted for troponin elevation and Cardiology evaluation. Started on Lasix 40 mg IV BID and Farxiga by Cardiology. Plans for UMANG and R/L cath on 12/13 due to symptomatic severe and mod-severe MS. 12/13 Patient was seen and examined. Lasix stopped 12/12 due to worsening renal function. Initally, plans for UMANG and R/L cath today with Dr. Márquez. Cardiology recommends hydration with NS at 50 cc/hr for 1 day prior to cath and UMANG. BMP shows bicarb 35, Cr 1.61. 12/14 Patient was seen and examined. BMP this morning shows Cr 1.65, glu 144. Iron studies Fe 38, Ferritin 609. UMANG shows severe with mean gradient of 55 mmHg and peak gradient of 75 mmHg, moderate MR and mild MS, mod TR. Cardiac cath shows normal coronaries. CT surgery consulted for further guidance. General: toxic, no distress, appears older than stated age Derm: warm, dry Head: atraumatic, normocephalic, symmetric Mouth: no lip lesion, mucus membranes moist Cardiovascular: S1S2 reg, systolic murmur Lungs: Clear to auscultation bilaterally, no rales , no accessory muscle use Ext: no gross muscle atrophy, no edema, no contractures Neuro: No focal neurologic deficits. Psych: Alert and oriented. Based on my assessment of this patient, this patient meets a high complexity level of care. Dyspnea secondary to HFpEF exacerbation, symptomatic severe and mod-severe MS: Strict intake and outtake. Daily weights. UMANG as above. Cardiology and CT surgery on board. Troponin elevation: Likely type II NSTEMI. Lipitor 40 mg PO QHS. Metoprolol 25 mg PO QD. Telemetry monitoring. Cardiac cath as above. Cardiology on board. Contraction alkalosis due to forced diuresis: Lasix discontinued 12/12. DM on insulin pump: Continue insulin pump. Farxiga 10 mg PO QD. Accuchecks ACHS. Hypoglycemic precautions. HLD: Lipitor as above. HTN: Metoprolol as above. CKD stage IIIb: At baseline. Calcitriol 0.5 mcg PO Q2D. Sleep apnea: CPAP QHS. Seizure disorder: Trilepta 150 mg PO QHS. Anxiety and depression: Xanax 0.25-0.5mg PO Q6H PRN. Buspar 14 mg PO BID. Trintellix 20 mg PO QD. Repeat BMP in the AM. CODE STATUS: FULL CODE. DVT Prophylaxis: GI Prophylaxis: Protonix PO. Designated medical POA if patient is not able to make medical decisions for themselves: I have reviewed the following [facility] consultant notes: Cardiology, UMANG, Cath note. I have reviewed the results of the following tests: BMP. I have ordered the following tests: BMP in the AM. I have discussed the care of this patient with the following independent historian: JUAN. I have independently interpreted the following test below: I have discussed the management of this patient with the following physician: Objective - Vital Signs Vital signs: Vital Signs Temp 98.2 F 12/14/24 16:00 Pulse 74 12/14/24 16:00 Resp 17 12/14/24 16:00 BP 103/67 12/14/24 16:00 Pulse Ox 97 12/14/24 16:00 FiO2 Intake & Output 12/13/24 12/14/24 12/14/24 18:59 06:59 18:59 Intake Total 1440 180 958 Output Total 2150 1400 450 Balance -710 -1220 508 Weight 78.6 kg Intake: IV 300 Oral 1440 180 658 Output: Urine 2150 1400 450 Other: Voiding Method Toilet Toilet Toilet - Labs CBC & Chem 7: 12/11/24 03:54 12/14/24 06:11 Labs: Abnormal Lab Results - Last 24 Hours (Table) 12/14/24 12/14/24 12/14/24 Range/Units 06:07 06:11 06:11 Creatinine 1.65 H (0.52-1.04) mg/dL Glucose 144 H (74-99) mg/dL POC Glucose (mg/dL) 163 H (70-110) mg/dL Iron 38 L (50-170) UG/DL TIBC 216 L (228-460) UG/DL Transferrin 154.0 L (204.0-354.0) mg/dL Ferritin 609.0 H (10.0-291.0) ng/mL 12/14/24 12/14/24 Range/Units 06:11 09:47 Creatinine (0.52-1.04) mg/dL Glucose (74-99) mg/dL POC Glucose (mg/dL) 121 H (70-110) mg/dL Iron (50-170) UG/DL TIBC (228-460) UG/DL Transferrin 154.0 L (204.0-354.0) mg/dL Ferritin (10.0-291.0) ng/mL
[2024-12-14 19:54] LABS: Glucose,Whole Blood 138 mg/dL (70-110)
[2024-12-14] MEDS: ACETAMINOPHEN TAB 325 MG TAB PO PRN (20:15)
[2024-12-15 02:12] LABS: Glucose,Whole Blood 95 mg/dL (70-110)
[2024-12-15 06:22] LABS: Glucose,Whole Blood 124 mg/dL (70-110)
[2024-12-15 06:51] LABS: Basophils # (A) 0.06 10*3/uL (0.00-0.10); Basophils % (A) 0.8 %; Eosinophils # (A) 0.34 10*3/uL (0.04-0.35); Eosinophils % (A) 4.3 %; HCT 31.3 % (37.2-46.3); HGB 9.8 g/dL (12.0-15.0); Lymphocytes # (A) 1.25 10*3/uL (0.90-5.00); Lymphocytes % (A) 15.6 %; MCH 28.5 pg (27.0-32.0); MCHC 31.3 g/dL (32.0-37.0); Mean Platelet Volume 10.2 fL (9.5-12.2); Monocytes # (A) 0.91 10*3/uL (0.20-1.00); Monocytes % (A) 11.4 %; Neutrophils % (A) 67.5 %; Platelet Count 364 10*3/uL (140-440); RBC 3.44 10*6/uL (4.10-5.20); RDW 13.2 % (11.5-14.5); WBC 7.99 10*3/uL (4.50-10.00)
[2024-12-15 07:19] LABS: African American GFR (CKD) 41 (>60 ml/min/1.73 sqM); Anion Gap 4 mmol/L; Blood Urea Nitrogen 15 mg/dL (7-17); Calcium 9.7 mg/dL (8.4-10.2); Carbon Dioxide 28 mmol/L (22-30); Chloride 103 mmol/L (98-107); Glucose 91 mg/dL (74-99); Non-African American GFR(CKD) 35 (>60 ml/min/1.73 sqM); Potassium 4.3 mmol/L (3.5-5.1); Sodium 135 mmol/L (137-145)
[2024-12-15 08:15] VITALS: RESP 17; TEMP 98.3
[2024-12-15 11:16] VITALS: BP 119/76; PULSE 78
[2024-12-15 11:39] LABS: Glucose,Whole Blood 92 mg/dL (70-110)
--- NOTE | 2024-12-15 13:19 | P.PN ---
Subjective HISTORY OF PRESENT ILLNESS: This is a 54-year-old female with a past medical history significant for hypertension, hyperlipidemia, diabetes, normal coronary arteries, and aortic valve replacement in January [address] [facility] with a cow valve. Patient is scheduled to establish with a foam gun operator next Friday, Dr. Bella. We have been asked to see the patient in consultation for aortic stenosis. Patient examined at the bedside in the emergency room. Patient was recently hospitalized at the end of October 2024 for abdominal pain. She was found to have acute cholecystitis and underwent robotic assisted laparoscopic lysis of adhesions and cholecystectomy. Patient returned to the emergency room with a chief complaint of shortness of breath. She states that she has been feeling short of breath over the past few days. She denies any chest pain or pressure. Patient was found to be in acute congestive heart failure. Patient was given a one-time dose of IV Lasix in the emergency room. DIAGNOSTICS: - EKG reveals sinus mechanism with nonspecific ST-T wave changes. No signs of acute ischemia. - Chest xray small right pleural effusion -Chest CTA negative for pulmonary embolism - Laboratory data: WBC 6.96. Hemoglobin 9.2. Platelet count 325. Sodium 138. Potassium 4.4. BUN 14. Creatinine 1.28. Troponin 0.067. 0.073. 0.070. proBNP 8110. - Current home cardiac medications include Lipitor 40 mg at night, Lasix 40 mg daily, metoprolol succinate 25 mg daily. - Most recent echocardiogram obtained in October 2024 revealed ejection fraction 60 to 65%, moderate pulmonary hypertension, moderate to severe mitral stenosis with mean gradient of 11 mmHg, mild to moderate mitral regurgitation, bioprosthetic aortic valve with peak gradient 109 mmHg and mean gradient 66 mmHg, mild tricuspid regurgitation - Cardiac catheterization history: January 2014 revealing normal coronary arteries 12/12/2024 Patient examined this morning the bedside. Patient reports significant improvement in her shortness of breath. She also reports improvement in her lower extremity edema. She remains on IV Lasix 40 mg every 12 hours. Creatinine today increased to 1.66. 12/13/2024 Patient examined this morning at bedside. Patient currently denies chest pain or pressure. She denies shortness of breath. Lasix was discontinued yesterday secondary to worsening kidney function. Creatinine today 1.61. Vital signs are stable. 12/14/2024 Patient underwent UMANG today revealing severe stenosis of bioprosthetic aortic valve with a mean gradient of 55 mmHg and peak gradient of 75 mmHg and peak systolic velocity exceeding 4 m per, Extremely thickened and calcified mitral valve leaflets with evidence of moderate mitral regurgitation and mild mitral stenosis, moderate tricuspid regurgitation, moderate biatrial enlargement, normal LV systolic function, and no pericardial effusion. Patient also underwent left heart catheterization revealing normal coronary arteries. Patient examined this morning at the bedside. Patient currently denies chest pain or pressure. She denies shortness of breath. Vital signs are stable. Creatinine 1.6 today. 12/15/2024 Patient examined this morning at the bedside. Patient currently denies chest pain or pressure. She denies shortness of breath. Patient remains on gentle IV fluid hydration. Creatinine today 1.64. PHYSICAL EXAM: VITAL SIGNS: Reviewed. GENERAL: Well-developed in no acute distress. HEENT: Head is normocephalic. Pupils are equal, round. Sclerae anicteric. Mucous membranes of the mouth are moist. Neck supple. No JVD or thyromegaly LUNGS: Respirations even and unlabored. Lungs diminished bilaterally. HEART: Regular rate and rhythm. S1 and S2 heard. Systolic ejection murmur no teddy at the base and holosystolic murmur noted at the apex ABDOMEN: Soft. Nondistended. Nontender. EXTREMITIES: Normal range of motion. No clubbing or cyanosis. Peripheral pulses intact. 1+ bilateral lower extremity edema noted. NEUROLOGIC: Awake and alert. Oriented x 3. ASSESSMENT: Shortness of breath Acute on chronic heart failure with preserved EF Acute on chronic kidney disease Elevated troponins, type II NV, secondary to oxygen supply and demand mismatch Severe aortic stenosis History of bioprosthetic aortic valve replacement, January 2014, at [facility] Moderate mitral regurgitation and mild mitral stenosis Moderate tricuspid regurgitation Status post cholecystectomy, October 2024 Moderate pulmonary hypertension Hypertension Hyperlipidemia Diabetes Normal coronary arteries, per cath 2024 Obesity: BMI 35.4 PLAN: Continue current cardiac medications including Lipitor and metoprolol IV Lasix discontinued 12/12/2024 due to worsening creatinine. May resume upon discharge. Patient was evaluated by CT surgery and has decided to have surgery performed down in the [place] area. Patient is stable for discharge home today from a cardiac standpoint. Patient has an appointment tomorrow with a cardiothoracic surgeon in [place] Nurse practitioner note has been reviewed by physician. Signing provider agrees with the documented findings, assessment, and plan of care documented by YOUTUBER as a scribe. Objective - Vital Signs Vital signs: Vital Signs Temp 98.3 F 12/15/24 07:38 Pulse 84 12/15/24 07:38 Resp 17 12/15/24 07:38 BP 106/70 12/15/24 07:38 Pulse Ox 96 12/15/24 07:38 FiO2 Intake & Output 12/14/24 12/15/24 12/15/24 18:59 06:59 18:59 Intake Total 1076 Output Total 450 Balance 626 Weight 80.4 kg Intake: IV 300 Oral 776 Output: Urine 450 Other: Voiding Method Toilet Toilet Toilet # Voids 2 - Labs CBC & Chem 7: 12/15/24 05:45 12/15/24 05:45 Labs: Abnormal Lab Results - Last 24 Hours (Table) 12/14/24 12/14/24 12/14/24 Range/Units 06:11 06:11 09:47 RBC (4.10-5.20) 10*6/uL Hgb (12.0-15.0) g/dL Hct (37.2-46.3) % MCHC (32.0-37.0) g/dL Sodium (137-145) mmol/L Creatinine (0.52-1.04) mg/dL POC Glucose (mg/dL) 121 H (70-110) mg/dL Iron 38 L (50-170) UG/DL TIBC 216 L (228-460) UG/DL Transferrin 154.0 L 154.0 L (204.0-354.0) mg/dL Ferritin 609.0 H (10.0-291.0) ng/mL 12/14/24 12/15/24 12/15/24 Range/Units 19:53 05:45 05:45 RBC 3.44 L (4.10-5.20) 10*6/uL Hgb 9.8 L (12.0-15.0) g/dL Hct 31.3 L (37.2-46.3) % MCHC 31.3 L (32.0-37.0) g/dL Sodium 135 L (137-145) mmol/L Creatinine 1.64 H (0.52-1.04) mg/dL POC Glucose (mg/dL) 138 H (70-110) mg/dL Iron (50-170) UG/DL TIBC (228-460) UG/DL Transferrin (204.0-354.0) mg/dL Ferritin (10.0-291.0) ng/mL 12/15/24 Range/Units 06:21 RBC (4.10-5.20) 10*6/uL Hgb (12.0-15.0) g/dL Hct (37.2-46.3) % MCHC (32.0-37.0) g/dL Sodium (137-145) mmol/L Creatinine (0.52-1.04) mg/dL POC Glucose (mg/dL) 124 H (70-110) mg/dL Iron (50-170) UG/DL TIBC (228-460) UG/DL Transferrin (204.0-354.0) mg/dL Ferritin (10.0-291.0) ng/mL
--- NOTE | 2024-12-15 13:29 | P.DS ---
Providers Date of admission: 12/11/24 02:34 Expected date of discharge: 12/15/24 Attending physician: Pedro Jones MD Consults: 12/11/24 02:31 Consult Physician Routine Consulting Provider: Jose Márquez Consult Reason/Comments: aortic stenosis Do you want consulting provider notified?: Yes, Notify in am 12/14/24 11:04 Consult Physician Routine Consulting Provider: Fortino Mishra Consult Reason/Comments: valvular disease, eval for replacement Do you want consulting provider notified?: Yes Primary care physician: Jack [facility] Course: 54 year old F with PMH of aortic stenosis status post SAVR in 2013, DM on insulin pump, HLD, HTN, CKD stage IIIb, sleep apnea, anxiety and depression presents to the ED for dyspnea. Recent admission from 11/26-12/02 where she underwent robotic assisted laparoscopic lysis of adhesions and cholecystectomy complicated by RITESH seen by Nephrology. Also underwent Echo at that time showing a preserved EF of 60 to 65% with severe aortic stenosis with a mean gradient of 66 mmHg and moderate to severe mitral stenosis with mild to moderate mitral regurgitation with Cardiology recommending outpatient follow up. In the ED she underwent extensive evaluation. BP 112/72, T 100.8F, RR 17, HR 89, 98% on RA. CBC, Coag panel, CMP significant for RBC 3.33, Hg 9.7, Hct 30.1, bicarb 32, Cr 1.25, alb 3.1. Lactic acid 1.3. Trop 0.067, 0.070. D-Dimer 3.72. COVID, RSV, Flu neg. CXR small right pleural effusion. CTA chest neg PE but with dilation of the ascending thoracic aorta, CAD and fatty liver. She is admitted for troponin elevation and Cardiology evaluation. Started on Lasix 40 mg IV BID and Farxiga by Cardiology. Plans for UMANG and R/L cath on 12/13 due to symptomatic severe and mod-severe MS. 12/13 Patient was seen and examined. Lasix stopped 12/12 due to worsening renal function. Initally, plans for UMANG and R/L cath today with Dr. Márquez. Cardiology recommends hydration with NS at 50 cc/hr for 1 day prior to cath and UMANG. BMP shows bicarb 35, Cr 1.61. 12/14 Patient was seen and examined. BMP this morning shows Cr 1.65, glu 144. Iron studies Fe 38, Ferritin 609. UMANG shows severe with mean gradient of 55 mmHg and peak gradient of 75 mmHg, moderate MR and mild MS, mod TR. Cardiac cath shows normal coronaries. CT surgery consulted for further guidance. 12/15 Patient was seen and examined. Doing well. CT surgery evaluated, patient prefers to follow up with her CT surgeon in [place]. She has an appointment for tomorrow. Discussed with Diana ARIZMENDI, cleared for discharge. CBC and BMP significant for RBC 3.44, Hg 9.8, Hct 31.3, Na 135, Cr 1.64. Discharge Plans: Stop Farxiga due to GFR and resume Lasix as discussed with Diana ARIZMENDI. Follow up with CT surgery tomorrow. Follow up with PCP within 1-2 days. Restart home medications. General: toxic, no distress, appears older than stated age Derm: warm, dry Head: atraumatic, normocephalic, symmetric Mouth: no lip lesion, mucus membranes moist Cardiovascular: S1S2 reg, systolic murmur Lungs: Clear to auscultation bilaterally, no rales , no accessory muscle use Ext: no gross muscle atrophy, no edema, no contractures Neuro: No focal neurologic deficits. Psych: Alert and oriented. Discharge Diagnosis: Dyspnea secondary to HFpEF exacerbation, symptomatic severe and mod-severe MS Troponin elevation Contraction alkalosis due to forced diuresis DM on insulin pump HLD HTN CKD stage IIIb Sleep apnea Seizure disorder Anxiety and depression This complex discharge took 35 minutes to complete and coordinate. Patient Condition at Discharge: Stable Plan - Discharge Summary New Discharge Prescriptions: Continue Omeprazole 40 mg PO DAILY Atorvastatin [Lipitor] 40 mg PO HS Furosemide [Lasix] 40 mg PO DAILY Suvorexant [Belsomra] 20 mg PO HS busPIRone HCL 15 mg PO BID Insulin Aspart (For Pump) [NovoLOG (For Pump)] 0.01 unit SQ-PUMP CONTINUOUS calcitrioL 0.5 mcg PO Q2D Vortioxetine Hydrobromide [Trintellix] 20 mg PO DAILY Secukinumab [Cosentyx Sensoready Pen] 300 mg SQ Q30D Nystatin 100,000 Unit/gm Powd [Mycostatin Powder] 1 applic TOPICAL BID PRN PRN Reason: Rash OXcarbazepine 150 mg PO HS Simethicone [Gas-X] 125 mg PO AC-TID PRN #20 capsule PRN Reason: Pain Acetaminophen Tab [Tylenol] 1,000 mg PO Q6HR PRN #30 tablet PRN Reason: Pain oxyCODONE HCL/ACETAMINOPHEN [Percocet 7.5-325 mg] 1 tab PO Q4HR PRN 3 Days #18 tab PRN Reason: Breakthrough Pain Ondansetron Odt [Zofran ODT] 4 mg PO TID PRN PRN Reason: Nausea Metoprolol Succinate [Metoprolol Succinate ER] 25 mg PO DAILY Discharge Medication List Insulin Aspart (For Pump) [NovoLOG (For Pump)] 0.01 unit SQ-PUMP CONTINUOUS 01/09/21 [History] Atorvastatin [Lipitor] 40 mg PO HS 02/17/21 [History] Furosemide [Lasix] 40 mg PO DAILY 02/17/21 [History] Omeprazole 40 mg PO DAILY 02/17/21 [History] calcitrioL 0.5 mcg PO Q2D 02/17/21 [History] Secukinumab [Cosentyx Sensoready Pen] 300 mg SQ Q30D 06/23/24 [History] Suvorexant [Belsomra] 20 mg PO HS 06/23/24 [History] Vortioxetine Hydrobromide [Trintellix] 20 mg PO DAILY 06/23/24 [History] Nystatin 100,000 Unit/gm Powd [Mycostatin Powder] 1 applic TOPICAL BID PRN 08/27/24 [History] busPIRone HCL 15 mg PO BID 08/27/24 [History] OXcarbazepine 150 mg PO HS 11/19/24 [History] Acetaminophen Tab [Tylenol] 1,000 mg PO Q6HR PRN #30 tablet 12/02/24 [Rx] Simethicone [Gas-X] 125 mg PO AC-TID PRN #20 capsule 12/02/24 [Rx] oxyCODONE HCL/ACETAMINOPHEN [Percocet 7.5-325 mg] 1 tab PO Q4HR PRN 3 Days #18 tab 12/02/24 [Rx] Metoprolol Succinate [Metoprolol Succinate ER] 25 mg PO DAILY 12/11/24 [History] Ondansetron Odt [Zofran ODT] 4 mg PO TID PRN 04/12/25 [History] Follow up Appointment(s)/Referral(s): Fortino Mishra MD [STAFF PHYSICIAN] - As Needed (Please contact our office if you are interested in staying in [place] for redo aortic valve replacement +/- mitral valve repair/replacement with one of our cardiothoracic surgeons ) Jack Plata, [Primary Care Provider] - 1-2 days Activity/Diet/Wound Care/Special Instructions: Follow up with your cardiothoracic surgeon tomorrow. Discharge Disposition: HOME SELF-CARE
== END 2024-12-15 13:54 | disposition home or self-care (01) | DRG 280 ==
LOC: EC 18:26 → 3SCARD 12-11 02:33 → OBSVTOIN 12-11 02:34 → 3SCARD 12-11 13:00
PROVIDERS: ADMIT Internal Medicine; ATTEND Internal Medicine
PROC: 4A023N7 Measurement of Cardiac Sampling and Pressure, Left Heart, Percutaneous Approach (ICD-10-PCS; 2024-12-14)
PROC: B2111ZZ Fluoroscopy of Multiple Coronary Arteries using Low Osmolar Contrast (ICD-10-PCS; 2024-12-14)
PROC: B24BZZ4 Ultrasonography of Heart with Aorta, Transesophageal (ICD-10-PCS; principal; 2024-12-14 07:30)
DX: I13.0 Hypertensive heart and chronic kidney disease with heart failure and stage 1 through stage 4 chronic kidney disease, or unspecified chronic kidney disease (principal); I50.33 Acute on chronic diastolic (congestive) heart failure; I21.A1 Myocardial infarction type 2; E87.3 Alkalosis; E10.22 Type 1 diabetes mellitus with diabetic chronic kidney disease; N18.32 Chronic kidney disease, stage 3b; G40.909 Epilepsy, unspecified, not intractable, without status epilepticus; I27.20 Pulmonary hypertension, unspecified; F32.A Depression, unspecified; K76.0 Fatty (change of) liver, not elsewhere classified; E66.9 Obesity, unspecified; T82.857A Stenosis of other cardiac prosthetic devices, implants and grafts, initial encounter; Z96.41 Presence of insulin pump (external) (internal); E78.5 Hyperlipidemia, unspecified; F41.9 Anxiety disorder, unspecified; G47.33 Obstructive sleep apnea (adult) (pediatric); I08.0 Rheumatic disorders of both mitral and aortic valves; I08.1 Rheumatic disorders of both mitral and tricuspid valves; I25.10 Atherosclerotic heart disease of native coronary artery without angina pectoris; Z90.49 Acquired absence of other specified parts of digestive tract; Z95.3 Presence of xenogenic heart valve; Z79.4 Long term (current) use of insulin; Z91.048 Other nonmedicinal substance allergy status; Z79.899 Other long term (current) drug therapy; Z91.040 Latex allergy status; Z68.35 Body mass index [BMI] 35.0-35.9, adult; Z87.891 Personal history of nicotine dependence; Z98.84 Bariatric surgery status; I25.2 Old myocardial infarction
CPT/HCPCS: 36415; 71046; 71275; 80048; 80053; 82728; 83540; 83550; 83605; 83880; 84466; 84484; 85025; 85379; 85610; 85730; 87636; 93005; 93312; 93320; 93325; 93454; 96361; 96365; 96366; 96374; 96375; 96376; 99285; 99291